=== PATIENT | female | born 1930 | race Caucasian/White ===

== ENCOUNTER 2017-06-10 04:58 | Inpatient (IN) | payer MEDICARE, BC ==
[~2017-06-10] VITALS: Ht 149.9 cm; Wt 69.4 kg
[2017-06-10] VITALS (24 sets, daily range): BP systolic 102–157; BP diastolic 62–99; PULSE 80–113; RESP 13–28; TEMP 97.9; Ht 149.9 cm; Wt 69.4 kg
--- NOTE | 2017-06-10 06:18 | ERA ---
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 resolved HPI This is an 86-year-old female with possible dementia, who is a poor historian who [facility] complaining of [facility]. Upon arrival she had tachycardia and hypoxia corrected with supplemental oxygen. She was also hypertensive in the field. The patient has a wound VAC to the right side of her chest. She is unsure why she has this or what it is for. Based on the shelter records it appears she had a clavicle fracture. It is unclear when she had this surgery or where she had the surgery. The patient cannot articulate this information. The patient did describe central chest pain that is now completely resolved. ROS All systems reviewed and are negative except as per history of present illness. Allergies Allergies: Coded Allergies: No Known Allergy (Unverified , 06/10/17) FmHx Family History: No diabetes Physical Exam Vitals Vital Signs Date Time Temp Pulse Resp B/P Pulse Ox O2 Delivery O2 Flow Rate FiO2 06/10/17 09:20 101 25 35 06/10/17 08:46 98.1 111 18 129/74 99 Room Air 06/10/17 06:47 98.0 77 22 108/89 99 Room Air 06/10/17 05:14 98.0 117 23 154/100 73 Physical Exam General: No significant distress Head: Normocephalic, atraumatic. Eyes: Pupils equally reactive, EOM intact ENT: Dry mucous membranes Neck: Supple, no lymphadenopathy Respiratory: Lungs clear bilaterally, no distress Cardiovascular: RRR, SANTHOSH 3/6 Abdominal: Soft, non-tender, non-distended, no peritoneal signs : Deferred MSK: Limited movement of all 4 extremities, no bony abnormalities Neurologic: Limited exam, and encephalopathic, limited movement of all 4 extremities Skin: The patient appears to have a wound VAC to the right side of her chest that is intact and functioning Psych: Unable to assess Result Diagram: 06/10/1751906/10/17519 Results 24 hrs Laboratory Tests Test 06/10/17 05:20 06/10/17 05:51 06/10/17 07:30 06/10/17 07:50 White Blood Count 15.910^3/ul Red Blood Count 3.1010^6/ul Hemoglobin 9.5g/dl Hematocrit 29.9% Mean Corpuscular Volume 96.5fl Mean Corpuscular Hemoglobin 30.6pg Mean Corpuscular Hemoglobin Concent 31.8g/dl Red Cell Distribution Width 14.6% Platelet Count 01495^3/UL Mean Platelet Volume 10.6fl Neutrophils % 80.2% Lymphocytes % 8.1% Monocytes % 7.2% Eosinophils % 2.9% Basophils % 0.8% Nucleated Red Blood Cells % 0.0/100WBC Neutrophils # (Manual) 12.810^3/ul Lymphocytes # 1.310^3/ul Monocytes # 1.110^3/ul Eosinophils # 0.510^3/ul Basophils # 0.110^3/ul Nucleated Red Blood Cells # 0.010^3/ul Prothrombin Time 13.6Sec Prothrombin Time Ratio 1.1 INR International Normalized Ratio 1.04 Activated Partial Thromboplast Time 33.6Sec Sodium Level 136mmol/L Potassium Level 4.2mmol/L Chloride Level 98mmol/L Carbon Dioxide Level 31mmol/L Anion Gap 11 Blood Urea Nitrogen 21mg/dl Creatinine 1.16mg/dl Glucose Level 144mg/dl Calcium Level 8.1mg/dl Troponin I 0.013ng/ml Lactic Acid Level 1.1mmol/L 0.7mmol/L Urine Color MAYNOR Urine Clarity TURBID Urine pH 5.0 Urine Specific [place] 1.017 Urine Ketones NEGATIVEmg/dL Urine Nitrite NEGATIVEmg/dL Urine Bilirubin NEGATIVEmg/dL Urine Urobilinogen NEGATIVEmg/dL Urine Leukocyte Esterase 3+Wilman/ul Urine Microscopic RBC 16/HPF Urine Microscopic WBC > 182/HPF Urine Squamous Epithelial Cells FEW/HPF Urine Bacteria FEW/HPF Urine Hemoglobin 1+mg/dL Urine Glucose NEGATIVEmg/dL Urine Total Protein 2+mg/dl Current Medications Medications (Trade) Dose Ordered Sig/Prabhu Route PRN Reason Start Time Stop Time Status Last Admin Dose Admin Sodium Chloride 2390 ml 2,390 ml BOLUS OVER 2 HOURS STAT IV* 06/10/17 07:11 06/10/17 07:13 DC 06/10/17 07:34 Cefepime HCl 50 ml @ 100 mls/hr ONCE STAT IVPB 06/10/17 07:11 06/10/17 07:40 DC 06/10/17 07:34 Vancomycin HCl 250 ml @ 125 mls/hr ONCE ONCE IVPB 06/10/17 07:30 06/10/17 09:29 DC 06/10/17 07:30 Iohexol 100 ml @ ud STK-MED ONCE .ROUTE 06/10/17 07:21 06/10/17 07:22 DC 06/10/17 07:21 Sodium Chloride (NS) 100 ml @ ud STK-MED ONCE .ROUTE 06/10/17 07:21 06/10/17 07:22 DC 06/10/17 07:21 Furosemide (Lasix) 40 mg ONCE ONCE IV 06/10/17 09:00 06/10/17 09:01 DC 06/10/17 08:44 Nitroglycerin (Nitroglycerin 2% Oint) 1 inch ONCE ONCE TD 06/10/17 09:00 06/10/17 09:01 DC 06/10/17 08:45 Procedures/MDM EKG, MONITORS, & DIAGNOSTIC IMAGING: EKG: I reviewed and interpreted a 12-lead EKG. Rhythm: Normal sinus rhythm Ectopy: None Intervals: No abnormalities ST segments: No elevations or depressions T waves: No contiguous inversions Chest x-ray: I reviewed and interpreted a 1 view of the chest Mediastinum: No enlargement Cardiac silhouette: cardiomegaly Airspace: Diffuse interstitial process consistent with pulmonary edema Bones: No evidence of fracture CTPA IMPRESSION: 1. No evidence of pulmonary embolism. 2. Moderate large bilateral pleural effusions with adjacent atelectasis, greater on the left. Bilateral interstitial and nodular alveolar infiltrates. Follow-up recommended. 3. Postoperative changes related to recent resection of the right clavicular head with a large skin defect, soft tissue mass or phlegmon, bone fragments or calcifications at the sternoclavicular junction. Thickening of the right pectoralis muscles with probable fluid collection. Evaluation is limited without contrast. Clinical correlation and comparison with prior exam recommended. RPTAT: HCNS LAB INTERPRETATION: leukocytosis and normal LA. MEDICAL DECISION MAKING: The patient presents to the emergency room with chest pain tachycardia hypoxia. The patient also has a wound VAC to the right side of the chest. Unclear when or where this was placed. The patient appears to have had a clavicle surgery based on her shelter documentation however this is the extent of the information provided. The patient cannot provide adequate history. She possibly has underlying depression and/or dementia. The differential remains broad but certainly includes pulmonary embolism given her hypoxia and tachycardia and recent surgery. Consider infectious process such as sepsis, CHF among others. Given the limited history broad workup was initiated including sepsis screening, CTPA of the chest. The patient is chest pain-free upon arrival. Cardiac etiology also exists including acute coronary syndrome. ER COURSE: The patient has a complicated presentation as she has Sirs with evidence of possible pneumonia versus urinary tract infection versus wound infection. For this reason blood cultures been taken and the patient was given broad-spectrum antibiotics. However, the patient also has evidence of gross volume overload. Her chest x-ray shows significant pulmonary edema. We do not have past medical history however the patient appears to have a systolic ejection murmur and she became hypotensive with nitroglycerin administration. This is strongly suggestive of aortic stenosis. Nitroglycerin was discontinued and blood pressure improved. Gentle diuresis was initiated with Lasix as the patient's respiratory status continued to deteriorate requiring positive pressure ventilation. For this reason I do not feel the patient would benefit from aggressive fluid resuscitation despite having Sirs criteria and source technically consistent with sepsis. The patient will likely have clinical deterioration requiring intubation if we continue with any fluid resuscitation. The patient has a delicate fluid balance and will require ICU level of care. I kept the patient and/or family informed of laboratory and diagnostic imaging results throughout the emergency room course. DISPOSITION PLAN: Intensive care unit CONSULTATION: Accepting care team and consultations: I discussed the current laboratory data, diagnostic imaging and emergency care provided. Admitting team: Dr. Schaefer for Dr. Torres Admitting team indication: Insurance directed Sepsis Documentation: Patient's infectious symptoms have not stabilized and the patient is at risk of rapid decompensation. The patient will be admitted for careful hydration, antibiotic therapy, and infectious source control. SEVERE SEPSIS CRITERIA: Infectious source: Urinary tract infection End organ damage indicated by: Acute Resp Failure (sat < 92% w/o oxygen) SEPSIS MANAGEMENT Time of recognition of severe sepsis/septic shock: Severe sepsis recognized because of patient's hypoxia. Source identified with urinary tract infection around 7:30 AM 3 HOUR BUNDLE Blood cultures x 2 before broad-spectrum antibiotics: Yes 30 ml/kg NS bolus 30/kg bolus not provided given volume overload, see documentation above Initial lactate less than 2 Repeat lactate less than 2 SEPTIC SHOCK ASSESSMENT: No lactic acid > 4.0 No persistent hypotension (SBP < 90 or 40 mmHg drop, MAP < 65) despite 30 mL/kg IV fluid bolus VOLUME REASSESSMENT FOR SEPTIC SHOCK: Reevaluation Time: 10:11 AM Temperature of 98.1 heart rate of 101, blood pressure 129/74 pulse ox of 99 on BiPAP Heart Regular rate & rhythm Lungs rhonchi bilaterally skin Warm & dry Cap Refill Less than 2 seconds Peripheral pulses Radially present PERSISTENT HYPOTENSION TREATMENT: Comfort care No Central line Not Required Vasopressor started Not required I considered further perfusion assessment with CVP measurement, SCVO2, bedside ultrasound volume assessment, passive leg raise, trial of further fluid bolus. And proceeded with broad spectrum antbiotics, and admission. CRITICAL CARE Critical care time 35 minutes Emergent fluid management while maintaining close respiratory support. Provision of immediate and broad-spectrum antibiotic therapy. Simultaneous assessment for possible sources in order to direct targeted therapy. Consideration for invasive and chemical support to prevent cardiopulmonary collapse. Critical care time is independent of procedures performed. Departure Diagnosis: Primary Impression: Sepsis Qualified Code: A41.9 - Sepsis, due to unspecified organism Additional Impressions: Acute respiratory failure with hypoxia Congestive heart failure of unknown etiology Urinary tract infection Qualified Code: N39.0 - Urinary tract infection without hematuria, site unspecified Healthcare-associated pneumonia Condition: Serious URI PAPPAS MD Jun 10, 2017 06:18
[2017-06-10 06:57] LABS: BASOPHIL # 0.1 10^3/ul (0.0-0.1); BASOPHILS % 0.8 % (0.0-2.0); EOSINOPHILS # 0.5 10^3/ul (0.0-0.5); EOSINOPHILS % 2.9 % (0.0-7.0); HEMATOCRIT 29.9 % (37.0-47.0); HEMOGLOBIN 9.5 g/dl (12.0-16.0); LYMPHOCYTES # 1.3 10^3/ul (0.8-2.9); LYMPHOCYTES % 8.1 % (15.0-51.0); MEAN CORPUSCULAR HEMOGLOBIN 30.6 pg (29.0-33.0); MEAN CORPUSCULAR HGB CONC 31.8 g/dl (32.0-37.0); MEAN CORPUSCULAR VOLUME 96.5 fl (82.0-101.0); MEAN PLATELET VOLUME 10.6 fl (7.4-10.4); MONOCYTE # 1.1 10^3/ul (0.3-0.9); MONOCYTES % 7.2 % (0.0-11.0); NEUTROPHILS % 80.2 % (39.0-77.0); PLATELET COUNT 467 10^3/UL (140-415); RED CELL DISTRIBUTION WIDTH 14.6 % (11.5-14.5); WHITE BLOOD COUNT 15.9 10^3/ul (4.8-10.8)
[2017-06-10 07:02] LABS: INR 1.04; PROTIME 13.6 Sec (12.2-14.2); PT RATIO 1.1
[2017-06-10 07:03] LABS: PARTIAL THROMBOPLASTIN TIME 33.6 Sec (25.0-35.0)
[2017-06-10 07:06] LABS: CALCIUM 8.1 mg/dl (8.4-10.2); CREATININE 1.16 mg/dl (0.44-1.00); POTASSIUM 4.2 mmol/L (3.5-5.1)
[2017-06-10] MEDS ORDERED: CEFEPIME 2GM/50 ML (PMX) 50 ML IVPB STA (07:11)
[2017-06-10] MEDS ORDERED: SODIUM CHLORIDE 0.9% 1L BAG IV* STA (07:11)
[2017-06-10 07:19] LABS: TROPONIN-I 0.013 ng/ml (0.00-0.12)
[2017-06-10] MEDS ORDERED: IOHEXOL 100 ML ONE (07:21)
[2017-06-10] MEDS ORDERED: SOD CHLORIDE 0.9% 100 ML ONE (07:21)
[2017-06-10] MEDS ORDERED: VANCOMYCIN 1 GM (PMX) 250 ML IVPB ONE (07:30)
--- NOTE | 2017-06-10 07:31 | RADRPT ---
PROCEDURE: XR Chest. CLINICAL INDICATION: Chest pain TECHNIQUE: Single frontal chest x-ray. COMPARISON: None. FINDINGS: Severe increased vascular congestion and pulmonary edema is identified. There is severe opacificati on overlapping the region of the lungs. Significant bilateral pleural effusions are identified. Th e heart size does not appear to be significantly enlarged. Patchy nodular infiltration is seen with in the lungs as well as the underlying interstitial opacification. Aortic atherosclerotic vascular c alcifications are identified. Left-sided PICC line is seen with the tip in the region of the superi or vena cava. Benign chronic senescent changes of the surrounding osseous structures is present. P revious kyphoplasty of the upper lumbar spine is noted. IMPRESSION: 1. Severe congestion and edema throughout the lungs. 2. Superimposed patchy infiltration within the lungs. 3. Significant large bilateral pleural effusions. 4. Left-sided PICC line in good position without pneumothorax. RPTAT: PP .Brown Rivas MD, MD Date Time Electronically viewed and signed by .Brown Rivas MD, on 06/10/2017 07:30 .B/
[2017-06-10 07:46] LABS: ADD UMIC YES; UR ASCORBIC ACID NEGATIVE (NEGATIVE); UR BACTERIA FEW /HPF (NONE SEEN); UR BILIRUBIN (Dip) NEGATIVE (NEGATIVE); UR BLOOD (Dip) 1+ mg/dL (NEGATIVE); UR CLARITY TURBID (CLEAR); UR COLOR AMBER (YELLOW); UR GLUCOSE (Dip) NEGATIVE (NEGATIVE); UR KETONES (Dip) NEGATIVE (NEGATIVE); UR LEUKOCYTE ESTERASE (Dip) 3+ Leu/ul (NEGATIVE); UR NITRITE (Dip) NEGATIVE (NEGATIVE); UR RBC 16 /HPF (0-5); UR SPECIFIC GRAVITY (Dip) 1.017 (1.003-1.030); UR SQUAMOUS EPITHELIAL CELL FEW /HPF (FEW); UR TOTAL PROTEIN (Dip) 2+ mg/dl (NEGATIVE); UR UROBILINOGEN (Dip) NEGATIVE (NEGATIVE)
[2017-06-10] MEDS ORDERED: FUROSEMIDE 40 MG INJ IV ONE (09:00)
[2017-06-10] MEDS ORDERED: NITROGLYCERIN 2% 1 GM OINT PKT TD ONE (09:00)
--- NOTE | 2017-06-10 09:47 | RADRPT ---
PROCEDURE: CTA Chest and pulmonary angiogram. CLINICAL INDICATION: Chest pain and shortness of breath. TECHNIQUE: CT scan of the chest and CT pulmonary angiogram was performed on a multidetector high-r esolution CT scanner. High-resolution thin slice coronal and sagittal imaging was obtained from the axial source images. The patient was examined following the uncomplicated intravenous administrat ion of 100 cc of Omnipaque-350. The images were reviewed on a PACS workstation. The total exam CTDI equals 84.9 mGy, and the total exam DLP equals 549.84 mGy-cm. COMPARISON: No prior studies are available for comparison. FINDINGS: CT chest: The exam is degraded by streak artifact. There are moderate large bilateral pleural effusions with adjacent atelectasis, greater on the left. Bilateral interstitial densities and nodular air space opacities are also noted. The central trach eobronchial tree is clear. The mediastinum is unremarkable without evidence for mass or lymphadenopathy. The vascular structur es of the mediastinum are normal in course and caliber. There is no evidence of aortic aneurysm or dissection. The heart size is normal without pericardial thickening or effusion. Aortic and coronar y artery calcifications are seen. Left PICC line is identified with the tip obscured by contrast. There are postoperative changes related to recent resection of the right clavicular head with a larg e skin defect, soft tissue mass or phlegmon, bone fragments or calcifications at the sternoclavicula r junction. There is thickening of the right pectoralis muscles with probable fluid collection with ill-defined borders. Imaging obtained through the upper abdomen is unremarkable.. There is increased thoracic kyphosis an d osteophytes throughout the spine. The bones are demineralized. Mild T11 compression fracture def ormity. L1 kyphoplasty. CT pulmonary angiogram: The pulmonary arteries are normal in caliber and morphology. No filling defects are identified in the pulmonary arteries. There is no evidence for pulmonary arterial hypertension. IMPRESSION: 1. No evidence of pulmonary embolism. 2. Moderate large bilateral pleural effusions with adjacent atelectasis, greater on the left. Bila teral interstitial and nodular alveolar infiltrates. Follow-up recommended. 3. Postoperative changes related to recent resection of the right clavicular head with a large skin defect, soft tissue mass or phlegmon, bone fragments or calcifications at the sternoclavicular junc tion. Thickening of the right pectoralis muscles with probable fluid collection. Evaluation is limit ed without contrast. Clinical correlation and comparison with prior exam recommended. RPTAT: HCNS Jordyn Ritter Physician Date Time Electronically viewed and signed by Jordyn Ritter Physician on 06/10/2017 09:47 CS/
[2017-06-10 10:26] LABS: CREATINE KINASE 29 IU/L (23-200)
[2017-06-10] MEDS ORDERED: ACET-2047 PO (10:39)
[2017-06-10 10:40] LABS: CK-MB 1.27 ng/ml (0.0-2.4)
[2017-06-10] MEDS ORDERED: NAPR220C2 PO (10:40)
[2017-06-10] MEDS ORDERED: ASPI-664 PO (10:40)
[2017-06-10 10:41] LABS: TROPONIN-I < 0.012 ng/ml (0.00-0.12)
[2017-06-10] MEDS ORDERED: CARV3.1260 PO (10:43)
[2017-06-10] MEDS ORDERED: [UNRECOGNIZED DRUG - OTHER] IV (10:44)
[2017-06-10] MEDS ORDERED: CITA20TA11 PO (10:44)
[2017-06-10] MEDS ORDERED: DOCU-159 PO (10:45)
[2017-06-10] MEDS ORDERED: ENOX40DI2 SC (10:47)
[2017-06-10] MEDS ORDERED: BISA10SU55 RC (10:47)
[2017-06-10] MEDS ORDERED: LACTINEX PO (10:48)
[2017-06-10] MEDS ORDERED: LEVO88TA42 PO (10:49)
[2017-06-10] MEDS ORDERED: MULTI PO (10:49)
[2017-06-10] MEDS ORDERED: HYDR-906 PO ×2 (10:50→10:51)
[2017-06-10] MEDS ORDERED: OMEP40CA6 PO (10:51)
[2017-06-10] MEDS ORDERED: POLY17PO6 PO (10:52)
[2017-06-10] MEDS ORDERED: PHEN177S43 MT (10:52)
[2017-06-10] MEDS ORDERED: PROT946L PO (10:53)
[2017-06-10] MEDS ORDERED: SENN-53 PO (10:54)
[2017-06-10] MEDS ORDERED: NA P135E RC (10:55)
--- NOTE | 2017-06-10 13:34 | HP ---
Date/Time of Note Date/Time of Note DATE: 06/10/17 TIME: 13:34 Assessment/Plan VTE Prophylaxis VTE Prophylaxis Intervention: other Lines/Catheters IV [facility]from [facility] PICC Line Central line still needed: Yes Assessment/Plan Assessment/Plan Hypoxemic respiratory failure secondary to severe congestive cardiac failure from likely underlying aortic stenosis. Patient may have a component of healthcare-associated pneumonia also. continue Supplemental O2, bronchodilators, abx and BiPAP prn 2. CHF: Diuresis as tolerated. Cardiac evaluation. 3. plural effusion: will order thoracentesis 4. clavicle and groin wounds. will involve wound team. may need wound VAC 5. encephalopathy: toxic/metabolic. will treat the underlying causes 6. hypotension: will rule out septic shock 30 minutes were spent on advanced directives and goals of care HPI/ROS Admit Date/Time Admit Date/Time Hx of Present Illness HISTORY OF PRESENT ILLNESS: This is an 86-year-old lady with a history of severe aortic stenosis pending possible aortic valve replacement at [facility] depending upon clinical trial, was recently admitted to [facility] where she had a prolonged 10 day stay and then discharged to [facility] facility. She experienced increasing shortness of breath, orthopnea, PND, was brought here for further evaluation. Here found to be extensively hypoxemic requiring initiation of noninvasive positive pressure ventilation. Upon further questioning, she has wound VAC in had leg and on her chest from recent clavicle fracture, per family. She is now admitted to ICU on BiPAP with improvement in her oxygenation. Imaging studies were reviewed d/w pulm and ER physician PAST MEDICAL HISTORY: Aortic stenosis. MEDICATION: Per chart. Reviewed and reconciled ALLERGIES: NONE. SOCIAL HISTORY: Nonsmoker. No alcohol. No street drug use. FAMILY HISTORY: No respiratory failure REVIEW OF SYSTEMS: A 12-point review of systems was done and pertinent findings are in HPI PHYSICAL EXAMINATION: GENERAL APPEARANCE: Chronically ill appearing lady on BiPAP. NECK: Supple. No JVD. No lymphadenopathy. CARDIAC: S1, S2. A 3/6 systolic ejection murmur heard loudest over the aortic area. CHEST: Diminished air entry bilaterally. ABDOMEN: Soft, nontender. No guarding or rebound. EXTREMITIES: No cyanosis, clubbing or edema. NEUROLOGIC: Generalized weakness. PMH/Family/Social Social History Smoking Status: Never smoker Exam/Review of Systems Vital Signs Vitals Vital Signs Date Time Temp Pulse Resp B/P Pulse Ox O2 Delivery O2 Flow Rate FiO2 06/10/17 13:04 97.9 82 20 110/68 18 Room Air 06/10/17 09:20 35 Labs Result Diagram: 06/10/17 0520 06/10/17 0520 Medications Medications Current Medications Levofloxacin/ Dextrose 100 ml @ 100 mls/hr Q48H IVPB ; Start 06/10/17 at 13:00 Dextrose/Sodium Chloride (D5-NS) 1,000 ml @ 60 mls/hr [id number] IV ; Start at 13:00 ABHINAV TURNER DO Jun 10, 2017 13:34
--- NOTE | 2017-06-10 14:11 | RADRPT ---
PROCEDURE: US chest CLINICAL INDICATION: Pleural effusion TECHNIQUE: Multiple sonographic images of the chest were obtained utilizing a linear array transduce r. The images were reviewed on a high-resolution PACS workstation. \ COMPARISON: CT from the same day. FINDINGS: A large pleural effusion is present, however during attempt of the procedure the atelectatic lung wa s closely apposed to the posterior pleural surface. A safe thoracentesis could not be performed. IMPRESSION: 1. Right pleural effusion. 2. A safe thoracentesis could not be performed. RPTAT: QQ .Jacek Rodriguez MD, Date Time Electronically viewed and signed by .Jacek Rodriguez MD, on 06/10/2017 15:05 .d/
[2017-06-10] MEDS: DEXTROSE 5%-0.9% NACL 1,000 ML IV SCH (14:52)
[2017-06-10] MEDS: LEVOFLOXACIN 500MG/D5W (PMX) 100 ML IVPB SCH (14:52)
--- NOTE | 2017-06-10 15:04 | CONS ---
DATE OF ADMISSION: 06/10/2017 DATE OF CONSULTATION: 06/10/2017 REASON FOR CONSULTATION: Shortness of breath. Thank you, Dr. Schaefer, for this consultation. HISTORY OF PRESENT ILLNESS: This is an 86-year-old lady with a history of severe aortic stenosis pending possible aortic valve replacement at [facility] depending upon clinical trial, was recently admitted to [facility] where she had a prolonged 10 day stay and then discharged to alf facility. She experienced increasing shortness of breath, orthopnea, PND, was brought here for further evaluation. Here found to be extensively hypoxemic requiring initiation of noninvasive positive pressure ventilation. Upon further questioning, she has wound VAC in had leg and on her chest from recent clavicle fracture, per family. PAST MEDICAL HISTORY: Aortic stenosis. MEDICATION: Per chart. ALLERGIES: NONE. SOCIAL HISTORY: Nonsmoker. No alcohol. No street drug use. FAMILY HISTORY: Noncontributory. REVIEW OF SYSTEMS: A 12-point review of systems currently unable to perform. PHYSICAL EXAMINATION: GENERAL APPEARANCE: Chronically ill appearing lady on BiPAP. VITAL SIGNS: Currently afebrile, pulse is 80, blood pressure 80/60, O2 sat 96 percent, FiO2 35 percent. NECK: Supple. No JVD. No lymphadenopathy. CARDIAC: S1, S2. A 3/6 systolic ejection murmur heard loudest over the aortic area. CHEST: Diminished air entry bilaterally. ABDOMEN: Soft, nontender. No guarding or rebound. EXTREMITIES: No cyanosis, clubbing or edema. NEUROLOGIC: Generalized weakness. LABORATORY: White count 15.9, hemoglobin 9.5, platelets 467. BNP 06847. INR 1.04. Lactic acid 0.8. BUN 21, creatinine 1.16. EKG shows no acute ischemic changes. Chest x-ray was reviewed, it shows severe pulmonary edema. Bilateral pleural effusions. IMPRESSION AND PLAN: Hypoxemic respiratory failure secondary to severe congestive cardiac failure from likely underlying aortic stenosis. Patient may have a component of healthcare-associated pneumonia also. She will require: 1. Supplemental O2. 2. Diuresis as tolerated. 3. Cardiac evaluation. 4. Aspiration precautions. 5. Deep venous thrombosis and gastrointestinal prophylaxes. 6. Possible thoracentesis, left and right lungs given extensive pleural effusions. Dictated By: Antonio Pimentel MD /bashir/lashell /Document#: [id number]
[2017-06-10] MEDS ORDERED: VANCOMYCIN IV PER PHARMACY XX SCH (15:30)
[2017-06-10] MEDS ORDERED: CEFEPIME 1GM/50 ML (PMX) 50 ML IVPB SCH (16:00)
--- NOTE | 2017-06-10 17:28 | CONS ---
Date/Time of Note Date/Time of Note DATE: 06/10/17 TIME: 17:16 Assessment/Plan Assessment/Plan Chief Complaint/Hosp Course ID PROGRESS NOTE CURRENT ABX: =>Vanco IV #1 + Cefepime #1 + Levaquin #1 24H INTERVAL SUMMARY * Stable on supplemental O2 via NC, resting comfortably * RADIOLOGY IMAGING REPORTS: * 06/10/17 CXR: IMPRESSION: * 1. Severe congestion and edema throughout the lungs. * 2. Superimposed patchy infiltration within the lungs. * 3. Significant large bilateral pleural effusions. * 4. Left-sided PICC line in good position without pneumothorax. * 06/10/17 CT IMPRESSION: * 1. No evidence of pulmonary embolism. * 2. Moderate large bilateral pleural effusions with adjacent atelectasis, greater on the left. Bilateral interstitial and nodular alveolar infiltrates. Follow-up recommended. * 3. Postoperative changes related to recent resection of the right clavicular head with a large skin defect, soft tissue mass or phlegmon, bone fragments or calcifications at the sternoclavicular junction. Thickening of the right pectoralis muscles with probable fluid collection. Evaluation is limited without contrast. Clinical correlation and comparison with prior exam recommended. EXAM GEN: Overweight 86 yo F, stable on supplemental O2, lethargic HEENT: Unremarkable NECK: supple CVS: RRR, S1 and S2 CHEST: Coarse BS b/l ABD: Soft, NT, + BS EXT: warm, Right chest DS C/D/I ID ASSESSMENT 86 yo F admit with: 1. Sepsis w/hypotension, leukocytosis, tachycardia 2. UTI per UA 3. s/p Hypoxic respiratory distress-> Stable on supplemental O2 via NC 4. Severe aortic stenosis pending possible aortic valve 5. Pulmonary edema w/elevated BNP 6. PNA=> CT Superimposed patchy infiltration within the lungs 7. Recent R-clavicular fx s/p fall w/wound vac => Present on admission 8. PICC Line => Present on admission ( ? ) MRSA Nares-> Pending INVASIVES: PICC Line = POA ABX ALLERGY: KNDA CURRENT ABX: => =>Vanco IV #1 + Cefepime #1 + Levaquin #1 ID RECOMMENDATIONS 1. Continue current broad spectrum ABX coverage 2. f/u on MICRO pending: BCx, Urine, Wound Cx, MRSA Nares screen 3. Thank you -- ID team will continue to follow . Problems: Consultation Date/Type/Reason Admit Date/Time Jun 10, 2017 at 12:47 Initial Consult Date Exam/Review of Systems Vital Signs Vitals Vital Signs Date Time Temp Pulse Resp B/P Pulse Ox O2 Delivery O2 Flow Rate FiO2 06/10/17 16:30 84 18 122/72 98 Nasal Cannula 2.0 06/10/17 15:30 97.8 06/10/17 09:20 35 Results Result Diagram: 06/10/17 0520 06/10/17 0520 Results 24 hrs Laboratory Tests Test 06/10/17 05:20 06/10/17 05:51 06/10/17 07:30 06/10/17 07:50 White Blood Count 15.9 H Red Blood Count 3.10 L Hemoglobin 9.5 L Hematocrit 29.9 L Mean Corpuscular Volume 96.5 Mean Corpuscular Hemoglobin 30.6 Mean Corpuscular Hemoglobin Concent 31.8 L Red Cell Distribution Width 14.6 H Platelet Count 467 H Mean Platelet Volume 10.6 H Neutrophils % 80.2 H Lymphocytes % 8.1 L Monocytes % 7.2 Eosinophils % 2.9 Basophils % 0.8 Nucleated Red Blood Cells % 0.0 Neutrophils # (Manual) 12.8 H Lymphocytes # 1.3 Monocytes # 1.1 H Eosinophils # 0.5 Basophils # 0.1 Nucleated Red Blood Cells # 0.0 Prothrombin Time 13.6 Prothrombin Time Ratio 1.1 INR International Normalized Ratio 1.04 Activated Partial Thromboplast Time 33.6 Sodium Level 136 Potassium Level 4.2 Chloride Level 98 Carbon Dioxide Level 31 Anion Gap 11 Blood Urea Nitrogen 21 H Creatinine 1.16 H Glucose Level 144 Calcium Level 8.1 L Troponin I 0.013 Lactic Acid Level 1.1 0.7 Urine Color MYANOR Urine Clarity TURBID A Urine pH 5.0 Urine Specific [place] 1.017 Urine Ketones NEGATIVE Urine Nitrite NEGATIVE Urine Bilirubin NEGATIVE Urine Urobilinogen NEGATIVE Urine Leukocyte Esterase 3+ H Urine Microscopic RBC 16 H Urine Microscopic WBC > 182 H Urine Squamous Epithelial Cells FEW Urine Bacteria FEW A Urine Hemoglobin 1+ H Urine Glucose NEGATIVE Urine Total Protein 2+ H Test 06/10/17 10:17 06/10/17 11:10 Lactic Acid Level 0.8 B-Type Natriuretic Peptide 33889 H Creatine Kinase 29 Creatine Kinase Index 4.4 Creatinine Kinase MB (Mass) 1.27 Troponin I < 0.012 Medications Medications Current Medications Levofloxacin/ Dextrose 100 ml @ 100 mls/hr Q48H IVPB Last administered on 14:52; Admin Dose 100 MLS/HR; Start 06/10/17 at 13:00 Dextrose/Sodium Chloride 1,000 ml @ 60 mls/hr [id number] IV Last administered on 06/10/17 14:52; Admin Dose 60 MLS/HR; Start 06/10/17 at 13:00 Cefepime HCl 50 ml @ 100 mls/hr Q24H IVPB ; Start 06/11/17 at 08:00 Vancomycin HCl (Vancocin) 250 ml @ 125 mls/hr Q36H IVPB ; Start 06/10/17 at 20: 00 KATE WEI NP Jun 10, 2017 17:27
[2017-06-10 17:33] LABS: CREATINE KINASE 41 IU/L (23-200)
[2017-06-10 17:46] LABS: CK-MB 2.36 ng/ml (0.0-2.4)
[2017-06-10 18:00] LABS: TROPONIN-I < 0.012 ng/ml (0.00-0.12)
[2017-06-10] MEDS: VANCOMYCIN 1 GM in NS 250 ML IVPB SCH (20:29)
[2017-06-10] MEDS ORDERED: ACETAMINOPHEN 500 MG TAB ONE (22:22)
[2017-06-10] MEDS: ACETAMINOPHEN 500 MG TAB PO PRN (22:34)
[2017-06-11] VITALS (38 sets, daily range): BP systolic 97–168; BP diastolic 59–101; PULSE 82–116; RESP 13–25
[2017-06-11] MEDS: DEXTROSE 5%-0.9% NACL 1,000 ML IV SCH (04:58)
[2017-06-11 05:36] LABS: BASOPHIL # 0.1 10^3/ul (0.0-0.1); EOSINOPHILS # 0.4 10^3/ul (0.0-0.5); EOSINOPHILS % 3.1 % (0.0-7.0); LYMPHOCYTES # 1.9 10^3/ul (0.8-2.9); MEAN CORPUSCULAR HEMOGLOBIN 30.2 pg (29.0-33.0); MEAN CORPUSCULAR VOLUME 97.3 fl (82.0-101.0); MEAN PLATELET VOLUME 10.3 fl (7.4-10.4); MONOCYTE # 1.2 10^3/ul (0.3-0.9); MONOCYTES % 8.6 % (0.0-11.0); NEUTROPHILS % 73.7 % (39.0-77.0); PLATELET COUNT 516 10^3/UL (140-415); RED BLOOD COUNT 2.98 10^6/ul (4.20-5.40); RED CELL DISTRIBUTION WIDTH 14.7 % (11.5-14.5); WHITE BLOOD COUNT 14.4 10^3/ul (4.8-10.8)
[2017-06-11 06:03] LABS: CALCIUM 8.3 mg/dl (8.4-10.2); CREATININE 1.04 mg/dl (0.44-1.00); MAGNESIUM 1.5 mg/dl (1.7-2.5); PHOSPHORUS 3.9 mg/dl (2.5-4.9); POTASSIUM 4.4 mmol/L (3.5-5.1)
--- NOTE | 2017-06-11 06:43 | RADRPT ---
PROCEDURE: XR Chest. CLINICAL INDICATION: Respiratory failure TECHNIQUE: AP Portable chest. COMPARISON: 06/10/2017 FINDINGS: The left PICC line is in satisfactory position. There is artifact over the left apex. The cardiomediastinal silhouette is within normal limits. The aortic arch is calcified. Diffuse amish ateral interstitial densities, upper lobe nodular opacities and bilateral pleural effusions are aundrea lar in appearance. No pneumothorax is seen. The hemidiaphragms are obscured. The bones are deminer alized. There are degenerative changes in the spine, T12 kyphoplasty. IMPRESSION: Left PICC line in place. Unchanged edema, bilateral interstitial alveolar opacities and pleural effusions. Physician Neeta Date Time Electronically viewed and signed by Physician Neeta on 06/11/2017 06:43 CS/
[2017-06-11] MEDS: CEFEPIME 1GM/50 ML (PMX) 50 ML IVPB SCH (08:17)
[2017-06-11 08:25] LABS: AADO2 Arterial 45.6 mmHg (7.0-24.0); Allen Test ACCEPTAB; Arterial Base Excess 9.4 mmol/L (-3.0-3); Arterial COHb 0.3 % (0.0-3.0); Arterial Fraction of Oxyhgb 96.9 % (93.0-99.0); Arterial MetHb 0.3 % (0.0-1.5); Arterial Total Hemglobin 9.2 g/dl (12.0-18.0); MODE NASAL CANNULA
[2017-06-11] MEDS: ACETAMINOPHEN 500 MG TAB PO PRN (08:40)
[2017-06-11] MEDS ORDERED: BUMETANIDE 1 MG INJ IV ONE (10:00)
--- NOTE | 2017-06-11 10:06 | PN ---
Date/Time of Note Date/Time of Note DATE: 06/11/17 TIME: 10:02 Assessment/Plan VTE Prophylaxis VTE Prophylaxis Intervention: other Lines/Catheters IV Catheter Type (from Nrs): PICC Line Central line still needed: Yes Urinary Cath still in place: Yes Reason Cath still needed: urinary retention Assessment/Plan Chief Complaint/Hosp Course This is an 86-year-old lady with a history of severe aortic stenosis pending possible aortic valve replacement at [facility] depending upon clinical trial, was recently admitted to [facility] where she had a prolonged 10 day stay and then discharged to [facility]. She experienced increasing shortness of breath, orthopnea, PND, was brought here for further evaluation. Here found to be extensively hypoxemic requiring initiation of noninvasive positive pressure ventilation. She is now admitted to ICU. Stable off BiPAP continues to be anxious Imaging studies were reviewed d/w ICU nurse and pulm cardiac strips, meds, nurses' care plans and previous orders were reviewed no new rash, hematuria, melena, hematochezia, hematuria, fever or chills reported PHYSICAL EXAMINATION: GENERAL APPEARANCE: Chronically ill appearing lady on BiPAP. NECK: Supple. No JVD. No lymphadenopathy. CARDIAC: S1, S2. A 3/6 systolic ejection murmur heard loudest over the aortic area. CHEST: Diminished air entry bilaterally. ABDOMEN: Soft, nontender. No guarding or rebound. EXTREMITIES: No cyanosis, clubbing or edema. NEUROLOGIC: Generalized weakness. time of mcfp: 40 min 1. Hypoxemic respiratory failure secondary to severe congestive cardiac failure from likely underlying aortic stenosis. Patient may have a component of healthcare-associated pneumonia also. continue Supplemental O2, bronchodilators, abx and BiPAP prn 2. acute on chronic diastolic heart failure: Diuresis as tolerated. will obtain old echo results 3. plural effusion: will order thoracentesis 4. clavicle and groin wounds. will involve wound team. may need wound VAC 5. acute encephalopathy: toxic/metabolic. will treat the underlying causes 6. hypotension: resolving. possibly due to sepsis 7. anemia: will check stool guiac, serum iron and b12/folate. no indication for transfusion Problems: Exam/Review of Systems Vital Signs Vitals Vital Signs Date Time Temp Pulse Resp B/P Pulse Ox O2 Delivery O2 Flow Rate FiO2 06/11/17 08:00 Nasal Cannula 3.0 06/11/17 08:00 98.1 100 21 148/86 100 06/10/17 09:20 35 Intake and Output 06/10/17 06/10/17 06/11/17 15:00 23:00 07:00 Intake Total 160 ml 730 ml 480 ml Output Total 250 ml 445 ml Balance 160 ml 480 ml 35 ml Results Result Diagram: 06/11/17 0500 06/11/17 0500 Results 24 hrs Laboratory Tests Test 06/10/17 10:17 06/10/17 11:10 06/10/17 16:59 06/11/17 05:00 Lactic Acid Level 0.8 B-Type Natriuretic Peptide 48660 H Creatine Kinase 29 41 Creatine Kinase Index 4.4 5.8 Creatinine Kinase MB (Mass) 1.27 2.36 Troponin I < 0.012 < 0.012 White Blood Count 14.4 H Red Blood Count 2.98 L Hemoglobin 9.0 L Hematocrit 29.0 L Mean Corpuscular Volume 97.3 Mean Corpuscular Hemoglobin 30.2 Mean Corpuscular Hemoglobin Concent 31.0 L Red Cell Distribution Width 14.7 H Platelet Count 516 H Mean Platelet Volume 10.3 Neutrophils % 73.7 Lymphocytes % 13.0 L Monocytes % 8.6 Eosinophils % 3.1 Basophils % 1.0 Nucleated Red Blood Cells % 0.0 Neutrophils # (Manual) 10.6 H Lymphocytes # 1.9 Monocytes # 1.2 H Eosinophils # 0.4 Basophils # 0.1 Nucleated Red Blood Cells # 0.0 Sodium Level 137 Potassium Level 4.4 Chloride Level 98 Carbon Dioxide Level 32 H Anion Gap 11 Blood Urea Nitrogen 20 Creatinine 1.04 H Glucose Level 106 Calcium Level 8.3 L Phosphorus Level 3.9 Magnesium Level 1.5 L Test 06/11/17 07:00 Blood Gas Specimen Source Blood arterial Arterial Blood Date Drawn 06/11/2017 8:10:41 AM Arterial Blood pH (Temp corrected) 7.427 Arterial Blood pCO2 (Temp correct) 54.3 H Arterial Blood pO2 (Temp corrected) 104.5 H Arterial Blood HCO3 35.0 H Arterial Blood Base Excess 9.4 H Arterial Blood Oxygen Saturation 97.5 Anatoly Test ACCEPTAB Arterial Blood Gas Puncture Site Right Radial Arterial Blood Carboxyhemoglobin 0.3 Arterial Blood Methemoglobin 0.3 Blood Gas A-a O2 Differential 45.6 H Oxyhemoglobin Percent 96.9 Total Hemoglobin 9.2 L Blood Gas Temperature 37.0 Blood Gas Modality NASAL CANNULA FiO2 30.0 Blood Gas Notified Whom CW Blood Gas Notified Time 06/11/2017 8:25:28 AM Medications Medications Current Medications Levofloxacin/ Dextrose 100 ml @ 100 mls/hr Q48H IVPB Last administered on 14:52; Admin Dose 100 MLS/HR; Start 06/10/17 at 13:00 Dextrose/Sodium Chloride 1,000 ml @ 60 mls/hr [id number] IV Last administered on 06/11/17 04:58; Admin Dose 60 MLS/HR; Start 06/10/17 at 13:00 Cefepime HCl 50 ml @ 100 mls/hr Q24H IVPB Last administered on 06/11/17 08:17 ; Admin Dose 100 MLS/HR; Start 06/11/17 at 08:00 Vancomycin HCl (Vancocin) 250 ml @ 125 mls/hr Q36H IVPB Last administered on 20:29; Admin Dose 125 MLS/HR; Start 06/10/17 at 20:00 Acetaminophen (Tylenol Tab) 500 mg Q6H PRN PO PAIN AND OR ELEVATED TEMP Last administered on 06/11/17 08:40; Admin Dose 500 MG; Start 06/10/17 at 22:30 Miscellaneous Information (*Rx Drug Level Order Reminder*) VANCOMYCIN TROUGH 06/12 AT 0700 ONCE ONCE XX ; Start 06/12/17 at 07:00; Stop 06/12/17 at 07:01 ABHINAV TURNER DO Jun 11, 2017 10:06
[2017-06-11] MEDS ORDERED: LORAZEPAM 2 MG INJ IV PRN (10:30)
[2017-06-11] MEDS ORDERED: BUMETANIDE 2 MG in DEXTROSE 5% 17 ML IV ONE (11:00)
--- NOTE | 2017-06-11 12:59 | CONS ---
Date/Time of Note Date/Time of Note DATE: 06/11/17 TIME: 12:57 Consult Date/Type/Reason Admit Date/Time Jun 10, 2017 at 12:47 Initial Consult Date Type of Consultation: Pulmonary Subjective Remains comfortable on nasal cannula O2. Thoracentesis held per family wishes. Objective Vital Signs Date Time Temp Pulse Resp B/P Pulse Ox O2 Delivery O2 Flow Rate FiO2 06/11/17 12:30 101 19 139/72 100 06/11/17 12:00 97.7 Nasal Cannula 3.0 06/10/17 09:20 35 Intake and Output 06/10/17 06/10/17 06/11/17 15:00 23:00 07:00 Intake Total 160 ml 730 ml 480 ml Output Total 250 ml 445 ml Balance 160 ml 480 ml 35 ml Exam PHYSICAL EXAMINATION: GENERAL APPEARANCE: Chronically ill appearing lady on nasal cannula oxygen. VITAL SIGNS: NECK: Supple. No JVD. No lymphadenopathy. CARDIAC: S1, S2. A 3/6 systolic ejection murmur heard loudest over the aortic area. CHEST: Diminished air entry bilaterally. ABDOMEN: Soft, nontender. No guarding or rebound. EXTREMITIES: No cyanosis, clubbing or edema. NEUROLOGIC: Generalized weakness. Results/Medications Result Diagram: 06/11/17 0500 06/11/17 0500 Results 24 hrs Laboratory Tests Test 06/10/17 16:59 06/11/17 05:00 06/11/17 07:00 Creatine Kinase 41 Creatine Kinase Index 5.8 Creatinine Kinase MB (Mass) 2.36 Troponin I < 0.012 White Blood Count 14.4 H Red Blood Count 2.98 L Hemoglobin 9.0 L Hematocrit 29.0 L Mean Corpuscular Volume 97.3 Mean Corpuscular Hemoglobin 30.2 Mean Corpuscular Hemoglobin Concent 31.0 L Red Cell Distribution Width 14.7 H Platelet Count 516 H Mean Platelet Volume 10.3 Neutrophils % 73.7 Lymphocytes % 13.0 L Monocytes % 8.6 Eosinophils % 3.1 Basophils % 1.0 Nucleated Red Blood Cells % 0.0 Neutrophils # (Manual) 10.6 H Lymphocytes # 1.9 Monocytes # 1.2 H Eosinophils # 0.4 Basophils # 0.1 Nucleated Red Blood Cells # 0.0 Sodium Level 137 Potassium Level 4.4 Chloride Level 98 Carbon Dioxide Level 32 H Anion Gap 11 Blood Urea Nitrogen 20 Creatinine 1.04 H Glucose Level 106 Calcium Level 8.3 L Phosphorus Level 3.9 Magnesium Level 1.5 L Blood Gas Specimen Source Blood arterial Arterial Blood Date Drawn 06/11/2017 8:10:41 AM Arterial Blood pH (Temp corrected) 7.427 Arterial Blood pCO2 (Temp correct) 54.3 H Arterial Blood pO2 (Temp corrected) 104.5 H Arterial Blood HCO3 35.0 H Arterial Blood Base Excess 9.4 H Arterial Blood Oxygen Saturation 97.5 Anatoly Test ACCEPTAB Arterial Blood Gas Puncture Site Right Radial Arterial Blood Carboxyhemoglobin 0.3 Arterial Blood Methemoglobin 0.3 Blood Gas A-a O2 Differential 45.6 H Oxyhemoglobin Percent 96.9 Total Hemoglobin 9.2 L Blood Gas Temperature 37.0 Blood Gas Modality NASAL CANNULA FiO2 30.0 Blood Gas Notified Whom CW Blood Gas Notified Time 06/11/2017 8:25:28 AM Medications Current Medications Levofloxacin/ Dextrose 100 ml @ 100 mls/hr Q48H IVPB Last administered on 14:52; Admin Dose 100 MLS/HR; Start 06/10/17 at 13:00 Cefepime HCl 50 ml @ 100 mls/hr Q24H IVPB Last administered on 06/11/17 08:17 ; Admin Dose 100 MLS/HR; Start 06/11/17 at 08:00 Vancomycin HCl (Vancocin) 250 ml @ 125 mls/hr Q36H IVPB Last administered on 20:29; Admin Dose 125 MLS/HR; Start 06/10/17 at 20:00 Acetaminophen (Tylenol Tab) 500 mg Q6H PRN PO PAIN AND OR ELEVATED TEMP Last administered on 06/11/17 08:40; Admin Dose 500 MG; Start 06/10/17 at 22:30 Miscellaneous Information (*Rx Drug Level Order Reminder*) VANCOMYCIN TROUGH 06/12 AT 0700 ONCE ONCE XX ; Start 06/12/17 at 07:00; Stop 06/12/17 at 07:01 Lorazepam (Ativan) 0.5 mg Q6H PRN IV ANXIETY; Start 06/11/17 at 10:30 Assessment/Plan Chief Complaint/Hosp Course IMPRESSION AND PLAN: Hypoxemic respiratory failure secondary to severe congestive cardiac failure from likely underlying aortic stenosis. Patient may have a component of healthcare-associated pneumonia also. Plan 1. Supplemental O2. 2. Diuresis as tolerated. Discussed with primary team. For Bumex drip. 3. Cardiac evaluation. 4. Aspiration precautions. 5. Deep venous thrombosis and gastrointestinal prophylaxes. 6. Possible thoracentesis, left and right lungs given extensive pleural effusions. Will discuss with family. Monitor chest x-rays. Disposition. Consider transfer to [facility]. Problems: HERMAN FIERRO MD, [facility] Jun 11, 2017 12:59
--- NOTE | 2017-06-11 16:00 | CONS ---
Date/Time of Note Date/Time of Note DATE: 06/11/17 TIME: 15:58 Assessment/Plan Assessment/Plan Chief Complaint/Hosp Course ID PROGRESS NOTE CURRENT ABX: =>Vanco IV #2 + Cefepime #2 + Levaquin #2 24H INTERVAL SUMMARY * Awake, alert, responsive, tachycardia HR 113 on Tele, no c/o, stable on supplemental O2 via NC, resting comfortably * RADIOLOGY IMAGING REPORTS: * 06/10/17 CXR: IMPRESSION: * 1. Severe congestion and edema throughout the lungs. * 2. Superimposed patchy infiltration within the lungs. * 3. Significant large bilateral pleural effusions. * 4. Left-sided PICC line in good position without pneumothorax. * 06/10/17 CT IMPRESSION: * 1. No evidence of pulmonary embolism. * 2. Moderate large bilateral pleural effusions with adjacent atelectasis, greater on the left. Bilateral interstitial and nodular alveolar infiltrates. Follow-up recommended. * 3. Postoperative changes related to recent resection of the right clavicular head with a large skin defect, soft tissue mass or phlegmon, bone fragments or calcifications at the sternoclavicular junction. Thickening of the right pectoralis muscles with probable fluid collection. Evaluation is limited without contrast. Clinical correlation and comparison with prior exam recommended. EXAM GEN: Overweight 86 yo F, stable on supplemental O2, lethargic HEENT: Unremarkable NECK: supple CVS: RRR, S1 and S2 CHEST: Coarse BS b/l ABD: Soft, NT, + BS EXT: warm, Right chest DS C/D/I ID ASSESSMENT 86 yo F admit with: 1. Sepsis w/hypotension, leukocytosis, tachycardia 2. UTI per UA 3. s/p Hypoxic respiratory distress-> Stable on supplemental O2 via NC 4. Severe aortic stenosis pending possible aortic valve 5. Pulmonary edema w/elevated BNP 6. PNA=> CT Superimposed patchy infiltration within the lungs 7. Recent R-clavicular fx s/p fall w/wound vac => Present on admission 8. PICC Line => Present on admission ( ? ) MRSA Nares-> Pending INVASIVES: PICC Line = POA ABX ALLERGY: KNDA CURRENT ABX: => Vanco IV #2 + Cefepime #2 + Levaquin #2 ID RECOMMENDATIONS 1. Continue current broad spectrum ABX coverage 2. f/u on MICRO pending: BCx, Urine, Wound Cx, MRSA Nares screen still pending 3. Dr. Walton reportedly dictated consult note 06/10/17 w/dictation malfunction . Problems: Consultation Date/Type/Reason Admit Date/Time Jun 10, 2017 at 12:47 Type of Consultation: ID Exam/Review of Systems Vital Signs Vitals Vital Signs Date Time Temp Pulse Resp B/P Pulse Ox O2 Delivery O2 Flow Rate FiO2 06/11/17 13:30 109 15 110/61 98 06/11/17 13:00 Nasal Cannula 3.0 06/11/17 12:00 97.7 06/10/17 09:20 35 Intake and Output 06/10/17 06/10/17 06/11/17 15:00 23:00 07:00 Intake Total 160 ml 730 ml 480 ml Output Total 250 ml 445 ml Balance 160 ml 480 ml 35 ml Results Result Diagram: 06/11/17 0500 06/11/17 0500 Results 24 hrs Laboratory Tests Test 06/10/17 16:59 06/11/17 05:00 06/11/17 07:00 Creatine Kinase 41 Creatine Kinase Index 5.8 Creatinine Kinase MB (Mass) 2.36 Troponin I < 0.012 White Blood Count 14.4 H Red Blood Count 2.98 L Hemoglobin 9.0 L Hematocrit 29.0 L Mean Corpuscular Volume 97.3 Mean Corpuscular Hemoglobin 30.2 Mean Corpuscular Hemoglobin Concent 31.0 L Red Cell Distribution Width 14.7 H Platelet Count 516 H Mean Platelet Volume 10.3 Neutrophils % 73.7 Lymphocytes % 13.0 L Monocytes % 8.6 Eosinophils % 3.1 Basophils % 1.0 Nucleated Red Blood Cells % 0.0 Neutrophils # (Manual) 10.6 H Lymphocytes # 1.9 Monocytes # 1.2 H Eosinophils # 0.4 Basophils # 0.1 Nucleated Red Blood Cells # 0.0 Sodium Level 137 Potassium Level 4.4 Chloride Level 98 Carbon Dioxide Level 32 H Anion Gap 11 Blood Urea Nitrogen 20 Creatinine 1.04 H Glucose Level 106 Calcium Level 8.3 L Phosphorus Level 3.9 Magnesium Level 1.5 L Blood Gas Specimen Source Blood arterial Arterial Blood Date Drawn 06/11/2017 8:10:41 AM Arterial Blood pH (Temp corrected) 7.427 Arterial Blood pCO2 (Temp correct) 54.3 H Arterial Blood pO2 (Temp corrected) 104.5 H Arterial Blood HCO3 35.0 H Arterial Blood Base Excess 9.4 H Arterial Blood Oxygen Saturation 97.5 Anatoly Test ACCEPTAB Arterial Blood Gas Puncture Site Right Radial Arterial Blood Carboxyhemoglobin 0.3 Arterial Blood Methemoglobin 0.3 Blood Gas A-a O2 Differential 45.6 H Oxyhemoglobin Percent 96.9 Total Hemoglobin 9.2 L Blood Gas Temperature 37.0 Blood Gas Modality NASAL CANNULA FiO2 30.0 Blood Gas Notified Whom CW Blood Gas Notified Time 06/11/2017 8:25:28 AM Medications Medications Current Medications Levofloxacin/ Dextrose 100 ml @ 100 mls/hr Q48H IVPB Last administered on 14:52; Admin Dose 100 MLS/HR; Start 06/10/17 at 13:00 Cefepime HCl 50 ml @ 100 mls/hr Q24H IVPB Last administered on 06/11/17 08:17 ; Admin Dose 100 MLS/HR; Start 06/11/17 at 08:00 Vancomycin HCl (Vancocin) 250 ml @ 125 mls/hr Q36H IVPB Last administered on 20:29; Admin Dose 125 MLS/HR; Start 06/10/17 at 20:00 Acetaminophen (Tylenol Tab) 500 mg Q6H PRN PO PAIN AND OR ELEVATED TEMP Last administered on 06/11/17 08:40; Admin Dose 500 MG; Start 06/10/17 at 22:30 Miscellaneous Information (*Rx Drug Level Order Reminder*) VANCOMYCIN TROUGH 06/12 AT 0700 ONCE ONCE XX ; Start 06/12/17 at 07:00; Stop 06/12/17 at 07:01 Lorazepam (Ativan) 0.5 mg Q6H PRN IV ANXIETY; Start 06/11/17 at 10:30 KATE WEI NP Jun 11, 2017 16:00
[2017-06-12] VITALS (39 sets, daily range): BP systolic 99–151; BP diastolic 59–104; PULSE 85–117; RESP 15–26
[2017-06-12 06:26] LABS: BASOPHIL # 0.1 10^3/ul (0.0-0.1); BASOPHILS % 0.7 % (0.0-2.0); EOSINOPHILS # 0.4 10^3/ul (0.0-0.5); EOSINOPHILS % 3.3 % (0.0-7.0); HEMATOCRIT 25.5 % (37.0-47.0); HEMOGLOBIN 8.1 g/dl (12.0-16.0); LYMPHOCYTES # 1.6 10^3/ul (0.8-2.9); LYMPHOCYTES % 14.1 % (15.0-51.0); MEAN CORPUSCULAR HGB CONC 31.8 g/dl (32.0-37.0); MEAN CORPUSCULAR VOLUME 97.7 fl (82.0-101.0); MEAN PLATELET VOLUME 10.5 fl (7.4-10.4); NEUTROPHILS % 72.5 % (39.0-77.0); PLATELET COUNT 431 10^3/UL (140-415); RED BLOOD COUNT 2.61 10^6/ul (4.20-5.40); RED CELL DISTRIBUTION WIDTH 14.9 % (11.5-14.5); WHITE BLOOD COUNT 11.5 10^3/ul (4.8-10.8)
[2017-06-12 07:01] LABS: CALCIUM 7.9 mg/dl (8.4-10.2); CREATININE 1.09 mg/dl (0.44-1.00); MAGNESIUM 1.5 mg/dl (1.7-2.5); PHOSPHORUS 3.3 mg/dl (2.5-4.9); POTASSIUM 3.7 mmol/L (3.5-5.1)
--- NOTE | 2017-06-12 07:50 | PN ---
DATE: 06/12/2017 SUBJECTIVE DATA: The patient is in the intensive care unit. Remained stable. No acute events overnight. No hemoptysis, hematemesis, hematochezia. OBJECTIVE DATA: VITAL SIGNS: Blood pressure is 120/68, respirations 16, pulse 90, temperature 98.1. I's and O's patient 1 L in and 2 L out. HEENT: Head is normocephalic. NECK: Supple. HEART: Regular rate. HEART: Regular rate. LUNGS: Diminished breath sounds at the base. ABDOMEN: Soft, nontender to palpation. No rebound or guarding. EXTREMITIES: Negative for clubbing, cyanosis. Trace edema. DERMATOLOGIC: No rashes. MUSCULOSKELETAL: No joint effusion. NEUROLOGIC: No change in exam. MEDICATIONS: Reviewed. LABORATORY AND DIAGNOSTIC DATA: Benign for, is currently pending. Chest x-ray shows unchanged edema from June 11. PICC line in place. ASSESSMENT AND PLAN: 1. Acute hypoxemic respiratory failure secondary to severe congestive heart failure from underlying aortic stenosis and possible healthcare associated pneumonia. The patient is currently on supplemental oxygen, bronchodilators, antibiotics, diuretics. Cardiology consult will be placed for evaluation. Will follow up with Pulmonary for recommendations. 2. Sepsis secondary to urinary tract infection. Questionable pneumonia. Continue current antibiotic regimen. Follow up with Infectious Disease. 3. Acute on chronic diastolic heart failure. Continue intermittent diuretic therapy. Follow up Cardiology for recommendations. 4. Pleural effusion. The patient has been seen by Pulmonary. Thoracentesis is pending, apparently refused by family. We will continue to monitor. 5. Acute on chronic encephalopathy. Etiology is toxic metabolic. Continue to treat underlying etiologies. 6. Hypertension, resolving. 7. Anemia. Monitor hemoglobin and hematocrit levels. Gastrointestinal and deep venous thrombosis prophylaxis. Continue proton pump inhibitor and 8. sequential leg squeezers. 9. Aortic stenosis. Continue medical management. Follow up with Cardiology. 10. Growing wounds. Continue wound care team. Dictated By: Jesus Manuel Sheikh DO /[email or web address] /Document#: [id number]
[2017-06-12] MEDS: CEFEPIME 1GM/50 ML (PMX) 50 ML IVPB SCH (08:21)
[2017-06-12] MEDS: VANCOMYCIN 1 GM in NS 250 ML IVPB SCH (09:14)
--- NOTE | 2017-06-12 09:49 | CONS ---
Date/Time of Note Date/Time of Note DATE: 06/12/17 TIME: 09:47 Consult Date/Type/Reason Admit Date/Time Jun 10, 2017 at 12:47 Type of Consultation: Pulmonary Subjective Patient more alert this morning comfortable some shortness of breath on exertion. No fever or chills. Objective Vital Signs Date Time Temp Pulse Resp B/P Pulse Ox O2 Delivery O2 Flow Rate FiO2 06/12/17 08:00 Nasal Cannula 3.0 06/12/17 07:00 100 23 135/88 100 06/12/17 04:00 98.1 06/10/17 09:20 35 Intake and Output 06/11/17 06/11/17 06/12/17 15:00 23:00 07:00 Intake Total 440 ml 485 ml 85 ml Output Total 1145 ml 740 ml 215 ml Balance -705 ml -255 ml -130 ml Exam PHYSICAL EXAMINATION: GENERAL APPEARANCE: Chronically ill appearing lady on nasal cannula oxygen. VITAL SIGNS: NECK: Supple. No JVD. No lymphadenopathy. CARDIAC: S1, S2. A 3/6 systolic ejection murmur heard loudest over the aortic area. CHEST: Diminished air entry bilaterally. ABDOMEN: Soft, nontender. No guarding or rebound. EXTREMITIES: No cyanosis, clubbing or edema. NEUROLOGIC: Generalized weakness. Results/Medications Result Diagram: 06/12/17 0500 06/12/17 0500 Results 24 hrs Laboratory Tests Test 06/12/17 05:00 White Blood Count 11.5 #H Red Blood Count 2.61 L Hemoglobin 8.1 L Hematocrit 25.5 L Mean Corpuscular Volume 97.7 Mean Corpuscular Hemoglobin 31.0 Mean Corpuscular Hemoglobin Concent 31.8 L Red Cell Distribution Width 14.9 H Platelet Count 431 H Mean Platelet Volume 10.5 H Neutrophils % 72.5 Lymphocytes % 14.1 L Monocytes % 9.0 Eosinophils % 3.3 Basophils % 0.7 Nucleated Red Blood Cells % 0.0 Neutrophils # (Manual) 8.3 H Lymphocytes # 1.6 Monocytes # 1.0 H Eosinophils # 0.4 Basophils # 0.1 Nucleated Red Blood Cells # 0.0 Sodium Level 136 Potassium Level 3.7 Chloride Level 96 L Carbon Dioxide Level 36 H Anion Gap 8 Blood Urea Nitrogen 17 Creatinine 1.09 H Glucose Level 88 Calcium Level 7.9 L Phosphorus Level 3.3 Magnesium Level 1.5 L Vancomycin Level Trough 12.6 Medications Current Medications Levofloxacin/ Dextrose 100 ml @ 100 mls/hr Q48H IVPB Last administered on 14:52; Admin Dose 100 MLS/HR; Start 06/10/17 at 13:00 Cefepime HCl 50 ml @ 100 mls/hr Q24H IVPB Last administered on 06/12/17 08:21 ; Admin Dose 100 MLS/HR; Start 06/11/17 at 08:00 Vancomycin HCl (Vancocin) 250 ml @ 125 mls/hr Q36H IVPB Last administered on 09:14; Admin Dose 125 MLS/HR; Start 06/10/17 at 20:00 Acetaminophen (Tylenol Tab) 500 mg Q6H PRN PO PAIN AND OR ELEVATED TEMP Last administered on 06/11/17 08:40; Admin Dose 500 MG; Start 06/10/17 at 22:30 Lorazepam (Ativan) 0.5 mg Q6H PRN IV ANXIETY; Start 06/11/17 at 10:30 Assessment/Plan Chief Complaint/Hosp Course IMPRESSION AND PLAN: Hypoxemic respiratory failure secondary to severe congestive cardiac failure from likely underlying aortic stenosis. Patient may have a component of healthcare-associated pneumonia also. Plan 1. Supplemental O2. 2. Diuresis as tolerated. Discussed with primary team. For Bumex drip. 3. Cardiac evaluation. 4. Aspiration precautions. 5. Deep venous thrombosis and gastrointestinal prophylaxes. 6. Large left pleural effusion would benefit from thoracentesis. Patient's family currently reluctant. Will discuss with them. Disposition. Consider transfer to [facility]. Problems: HERMAN FIERRO MD, [facility] Jun 12, 2017 09:49
--- NOTE | 2017-06-12 10:46 | CONS ---
Date/Time of Note Date/Time of Note DATE: 06/12/17 TIME: 10:38 Assessment/Plan Assessment/Plan Chief Complaint/Hosp Course ID PROGRESS NOTE * PLEASE NOTE: Dr. Walton (covering for Dr. Garcia) reportedly dictated consult note 06/10/17 w/dictation malfunction CURRENT ABX: =>Vanco IV #3 + Cefepime #3 + Start Diflucan #1 s/p Levaquin #3-> DC 06/12 24H INTERVAL SUMMARY * Clinically stable -- no new issues -- Awake, alert, responsive, tachycardia HR 113 on Tele, no c/o, stable on supplemental O2 via NC, resting comfortably * WBC downtrend w/current ABX * MICRO: BCx (-), MRSA screen (-), Urine (+)C.Albicans, Groin Wound (+)C. Albicans * Right shoulder post-op wound WOUND CULTURE Preliminary * RADIOLOGY IMAGING REPORTS: * 06/10/17 CXR: IMPRESSION: * 1. Severe congestion and edema throughout the lungs. * 2. Superimposed patchy infiltration within the lungs. * 3. Significant large bilateral pleural effusions. * 4. Left-sided PICC line in good position without pneumothorax. * 06/10/17 CT IMPRESSION: * 1. No evidence of pulmonary embolism. * 2. Moderate large bilateral pleural effusions with adjacent atelectasis, greater on the left. Bilateral interstitial and nodular alveolar infiltrates. Follow-up recommended. * 3. Postoperative changes related to recent resection of the right clavicular head with a large skin defect, soft tissue mass or phlegmon, bone fragments or calcifications at the sternoclavicular junction. Thickening of the right pectoralis muscles with probable fluid collection. Evaluation is limited without contrast. Clinical correlation and comparison with prior exam recommended. EXAM GEN: Overweight 86 yo F, stable on supplemental O2, lethargic HEENT: Unremarkable NECK: supple CVS: RRR, S1 and S2 CHEST: Coarse BS b/l ABD: Soft, NT, + BS EXT: warm, Right chest DS C/D/I ID ASSESSMENT 86 yo F admit with: 1. Sepsis w/hypotension, leukocytosis, tachycardia => likely due to UTI + HCAP * BCx (-) * Urine (+)C.Albicans, Groin Wound (+)C. Albicans 2. UTI => Yeast 3. s/p Hypoxic respiratory distress-> Stable on supplemental O2 via NC 4. Severe aortic stenosis pending possible aortic valve 5. Pulmonary edema w/elevated BNP 6. PNA=> CT Superimposed patchy infiltration within the lungs 7. Recent R-clavicular fx s/p fall w/wound vac => Present on admission * Right shoulder post-op wound WOUND CULTURE Preliminary 8. PICC Line => Present on admission ( ? ) MRSA Nares-> Pending INVASIVES: PICC Line = POA ABX ALLERGY: KNDA CURRENT ABX: =>Vanco IV #3 + Cefepime #3 + Start Diflucan #1 s/p Levaquin #3-> DC 06/12 ID RECOMMENDATIONS 1. DC Levaquin, continue Vanco IV + Cefepime + Start Diflucan 2. f/u on MICRO pending: BCx, Urine, Wound Cx, MRSA Nares screen still pending 3. Dr. Walton reportedly dictated consult note 06/10/17 w/dictation malfunction . Problems: Consultation Date/Type/Reason Admit Date/Time Jun 10, 2017 at 12:47 Type of Consultation: ID Exam/Review of Systems Vital Signs Vitals Vital Signs Date Time Temp Pulse Resp B/P Pulse Ox O2 Delivery O2 Flow Rate FiO2 06/12/17 09:00 103 25 120/64 99 Nasal Cannula 06/12/17 08:00 4.0 06/12/17 04:00 98.1 06/10/17 09:20 35 Intake and Output 06/11/17 06/11/17 06/12/17 15:00 23:00 07:00 Intake Total 440 ml 485 ml 85 ml Output Total 1145 ml 740 ml 215 ml Balance -705 ml -255 ml -130 ml Results Result Diagram: 06/12/17 0500 06/12/17 0500 Results 24 hrs Laboratory Tests Test 06/12/17 05:00 White Blood Count 11.5 #H Red Blood Count 2.61 L Hemoglobin 8.1 L Hematocrit 25.5 L Mean Corpuscular Volume 97.7 Mean Corpuscular Hemoglobin 31.0 Mean Corpuscular Hemoglobin Concent 31.8 L Red Cell Distribution Width 14.9 H Platelet Count 431 H Mean Platelet Volume 10.5 H Neutrophils % 72.5 Lymphocytes % 14.1 L Monocytes % 9.0 Eosinophils % 3.3 Basophils % 0.7 Nucleated Red Blood Cells % 0.0 Neutrophils # (Manual) 8.3 H Lymphocytes # 1.6 Monocytes # 1.0 H Eosinophils # 0.4 Basophils # 0.1 Nucleated Red Blood Cells # 0.0 Sodium Level 136 Potassium Level 3.7 Chloride Level 96 L Carbon Dioxide Level 36 H Anion Gap 8 Blood Urea Nitrogen 17 Creatinine 1.09 H Glucose Level 88 Calcium Level 7.9 L Phosphorus Level 3.3 Magnesium Level 1.5 L Vancomycin Level Trough 12.6 Medications Medications Current Medications Levofloxacin/ Dextrose 100 ml @ 100 mls/hr Q48H IVPB Last administered on 14:52; Admin Dose 100 MLS/HR; Start 06/10/17 at 13:00 Cefepime HCl 50 ml @ 100 mls/hr Q24H IVPB Last administered on 06/12/17 08:21 ; Admin Dose 100 MLS/HR; Start 06/11/17 at 08:00 Vancomycin HCl (Vancocin) 250 ml @ 125 mls/hr Q36H IVPB Last administered on 09:14; Admin Dose 125 MLS/HR; Start 06/10/17 at 20:00 Acetaminophen (Tylenol Tab) 500 mg Q6H PRN PO PAIN AND OR ELEVATED TEMP Last administered on 06/11/17 08:40; Admin Dose 500 MG; Start 06/10/17 at 22:30 Lorazepam (Ativan) 0.5 mg Q6H PRN IV ANXIETY; Start 06/11/17 at 10:30 KATE WEI NP Jun 12, 2017 10:46
--- NOTE | 2017-06-12 11:51 | CONS ---
DATE OF ADMISSION: 06/10/2017 DATE OF CONSULTATION: 06/12/2017 HISTORY OF PRESENT ILLNESS: Miss Valdez is an 86-year-old woman with known severe aortic stenosis, apparently awaiting a TAVR procedure at [facility]. She is recently admitted to [facility] under care of Dr. Brown Whitley for congestive heart failure. She presented to [facility] on 06/10/2017 with worsening shortness of breath and hypoxemia, found to have bilateral pleural effusions. PAST MEDICAL HISTORY: 1. Severe aortic stenosis. 2. Congestive heart failure. MEDICATIONS: Lorazepam, cefepime, vancomycin, Bumex given on 06/11/2017. PHYSICAL EXAMINATION: GENERAL APPEARANCE: She is awake and alert. LUNGS: Decreased breath sounds bilaterally. VITAL SIGNS: Temperature 98.1, pulse is mildly tachycardic at 103, blood pressure 120/64, oxygen saturation 99 percent. ABDOMEN: Soft. HEART: Reveals a late-peaking systolic murmur. No edema. LABORATORY: White count 11.5, hematocrit 25.5, platelet count 431,000. Sodium 136, potassium 3.7, BUN 17, creatinine 1.09. Troponin negative x2. BNP 11,000 IMPRESSION AND PLAN: The patient is scheduled for a Bumex drip today as per Dr. Pimentel. Of note, agree with diuresis at this time as tolerated by her blood pressure and renal function. Underlying severe aortic stenosis when euvolemic, would consider TAVR; however, her overall condition is frail. Dictated By: Dionte Batista MD /[email or web address] /Document#: [id number]
[2017-06-12] MEDS: LEVOFLOXACIN 500MG/D5W (PMX) 100 ML IVPB SCH (12:22)
[2017-06-12] MEDS ORDERED: FLUCONAZOLE 200 MG/NS (PMX) 100 ML IVPB ONE (13:00)
--- NOTE | 2017-06-12 14:46 | RADRPT ---
PROCEDURE: XR Chest. CLINICAL INDICATION: CHF TECHNIQUE: An AP view of the chest was obtained. COMPARISON: Chest x-ray dated 06/11/2017 FINDINGS: There is a left upper extremity PICC line with tip in the mid SVC. There is prominence of the central pulmonary vascular markings with diffuse interstitial opacities a nd small to moderate bilateral pleural effusions. No focal airspace opacification or pneumothorax is seen. The cardiomediastinal silhouette is mildly enlarged . Calcifications are seen within the aortic arch. The osseous structures demonstrate senescent changes. IMPRESSION: 1. Findings suggestive of pulmonary vascular congestion/interstitial edema with small to moderate bilateral pleural effusions. Lung aeration is mildly improved when compared to the prior examination . 2. Mild cardiomegaly and aortic atherosclerosis. 3. Left upper extremity PICC line with tip in the mid SVC. RPTAT: HH .Debi Vizcarra MD, MD Date Time Electronically viewed and signed by .Debi Vizcarra MD, on 06/12/2017 14:45 .G/
[2017-06-12] MEDS: ACETAMINOPHEN 500 MG TAB PO PRN (16:59)
[2017-06-13] VITALS (41 sets, daily range): BP systolic 92–168; BP diastolic 57–101; PULSE 83–113; RESP 14–30
[2017-06-13] MEDS: ACETAMINOPHEN 500 MG TAB PO PRN (04:19)
[2017-06-13 06:01] LABS: BASOPHIL # 0.1 10^3/ul (0.0-0.1); BASOPHILS % 0.8 % (0.0-2.0); EOSINOPHILS # 0.4 10^3/ul (0.0-0.5); HEMATOCRIT 25.7 % (37.0-47.0); HEMOGLOBIN 7.9 g/dl (12.0-16.0); LYMPHOCYTES # 1.5 10^3/ul (0.8-2.9); LYMPHOCYTES % 12.1 % (15.0-51.0); MEAN CORPUSCULAR HEMOGLOBIN 29.7 pg (29.0-33.0); MEAN CORPUSCULAR HGB CONC 30.7 g/dl (32.0-37.0); MEAN CORPUSCULAR VOLUME 96.6 fl (82.0-101.0); MEAN PLATELET VOLUME 10.3 fl (7.4-10.4); MONOCYTE # 1.1 10^3/ul (0.3-0.9); MONOCYTES % 8.9 % (0.0-11.0); NEUTROPHILS % 74.6 % (39.0-77.0); PLATELET COUNT 382 10^3/UL (140-415); RED BLOOD COUNT 2.66 10^6/ul (4.20-5.40); RED CELL DISTRIBUTION WIDTH 14.8 % (11.5-14.5); WHITE BLOOD COUNT 12.5 10^3/ul (4.8-10.8)
[2017-06-13 06:29] LABS: CALCIUM 7.9 mg/dl (8.4-10.2); CREATININE 1.03 mg/dl (0.44-1.00); MAGNESIUM 1.4 mg/dl (1.7-2.5); PHOSPHORUS 3.3 mg/dl (2.5-4.9)
[2017-06-13] MEDS ORDERED: MAGNESIUM SULFATE 2 GM/50 ML 50 ML ONE (07:06)
[2017-06-13] MEDS ORDERED: MAGNESIUM SULFATE 2 GM/50 ML 50 ML IVPB ONE (07:30)
--- NOTE | 2017-06-13 07:49 | PN ---
DATE: 06/13/2017 SUBJECTIVE DATA: The patient was stable overnight. Intensive care unit. No acute events noted. No hemoptysis, hematemesis, hematochezia. The patient's wounds were noted on her left neck and her groin. No other events resolved. OBJECTIVE DATA: VITAL SIGNS: Blood pressure is 116/68, respirations 13, pulse 80, temperature 98.6. HEENT: Head is normocephalic. NECK: The patient's left neck has a noted wound with dressings that are clean, dry, intact. HEART: Regular rate. LUNGS: Diminished breath sounds at the base. ABDOMEN: Soft, nontender to palpation. No rebound or guarding. EXTREMITIES: Negative for clubbing, cyanosis. No edema. DERMATOLOGIC: No rashes. MUSCULOSKELETAL: No joint effusion. The patient has a left groin wound. NEUROLOGIC: No change in exam. LABORATORY AND DIAGNOSTIC DATA: Shows a white count of 12.5, hemoglobin 7.9, hematocrit 25.7, platelet count 382. Sodium 135, potassium 4.0, chloride 97, BUN 60, creatinine 1.03. Magnesium 1.48. ASSESSMENT AND PLAN: 1. Acute hypoxemic respiratory failure secondary to severe congestive heart failure, underlying aortic stenosis and possible associated pneumonia. The patient is currently on diuretic therapy, being managed by Cardiology. Will continue current treatment plan. Continue bronchodilators, supplemental oxygen, antibiotics. Follow up with Pulmonary and Cardiology. 2. Sepsis secondary to urinary tract infection. Possible pneumonia. Continue current antibiotic regimen. 3. Acute on chronic diastolic heart failure. Continue medical management per Cardiology. 4. Pleural effusion. The patient is pending possible thoracentesis. 5. Acute on chronic encephalopathy. Etiology is toxic metabolic. Continue to monitor. 6. Hypertension. Blood pressure well controlled. 7. Anemia. The patient's H and H levels have dropped. Will check an iron panel. Monitor H and H levels. 8. Aortic stenosis. Continue current medical management. 9. Left neck wound growing wound. Continue wound care consult. Will follow the patient. Will place a General Surgery consult with Dr. Enrrique Schaefer for further evaluation. Dictated By: Jesus Manuel Sheikh DO /[email or web address] /Document#: [id number]
--- NOTE | 2017-06-13 08:17 | RADRPT ---
PROCEDURE: XR Chest. CLINICAL INDICATION: Pneumonia, congestive heart failure TECHNIQUE: Single frontal view of the chest was obtained. COMPARISON: Chest x-ray from 06/12/2017 FINDINGS: A left-sided PICC line is again noted. The heart and mediastinum are within normal limits. The aortic arch is calcified. There are stable mild to moderate bilateral pleural effusions and moderate congestive changes. Under lying infiltrates cannot be excluded. IMPRESSION: No significant interval change. RPTAT: EE Physician Dana Date Time Electronically viewed and signed by Zan Carmona Physician on 06/13/2017 08:17 /
[2017-06-13 08:21] LABS: IRON 40 ug/dl (35-150)
[2017-06-13 08:30] LABS: TOTAL IRON BINDING CAPACITY 200 ug/dl (241-421)
[2017-06-13] MEDS: CEFEPIME 1GM/50 ML (PMX) 50 ML IVPB SCH (08:55)
[2017-06-13] MEDS: FLUCONAZOLE 100 MG TAB PO SCH (08:55)
[2017-06-13 08:57] LABS: AADO2 Arterial 32.4 mmHg (7.0-24.0); Allen Test ACCEPTAB; Arterial Base Excess 12.1 mmol/L (-3.0-3); Arterial COHb 0.3 % (0.0-3.0); Arterial Fraction of Oxyhgb 97.9 % (93.0-99.0); Arterial HCO3 37.6 mmol/L (22.0-26.0); Arterial MetHb 0.4 % (0.0-1.5); MODE NASAL CANNULA
[2017-06-13] MEDS ORDERED: BISACODYL 10 MG SUPP PR PRN (09:30)
[2017-06-13] MEDS ORDERED: POLYETHYLENE GLYCOL 17 GM PACKET PO PRN (09:30)
[2017-06-13] MEDS ORDERED: SENNA TAB PO PRN (09:30)
[2017-06-13] MEDS ORDERED: NA PHOSPHATE/BIPHOS 133 ML ENEMA PR PRN (09:30)
--- NOTE | 2017-06-13 11:09 | CONS ---
Date/Time of Note Date/Time of Note DATE: 06/13/17 TIME: 11:05 Assessment/Plan Assessment/Plan Additional Assessment/Plan Assessment and recommendations; 1. Patient admitted with severe shortness of breath due to pulmonary edema from underlying severe aortic stenosis. 2. Clinically improved. 3. Possibly superimposed pneumonia. 4. Bilateral large pleural effusions. Continue current treatment. Schedule left-sided ultrasound-guided thoracentesis. I did discuss the procedure with the patient and she is agreeable. Patient also is in the process of being evaluated for aortic valve replacement/valvuloplasty at a tertiary care center. Consultation Date/Type/Reason Admit Date/Time Jun 10, 2017 at 12:47 Initial Consult Date Type of Consultation: Pulmonary/critical care 24 HR Interval Summary Free Text/Dictation Patient condition is stable. Remains completely awake and alert. Denies any shortness of breath, fever, chills. General exam; elderly lady, awake and alert. Currently in no distress. Exam/Review of Systems Vital Signs Vitals Vital Signs Date Time Temp Pulse Resp B/P Pulse Ox O2 Delivery O2 Flow Rate FiO2 06/13/17 09:00 86 22 143/82 97 06/13/17 08:00 Nasal Cannula 2.0 06/13/17 08:00 98.0 06/10/17 09:20 35 Intake and Output 06/12/17 06/12/17 06/13/17 15:00 23:00 07:00 Intake Total 150 ml 140 ml 230 ml Output Total 135 ml 325 ml 250 ml Balance 15 ml -185 ml -20 ml Exam HEENT exam; supple neck , positive JVD. Her jaw is edentulous. Neck masses. No lymphadenopathy. No thyromegaly. Pupils are midsize. Chest exam; bilateral scattered crackles. S1-S2 audible, there is a loud aortic stenosis murmur grade 3/6. Abdomen exam; soft, nontender. No organomegaly. Bowel sounds audible. Extremity exam; no edema. OPERATIONS RESEARCH MANAGER exam; no focal deficit. Results Result Diagram: 06/13/1728 06/13/17527 Results 24 hrs Laboratory Tests Test 06/13/17 05:28 White Blood Count 12.5 H Red Blood Count 2.66 L Hemoglobin 7.9 L Hematocrit 25.7 L Mean Corpuscular Volume 96.6 Mean Corpuscular Hemoglobin 29.7 Mean Corpuscular Hemoglobin Concent 30.7 L Red Cell Distribution Width 14.8 H Platelet Count 382 Mean Platelet Volume 10.3 Neutrophils % 74.6 Lymphocytes % 12.1 L Monocytes % 8.9 Eosinophils % 3.0 Basophils % 0.8 Nucleated Red Blood Cells % 0.0 Neutrophils # (Manual) 9.4 H Lymphocytes # 1.5 Monocytes # 1.1 H Eosinophils # 0.4 Basophils # 0.1 Nucleated Red Blood Cells # 0.0 Sodium Level 135 Potassium Level 4.0 Chloride Level 97 Carbon Dioxide Level 33 H Anion Gap 9 Blood Urea Nitrogen 16 Creatinine 1.03 H Glucose Level 87 Calcium Level 7.9 L Phosphorus Level 3.3 Magnesium Level 1.4 L Iron Level 40 Total Iron Binding Capacity 200 L Percent Iron Saturation 20 L Ferritin 138.0 Medications Medications Current Medications Cefepime HCl 50 ml @ 100 mls/hr Q24H IVPB Last administered on 06/13/17 08:55 ; Admin Dose 100 MLS/HR; Start 06/11/17 at 08:00 Vancomycin HCl (Vancocin) 250 ml @ 125 mls/hr Q36H IVPB Last administered on 09:14; Admin Dose 125 MLS/HR; Start 06/10/17 at 20:00 Acetaminophen (Tylenol Tab) 500 mg Q6H PRN PO PAIN AND OR ELEVATED TEMP Last administered on 06/13/17 04:19; Admin Dose 500 MG; Start 06/10/17 at 22:30 Lorazepam (Ativan) 0.5 mg Q6H PRN IV ANXIETY Last administered on 06/13/17 00: 23; Admin Dose 0.5 MG; Start 06/11/17 at 10:30 Fluconazole (Diflucan) 100 mg DAILY PO Last administered on 06/13/17 08:55; Admin Dose 100 MG; Start 06/13/17 at 09:00 Aspirin (Halfprin) 81 mg DAILY PO ; Start 06/14/17 at 09:00 Bisacodyl (Dulcolax Supp) 10 mg Q12 PRN CO CONSTIPATION; Start 06/13/17 at 09:30 Carvedilol (Coreg) 3.125 mg BID PO ; Start 06/13/17 at 21:00 Citalopram Hydrobromide (Celexa) 20 mg DAILY PO ; Start 06/14/17 at 09:00 Docusate Sodium (Colace) 100 mg BID PO ; Start 06/13/17 at 21:00 Enoxaparin Sodium (Lovenox) 40 mg DAILY SC ; Start 06/14/17 at 09:00 Acetaminophen/ Hydrocodone Bitart ([place] (5/325)) 1 tab Q4 PRN PO MODERATE PAIN LEVEL 4-6; Start 06/13/17 at 09:30 Multivitamins Therapeutic (Theragran) 1 tab DAILY PO ; Start 06/14/17 at 09:00 Sodium Biphosphate/ Sodium Phosphate (Fleet Enema) 135 ml DAILY PRN CO CONSTIPATION; Start 06/13/17 at 09:30 Polyethylene Glycol (Miralax) 17 gm DAILY PRN PO CONSTIPATION; Start 06/13/17 at 09:30 Senna (Senokot) 2 tab DAILY PRN PO CONSTIPATION; Start 06/13/17 at 09:30 FLOR ESCAMILLA Jun 13, 2017 11:09
--- NOTE | 2017-06-13 11:52 | PN ---
DATE: 06/13/2017 SUBJECTIVE DATA: No events overnight. No fevers. The patient is alert, looks comfortable. Denies pain. OBJECTIVE DATA: VITAL SIGNS: Temperature 98, pulse 83, respirations 14, blood pressure 112/68, saturation 99 on 2 L. LABORATORY AND DIAGNOSTIC DATA: WBC 12.5, H and H 7.9 and 25.7, platelets 382, neutrophils 74.6. BUN 16, creatinine 1.03. MICROBIOLOGY: Blood cultures remain negative. Urine culture grew Alivia albicans. Right groin wound culture growing Alivia albicans. Right clavicular wound culture is negative. DIAGNOSTICS: Chest x-ray this morning revealed no significant interval change. CT of the chest and thorax on admission revealed no evidence of pulmonary embolism. Moderate large bilateral pleural effusion with adjacent atelectasis, greater on the left. Bilateral interstitial and nodular alveolar infiltrates. Postoperative changes related to recent resection of the right clavicular head with a large skin defect, soft- tissue mass or phlegmon, bone fragments or calcifications at the sternoclavicular junction. Thickening of the right pectoralis muscles with probable fluid collection. INDWELLINGS: Patient has PICC line. ANTIMICROBIALS: 1. Cefepime. 2. Vancomycin. 3. Fluconazole. PHYSICAL EXAMINATION: GENERAL: This is a fragile, well-developed elderly woman, who is alert, in no distress. HEENT: Head atraumatic, normocephalic. Sclerae anicteric. Buccal mucosa pink, dry. NECK: Supple. LUNGS: Chest rise symmetrical. Right upper chest dressing intact. HEART: S1, S2. ABDOMEN: Soft, bowel sounds present. EXTREMITIES: No cyanosis. ASSESSMENT: 1. Sepsis with hypotension, leukocytosis and tachycardia on admission. 2. Urinary tract infection. 3. Right upper chest wound with a questionable abscess. 4. Right groin wound. 5. Congestive heart failure exacerbation. 6. Aortic stenosis. 7. Recent right clavicular fracture, status post fall. PLAN: The patient remains hemodynamically stable. She is on broad-spectrum antibiotics. Pending surgical evaluation. Dictated By: Amanda Luciano NP /[email or web address] /Document#: [id number]
[2017-06-13] MEDS ORDERED: LIDOCAINE 1% (MPF) 5 ML VIAL ONE (14:58)
--- NOTE | 2017-06-13 15:00 | RADRPT ---
PROCEDURE: Ultrasound guided thoracentesis CLINICAL INDICATION: Pleural fluid TECHNIQUE: Multiple sonographic images were obtained through the patient's chest. A site in the p gisselle's left lower chest was selected and marked. The area was prepped and draped in the usual ster ile fashion. 1% lidocaine was utilized. A 19-gauge Realvu Inceh needle was advanced into the pleural space and the introducer was connected to a vacuum drainage system. A total of 1000 cc of clear yellow fl uid were drained at the end of the procedure. The patient tolerated the procedure well. The specimen was sent for laboratory evaluation. RPTAT: AA COMPARISON: None FINDINGS: Pleural effusion. RPTAT: AA IMPRESSION: Uncomplicated ultrasound-guided left thoracentesis. Physician Dana Date Time Electronically viewed and signed by Physician Dana on 06/13/2017 15:00 /
[2017-06-13] MEDS: HYDROCODONE/APAP (5/325) TAB PO PRN (15:11)
--- NOTE | 2017-06-13 15:11 | CONS ---
Date/Time of Note Date/Time of Note DATE: 06/13/17 TIME: 15:02 Assessment/Plan Assessment/Plan Chief Complaint/Hosp Course 1. Right clavicular wound with debris -Local care -Vitamin C -Nutrition optimization -Debridement as needed -We will consider VAC placement versus biologic implantation 2. The right groin wound 3 -As above -We will DC sutures 3. Aortic stenosis, CHF, pleural effusion, ascites -Cardiac optimization -Thoracentesis -? Paracentesis -Judicious fluid management 4. UTI, infected wounds, possible pneumonia -IV antibiotics and antifungals -Local care -Pulmonary toilet 5. BMI 31 -Diet and nutrition optimization -Eventual exercise 6. Anemia without active bleeding -Monitor 7. Renal insufficiency -Judicious fluid management -Avoid nephrotoxic agents as possible 8. Thrombocytosis secondary to inflammatory process improving -Monitor Thank you very much for consulting me in this patient's care, Problems: Consultation Date/Type/Reason Admit Date/Time Jun 10, 2017 at 12:47 Date of Consultation: Jun 13, 2017 Type of Consultation: Gen Surgical Reason for Consultation Clavicular wound Right groin wound BMI 31 Sepsis Referring Provider: ALYSSA RESTREPO DO Hx of Present Illness Radha Valdez is an 86 yo female with multiple comorbidities who was admitted with CHF, pleural effusion, aortic stenosis, ? pna, & uti to icu. No reported fevers, chills, or chest pain. No cough. No rashes. Patient does not remember her medical history fully. She has a right clavicular wound and a right groin wound. CT scan identifies defect at these sites with possible fluid at the clavicular site. Surgical consult is obtained further evaluation and treatment. Shortness of breath, orthopnea, PND. 12 point ros otherwise negative unless addressed above. Past Medical History Hypoxemic respiratory failure Aortic stenosis ?Pneumonia CHF Plural effusion Clavicle Groin wounds Encephalopathy HTN hx Hypotension this admission BMI31 Thrombocytosis Anemia Leukocytosis Renal insufficiency Past Surgical History Clavicular surgery Angiogram thru right groin Right groin hematoma evacuation Family History Significant Family History: no pertinent family hx Social History No current etoh, drugs, or tobacco Smoking Status: Never smoker Exam/Review of Systems Vital Signs Vitals Vital Signs Date Time Temp Pulse Resp B/P Pulse Ox O2 Delivery O2 Flow Rate FiO2 06/13/17 12:00 98.3 91 25 147/100 98 Nasal Cannula 06/13/17 08:00 2.0 06/10/17 09:20 35 Intake and Output 06/12/17 06/12/17 06/13/17 15:00 23:00 07:00 Intake Total 150 ml 140 ml 230 ml Output Total 135 ml 325 ml 250 ml Balance 15 ml -185 ml -20 ml Exam Constitutional: alert (awake), obese Psych: anxiety Head: atraumatic, normocephalic Eyes: EOMI, PERRL, nl conjunctiva, No icteric ENMT: mucosa pink and moist, nl external ears & nose Neck: non-tender, other (right neck wound with debris), supple Respiratory: diminished breath sounds, No congested cough, No labored breathing, No wheezing Cardiovascular: edema, regular rate and rhythm Gastrointestinal: soft, No distended, No rebound or guarding, No tender Musculoskeletal: muscle weakness, No joint tenderness, No nl gait and stance Extremities: edema, No calf tenderness Neurological: nl speech, No nl strength Skin: rash or lesions, No diaphoresis, No nl turgor Lymph: nl lymph nodes Results Result Diagram: 06/13/1728 06/13/17 0528 Results 24 hrs Laboratory Tests Test 06/13/17 05:28 White Blood Count 12.5 H Red Blood Count 2.66 L Hemoglobin 7.9 L Hematocrit 25.7 L Mean Corpuscular Volume 96.6 Mean Corpuscular Hemoglobin 29.7 Mean Corpuscular Hemoglobin Concent 30.7 L Red Cell Distribution Width 14.8 H Platelet Count 382 Mean Platelet Volume 10.3 Neutrophils % 74.6 Lymphocytes % 12.1 L Monocytes % 8.9 Eosinophils % 3.0 Basophils % 0.8 Nucleated Red Blood Cells % 0.0 Neutrophils # (Manual) 9.4 H Lymphocytes # 1.5 Monocytes # 1.1 H Eosinophils # 0.4 Basophils # 0.1 Nucleated Red Blood Cells # 0.0 Sodium Level 135 Potassium Level 4.0 Chloride Level 97 Carbon Dioxide Level 33 H Anion Gap 9 Blood Urea Nitrogen 16 Creatinine 1.03 H Glucose Level 87 Calcium Level 7.9 L Phosphorus Level 3.3 Magnesium Level 1.4 L Iron Level 40 Total Iron Binding Capacity 200 L Percent Iron Saturation 20 L Ferritin 138.0 Medications Medications Current Medications Cefepime HCl 50 ml @ 100 mls/hr Q24H IVPB Last administered on 06/13/17 08:55 ; Admin Dose 100 MLS/HR; Start 06/11/17 at 08:00 Vancomycin HCl (Vancocin) 250 ml @ 125 mls/hr Q36H IVPB Last administered on 09:14; Admin Dose 125 MLS/HR; Start 06/10/17 at 20:00 Acetaminophen (Tylenol Tab) 500 mg Q6H PRN PO PAIN AND OR ELEVATED TEMP Last administered on 06/13/17 04:19; Admin Dose 500 MG; Start 06/10/17 at 22:30 Lorazepam (Ativan) 0.5 mg Q6H PRN IV ANXIETY Last administered on 06/13/17 00: 23; Admin Dose 0.5 MG; Start 06/11/17 at 10:30 Fluconazole (Diflucan) 100 mg DAILY PO Last administered on 06/13/17 08:55; Admin Dose 100 MG; Start 06/13/17 at 09:00 Aspirin (Halfprin) 81 mg DAILY PO ; Start 06/14/17 at 09:00 Bisacodyl (Dulcolax Supp) 10 mg Q12 PRN [place] CONSTIPATION; Start 06/13/17 at 09:30 Carvedilol (Coreg) 3.125 mg BID PO ; Start 06/13/17 at 21:00 Citalopram Hydrobromide (Celexa) 20 mg DAILY PO ; Start 06/14/17 at 09:00 Docusate Sodium (Colace) 100 mg BID PO ; Start 06/13/17 at 21:00 Enoxaparin Sodium (Lovenox) 40 mg DAILY SC ; Start 06/14/17 at 09:00 Acetaminophen/ Hydrocodone Bitart ([place] (5/325)) 1 tab Q4 PRN PO MODERATE PAIN LEVEL 4-6; Start 06/13/17 at 09:30 Multivitamins Therapeutic (Theragran) 1 tab DAILY PO ; Start 06/14/17 at 09:00 Sodium Biphosphate/ Sodium Phosphate (Fleet Enema) 135 ml DAILY PRN [place] CONSTIPATION; Start 06/13/17 at 09:30 Polyethylene Glycol (Miralax) 17 gm DAILY PRN PO CONSTIPATION; Start 06/13/17 at 09:30 Senna (Senokot) 2 tab DAILY PRN PO CONSTIPATION; Start 06/13/17 at 09:30 CHARLIE TURNER MD Jun 13, 2017 15:11
--- NOTE | 2017-06-13 15:33 | RADRPT ---
PROCEDURE: XR Chest 1 View. CLINICAL INDICATION: Status post left thoracentesis. TECHNIQUE: AP view of the chest was obtained. COMPARISON: June 13, 2017 at 06:05 a.m. FINDINGS: The heart size is within normal limits. Calcified atherosclerosis is noted in the aorta. Left-sided PICC line is stable. There has been interval decrease in left pleural effusion with improved aerati on of the left lower lobe. No pneumothorax as visualized. Diffuse interstitial prominence in both patrick ngs is unchanged. Superimposed patchy alveolar infiltrates, right greater than left continue to be i dentified. Small to moderate right pleural effusion is stable. Osseous structures are intact. IMPRESSION: Calcified atherosclerosis in the aorta. Interval decrease in left pleural effusion with improved aeration of the left lower lobe. No visuali zed pneumothorax. Stable diffuse interstitial prominence in both lungs. Stable superimposed alveolar infiltrates in both lungs, right greater than left. Stable small to moderate right pleural effusion. RPTAT: AA .Jm Gonzalez MD, Date Time Electronically viewed and signed by .Jm Gonzalez MD, on 06/13/2017 15:33 .P/
[2017-06-13 19:39] LABS: FLD TYPE PARACENTHESIS
[2017-06-13 19:40] LABS: FLD CLARITY CLEAR; FLD COLOR YELLOW; FLD RBC 0 /uL; FLD WBC 0 /cmm
[2017-06-13 19:54] LABS: FLUID GLUCOSE 94 mg/dl; FLUID LD 246 U/L; FLUID TOTAL PROTEIN < 2.0 g/dl
[2017-06-13] MEDS: VANCOMYCIN 1 GM in NS 250 ML IVPB SCH (20:39)
--- NOTE | 2017-06-13 20:55 | RADRPT ---
Echocardiogram Report Patient Name: RITA COLEY Gender: Female Date: 1930 Study Date: 13-Jun-2017 [employer] Record Clerk: Aniceto [facility] Location: 107 Ref. Physician: KRISTINE PABON Quality: Adequate Procedures: Transthoracic echocardiogram with complete 2D, M-Mode, and doppler examination. Indications: A.S. 2D/M Mode Doppler Measurement Value Normal Ranges Measurement Value Normal Ranges LVIDd 2D 3.8 3.5 - 5.6 cm ALEXIA Vmax 0.2 cm2 LVIDs 2D 2.6 2.1 - 4.1 cm ALEXIA VTI 0.3 cm2 FS 2D 32.1 % AV Mean Ian 3.3 m/sec LVPWd 2D 1.5 0.6 - 1.1 cm AV Mean PG 51.0 mmHg IVSd 2D 1.6 0.6 - 1.1 cm AV Peak Ian 4.7 m/sec IVS/LVPW 2D 1.1 AV Peak PG 89.0 mmHg AoR Diam 2D 2.5 2.0 - 3.7 cm AV VTI 108.0 cm LA/Ao 2D 2 0 - 1 LVOT Mean Ian 0.7 m/sec EDV 2D 53.6 cm3 LVOT Mean PG 2.0 mmHg ESV 2D 16.8 cm3 LVOT Peak Ian 1.0 m/sec LA Dimen 2D 4.1 2.3 - 4.0 cm LVOT Peak PG 4.0 mmHg LVOT Diam 1.2 cm LVOT VTI 24.6 cm LVOT Area 1.1 cm2 MV E Peak Ian 1.3 m/sec MV A Peak Ian 1.0 m/sec MV E/A 1.3 MV Decel Time 187 msec MV E/A 1.3 MR Peak PG 152.0 mmHg MR Peak Ian 6.2 m/sec TR Peak Ian 2.8 m/sec TR Peak PG 30.0 mmHg RVSP 40.0 mmHg Findings Left Ventricle: Hyperdynamic left ventricular systolic function. Normal left ventricular cavity size. Moderate concentric left ventricular hypertrophy. Ejection fraction is visually estimated at 70 %. Right Ventricle: Normal right ventricular size. Normal right ventricular systolic function. Left Atrium: There is mild enlargement of left atrium. Right Atrium: The right atrium is normal in size. Mitral Valve: Mitral valve leaflets appear mildly thickened. Mild mitral annular calcification. Moderate mitral valve regurgitation. Aortic Valve: Severe aortic stenosis. Aortic valve Max velocity 4.65 m/sec. Max PG 86.00 mmHg. Mean PG 51.00 mmHg. Aortic valve area 0.26 cm2. No aortic regurgitation. Tricuspid Valve: Normal appearance of the tricuspid valve. Estimated peak PA systolic pressure 40 mmHg. There is mild tricuspid regurgitation. Pulmonic Valve: Pulmonic valve not well visualized. There is trace pulmonic regurgitation. Pericardium: Normal pericardium with no significant pericardial effusion. Aorta: Normal aortic root. IVC: Normal size and normal respiratory collapse consistent with normal right atrial pressure. Conclusions 1.Hyperdynamic left ventricular systolic function. Normal left ventricular cavity size. Moderate concentric left ventricular hypertrophy. Ejection fraction is visually estimated at 70 %. 2.There is mild enlargement of left atrium. 3.Mitral valve leaflets appear mildly thickened. Mild mitral annular calcification. Moderate mitral valve regurgitation. 4.Severe aortic stenosis. Aortic valve Max velocity 4.65 m/sec. Max PG 86.00 mmHg. Mean PG 51.00 mmHg. Aortic valve area 0.26 cm2. No aortic regurgitation. 5.Normal appearance of the tricuspid valve. Estimated peak PA systolic pressure 40 mmHg. There is mild tricuspid regurgitation. 6.Normal size and normal respiratory collapse consistent with normal right atrial pressure. Electronically Signed By: Kristine Pabon 13-Jun-2017 20:55:25 -0700 Patient Name: RITA COLEY Study Date: 13-Jun-2017 [id number]
--- NOTE | 2017-06-13 21:09 | CONS ---
Date/Time of Note Date/Time of Note DATE: 06/13/17 TIME: 21:06 Consult Date/Type/Reason Admit Date/Time Jun 10, 2017 at 12:47 Initial Consult Date 06/13/17 Type of Consultation: CARDIOLOGY Ordering Provider: ALYSSA RESTREPO DO Subjective Discussed with the staff to the emergency was reviewed. Patient remained sinus rhythm. She denies any chest pain or pressure to me. She does complain of shortness of breath though. objective: General: thin female. no acute distress HEENT: NC/AT. pupils are equal. round. NECK: NO JVD. no stridor. CV: RRR. systolic ejection murmur; no gallop or rubs. PULM: + rhonchi. GI: SOFT, NT, ND, no rebound or guarding Extremity: trace B/L LE edema. no clubbing. neuro: awake and alert, OX3. Psych: calm and pleasant rectal: deferred : normal. CXR reviewed. echo reviewed: 1. Hyperdynamic left ventricular systolic function. Normal left ventricular cavity size. Moderate concentric left ventricular hypertrophy. Ejection fraction is visually estimated at 70 %. 2. There is mild enlargement of left atrium. 3. Mitral valve leaflets appear mildly thickened. Mild mitral annular calcification. Moderate mitral valve regurgitation. 4. Severe aortic stenosis. Aortic valve Max velocity 4.65 m/sec. Max PG 86.00 mmHg. Mean PG 51.00 mmHg. Aortic valve area 0.26 cm2. No aortic regurgitation. 5. Normal appearance of the tricuspid valve. Estimated peak PA systolic pressure 40 mmHg. There is mild tricuspid regurgitation. 6. Normal size and normal respiratory collapse consistent with normal right atrial pressure. Objective Vital Signs Date Time Temp Pulse Resp B/P Pulse Ox O2 Delivery O2 Flow Rate FiO2 06/13/17 18:00 96 18 111/70 95 Nasal Cannula 06/13/17 16:00 98.4 06/13/17 12:00 2.0 06/10/17 09:20 35 Intake and Output 06/12/17 06/12/17 06/13/17 15:00 23:00 07:00 Intake Total 150 ml 140 ml 230 ml Output Total 135 ml 325 ml 250 ml Balance 15 ml -185 ml -20 ml Results/Medications Result Diagram: 06/13/17 0528 06/13/17 0528 Results 24 hrs Laboratory Tests Test 06/13/17 05:28 06/13/17 14:00 White Blood Count 12.5 H Red Blood Count 2.66 L Hemoglobin 7.9 L Hematocrit 25.7 L Mean Corpuscular Volume 96.6 Mean Corpuscular Hemoglobin 29.7 Mean Corpuscular Hemoglobin Concent 30.7 L Red Cell Distribution Width 14.8 H Platelet Count 382 Mean Platelet Volume 10.3 Neutrophils % 74.6 Lymphocytes % 12.1 L Monocytes % 8.9 Eosinophils % 3.0 Basophils % 0.8 Nucleated Red Blood Cells % 0.0 Neutrophils # (Manual) 9.4 H Lymphocytes # 1.5 Monocytes # 1.1 H Eosinophils # 0.4 Basophils # 0.1 Nucleated Red Blood Cells # 0.0 Sodium Level 135 Potassium Level 4.0 Chloride Level 97 Carbon Dioxide Level 33 H Anion Gap 9 Blood Urea Nitrogen 16 Creatinine 1.03 H Glucose Level 87 Calcium Level 7.9 L Phosphorus Level 3.3 Magnesium Level 1.4 L Iron Level 40 Total Iron Binding Capacity 200 L Percent Iron Saturation 20 L Ferritin 138.0 Body Fluid Type fluid Body Fluid Volume 900.0 Body Fluid Color YELLOW Body Fluid Appearance CLEAR Body Fluid WBC 0 Body Fluid RBC (Auto) 0 Body Fluid Polynuclear WBCs (%) Body Fluid Mononuclear Cells % Auto Body Fluid Glucose 94 Body Fluid Total Protein < 2.0 Body Fluid Lactate Dehydrogenase 246 Medications Current Medications Cefepime HCl 50 ml @ 100 mls/hr Q24H IVPB Last administered on 06/13/17 08:55 ; Admin Dose 100 MLS/HR; Start 06/11/17 at 08:00 Vancomycin HCl (Vancocin) 250 ml @ 125 mls/hr Q36H IVPB Last administered on 20:39; Admin Dose 125 MLS/HR; Start 06/10/17 at 20:00 Acetaminophen (Tylenol Tab) 500 mg Q6H PRN PO PAIN AND OR ELEVATED TEMP Last administered on 06/13/17 04:19; Admin Dose 500 MG; Start 06/10/17 at 22:30 Lorazepam (Ativan) 0.5 mg Q6H PRN IV ANXIETY Last administered on 06/13/17 00: 23; Admin Dose 0.5 MG; Start 06/11/17 at 10:30 Fluconazole (Diflucan) 100 mg DAILY PO Last administered on 06/13/17 08:55; Admin Dose 100 MG; Start 06/13/17 at 09:00 Aspirin (Halfprin) 81 mg DAILY PO ; Start 06/14/17 at 09:00 Bisacodyl (Dulcolax Supp) 10 mg Q12 PRN [place] CONSTIPATION; Start 06/13/17 at 09:30 Carvedilol (Coreg) 3.125 mg BID PO Last administered on 06/13/17 20:39; Admin Dose 3.125 MG; Start 06/13/17 at 21:00 Citalopram Hydrobromide (Celexa) 20 mg DAILY PO ; Start 06/14/17 at 09:00 Docusate Sodium (Colace) 100 mg BID PO ; Start 06/13/17 at 21:00 Enoxaparin Sodium (Lovenox) 40 mg DAILY SC ; Start 06/14/17 at 09:00 Acetaminophen/ Hydrocodone Bitart ([place] (5/325)) 1 tab Q4 PRN PO MODERATE PAIN LEVEL 4-6 Last administered on 06/13/17 15:11; Admin Dose 1 TAB; Start 06/13 at 09:30 Multivitamins Therapeutic (Theragran) 1 tab DAILY PO ; Start 06/14/17 at 09:00 Sodium Biphosphate/ Sodium Phosphate (Fleet Enema) 135 ml DAILY PRN [place] CONSTIPATION; Start 06/13/17 at 09:30 Polyethylene Glycol (Miralax) 17 gm DAILY PRN PO CONSTIPATION; Start 06/13/17 at 09:30 Senna (Senokot) 2 tab DAILY PRN PO CONSTIPATION; Start 06/13/17 at 09:30 Assessment/Plan Chief Complaint/Hosp Course 1. CHF 2. critical 3. HTN 4. ANEMIA 5. CKD 6. pleural effusion HOLD ASA/ LOVENOX DUE TO ANEMIA diuresis as tolerated/ needed. transfusion prn ,monitor H/H WILL hold coreg to avoid hypotension. tele monitoring . thank you. KRISTINE BORGES MD [facility] Problems: KRISTINE BORGES MD Jun 13, 2017 21:09
[2017-06-13] MEDS: DOCUSATE SODIUM 100 MG CAP PO SCH (21:25)
[2017-06-13] MEDS ORDERED: FUROSEMIDE 40 MG INJ IV ONE (21:30)
[2017-06-14] VITALS (12 sets, daily range): BP systolic 111–132; BP diastolic 53–91; PULSE 72–187; RESP 18
[2017-06-14] MEDS: LEVOTHYROXINE 88 MCG TAB PO SCH (07:03)
[2017-06-14 08:34] LABS: BASOPHIL # 0.1 10^3/ul (0.0-0.1); BASOPHILS % 0.7 % (0.0-2.0); EOSINOPHILS # 0.4 10^3/ul (0.0-0.5); EOSINOPHILS % 3.5 % (0.0-7.0); HEMATOCRIT 25.4 % (37.0-47.0); LYMPHOCYTES # 1.6 10^3/ul (0.8-2.9); LYMPHOCYTES % 13.6 % (15.0-51.0); MEAN CORPUSCULAR HEMOGLOBIN 30.3 pg (29.0-33.0); MEAN CORPUSCULAR HGB CONC 31.5 g/dl (32.0-37.0); MEAN CORPUSCULAR VOLUME 96.2 fl (82.0-101.0); MEAN PLATELET VOLUME 10.5 fl (7.4-10.4); MONOCYTE # 0.8 10^3/ul (0.3-0.9); MONOCYTES % 7.2 % (0.0-11.0); NEUTROPHILS % 74.6 % (39.0-77.0); PLATELET COUNT 368 10^3/UL (140-415); RED BLOOD COUNT 2.64 10^6/ul (4.20-5.40); RED CELL DISTRIBUTION WIDTH 14.7 % (11.5-14.5); WHITE BLOOD COUNT 11.6 10^3/ul (4.8-10.8)
[2017-06-14] MEDS: CEFEPIME 1GM/50 ML (PMX) 50 ML IVPB SCH (08:39)
[2017-06-14] MEDS: FLUCONAZOLE 100 MG TAB PO SCH (08:42)
[2017-06-14] MEDS: MULTIVITAMINS THERAPEUTIC TAB PO SCH (08:43)
[2017-06-14] MEDS: DOCUSATE SODIUM 100 MG CAP PO SCH ×2 (08:43→22:10)
[2017-06-14] MEDS: CITALOPRAM 20 MG TAB PO SCH (08:43)
[2017-06-14] MEDS ORDERED: ENOXAPARIN 40 MG/0.4 ML SYG SC SCH (09:00)
[2017-06-14] MEDS ORDERED: ASPIRIN (EC) 81 MG TAB PO SCH (09:00)
[2017-06-14 09:04] LABS: ALBUMIN 2.6 g/dl (3.3-4.9); ALBUMIN/GLOBULIN RATIO 0.86; BILIRUBIN,INDIRECT 0.3 mg/dl (0-1.1); BILIRUBIN,TOTAL 0.3 mg/dl (0.2-1.3); CALCIUM 7.7 mg/dl (8.4-10.2); CREATININE 1.12 mg/dl (0.44-1.00); POTASSIUM 3.7 mmol/L (3.5-5.1); TOTAL PROTEIN 5.6 g/dl (6.1-8.1)
[2017-06-14 09:25] LABS: MAGNESIUM 1.8 mg/dl (1.7-2.5); PHOSPHORUS 3.7 mg/dl (2.5-4.9)
[2017-06-14] MEDS: HYDROCODONE/APAP (5/325) TAB PO PRN (10:03)
--- NOTE | 2017-06-14 10:04 | PN ---
DATE: 06/14/2017 SUBJECTIVE DATA: Patient is stable. No events overnight. The patient was seen by Dr. Schaefer for wound evaluation. No other events noted. OBJECTIVE DATA: VITAL SIGNS: Blood pressure 126/76, respirations 18, pulse 102, temperature 98.1. HEENT: Head is normocephalic. NECK: Supple. HEART: Regular rate. LUNGS: Diminished breath sounds at the base. ABDOMEN: Soft, nontender to palpation. No rebound or guarding. EXTREMITIES: Negative for clubbing, cyanosis. No edema. DERMATOLOGIC: No rashes. MUSCULOSKELETAL: The patient wounds have been noted, no change. Wounds are in the left neck and groin. NEUROLOGIC: No change in exam. MEDICATIONS: Reviewed. LABORATORY AND DIAGNOSTIC DATA: Sodium 134, potassium 3.6, chloride 93, BUN 60, creatinine 1.12. White count 9.6, hemoglobin 8.9, hematocrit 25.4, platelet count is 368,000. ASSESSMENT AND PLAN: 1. Acute hypoxemic respiratory failure secondary to severe congestive heart failure, aortic stenosis, and possible pneumonia. The patient is currently on diuretic therapy by cardiology. Continue current treatment plan. 2. Sepsis secondary to urinary tract infection. Continue antibiotic regimen. 3. Acute on chronic diastolic heart failure. Continue medical management. 4. Pleural effusion. Continue to monitor. Follow up with pulmonary. 5. Acute on chronic encephalopathy. Etiology is toxic metabolic. The patient's mental status is slowly improving. 6. Hypertension. Blood pressure controlled. 7. Anemia. Monitor hemoglobin and hematocrit levels. The patient has evidence of iron deficiency. Will start the patient on IV iron. Stool OV is pending. 8. Aortic stenosis, critical. Continue current medical management. Left neck and groin wound. Continue wound care. Appreciate General Surgery's evaluation. February 14. need a wound VAC. 10. GI and DVT prophylaxis. Continue PPI and sequential leg squeezers. 11. Hypothyroidism. Continue Synthroid. Dictated By: Jesus Manuel Sheikh DO /[email or web address]/nay /Document#: [id number]
[2017-06-14] MEDS ORDERED: POTASSIUM CHLORIDE (SR) 20 MEQ TAB PO STA (10:19)
--- NOTE | 2017-06-14 10:19 | CONS ---
Date/Time of Note Date/Time of Note DATE: 06/14/17 TIME: 10:17 Consult Date/Type/Reason Admit Date/Time Jun 10, 2017 at 12:47 Initial Consult Date 06/13/17 Type of Consultation: CARDIOLOGY Ordering Provider: ALYSSA RESTREPO DO Subjective CARDIOLOGY FOLLOW UP NOTE: Discussed with the staff and rhythm was reviewed. Patient remained sinus rhythm. She denies any chest pain or pressure to me. She has less shortness of breath objective: General: thin female. no acute distress HEENT: NC/AT. pupils are equal. round. NECK: NO JVD. no stridor. CV: RRR. systolic ejection murmur; no gallop or rubs. PULM: + rhonchi. GI: SOFT, NT, ND, no rebound or guarding Extremity: trace B/L LE edema. no clubbing. neuro: awake and alert, OX3. Psych: calm and pleasant rectal: deferred : normal. CXR reviewed. echo reviewed: 1. Hyperdynamic left ventricular systolic function. Normal left ventricular cavity size. Moderate concentric left ventricular hypertrophy. Ejection fraction is visually estimated at 70 %. 2. There is mild enlargement of left atrium. 3. Mitral valve leaflets appear mildly thickened. Mild mitral annular calcification. Moderate mitral valve regurgitation. 4. Severe aortic stenosis. Aortic valve Max velocity 4.65 m/sec. Max PG 86.00 mmHg. Mean PG 51.00 mmHg. Aortic valve area 0.26 cm2. No aortic regurgitation. 5. Normal appearance of the tricuspid valve. Estimated peak PA systolic pressure 40 mmHg. There is mild tricuspid regurgitation. 6. Normal size and normal respiratory collapse consistent with normal right atrial pressure. Objective Vital Signs Date Time Temp Pulse Resp B/P Pulse Ox O2 Delivery O2 Flow Rate FiO2 06/14/17 10:07 Nasal Cannula 2.0 06/14/17 09:11 187 06/14/17 06:47 98.1 18 126/76 100 06/10/17 09:20 35 Intake and Output 06/13/17 06/13/17 06/14/17 15:00 23:00 07:00 Intake Total 370 ml 1020 ml 240 ml Output Total 300 ml 700 ml Balance 70 ml 320 ml 240 ml Results/Medications Result Diagram: 06/14/17 0745 06/14/17 0745 Results 24 hrs Laboratory Tests Test 06/13/17 14:00 9/6/17 07:45 Body Fluid Type fluid Body Fluid Volume 900.0 Body Fluid Color YELLOW Body Fluid Appearance CLEAR Body Fluid WBC 0 Body Fluid RBC (Auto) 0 Body Fluid Polynuclear WBCs (%) Body Fluid Mononuclear Cells % Auto Body Fluid Glucose 94 Body Fluid Total Protein < 2.0 Body Fluid Lactate Dehydrogenase 246 White Blood Count 11.6 H Red Blood Count 2.64 L Hemoglobin 8.0 L Hematocrit 25.4 L Mean Corpuscular Volume 96.2 Mean Corpuscular Hemoglobin 30.3 Mean Corpuscular Hemoglobin Concent 31.5 L Red Cell Distribution Width 14.7 H Platelet Count 368 Mean Platelet Volume 10.5 H Neutrophils % 74.6 Lymphocytes % 13.6 L Monocytes % 7.2 Eosinophils % 3.5 Basophils % 0.7 Nucleated Red Blood Cells % 0.0 Neutrophils # (Manual) 8.6 H Lymphocytes # 1.6 Monocytes # 0.8 Eosinophils # 0.4 Basophils # 0.1 Nucleated Red Blood Cells # 0.0 Sodium Level 134 L Potassium Level 3.7 Chloride Level 93 L Carbon Dioxide Level 37 H Anion Gap 8 Blood Urea Nitrogen 16 Creatinine 1.12 H Glucose Level 89 Calcium Level 7.7 L Phosphorus Level 3.7 Magnesium Level 1.8 Total Bilirubin 0.3 Direct Bilirubin 0.00 Indirect Bilirubin 0.3 Aspartate Amino Transf (AST/SGOT) 25 Alanine Aminotransferase (ALT/SGPT) 23 Alkaline Phosphatase 72 B-Type Natriuretic Peptide 89818 H Total Protein 5.6 L Albumin 2.6 L Globulin 3.00 Albumin/Globulin Ratio 0.86 Medications Current Medications Cefepime HCl 50 ml @ 100 mls/hr Q24H IVPB Last administered on 06/14/17 08:39 ; Admin Dose 100 MLS/HR; Start 06/11/17 at 08:00 Vancomycin HCl (Vancocin) 250 ml @ 125 mls/hr Q36H IVPB Last administered on 20:39; Admin Dose 125 MLS/HR; Start 06/10/17 at 20:00 Acetaminophen (Tylenol Tab) 500 mg Q6H PRN PO PAIN AND OR ELEVATED TEMP Last administered on 06/13/17 04:19; Admin Dose 500 MG; Start 06/10/17 at 22:30 Lorazepam (Ativan) 0.5 mg Q6H PRN IV ANXIETY Last administered on 06/13/17 00: 23; Admin Dose 0.5 MG; Start 06/11/17 at 10:30 Fluconazole (Diflucan) 100 mg DAILY PO Last administered on 06/14/17 08:42; Admin Dose 100 MG; Start 06/13/17 at 09:00 Bisacodyl (Dulcolax Supp) 10 mg Q12 PRN [place] CONSTIPATION; Start 06/13/17 at 09:30 Carvedilol (Coreg) 3.125 mg BID PO Last administered on 06/14/17 08:43; Admin Dose 3.125 MG; Start 06/13/17 at 21:00 Citalopram Hydrobromide (Celexa) 20 mg DAILY PO Last administered on 06/14/17 08:43; Admin Dose 20 MG; Start 06/14/17 at 09:00 Docusate Sodium (Colace) 100 mg BID PO Last administered on 06/14/17 08:43; Admin Dose 100 MG; Start 06/13/17 at 21:00 Acetaminophen/ Hydrocodone Bitart ([place] (5/325)) 1 tab Q4 PRN PO MODERATE PAIN LEVEL 4-6 Last administered on 06/14/17 10:03; Admin Dose 1 TAB; Start 06/13 at 09:30 Multivitamins Therapeutic (Theragran) 1 tab DAILY PO Last administered on 08:43; Admin Dose 1 TAB; Start 06/14/17 at 09:00 Sodium Biphosphate/ Sodium Phosphate (Fleet Enema) 135 ml DAILY PRN [place] CONSTIPATION; Start 06/13/17 at 09:30 Polyethylene Glycol (Miralax) 17 gm DAILY PRN PO CONSTIPATION; Start 06/13/17 at 09:30 Senna (Senokot) 2 tab DAILY PRN PO CONSTIPATION; Start 06/13/17 at 09:30 Aspirin (Halfprin) 81 mg DAILY PO ; Start 06/16/17 at 09:00 Enoxaparin Sodium 40 mg 40 mg DAILY SC ; Start 06/16/17 at 09:00 Ferric Sodium Gluconate Complex/ Sodium Chloride (Ferrlecit/NS) 110 ml @ 110 mls/hr Q24H IVPB ; Start 06/14/17 at 12:00; Stop 06/18/17 at 12:59 Assessment/Plan Chief Complaint/Hosp Course 1. CHF 2. critical 3. HTN 4. ANEMIA 5. CKD 6. pleural effusion HOLD ASA/ LOVENOX TODAY DUE TO ANEMIA diuresis as tolerated/ needed. will give a dose of lasix now. transfusion prn ,monitor H/H WILL hold coreg for BP ,<140 to avoid hypotension. tele monitoring . thank you. KRISTINE BORGES MD [facility] Problems: KRISTINE BORGES MD Jun 14, 2017 10:18
--- NOTE | 2017-06-14 10:28 | PN ---
Date/Time of Note Date/Time of Note DATE: 06/14/17 TIME: 10:20 Assessment/Plan Lines/Catheters IV Catheter Type (from Nrsg): PICC Line Cabral in Place (from Nrsg): No Subjective 24 Hr Interval Summary Feeling ok overall. Tenderness around right clavicle and right groin. Min/mod drainage from right clavicle, mod/large creamy drainage from right groin wound. Exam/Review of Systems Vital Signs Vitals Vital Signs Date Time Temp Pulse Resp B/P Pulse Ox O2 Delivery O2 Flow Rate FiO2 06/14/17 10:07 Nasal Cannula 2.0 06/14/17 09:11 187 06/14/17 06:47 98.1 18 126/76 100 06/10/17 09:20 35 Intake and Output 06/13/17 06/13/17 06/14/17 15:00 23:00 07:00 Intake Total 370 ml 1020 ml 240 ml Output Total 300 ml 700 ml Balance 70 ml 320 ml 240 ml Results Result Diagram: 06/14/17 0745 06/14/17 0745 GERA GILL S[employer]IOR [employer]IAN Jun 14, 2017 10:28
[2017-06-14] MEDS ORDERED: FUROSEMIDE 40 MG INJ IV ONE (10:30)
[2017-06-14] MEDS ORDERED: LIDOCAINE 1%/EPI 30 ML INJ INJ SCH (11:00)
[2017-06-14] MEDS ORDERED: SILVER NITRATE SWAB TOP SCH (11:00)
[2017-06-14] MEDS: SOD FERRIC GLUC COMPLX 125 MG in SOD CHLORIDE 0.9% 100 ML IVPB SCH (13:44)
--- NOTE | 2017-06-14 14:29 | CONS ---
Date/Time of Note Date/Time of Note DATE: 06/14/17 TIME: 14:22 Assessment/Plan Assessment/Plan Chief Complaint/Hosp Course SUBJECTIVE DATA: No events overnight. Tx to tele. No fevers. The patient is alert, looks comfortable. Denies pain. MICROBIOLOGY: Blood cultures remain negative. Urine culture grew Alivia albicans. Right groin wound culture growing Alivia albicans. Right clavicular wound culture is negative. DIAGNOSTICS: Chest x-ray this morning revealed no significant interval change. CT of the chest and thorax on admission revealed no evidence of pulmonary embolism. Moderate large bilateral pleural effusion with adjacent atelectasis, greater on the left. Bilateral interstitial and nodular alveolar infiltrates. Postoperative changes related to recent resection of the right clavicular head with a large skin defect, soft- tissue mass or phlegmon, bone fragments or calcifications at the sternoclavicular junction. Thickening of the right pectoralis muscles with probable fluid collection. INDWELLINGS: Patient has PICC line. ANTIMICROBIALS: 1. Cefepime. 2. Vancomycin. 3. Fluconazole. PHYSICAL EXAMINATION: GENERAL: This is a fragile, well-developed elderly woman, who is alert, in no distress. HEENT: Head atraumatic, normocephalic. Sclerae anicteric. Buccal mucosa pink, dry. NECK: Supple. LUNGS: Chest rise symmetrical. Right upper chest dressing intact. HEART: S1, S2. ABDOMEN: Soft, bowel sounds present. EXTREMITIES: No cyanosis. ASSESSMENT: 1. S/p sepsis with hypotension, leukocytosis and tachycardia on admission. 2. Urinary tract infection. 3. Right upper chest wound ==> surgery on case. 4. Right groin wound. 5. Congestive heart failure exacerbation. 6. Aortic stenosis. 7. Recent right clavicular fracture, status post fall. 8. Pleural effusion, s/p thoracentesis PLAN: The patient remains stable. Continue abx, local wound care, f/u surgical rec-s, f/u pleural fluid cx, pulmonary/card rec-s DW staff Problems: Consultation Date/Type/Reason Admit Date/Time Jun 10, 2017 at 12:47 Initial Consult Date 06/13/17 Type of Consultation: id Referring Provider: ALYSSA RESTREPO DO Exam/Review of Systems Vital Signs Vitals Vital Signs Date Time Temp Pulse Resp B/P Pulse Ox O2 Delivery O2 Flow Rate FiO2 06/14/17 12:00 72 06/14/17 11:44 98.0 18 116/76 96 06/14/17 10:07 Nasal Cannula 2.0 06/10/17 09:20 35 Intake and Output 06/13/17 06/13/17 06/14/17 15:00 23:00 07:00 Intake Total 370 ml 1020 ml 240 ml Output Total 300 ml 700 ml Balance 70 ml 320 ml 240 ml Results Result Diagram: 06/14/17 0745 06/14/17 0745 Results 24 hrs Laboratory Tests Test 06/14/17 07:45 White Blood Count 11.6 H Red Blood Count 2.64 L Hemoglobin 8.0 L Hematocrit 25.4 L Mean Corpuscular Volume 96.2 Mean Corpuscular Hemoglobin 30.3 Mean Corpuscular Hemoglobin Concent 31.5 L Red Cell Distribution Width 14.7 H Platelet Count 368 Mean Platelet Volume 10.5 H Neutrophils % 74.6 Lymphocytes % 13.6 L Monocytes % 7.2 Eosinophils % 3.5 Basophils % 0.7 Nucleated Red Blood Cells % 0.0 Neutrophils # (Manual) 8.6 H Lymphocytes # 1.6 Monocytes # 0.8 Eosinophils # 0.4 Basophils # 0.1 Nucleated Red Blood Cells # 0.0 Sodium Level 134 L Potassium Level 3.7 Chloride Level 93 L Carbon Dioxide Level 37 H Anion Gap 8 Blood Urea Nitrogen 16 Creatinine 1.12 H Glucose Level 89 Calcium Level 7.7 L Phosphorus Level 3.7 Magnesium Level 1.8 Total Bilirubin 0.3 Direct Bilirubin 0.00 Indirect Bilirubin 0.3 Aspartate Amino Transf (AST/SGOT) 25 Alanine Aminotransferase (ALT/SGPT) 23 Alkaline Phosphatase 72 B-Type Natriuretic Peptide 20894 H Total Protein 5.6 L Albumin 2.6 L Globulin 3.00 Albumin/Globulin Ratio 0.86 Medications Medications Current Medications Cefepime HCl 50 ml @ 100 mls/hr Q24H IVPB Last administered on 06/14/17 08:39 ; Admin Dose 100 MLS/HR; Start 06/11/17 at 08:00 Vancomycin HCl (Vancocin) 250 ml @ 125 mls/hr Q36H IVPB Last administered on 20:39; Admin Dose 125 MLS/HR; Start 06/10/17 at 20:00 Acetaminophen (Tylenol Tab) 500 mg Q6H PRN PO PAIN AND OR ELEVATED TEMP Last administered on 06/13/17 04:19; Admin Dose 500 MG; Start 06/10/17 at 22:30 Lorazepam (Ativan) 0.5 mg Q6H PRN IV ANXIETY Last administered on 06/13/17 00: 23; Admin Dose 0.5 MG; Start 06/11/17 at 10:30 Fluconazole (Diflucan) 100 mg DAILY PO Last administered on 06/14/17 08:42; Admin Dose 100 MG; Start 06/13/17 at 09:00 Bisacodyl (Dulcolax Supp) 10 mg Q12 PRN [place] CONSTIPATION; Start 06/13/17 at 09:30 Carvedilol (Coreg) 3.125 mg BID PO Last administered on 06/14/17 08:43; Admin Dose 3.125 MG; Start 06/13/17 at 21:00 Citalopram Hydrobromide (Celexa) 20 mg DAILY PO Last administered on 06/14/17 08:43; Admin Dose 20 MG; Start 06/14/17 at 09:00 Docusate Sodium (Colace) 100 mg BID PO Last administered on 06/14/17 08:43; Admin Dose 100 MG; Start 06/13/17 at 21:00 Acetaminophen/ Hydrocodone Bitart ([place] (5/325)) 1 tab Q4 PRN PO MODERATE PAIN LEVEL 4-6 Last administered on 06/14/17 10:03; Admin Dose 1 TAB; Start 06/13 at 09:30 Multivitamins Therapeutic (Theragran) 1 tab DAILY PO Last administered on 08:43; Admin Dose 1 TAB; Start 06/14/17 at 09:00 Sodium Biphosphate/ Sodium Phosphate (Fleet Enema) 135 ml DAILY PRN [place] CONSTIPATION; Start 06/13/17 at 09:30 Polyethylene Glycol (Miralax) 17 gm DAILY PRN PO CONSTIPATION; Start 06/13/17 at 09:30 Senna (Senokot) 2 tab DAILY PRN PO CONSTIPATION; Start 06/13/17 at 09:30 Aspirin (Halfprin) 81 mg DAILY PO ; Start 06/16/17 at 09:00 Enoxaparin Sodium 40 mg 40 mg DAILY SC ; Start 06/16/17 at 09:00 Ferric Sodium Gluconate Complex/ Sodium Chloride (Ferrlecit/NS) 110 ml @ 110 mls/hr Q24H IVPB Last administered on 06/14/17t 13:44; Admin Dose 110 MLS/HR; Start 06/14/17 at 12:00; Stop 06/18/17 at 12:59 Lidocaine/ Epinephrine (Xylocaine 1%/ Epi (Pf)) 20 ml ONCE INJ ; Start 06/14/17 at 11:00; Stop 06/14/17 at 16:00 Silver Nitrate (Silver Nitrate Swabs) 2 stick ONCE TOP ; Start 06/14/17 at 11:00 ; Stop 06/14/17 at 16:00 RENETTA WATTS NP Jun 14, 2017 14:29
--- NOTE | 2017-06-14 16:34 | CONS ---
Date/Time of Note Date/Time of Note DATE: 06/14/17 TIME: 16:33 Consult Date/Type/Reason Admit Date/Time Jun 10, 2017 at 12:47 Type of Consultation: Pulm Ordering Provider: ALYSSA RESTREPO DO Subjective Comfortable today. Objective Vital Signs Date Time Temp Pulse Resp B/P Pulse Ox O2 Delivery O2 Flow Rate FiO2 06/14/17 16:00 73 06/14/17 15:35 98.3 18 111/53 96 06/14/17 10:07 Nasal Cannula 2.0 06/10/17 09:20 35 Intake and Output 06/13/17 06/13/17 06/14/17 15:00 23:00 07:00 Intake Total 370 ml 1020 ml 240 ml Output Total 300 ml 700 ml Balance 70 ml 320 ml 240 ml Exam PHYSICAL EXAMINATION: GENERAL APPEARANCE: Elderly lady on nc o2. VITAL SIGNS: NECK: Supple. No JVD. No lymphadenopathy. CARDIAC: S1, S2. A 3/6 systolic ejection murmur heard loudest over the aortic area. CHEST: Diminished air entry bilaterally. ABDOMEN: Soft, nontender. No guarding or rebound. EXTREMITIES: No cyanosis, clubbing or edema. NEUROLOGIC: Generalized weakness. Results/Medications Result Diagram: 06/14/17 0745 06/14/17 0745 Results 24 hrs Laboratory Tests Test 06/14/17 07:45 White Blood Count 11.6 H Red Blood Count 2.64 L Hemoglobin 8.0 L Hematocrit 25.4 L Mean Corpuscular Volume 96.2 Mean Corpuscular Hemoglobin 30.3 Mean Corpuscular Hemoglobin Concent 31.5 L Red Cell Distribution Width 14.7 H Platelet Count 368 Mean Platelet Volume 10.5 H Neutrophils % 74.6 Lymphocytes % 13.6 L Monocytes % 7.2 Eosinophils % 3.5 Basophils % 0.7 Nucleated Red Blood Cells % 0.0 Neutrophils # (Manual) 8.6 H Lymphocytes # 1.6 Monocytes # 0.8 Eosinophils # 0.4 Basophils # 0.1 Nucleated Red Blood Cells # 0.0 Sodium Level 134 L Potassium Level 3.7 Chloride Level 93 L Carbon Dioxide Level 37 H Anion Gap 8 Blood Urea Nitrogen 16 Creatinine 1.12 H Glucose Level 89 Calcium Level 7.7 L Phosphorus Level 3.7 Magnesium Level 1.8 Total Bilirubin 0.3 Direct Bilirubin 0.00 Indirect Bilirubin 0.3 Aspartate Amino Transf (AST/SGOT) 25 Alanine Aminotransferase (ALT/SGPT) 23 Alkaline Phosphatase 72 B-Type Natriuretic Peptide 64263 H Total Protein 5.6 L Albumin 2.6 L Globulin 3.00 Albumin/Globulin Ratio 0.86 Medications Current Medications Cefepime HCl 50 ml @ 100 mls/hr Q24H IVPB Last administered on 06/14/17 08:39 ; Admin Dose 100 MLS/HR; Start 06/11/17 at 08:00 Vancomycin HCl (Vancocin) 250 ml @ 125 mls/hr Q36H IVPB Last administered on 20:39; Admin Dose 125 MLS/HR; Start 06/10/17 at 20:00 Acetaminophen (Tylenol Tab) 500 mg Q6H PRN PO PAIN AND OR ELEVATED TEMP Last administered on 06/13/17 04:19; Admin Dose 500 MG; Start 06/10/17 at 22:30 Lorazepam (Ativan) 0.5 mg Q6H PRN IV ANXIETY Last administered on 06/13/17 00: 23; Admin Dose 0.5 MG; Start 06/11/17 at 10:30 Fluconazole (Diflucan) 100 mg DAILY PO Last administered on 06/14/17 08:42; Admin Dose 100 MG; Start 06/13/17 at 09:00 Bisacodyl (Dulcolax Supp) 10 mg Q12 PRN [place] CONSTIPATION; Start 06/13/17 at 09:30 Carvedilol (Coreg) 3.125 mg BID PO Last administered on 06/14/17 08:43; Admin Dose 3.125 MG; Start 06/13/17 at 21:00 Citalopram Hydrobromide (Celexa) 20 mg DAILY PO Last administered on 06/14/17 08:43; Admin Dose 20 MG; Start 06/14/17 at 09:00 Docusate Sodium (Colace) 100 mg BID PO Last administered on 06/14/17 08:43; Admin Dose 100 MG; Start 06/13/17 at 21:00 Acetaminophen/ Hydrocodone Bitart ([place] (5/325)) 1 tab Q4 PRN PO MODERATE PAIN LEVEL 4-6 Last administered on 06/14/17 10:03; Admin Dose 1 TAB; Start 9/5 /17 at 09:30 Multivitamins Therapeutic (Theragran) 1 tab DAILY PO Last administered on 08:43; Admin Dose 1 TAB; Start 06/14/17 at 09:00 Sodium Biphosphate/ Sodium Phosphate (Fleet Enema) 135 ml DAILY PRN [place] CONSTIPATION; Start 06/13/17 at 09:30 Polyethylene Glycol (Miralax) 17 gm DAILY PRN PO CONSTIPATION; Start 06/13/17 at 09:30 Senna (Senokot) 2 tab DAILY PRN PO CONSTIPATION; Start 06/13/17 at 09:30 Aspirin (Halfprin) 81 mg DAILY PO ; Start 06/16/17 at 09:00 Enoxaparin Sodium 40 mg 40 mg DAILY SC ; Start 06/16/17 at 09:00 Ferric Sodium Gluconate Complex/ Sodium Chloride (Ferrlecit/NS) 110 ml @ 110 mls/hr Q24H IVPB Last administered on 06/14/17 13:44; Admin Dose 110 MLS/HR; Start 06/14/17 at 12:00; Stop 06/18/17 at 12:59 Assessment/Plan Chief Complaint/Hosp Course IMPRESSION AND PLAN: Hypoxemic respiratory failure secondary to severe congestive cardiac failure from likely underlying aortic stenosis. Patient may have a component of healthcare-associated pneumonia also. Plan 1. Supplemental O2. 2. Diuresis as tolerated. Discussed with primary team. For Bumex drip. 3. Cardiac evaluation. 4. Aspiration precautions. 5. Deep venous thrombosis and gastrointestinal prophylaxes. 6. Large left pleural s/p thoracentesis. Disposition. Consider transfer to [facility].? Back to SNF ?? Problems: HERMAN FIERRO MD, [facility] Jun 14, 2017 16:34
[2017-06-15] VITALS (12 sets, daily range): BP systolic 115–153; BP diastolic 57–78; PULSE 76–89; RESP 16–19
[2017-06-15] MEDS: LEVOTHYROXINE 88 MCG TAB PO SCH (06:06)
[2017-06-15 07:07] LABS: BASOPHIL # 0.1 10^3/ul (0.0-0.1); BASOPHILS % 0.8 % (0.0-2.0); EOSINOPHILS # 0.5 10^3/ul (0.0-0.5); EOSINOPHILS % 4.4 % (0.0-7.0); HEMATOCRIT 28.4 % (37.0-47.0); HEMOGLOBIN 9.1 g/dl (12.0-16.0); LYMPHOCYTES # 1.7 10^3/ul (0.8-2.9); LYMPHOCYTES % 15.5 % (15.0-51.0); MEAN CORPUSCULAR HEMOGLOBIN 30.6 pg (29.0-33.0); MEAN CORPUSCULAR VOLUME 95.6 fl (82.0-101.0); MEAN PLATELET VOLUME 10.6 fl (7.4-10.4); MONOCYTE # 1.1 10^3/ul (0.3-0.9); MONOCYTES % 10.3 % (0.0-11.0); NEUTROPHILS % 68.3 % (39.0-77.0); PLATELET COUNT 431 10^3/UL (140-415); RED BLOOD COUNT 2.97 10^6/ul (4.20-5.40); RED CELL DISTRIBUTION WIDTH 14.7 % (11.5-14.5); WHITE BLOOD COUNT 10.9 10^3/ul (4.8-10.8)
[2017-06-15 07:36] LABS: ALBUMIN 2.4 g/dl (3.3-4.9); ALBUMIN/GLOBULIN RATIO 0.85; BILIRUBIN,INDIRECT 0.3 mg/dl (0-1.1); BILIRUBIN,TOTAL 0.3 mg/dl (0.2-1.3); CREATININE 1.04 mg/dl (0.44-1.00); POTASSIUM 3.9 mmol/L (3.5-5.1); TOTAL PROTEIN 5.2 g/dl (6.1-8.1)
--- NOTE | 2017-06-15 08:00 | CONS ---
Date/Time of Note Date/Time of Note DATE: 06/15/17 TIME: 07:57 Consult Date/Type/Reason Admit Date/Time Jun 10, 2017 at 12:47 Initial Consult Date 06/13/17 Type of Consultation: CARDIOLOGY Ordering Provider: ALYSSA RESTREPO DO Subjective CARDIOLOGY FOLLOW UP NOTE: Discussed with the staff and rhythm was reviewed. Patient remained sinus rhythm. She denies any chest pain or pressure to me. 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 objective: General: thin female. no acute distress HEENT: NC/AT. pupils are equal. round. NECK: NO JVD. no stridor. CV: RRR. systolic ejection murmur; no gallop or rubs. PULM: + minimnal rhonchi. GI: SOFT, NT, ND, no rebound or guarding Extremity: trace B/L LE edema. no clubbing. neuro: awake and alert, OX3. Psych: calm and pleasant rectal: deferred : normal. CXR reviewed. echo reviewed: 1. Hyperdynamic left ventricular systolic function. Normal left ventricular cavity size. Moderate concentric left ventricular hypertrophy. Ejection fraction is visually estimated at 70 %. 2. There is mild enlargement of left atrium. 3. Mitral valve leaflets appear mildly thickened. Mild mitral annular calcification. Moderate mitral valve regurgitation. 4. Severe aortic stenosis. Aortic valve Max velocity 4.65 m/sec. Max PG 86.00 mmHg. Mean PG 51.00 mmHg. Aortic valve area 0.26 cm2. No aortic regurgitation. 5. Normal appearance of the tricuspid valve. Estimated peak PA systolic pressure 40 mmHg. There is mild tricuspid regurgitation. 6. Normal size and normal respiratory collapse consistent with normal right atrial pressure. Objective Vital Signs Date Time Temp Pulse Resp B/P Pulse Ox O2 Delivery O2 Flow Rate FiO2 06/15/17 04:41 78 06/15/17 04:25 98.4 19 115/71 99 06/14/17 20:05 Nasal Cannula 2.0 Intake and Output 06/14/17 06/14/17 06/15/17 15:00 23:00 07:00 Intake Total 160 ml 900 ml 500 ml Output Total 4 ml Balance 160 ml 896 ml 500 ml Results/Medications Result Diagram: 06/15/17 0619 06/15/17618 Results 24 hrs Laboratory Tests Test 06/15/17 06:19 White Blood Count 10.9 H Red Blood Count 2.97 L Hemoglobin 9.1 L Hematocrit 28.4 L Mean Corpuscular Volume 95.6 Mean Corpuscular Hemoglobin 30.6 Mean Corpuscular Hemoglobin Concent 32.0 Red Cell Distribution Width 14.7 H Platelet Count 431 H Mean Platelet Volume 10.6 H Neutrophils % 68.3 Lymphocytes % 15.5 Monocytes % 10.3 Eosinophils % 4.4 Basophils % 0.8 Nucleated Red Blood Cells % 0.0 Neutrophils # (Manual) 7.5 Lymphocytes # 1.7 Monocytes # 1.1 H Eosinophils # 0.5 Basophils # 0.1 Nucleated Red Blood Cells # 0.0 Sodium Level 131 L Potassium Level 3.9 Chloride Level 91 L Carbon Dioxide Level 37 H Anion Gap 7 L Blood Urea Nitrogen 18 Creatinine 1.04 H Glucose Level 88 Calcium Level 8.0 L Total Bilirubin 0.3 Direct Bilirubin 0.00 Indirect Bilirubin 0.3 Aspartate Amino Transf (AST/SGOT) 23 Alanine Aminotransferase (ALT/SGPT) 20 Alkaline Phosphatase 68 B-Type Natriuretic Peptide 6200 H Total Protein 5.2 L Albumin 2.4 L Globulin 2.80 Albumin/Globulin Ratio 0.85 Medications Current Medications Cefepime HCl 50 ml @ 100 mls/hr Q24H IVPB Last administered on 06/14/17 08:39 ; Admin Dose 100 MLS/HR; Start 06/11/17 at 08:00 Vancomycin HCl (Vancocin) 250 ml @ 125 mls/hr Q36H IVPB Last administered on 20:39; Admin Dose 125 MLS/HR; Start 06/10/17 at 20:00 Acetaminophen (Tylenol Tab) 500 mg Q6H PRN PO PAIN AND OR ELEVATED TEMP Last administered on 06/13/17 04:19; Admin Dose 500 MG; Start 06/10/17 at 22:30 Lorazepam (Ativan) 0.5 mg Q6H PRN IV ANXIETY Last administered on 06/13/17 00: 23; Admin Dose 0.5 MG; Start 06/11/17 at 10:30 Fluconazole (Diflucan) 100 mg DAILY PO Last administered on 06/14/17 08:42; Admin Dose 100 MG; Start 06/13/17 at 09:00 Bisacodyl (Dulcolax Supp) 10 mg Q12 PRN [place] CONSTIPATION; Start 06/13/17 at 09:30 Carvedilol (Coreg) 3.125 mg BID PO Last administered on 06/14/17 22:11; Admin Dose 3.125 MG; Start 06/13/17 at 21:00 Citalopram Hydrobromide (Celexa) 20 mg DAILY PO Last administered on 06/14/17 08:43; Admin Dose 20 MG; Start 06/14/17 at 09:00 Docusate Sodium (Colace) 100 mg BID PO Last administered on 06/14/17 22:10; Admin Dose 100 MG; Start 06/13/17 at 21:00 Acetaminophen/ Hydrocodone Bitart ([place] (5/325)) 1 tab Q4 PRN PO MODERATE PAIN LEVEL 4-6 Last administered on 06/14/17 10:03; Admin Dose 1 TAB; Start 06/13 at 09:30 Multivitamins Therapeutic (Theragran) 1 tab DAILY PO Last administered on 08:43; Admin Dose 1 TAB; Start 06/14/17 at 09:00 Sodium Biphosphate/ Sodium Phosphate (Fleet Enema) 135 ml DAILY PRN [place] CONSTIPATION; Start 06/13/17 at 09:30 Polyethylene Glycol (Miralax) 17 gm DAILY PRN PO CONSTIPATION; Start 06/13/17 at 09:30 Senna (Senokot) 2 tab DAILY PRN PO CONSTIPATION; Start 06/13/17 at 09:30 Aspirin (Halfprin) 81 mg DAILY PO ; Start 06/16/17 at 09:00 Enoxaparin Sodium 40 mg 40 mg DAILY SC ; Start 06/16/17 at 09:00 Ferric Sodium Gluconate Complex/ Sodium Chloride (Ferrlecit/NS) 110 ml @ 110 mls/hr Q24H IVPB Last administered on 06/14/17 13:44; Admin Dose 110 MLS/HR; Start 06/14/17 at 12:00; Stop 06/18/17 at 12:59 Assessment/Plan Chief Complaint/Hosp Course 1. CHF 2. critical 3. HTN 4. ANEMIA 5. CKD 6. pleural effusion 7. hx of right groin infection/hematoma after yanci angio done by Dr Menjivar. 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 will start po lasix. transfusion prn ,monitor H/H WILL dc coreg to avoid hypotension. tele monitoring . abx as per ID rec pt has been evaluated by Christine for TAVR, BUT is awaiting ID clearance due to infected vascular post cardiac cath. thank you. KRISTINE BORGES MD [facility] Problems: KRISTINE BORGES MD Jun 15, 2017 08:00
--- NOTE | 2017-06-15 08:13 | RADRPT ---
PROCEDURE: XR Chest. CLINICAL INDICATION: Pneumonia TECHNIQUE: Portable single view of the chest COMPARISON: 06/13 FINDINGS: Lung volumes are slightly improved with slightly improved aeration of the right lung base. Right ple ural effusion appears larger which may in part be due to positioning change. Small left effusion is seen, perhaps slightly increased. Pulmonary vascular congestion with probable interstitial edema is again seen. Infectious infiltrates of the lung bases cannot be excluded. Aortic calcification is see n. Degenerative change of the spine. IMPRESSION: Improved lung volumes. Right greater than left pleural effusions which may be increased. RPTAT: [facility] Physician Brandan Date Time Electronically viewed and signed by Yoselyn Roper Physician on 06/15/2017 08:13 LE/
[2017-06-15] MEDS: CEFEPIME 1GM/50 ML (PMX) 50 ML IVPB SCH (08:33)
[2017-06-15] MEDS: FUROSEMIDE 40 MG TAB PO SCH (08:35)
[2017-06-15] MEDS: MULTIVITAMINS THERAPEUTIC TAB PO SCH (08:35)
[2017-06-15] MEDS: FLUCONAZOLE 100 MG TAB PO SCH (08:36)
[2017-06-15] MEDS: DOCUSATE SODIUM 100 MG CAP PO SCH ×2 (08:36→21:52)
[2017-06-15] MEDS: CITALOPRAM 20 MG TAB PO SCH (08:36)
[2017-06-15] MEDS: VANCOMYCIN 1 GM in NS 250 ML IVPB SCH (08:40)
[2017-06-15 09:09] LABS: MAGNESIUM 1.7 mg/dl (1.7-2.5); PHOSPHORUS 3.4 mg/dl (2.5-4.9)
--- NOTE | 2017-06-15 09:48 | PN ---
DATE: 06/15/2017 SUBJECTIVE DATA: The patient is stable. No events overnight. The patient is pending surgical debridement of wound today. No other events noted. OBJECTIVE DATA: VITAL SIGNS: Blood pressure is 115/61, respirations 16, pulse 79, temperature 98.3. HEENT: Head is normocephalic. NECK: Supple. HEART: Regular rate. LUNGS: Showed diminished breath sounds at the base. ABDOMEN: Soft, nontender to palpation. No rebound or guarding. EXTREMITIES: Negative for clubbing, cyanosis. No edema. DERMATOLOGIC: No rashes. MUSCULOSKELETAL: Noted wounds in left neck and growing. NEUROLOGIC: No change in exam. MEDICATIONS: Reviewed. LABORATORY AND DIAGNOSTIC DATA: Shows sodium 131, potassium 3.9, BUN 18, creatinine 1.04. White count 10.9, hemoglobin 9.1, crit of 28.1, platelet count is 431. The patient's chest x-ray on 06/15 shows right greater than left pleural effusion may have increased. ASSESSMENT AND PLAN: 1. Acute hypoxemic respiratory failure secondary to congestive heart failure, aortic stenosis, pneumonia. The patient is currently on diuretic therapy. Completing antibiotic course. Will continue. Follow up with Pulmonary and Cardiology. 2. Sepsis secondary to urinary tract infection. Continue current antibiotic regimen. 3. [id number] diastolic heart failure. Continue medical management. 4. Pleural effusion. The patient is status post thoracentesis. Continue to monitor. May require repeat thoracentesis. Follow up with Pulmonary. 5. [id number] encephalopathy. Etiology is toxic metabolic. The patient's mental status is slowly improving. Continue to monitor. 6. Hypertension. Continue current blood pressure regimen. 7. Anemia. Continue intravenous iron. Monitor H and H levels. 8. Aortic stenosis, critical. Continue current treatment plan. 9. Left neck growing wound. Continue wound care. Pending surgical debridement today. 10. Gastrointestinal and deep venous thrombosis prophylaxis. Continue proton pump inhibitor and sequential leg squeezes. 11. Hypothyroidism. Continue Synthroid. Dictated By: Jesus Manuel Sheikh DO /[email or web address] /Document#: [id number]
--- NOTE | 2017-06-15 11:23 | CONS ---
Date/Time of Note Date/Time of Note DATE: 06/15/17 TIME: 11:21 Consult Date/Type/Reason Admit Date/Time Jun 10, 2017 at 12:47 Type of Consultation: Pulm Ordering Provider: ALYSSA RESTREPO DO Subjective Comfortable Objective Vital Signs Date Time Temp Pulse Resp B/P Pulse Ox O2 Delivery O2 Flow Rate FiO2 06/15/17 10:25 Nasal Cannula 2.0 06/15/17 08:49 82 06/15/17 07:56 98.3 16 115/61 98 Intake and Output 06/14/17 06/14/17 06/15/17 15:00 23:00 07:00 Intake Total 160 ml 900 ml 500 ml Output Total 4 ml Balance 160 ml 896 ml 500 ml Exam PHYSICAL EXAMINATION: GENERAL APPEARANCE: Elderly lady on nc o2. VITAL SIGNS: NECK: Supple. No JVD. No lymphadenopathy. CARDIAC: S1, S2. A 3/6 systolic ejection murmur heard loudest over the aortic area. CHEST: Diminished air entry bilaterally. ABDOMEN: Soft, nontender. No guarding or rebound. EXTREMITIES: No cyanosis, clubbing or edema. NEUROLOGIC: Generalized weakness. Results/Medications Result Diagram: 06/15/1719 06/15/1719 Results 24 hrs Laboratory Tests Test 06/15/17 06:19 White Blood Count 10.9 H Red Blood Count 2.97 L Hemoglobin 9.1 L Hematocrit 28.4 L Mean Corpuscular Volume 95.6 Mean Corpuscular Hemoglobin 30.6 Mean Corpuscular Hemoglobin Concent 32.0 Red Cell Distribution Width 14.7 H Platelet Count 431 H Mean Platelet Volume 10.6 H Neutrophils % 68.3 Lymphocytes % 15.5 Monocytes % 10.3 Eosinophils % 4.4 Basophils % 0.8 Nucleated Red Blood Cells % 0.0 Neutrophils # (Manual) 7.5 Lymphocytes # 1.7 Monocytes # 1.1 H Eosinophils # 0.5 Basophils # 0.1 Nucleated Red Blood Cells # 0.0 Sodium Level 131 L Potassium Level 3.9 Chloride Level 91 L Carbon Dioxide Level 37 H Anion Gap 7 L Blood Urea Nitrogen 18 Creatinine 1.04 H Glucose Level 88 Calcium Level 8.0 L Phosphorus Level 3.4 Magnesium Level 1.7 Total Bilirubin 0.3 Direct Bilirubin 0.00 Indirect Bilirubin 0.3 Aspartate Amino Transf (AST/SGOT) 23 Alanine Aminotransferase (ALT/SGPT) 20 Alkaline Phosphatase 68 B-Type Natriuretic Peptide 6200 H Total Protein 5.2 L Albumin 2.4 L Globulin 2.80 Albumin/Globulin Ratio 0.85 Medications Current Medications Cefepime HCl 50 ml @ 100 mls/hr Q24H IVPB Last administered on 06/15/17 08:33 ; Admin Dose 100 MLS/HR; Start 06/11/17 at 08:00 Vancomycin HCl (Vancocin) 250 ml @ 125 mls/hr Q36H IVPB Last administered on 08:40; Admin Dose 125 MLS/HR; Start 06/10/17 at 20:00 Acetaminophen (Tylenol Tab) 500 mg Q6H PRN PO PAIN AND OR ELEVATED TEMP Last administered on 06/13/17 04:19; Admin Dose 500 MG; Start 06/10/17 at 22:30 Lorazepam (Ativan) 0.5 mg Q6H PRN IV ANXIETY Last administered on 06/13/17 00: 23; Admin Dose 0.5 MG; Start 06/11/17 at 10:30 Fluconazole (Diflucan) 100 mg DAILY PO Last administered on 06/15/17 08:36; Admin Dose 100 MG; Start 06/13/17 at 09:00 Bisacodyl (Dulcolax Supp) 10 mg Q12 PRN [place] CONSTIPATION; Start 06/13/17 at 09:30 Citalopram Hydrobromide (Celexa) 20 mg DAILY PO Last administered on 06/15/17 08:36; Admin Dose 20 MG; Start 06/14/17 at 09:00 Docusate Sodium (Colace) 100 mg BID PO Last administered on 06/15/17 08:36; Admin Dose 100 MG; Start 06/13/17 at 21:00 Acetaminophen/ Hydrocodone Bitart ([place] (5/325)) 1 tab Q4 PRN PO MODERATE PAIN LEVEL 4-6 Last administered on 06/14/17 10:03; Admin Dose 1 TAB; Start 06/13 at 09:30 Multivitamins Therapeutic (Theragran) 1 tab DAILY PO Last administered on 08:35; Admin Dose 1 TAB; Start 06/14/17 at 09:00 Sodium Biphosphate/ Sodium Phosphate (Fleet Enema) 135 ml DAILY PRN [place] CONSTIPATION; Start 06/13/17 at 09:30 Polyethylene Glycol (Miralax) 17 gm DAILY PRN PO CONSTIPATION; Start 06/13/17 at 09:30 Senna (Senokot) 2 tab DAILY PRN PO CONSTIPATION; Start 06/13/17 at 09:30 Enoxaparin Sodium 40 mg 40 mg DAILY SC ; Start 06/16/17 at 09:00 Ferric Sodium Gluconate Complex/ Sodium Chloride (Ferrlecit/NS) 110 ml @ 110 mls/hr Q24H IVPB Last administered on 06/14/17 13:44; Admin Dose 110 MLS/HR; Start 06/14/17 at 12:00; Stop 06/18/17 at 12:59 Furosemide (Lasix) 40 mg DAILY PO Last administered on 06/15/17 08:35; Admin Dose 40 MG; Start 06/15/17 at 09:00 Assessment/Plan Chief Complaint/Hosp Course IMPRESSION AND PLAN: Hypoxemic respiratory failure secondary to severe congestive cardiac failure from likely underlying aortic stenosis. Patient may have a component of healthcare-associated pneumonia also. Plan 1. Supplemental O2. 2. Diuresis as tolerated. Ongoing chf on cxr 3. Cardiac recs noted. 4. Aspiration precautions. 5. Deep venous thrombosis and gastrointestinal prophylaxes. 6. Large left pleural s/p thoracentesis. Right effusion noted. Will hold off thoracentesis for now, greater risk than benefit. continue current care. Problems: [facility]ERR[facility] Jun 15, 2017 11:23
[2017-06-15] MEDS: SOD FERRIC GLUC COMPLX 125 MG in SOD CHLORIDE 0.9% 100 ML IVPB SCH (11:58)
--- NOTE | 2017-06-15 12:27 | PN ---
Date/Time of Note Date/Time of Note DATE: 06/15/17 TIME: 12:16 Assessment/Plan Lines/Catheters IV Catheter Type (from [facility]): PICC Line Cabral in Place (from [facility]): No Assessment/Plan Chief Complaint/Hosp Course 1. Right clavicular wound with debris: s/p debridement R clavicle 06/15/17 -Local care -Vitamin C -Nutrition optimization -Debridement -possible VAC placement 2. The right groin wound -As above 3. Aortic stenosis, CHF, pleural effusion, ascites -Cardiac optimization -Thoracentesis -? Paracentesis -Judicious fluid management -fluid management 4. Leukocytosis: UTI, infected wounds, possible pneumonia; improving -IV antibiotics and antifungals -Local care -Pulmonary toilet 5. BMI 31 -Diet and nutrition optimization -Eventual exercise 6. Anemia without active bleeding -Monitor 7. Renal insufficiency -Judicious fluid management -Avoid nephrotoxic agents as possible 8. Thrombocytosis secondary to inflammatory process improving -Monitor 9. Pleural effusion s/p thora; improved -monitor -per pulm Problems: Subjective 24 Hr Interval Summary S/p debridement of right clavicle. Feels well. No fevers, chills, excessive wound drainage, cp, palpitations, sob, n/v/d/dysuria. Leukocytosis improving. Exam/Review of Systems Vital Signs Vitals Vital Signs Date Time Temp Pulse Resp B/P Pulse Ox O2 Delivery O2 Flow Rate FiO2 06/15/17 11:55 97.9 78 16 153/78 97 06/15/17 10:25 Nasal Cannula 2.0 Intake and Output 06/14/17 06/14/17 06/15/17 15:00 23:00 07:00 Intake Total 160 ml 900 ml 500 ml Output Total 4 ml Balance 160 ml 896 ml 500 ml Exam Free Text/Dictation Constitutional: alert (awake), obese Psych: anxiety Head: atraumatic, normocephalic Eyes: EOMI, PERRL, nl conjunctiva, No icteric ENMT: mucosa pink and moist, nl external ears & nose Neck: non-tender, other (right neck wound bed pink s/p debridement), supple Respiratory: diminished breath sounds, No congested cough, No labored breathing, No wheezing Cardiovascular: edema, regular rate and rhythm Gastrointestinal: soft, No distended, No rebound or guarding, No tender Musculoskeletal: muscle weakness, No joint tenderness, No nl gait and stance Extremities: edema, No calf tenderness Neurological: nl speech, No nl strength Skin: rash or lesions, No diaphoresis, No nl turgor Lymph: nl lymph nodes Results Result Diagram: 06/15/17 0619 06/15/17 0619 GERA GILL NP Jun 15, 2017 12:26
--- NOTE | 2017-06-15 12:28 | OPR ---
Date/Time of Note Date/Time of Note DATE: 06/15/17 TIME: 12:28 Operative Report Procedure Date: Jun 15, 2017 Preoperative Diagnosis Right clavicle traumatic wound with slough and debris Postoperative Diagnosis Right clavicle traumatic wound with slough and debris including muscle/fascia 3.5 x 4.5 cm Operation Performed excisional debridement of right clavicle skin, subcutaneous, fascia, muscle Surgeon: GERA GILL NP Estimated Blood Loss: minimal Specimen: none Grafts/Implants: none Complications: no Pt Condition Post Procedure: stable Procedure Description R/B/A were fully reviewed with the patient and agreed upon. Patient was positioned appropriately in her own bed. Time out done. All pressure points padded on her bed. Using scalpel and curette, the necrotic tissue of skin, subq, muscle and fascia of right clavicle were debrided to healthier edges.Wound was irrigated and hemostasis obtained. Wound vac applied GERA GILL NP Jun 15, 2017 12:28
--- NOTE | 2017-06-15 19:21 | PN ---
DATE: 06/15/2017 SUBJECTIVE DATA: No acute events overnight. The patient is alert, eating lunch. Denies pain. No fevers. LABORATORY AND DIAGNOSTIC DATA: WBC 10.9, H and H 9.1 and 28.4, platelets 431, no shift, no bands. BUN 18, creatinine 1.04. Microbiology: Groin wound culture and urine culture grew Alivia albicans. Pleural fluid cultures negative. Right clavicular wound culture negative. Diagnostics: Chest x-ray this morning revealed improved lung volumes, right greater than left pleural effusion which may be increased. ANTIMICROBIALS: The patient is on: 1. Diflucan. 2. Cefepime. 3. Vancomycin. OBJECTIVE DATA: VITAL SIGNS: Temperature 98.2, pulse 87, respirations 16, blood pressure 120/59, saturation 97 on nasal cannula. GENERAL: This is well nourished, well developed, fragile, elderly woman, who is alert, in no distress. HEENT: Head atraumatic, normocephalic. Sclerae anicteric. Buccal mucosa pink. NECK: Supple. CHEST: Rise symmetrical. Breath sounds diminished at the bases. HEART: S1, S2. ABDOMEN: Soft, bowel sounds present. EXTREMITIES: Without cyanosis. ASSESSMENT: 1. Resolving sepsis status post shock. 2. Alivia albicans urinary tract infection. 3. Pleural effusion. Possible pneumonia. 4. Right groin wound. 5. Right clavicular wound status post recent fracture. 6. Aortic stenosis. 7. Congestive heart failure exacerbation. PLAN: Patient remains stable, covered with appropriate antimicrobials. Surgical team on case. Pulmonary follows as well. She is also seen by Nephrology and Cardiology. We will follow their recommendations. Dictated By: Amanda Luciano NP /[email or web address]/[email or web address] /Document#: [id number]
[2017-06-16] VITALS (11 sets, daily range): BP systolic 120–144; BP diastolic 60–75; PULSE 76–98; RESP 18
[2017-06-16] MEDS: LEVOTHYROXINE 88 MCG TAB PO SCH ×2 (06:07→08:58)
[2017-06-16 07:18] LABS: BASOPHIL # 0.1 10^3/ul (0.0-0.1); BASOPHILS % 0.7 % (0.0-2.0); EOSINOPHILS # 0.5 10^3/ul (0.0-0.5); EOSINOPHILS % 4.3 % (0.0-7.0); HEMATOCRIT 24.9 % (37.0-47.0); HEMOGLOBIN 7.9 g/dl (12.0-16.0); LYMPHOCYTES # 2.1 10^3/ul (0.8-2.9); LYMPHOCYTES % 19.4 % (15.0-51.0); MEAN CORPUSCULAR HEMOGLOBIN 30.2 pg (29.0-33.0); MEAN CORPUSCULAR HGB CONC 31.7 g/dl (32.0-37.0); MEAN PLATELET VOLUME 10.7 fl (7.4-10.4); MONOCYTE # 1.4 10^3/ul (0.3-0.9); MONOCYTES % 12.6 % (0.0-11.0); NEUTROPHILS % 62.2 % (39.0-77.0); PLATELET COUNT 413 10^3/UL (140-415); RED BLOOD COUNT 2.62 10^6/ul (4.20-5.40); RED CELL DISTRIBUTION WIDTH 14.7 % (11.5-14.5); WHITE BLOOD COUNT 10.9 10^3/ul (4.8-10.8)
[2017-06-16 08:13] LABS: MAGNESIUM 1.6 mg/dl (1.7-2.5); POTASSIUM 3.5 mmol/L (3.5-5.1)
[2017-06-16 08:38] LABS: PHOSPHORUS 3.4 mg/dl (2.5-4.9)
[2017-06-16] MEDS: DOCUSATE SODIUM 100 MG CAP PO SCH ×2 (08:58→21:18)
[2017-06-16] MEDS: MULTIVITAMINS THERAPEUTIC TAB PO SCH (08:58)
[2017-06-16] MEDS: FLUCONAZOLE 100 MG TAB PO SCH (08:58)
[2017-06-16] MEDS: CITALOPRAM 20 MG TAB PO SCH (08:58)
[2017-06-16] MEDS: CEFEPIME 1GM/50 ML (PMX) 50 ML IVPB SCH (08:58)
[2017-06-16] MEDS: FUROSEMIDE 40 MG TAB PO SCH (08:59)
[2017-06-16] MEDS ORDERED: ASPIRIN (EC) 81 MG TAB PO SCH (09:00)
[2017-06-16] MEDS: ENOXAPARIN 40 MG/0.4 ML SYG SC SCH (09:10)
[2017-06-16] MEDS ORDERED: MAGNESIUM SULFATE 2 GM/50 ML 50 ML IVPB ONE (09:30)
--- NOTE | 2017-06-16 12:06 | PN ---
Date/Time of Note Date/Time of Note DATE: 06/16/17 TIME: 11:57 Assessment/Plan Lines/Catheters IV Catheter Type (from [facility]): PICC Line Cabral in Place (from [facility]): No Assessment/Plan Chief Complaint/Hosp Course 1. Right clavicular wound with debris: s/p debridement R clavicle 06/15/17, VAC placement today -Local care -Vitamin C -Nutrition optimization -Debridement prn 2. The right groin wound: s/p debridement 06/16/17; vac placement today -As above 3. Aortic stenosis, CHF, pleural effusion, ascites: -Cardiac optimization -thoracentesis PRN per pulm -Judicious fluid management -fluid management 4. Leukocytosis: UTI, infected wounds, possible pneumonia;stable -IV antibiotics and antifungals -Local care -Pulmonary toilet 5. BMI 31 -Diet and nutrition optimization -Eventual exercise 6. Anemia without active bleeding: h/h drop -Monitor and transfuse prn 7. Renal insufficiency: cr improved -Judicious fluid management -Avoid nephrotoxic agents as possible 8. Thrombocytosis secondary to inflammatory process improving -Monitor 9. Pleural effusion s/p thora; improved -monitor -per pulm -thoracentesis prn 10. Hyponatremia: -diuresis +/- judicious fluids per renal Patient seen and examined in collaboration with Dr.Samuel Schaefer. Thank you. Problems: Subjective 24 Hr Interval Summary S/p right groin debridement today. Wound with min/mod drainage noted in wound. Vacs applied today. Feeling well. No sob, no fevers, chills, n/v/d/dysuria, cp, palpitations, crocker, dizziness. Exam/Review of Systems Vital Signs Vitals Vital Signs Date Time Temp Pulse Resp B/P Pulse Ox O2 Delivery O2 Flow Rate FiO2 06/16/17 08:57 76 06/16/17 07:28 97.9 18 131/75 100 06/16/17 01:24 2.0 06/15/17 20:00 Nasal Cannula Intake and Output 06/15/17 06/15/17 06/16/17 15:00 23:00 07:00 Intake Total 410 ml 750 ml 600 ml Balance 410 ml 750 ml 600 ml Exam Free Text/Dictation Constitutional: alert (awake), obese Psych: anxiety Head: atraumatic, normocephalic Eyes: EOMI, PERRL, nl conjunctiva, No icteric ENMT: mucosa pink and moist, nl external ears & nose Neck: non-tender, other (right neck wound bed pink s/p debridement), supple Respiratory: diminished breath sounds, No congested cough, No labored breathing, No wheezing Cardiovascular: edema, regular rate and rhythm Gastrointestinal: soft, No distended, No rebound or guarding, No tender Musculoskeletal: muscle weakness, No joint tenderness, No nl gait and stance Extremities: edema, No calf tenderness Neurological: nl speech, No nl strength Skin: rash or lesions, (right groin: wound bed pink without odor, periwound min erythema--s/p wound debridement today) No diaphoresis, No nl turgor Lymph: nl lymph nodes Results Result Diagram: 06/16/1709 06/16/17 0609 GERA GILL NP Jun 16, 2017 12:06
[2017-06-16] MEDS: ACETAMINOPHEN 500 MG TAB PO PRN (12:41)
[2017-06-16] MEDS: SOD FERRIC GLUC COMPLX 125 MG in SOD CHLORIDE 0.9% 100 ML IVPB SCH (12:41)
--- NOTE | 2017-06-16 14:39 | CONS ---
Date/Time of Note Date/Time of Note DATE: 06/16/17 TIME: 14:38 Consult Date/Type/Reason Admit Date/Time Jun 10, 2017 at 12:47 Type of Consultation: Pulm Ordering Provider: ALYSSA RESTREPO DO Subjective Comfortable this morning no new events. Objective Vital Signs Date Time Temp Pulse Resp B/P Pulse Ox O2 Delivery O2 Flow Rate FiO2 06/16/17 12:25 81 06/16/17 07:28 97.9 18 131/75 100 06/16/17 01:24 2.0 06/15/17 20:00 Nasal Cannula Intake and Output 06/15/17 06/15/17 06/16/17 15:00 23:00 07:00 Intake Total 410 ml 750 ml 600 ml Balance 410 ml 750 ml 600 ml Exam PHYSICAL EXAMINATION: GENERAL APPEARANCE: Elderly lady on nc o2. VITAL SIGNS: NECK: Supple. No JVD. No lymphadenopathy. CARDIAC: S1, S2. A 3/6 systolic ejection murmur heard loudest over the aortic area. CHEST: Diminished air entry bilaterally. ABDOMEN: Soft, nontender. No guarding or rebound. EXTREMITIES: No cyanosis, clubbing or edema. NEUROLOGIC: Generalized weakness. Results/Medications Result Diagram: 06/16/17 0609 06/16/17 0609 Results 24 hrs Laboratory Tests Test 06/16/17 06:09 White Blood Count 10.9 H Red Blood Count 2.62 L Hemoglobin 7.9 L Hematocrit 24.9 L Mean Corpuscular Volume 95.0 Mean Corpuscular Hemoglobin 30.2 Mean Corpuscular Hemoglobin Concent 31.7 L Red Cell Distribution Width 14.7 H Platelet Count 413 Mean Platelet Volume 10.7 H Neutrophils % 62.2 Lymphocytes % 19.4 Monocytes % 12.6 H Eosinophils % 4.3 Basophils % 0.7 Nucleated Red Blood Cells % 0.0 Neutrophils # (Manual) 6.8 Lymphocytes # 2.1 Monocytes # 1.4 H Eosinophils # 0.5 Basophils # 0.1 Nucleated Red Blood Cells # 0.0 Sodium Level 133 L Potassium Level 3.5 Chloride Level 91 L Carbon Dioxide Level 39 H Anion Gap 7 L Blood Urea Nitrogen 14 Creatinine 1.00 Glucose Level 83 Calcium Level 8.0 L Phosphorus Level 3.4 Magnesium Level 1.6 L Medications Current Medications Cefepime HCl 50 ml @ 100 mls/hr Q24H IVPB Last administered on 06/16/17 08:58 ; Admin Dose 100 MLS/HR; Start 06/11/17 at 08:00 Vancomycin HCl (Vancocin) 250 ml @ 125 mls/hr Q36H IVPB Last administered on 08:40; Admin Dose 125 MLS/HR; Start 06/10/17 at 20:00 Acetaminophen (Tylenol Tab) 500 mg Q6H PRN PO PAIN AND OR ELEVATED TEMP Last administered on 06/16/17 12:41; Admin Dose 500 MG; Start 06/10/17 at 22:30 Lorazepam (Ativan) 0.5 mg Q6H PRN IV ANXIETY Last administered on 06/13/17 00: 23; Admin Dose 0.5 MG; Start 06/11/17 at 10:30 Fluconazole (Diflucan) 100 mg DAILY PO Last administered on 06/16/17 08:58; Admin Dose 100 MG; Start 06/13/17 at 09:00 Bisacodyl (Dulcolax Supp) 10 mg Q12 PRN [place] CONSTIPATION; Start 06/13/17 at 09:30 Citalopram Hydrobromide (Celexa) 20 mg DAILY PO Last administered on 06/16/17 08:58; Admin Dose 20 MG; Start 06/14/17 at 09:00 Docusate Sodium (Colace) 100 mg BID PO Last administered on 06/16/17 08:58; Admin Dose 100 MG; Start 06/13/17 at 21:00 Acetaminophen/ Hydrocodone Bitart ([place] (5/325)) 1 tab Q4 PRN PO MODERATE PAIN LEVEL 4-6 Last administered on 06/14/17 10:03; Admin Dose 1 TAB; Start 06/13 at 09:30 Multivitamins Therapeutic (Theragran) 1 tab DAILY PO Last administered on 08:58; Admin Dose 1 TAB; Start 06/14/17 at 09:00 Sodium Biphosphate/ Sodium Phosphate (Fleet Enema) 135 ml DAILY PRN [place] CONSTIPATION; Start 06/13/17 at 09:30 Polyethylene Glycol (Miralax) 17 gm DAILY PRN PO CONSTIPATION; Start 06/13/17 at 09:30 Senna (Senokot) 2 tab DAILY PRN PO CONSTIPATION; Start 06/13/17 at 09:30 Enoxaparin Sodium 40 mg 40 mg DAILY SC Last administered on 06/16/17 09:10; Admin Dose 40 MG; Start 06/16/17 at 09:00 Ferric Sodium Gluconate Complex/ Sodium Chloride (Ferrlecit/NS) 110 ml @ 110 mls/hr Q24H IVPB Last administered on 06/16/17 12:41; Admin Dose 110 MLS/HR; Start 06/14/17 at 12:00; Stop 06/18/17 at 12:59 Furosemide (Lasix) 40 mg DAILY PO Last administered on 06/16/17 08:59; Admin Dose 40 MG; Start 06/15/17 at 09:00 Miscellaneous Information (*Rx Drug Level Order Reminder*) 1 ONCE ONCE XX ; Start 06/16/17 at 19:00; Stop 06/16/17 at 19:01 Nystatin (Nystatin Powder) 1 applic BID TOP ; Start 06/16/17 at 15:00 Assessment/Plan Chief Complaint/Hosp Course IMPRESSION AND PLAN: Hypoxemic respiratory failure secondary to severe congestive cardiac failure from likely underlying aortic stenosis. Patient may have a component of healthcare-associated pneumonia also. Plan 1. Supplemental O2. 2. Diuresis as tolerated. Ongoing chf on cxr 3. Cardiac recs noted. 4. Aspiration precautions. 5. Deep venous thrombosis and gastrointestinal prophylaxes. 6. Large left pleural s/p thoracentesis. Right effusion noted. Will hold off thoracentesis for now, greater risk than benefit. 7. Consider transfusion 1 unit packed red blood cells continue current care. Problems: [facility] Jun 16, 2017 14:38
[2017-06-16 15:09] LABS: HEMATOCRIT 29.8 % (37.0-47.0); HEMOGLOBIN 9.6 g/dl (12.0-16.0)
[2017-06-16] MEDS: NYSTATIN 30 GM POWDER BTL TOP SCH (15:34)
[2017-06-16] MEDS ORDERED: POTASSIUM CHLORIDE (SR) 20 MEQ TAB PO STA (18:29)
--- NOTE | 2017-06-16 18:29 | CONS ---
Date/Time of Note Date/Time of Note DATE: 06/16/17 TIME: 18:27 Consult Date/Type/Reason Admit Date/Time Jun 10, 2017 at 12:47 Initial Consult Date 06/13/17 Type of Consultation: CARDIOLOGY Ordering Provider: ALYSSA RESTREPO DO Subjective CARDIOLOGY FOLLOW UP NOTE: Discussed with the staff and rhythm was reviewed. Patient remained sinus rhythm. She denies any chest pain or pressure to me. She has less shortness of breath today D/W Pt's regular bait tier (Dr Gonzalo Menjivar) yesterday. objective: General: thin female. no acute distress HEENT: NC/AT. pupils are equal. round. NECK: NO JVD. no stridor. CV: RRR. systolic ejection murmur; no gallop or rubs. PULM: + minimnal rhonchi. GI: SOFT, NT, ND, no rebound or guarding Extremity: trace B/L LE edema. no clubbing. neuro: awake and alert, OX3. Psych: calm and pleasant rectal: deferred : normal. CXR reviewed. echo reviewed: 1. Hyperdynamic left ventricular systolic function. Normal left ventricular cavity size. Moderate concentric left ventricular hypertrophy. Ejection fraction is visually estimated at 70 %. 2. There is mild enlargement of left atrium. 3. Mitral valve leaflets appear mildly thickened. Mild mitral annular calcification. Moderate mitral valve regurgitation. 4. Severe aortic stenosis. Aortic valve Max velocity 4.65 m/sec. Max PG 86.00 mmHg. Mean PG 51.00 mmHg. Aortic valve area 0.26 cm2. No aortic regurgitation. 5. Normal appearance of the tricuspid valve. Estimated peak PA systolic pressure 40 mmHg. There is mild tricuspid regurgitation. 6. Normal size and normal respiratory collapse consistent with normal right atrial pressure. Objective Vital Signs Date Time Temp Pulse Resp B/P Pulse Ox O2 Delivery O2 Flow Rate FiO2 06/16/17 16:58 77 06/16/17 16:16 98.0 18 144/65 97 06/16/17 16:11 2.0 06/16/17 08:00 Nasal Cannula Intake and Output 06/15/17 06/15/17 06/16/17 15:00 23:00 07:00 Intake Total 410 ml 750 ml 600 ml Balance 410 ml 750 ml 600 ml Results/Medications Result Diagram: 06/16/17 1432 06/16/17 0609 Results 24 hrs Laboratory Tests Test 06/16/17 06:09 06/16/17 14:32 White Blood Count 10.9 H Red Blood Count 2.62 L Hemoglobin 7.9 L 9.6 #L Hematocrit 24.9 L 29.8 L Mean Corpuscular Volume 95.0 Mean Corpuscular Hemoglobin 30.2 Mean Corpuscular Hemoglobin Concent 31.7 L Red Cell Distribution Width 14.7 H Platelet Count 413 Mean Platelet Volume 10.7 H Neutrophils % 62.2 Lymphocytes % 19.4 Monocytes % 12.6 H Eosinophils % 4.3 Basophils % 0.7 Nucleated Red Blood Cells % 0.0 Neutrophils # (Manual) 6.8 Lymphocytes # 2.1 Monocytes # 1.4 H Eosinophils # 0.5 Basophils # 0.1 Nucleated Red Blood Cells # 0.0 Sodium Level 133 L Potassium Level 3.5 Chloride Level 91 L Carbon Dioxide Level 39 H Anion Gap 7 L Blood Urea Nitrogen 14 Creatinine 1.00 Glucose Level 83 Calcium Level 8.0 L Phosphorus Level 3.4 Magnesium Level 1.6 L Medications Current Medications Cefepime HCl 50 ml @ 100 mls/hr Q24H IVPB Last administered on 06/16/17 08:58 ; Admin Dose 100 MLS/HR; Start 06/11/17 at 08:00 Vancomycin HCl (Vancocin) 250 ml @ 125 mls/hr Q36H IVPB Last administered on 08:40; Admin Dose 125 MLS/HR; Start 06/10/17 at 20:00 Acetaminophen (Tylenol Tab) 500 mg Q6H PRN PO PAIN AND OR ELEVATED TEMP Last administered on 06/16/17 12:41; Admin Dose 500 MG; Start 06/10/17 at 22:30 Lorazepam (Ativan) 0.5 mg Q6H PRN IV ANXIETY Last administered on 06/13/17 00: 23; Admin Dose 0.5 MG; Start 06/11/17 at 10:30 Fluconazole (Diflucan) 100 mg DAILY PO Last administered on 06/16/17 08:58; Admin Dose 100 MG; Start 06/13/17 at 09:00 Bisacodyl (Dulcolax Supp) 10 mg Q12 PRN [place] CONSTIPATION; Start 06/13/17 at 09:30 Citalopram Hydrobromide (Celexa) 20 mg DAILY PO Last administered on 06/16/17 08:58; Admin Dose 20 MG; Start 06/14/17 at 09:00 Docusate Sodium (Colace) 100 mg BID PO Last administered on 06/16/17 08:58; Admin Dose 100 MG; Start 06/13/17 at 21:00 Acetaminophen/ Hydrocodone Bitart ([place] (5/325)) 1 tab Q4 PRN PO MODERATE PAIN LEVEL 4-6 Last administered on 06/14/17 10:03; Admin Dose 1 TAB; Start 06/13 at 09:30 Multivitamins Therapeutic (Theragran) 1 tab DAILY PO Last administered on 08:58; Admin Dose 1 TAB; Start 06/14/17 at 09:00 Sodium Biphosphate/ Sodium Phosphate (Fleet Enema) 135 ml DAILY PRN [place] CONSTIPATION; Start 06/13/17 at 09:30 Polyethylene Glycol (Miralax) 17 gm DAILY PRN PO CONSTIPATION; Start 06/13/17 at 09:30 Senna (Senokot) 2 tab DAILY PRN PO CONSTIPATION; Start 06/13/17 at 09:30 Enoxaparin Sodium 40 mg 40 mg DAILY SC Last administered on 06/16/17 09:10; Admin Dose 40 MG; Start 06/16/17 at 09:00 Ferric Sodium Gluconate Complex/ Sodium Chloride (Ferrlecit/NS) 110 ml @ 110 mls/hr Q24H IVPB Last administered on 06/16/17 12:41; Admin Dose 110 MLS/HR; Start 06/14/17 at 12:00; Stop 06/18/17 at 12:59 Furosemide (Lasix) 40 mg DAILY PO Last administered on 06/16/17 08:59; Admin Dose 40 MG; Start 06/15/17 at 09:00 Miscellaneous Information (*Rx Drug Level Order Reminder*) 1 ONCE ONCE XX ; Start 06/16/17 at 19:00; Stop 06/16/17 at 19:01 Nystatin (Nystatin Powder) 1 applic BID TOP Last administered on 06/16/17 15:34 ; Admin Dose 1 APPLIC; Start 06/16/17 at 15:00 Assessment/Plan Chief Complaint/Hosp Course 1. CHF 2. critical 3. HTN 4. ANEMIA 5. CKD 6. pleural effusion 7. hx of right groin infection/hematoma after yanci angio done by Dr Menjivar. off of ASA since pt has no hx of CAD per her bait tier report. will cont po lasix. add aldactone transfusion prn ,monitor H/H off of coreg to avoid hypotension. tele monitoring . abx as per ID rec replace lytes pt has been evaluated by [facility] for TAVR, BUT is awaiting ID clearance due to infected vascular post cardiac cath. out pt follow up with her bait tier Dr Gonzalo Menjivar. thank you. KRISTINE BORGES MD [facility] Problems: KRISTINE BORGES MD Jun 16, 2017 18:29
[2017-06-16] MEDS: SPIRONOLACTONE 25 MG TAB PO SCH (18:48)
--- NOTE | 2017-06-16 18:55 | PN ---
DATE: 06/16/2017 SUBJECTIVE DATA: No acute changes overnight. The patient is alert, feels good, denies pain. No fevers. OBJECTIVE DATA: VITAL SIGNS: Temperature 97.9, pulse 75, respirations 18, blood pressure 131/75, and saturation 100 on nasal cannula. LABORATORY AND DIAGNOSTIC DATA: WBC 10.9. H and H 9.6 and 29.8, platelets 413, no shift. BUN 14 and creatinine 1.0. ANTIMICROBIALS: The patient is on IV cefepime and vancomycin. She is also on fluconazole. PHYSICAL EXAMINATION: GENERAL: This is a well-developed, well-nourished, fragile, elderly woman, who is alert, in no distress. HEENT: Head atraumatic, normocephalic. Sclerae anicteric. Buccal mucosa pink. NECK: Supple. CHEST: Chest rise symmetrical. Patient has wound VAC to right clavicular wound. HEART: S1, S2. ABDOMEN: Soft, bowel sounds present. EXTREMITIES: Without cyanosis. ASSESSMENT: 1. Status post sepsis with shock. 2. Alivia albicans urinary tract infection. 3. Right clavicular wound status post wound VAC application, cultures being negative. 4. Right groin wound. 5. Aortic stenosis. 6. Status post congestive heart failure (CHF) exacerbation. 7. Left pleural effusions status post thoracentesis on June 13 with cultures being negative. 8. Possible pneumonia. PLAN: 1. The patient remains stable. 2. We are going to discontinue vancomycin. 3. Keep her on cefepime for a couple more days. Continue fluconazole. 4. Continue local wound care as per surgical team. 5. Follow recommendations of consultants. Dictated By: Amanda Luciano NP /[email or web address]/luiza /Document#: [id number]
[2017-06-16] MEDS: VANCOMYCIN 1 GM in NS 250 ML IVPB SCH (21:17)
--- NOTE | 2017-06-16 22:29 | PN ---
DATE: SUBJECTIVE DATA: The patient had debridement of her left neck wound yesterday, tolerated well. Please note, I attempted to contact patient's daughter again, Bev, and left her a message. No other events noted. There was no episodes of any gross bleeding, hemoptysis symptoms, hematochezia. OBJECTIVE DATA: VITAL SIGNS: Blood pressure is 131/75, respiration 18, pulse 75, temperature 97.9. HEENT: Head is normocephalic. NECK: Supple. HEART: Regular rate. LUNGS: Diminished breath sounds at the base. ABDOMEN: Soft, nontender to palpation. No rebound, guarding. EXTREMITIES: Negative for clubbing, cyanosis. No edema. DERMATOLOGIC: No rashes. MUSCULOSKELETAL: Note his wound in the left groin and the left neck. NEUROLOGIC: No change. MEDICATIONS: Reviewed. LABORATORY AND DIAGNOSTIC DATA: Sodium 133, potassium 3.5, chloride 91, BUN 14, creatinine 1.0, bicarb 39, magnesium 1.6. White count 10.9 and 7.9, hematocrit 24.4, and platelet count is 413,000. ASSESSMENT AND PLAN: 1. Acute hypoxemic respiratory failure secondary to congestive heart failure, aortic stenosis, possible pneumonia. Patient is clinically improving. Continue medical management, antibiotics. Continue diuretic therapy. 2. Sepsis secondary to urinary tract infection. Continue current antibiotic regimen. 3. Acute on chronic diastolic heart failure. Continue current medical management. Follow up with Cardiology. Continue diuretic therapy. 4. Alkalosis. Etiology may be secondary to diuretic. Will consider giving a course of Diamox. 5. Pleural effusion status post thoracentesis. Continue to monitor. 6. Acute on chronic encephalopathy. Patient's mental status improving. Continue to monitor. 7. Hypertension. Blood pressure controlled. 8. Anemia. Continue IV iron. Will repeat a CBC level. 9. Hypomagnesemia. Replete with magnesium sulfate. 10. Aortic stenosis, critical. Continue current treatment plan. Patient is pending possible transcatheter aortic valve replacement at [facility]. 11. Left neck wound status post debridement. 12. Left groin wound. Patient is pending debridement. 13. Hypothyroidism. Continue Synthroid. 14. Gastrointestinal and deep venous thrombosis prophylaxis. Continue proton pump inhibitor and sequential leg squeezers. Dictated By: Jesus Manuel Sheikh DO /[email or web address]/anish /Document#: [id number]
[2017-06-17] VITALS (13 sets, daily range): BP systolic 117–146; BP diastolic 65–87; PULSE 80–103; RESP 19
[2017-06-17] MEDS: NYSTATIN 30 GM POWDER BTL TOP SCH ×3 (00:30→20:39)
[2017-06-17 07:16] LABS: BASOPHIL # 0.1 10^3/ul (0.0-0.1); BASOPHILS % 0.8 % (0.0-2.0); EOSINOPHILS # 0.7 10^3/ul (0.0-0.5); EOSINOPHILS % 5.4 % (0.0-7.0); HEMATOCRIT 27.6 % (37.0-47.0); HEMOGLOBIN 8.6 g/dl (12.0-16.0); LYMPHOCYTES # 2.1 10^3/ul (0.8-2.9); LYMPHOCYTES % 17.2 % (15.0-51.0); MEAN CORPUSCULAR HEMOGLOBIN 29.7 pg (29.0-33.0); MEAN CORPUSCULAR HGB CONC 31.2 g/dl (32.0-37.0); MEAN CORPUSCULAR VOLUME 95.2 fl (82.0-101.0); MEAN PLATELET VOLUME 10.5 fl (7.4-10.4); MONOCYTE # 1.3 10^3/ul (0.3-0.9); MONOCYTES % 10.8 % (0.0-11.0); PLATELET COUNT 411 10^3/UL (140-415); RED CELL DISTRIBUTION WIDTH 14.7 % (11.5-14.5); WHITE BLOOD COUNT 12.4 10^3/ul (4.8-10.8)
[2017-06-17 07:35] LABS: ALBUMIN 2.6 g/dl (3.3-4.9); ALBUMIN/GLOBULIN RATIO 0.86; BILIRUBIN,INDIRECT 0.3 mg/dl (0-1.1); BILIRUBIN,TOTAL 0.3 mg/dl (0.2-1.3); CALCIUM 8.2 mg/dl (8.4-10.2); CREATININE 1.07 mg/dl (0.44-1.00); POTASSIUM 4.4 mmol/L (3.5-5.1); TOTAL PROTEIN 5.6 g/dl (6.1-8.1)
[2017-06-17 07:48] LABS: MAGNESIUM 2.1 mg/dl (1.7-2.5); PHOSPHORUS 3.7 mg/dl (2.5-4.9)
[2017-06-17] MEDS ORDERED: ACETAZOLAMIDE 500 MG INJ IV ONE (09:30)
--- NOTE | 2017-06-17 09:46 | PN ---
Date/Time of Note Date/Time of Note DATE: 06/17/17 TIME: 09:42 Assessment/Plan Lines/Catheters IV Catheter Type (from [facility]): PICC Line Cabral in Place (from [facility]): No Assessment/Plan Chief Complaint/Hosp Course 1. Right clavicular wound with debris: s/p debridement R clavicle 06/15/17, with wound VAC -Local care -Vitamin C -Nutrition optimization -Debridement prn 2. The right groin wound: s/p debridement 06/16/17; with wound vac -As above 3. Aortic stenosis, CHF, pleural effusion, ascites: -Cardiac optimization -thoracentesis PRN per pulm -Judicious fluid management -fluid management 4. Leukocytosis: UTI, infected wounds, possible pneumonia;wbc up today -IV antibiotics and antifungals -Local care -Pulmonary toilet 5. BMI 31 -Diet and nutrition optimization -Eventual exercise 6. Anemia without active bleeding: h/h drop -Monitor and transfuse prn 7. Renal insufficiency: -Judicious fluid management -Avoid nephrotoxic agents as possible 8. Thrombocytosis secondary to inflammatory process improving -Monitor 9. Pleural effusion s/p thora; improved; no sob, breathing comfortably -monitor -per pulm -thoracentesis prn 10. Hyponatremia: -diuresis +/- judicious fluids per renal Patient seen and examined in collaboration with Dr.Samuel Schaefer. Thank you. Problems: Subjective 24 Hr Interval Summary Feels well. Wound vac on with min serosanguineous drainage, periwound redness improved. No fevers, chills, myalgias, sob, congested cough, n/v/d/dysuria. Exam/Review of Systems Vital Signs Vitals Vital Signs Date Time Temp Pulse Resp B/P Pulse Ox O2 Delivery O2 Flow Rate FiO2 06/17/17 08:00 80 06/17/17 07:13 98.0 19 142/70 96 06/17/17 05:26 2.0 06/16/17 21:00 Nasal Cannula Intake and Output 06/16/17 06/16/17 06/17/17 15:00 23:00 07:00 Intake Total 1350 ml 550 ml Output Total 20 ml Balance 1330 ml 550 ml Exam Free Text/Dictation Constitutional: alert (awake), obese Psych: anxiety Head: atraumatic, normocephalic Eyes: EOMI, PERRL, nl conjunctiva, No icteric ENMT: mucosa pink and moist, nl external ears & nose Neck: non-tender, other (right neck wound with vac, periwound redness improved) , supple Respiratory: diminished breath sounds, No congested cough, No labored breathing, No wheezing Cardiovascular: edema, regular rate and rhythm Gastrointestinal: soft, No distended, No rebound or guarding, No tender Musculoskeletal: muscle weakness, No joint tenderness, No nl gait and stance Extremities: edema, No calf tenderness Neurological: nl speech, No nl strength Skin: rash or lesions, (right groin: with wound vac periwound erythema improved ) No diaphoresis, No nl turgor Lymph: nl lymph nodes Results Result Diagram: 06/17/17 0614 06/17/17 0614 GERA GILL NP Jun 17, 2017 09:46
[2017-06-17] MEDS: CEFEPIME 1GM/50 ML (PMX) 50 ML IVPB SCH (10:11)
[2017-06-17] MEDS: CITALOPRAM 20 MG TAB PO SCH (10:14)
[2017-06-17] MEDS: SPIRONOLACTONE 25 MG TAB PO SCH (10:15)
[2017-06-17] MEDS: DOCUSATE SODIUM 100 MG CAP PO SCH ×2 (10:15→20:39)
[2017-06-17] MEDS: MULTIVITAMINS THERAPEUTIC TAB PO SCH (10:15)
[2017-06-17] MEDS: FLUCONAZOLE 100 MG TAB PO SCH (10:17)
[2017-06-17] MEDS: ENOXAPARIN 40 MG/0.4 ML SYG SC SCH (10:21)
--- NOTE | 2017-06-17 10:37 | PN ---
Date/Time of Note Date/Time of Note DATE: 06/17/17 TIME: 10:36 Assessment/Plan VTE Prophylaxis VTE Prophylaxis Intervention: SCD's Lines/Catheters IV Catheter Type (from Nrsg): PICC Line Central line still needed: No Urinary Cath still in place: No Assessment/Plan Assessment/Plan 1. CHF 2. critical 3. HTN 4. ANEMIA 5. CKD 6. pleural effusion 7. hx of right groin infection/hematoma after yanci angio done by Dr Menjivar. off of ASA since pt has no hx of CAD per her horticultural manager report. will cont po lasix. add aldactone transfusion prn ,monitor H/H off of coreg to avoid hypotension. tele monitoring . abx as per ID rec replace lytes pt has been evaluated by [facility] for TAVR, out pt follow up with her horticultural manager Dr Gonzalo Menjivar. Subjective 24 Hr Interval Summary Free Text/Dictation the patient with no change Exam/Review of Systems Vital Signs Vitals Vital Signs Date Time Temp Pulse Resp B/P Pulse Ox O2 Delivery O2 Flow Rate FiO2 06/17/17 08:00 80 06/17/17 07:13 98.0 19 142/70 96 06/17/17 05:26 2.0 06/16/17 21:00 Nasal Cannula Intake and Output 06/16/17 06/16/17 06/17/17 15:00 23:00 07:00 Intake Total 1350 ml 550 ml Output Total 20 ml Balance 1330 ml 550 ml Results Result Diagram: 06/17/17 0614 06/17/17 0614 Results 24 hrs Laboratory Tests Test 06/16/17 14:32 06/16/17 19:05 06/17/17 06:12 06/17/17 06:14 Hemoglobin 9.6 #L 8.6 L Hematocrit 29.8 L 27.6 L Vancomycin Level Trough 15.1 Phosphorus Level 3.7 Magnesium Level 2.1 White Blood Count 12.4 H Red Blood Count 2.90 L Mean Corpuscular Volume 95.2 Mean Corpuscular Hemoglobin 29.7 Mean Corpuscular Hemoglobin Concent 31.2 L Red Cell Distribution Width 14.7 H Platelet Count 411 Mean Platelet Volume 10.5 H Neutrophils % 65.0 Lymphocytes % 17.2 Monocytes % 10.8 Eosinophils % 5.4 Basophils % 0.8 Nucleated Red Blood Cells % 0.0 Neutrophils # (Manual) 8.1 H Lymphocytes # 2.1 Monocytes # 1.3 H Eosinophils # 0.7 H Basophils # 0.1 Nucleated Red Blood Cells # 0.0 Sodium Level 132 L Potassium Level 4.4 Chloride Level 89 L Carbon Dioxide Level 44 *H Anion Gap 3 L Blood Urea Nitrogen 15 Creatinine 1.07 H Glucose Level 90 Calcium Level 8.2 L Total Bilirubin 0.3 Direct Bilirubin 0.00 Indirect Bilirubin 0.3 Aspartate Amino Transf (AST/SGOT) 25 Alanine Aminotransferase (ALT/SGPT) 22 Alkaline Phosphatase 73 B-Type Natriuretic Peptide 4120 H Total Protein 5.6 L Albumin 2.6 L Globulin 3.00 Albumin/Globulin Ratio 0.86 Medications Medications Current Medications Cefepime HCl (Maxipime 1gm/50 ml (Pmx)) 50 ml @ 100 mls/hr Q24H IVPB Last administered on 06/17/17 10:11; Admin Dose 100 MLS/HR; Start 06/11/17 at 08:00 Acetaminophen (Tylenol Tab) 500 mg Q6H PRN PO PAIN AND OR ELEVATED TEMP Last administered on 06/16/17 12:41; Admin Dose 500 MG; Start 06/10/17 at 22:30 Lorazepam (Ativan) 0.5 mg Q6H PRN IV ANXIETY Last administered on 06/13/17 00: 23; Admin Dose 0.5 MG; Start 06/11/17 at 10:30 Fluconazole (Diflucan) 100 mg DAILY PO Last administered on 06/17/17 10:17; Admin Dose 100 MG; Start 06/13/17 at 09:00 Bisacodyl (Dulcolax Supp) 10 mg Q12 PRN [place] CONSTIPATION; Start 06/13/17 at 09:30 Citalopram Hydrobromide (Celexa) 20 mg DAILY PO Last administered on 06/17/17 10:14; Admin Dose 20 MG; Start 06/14/17 at 09:00 Docusate Sodium (Colace) 100 mg BID PO Last administered on 06/17/17 10:15; Admin Dose 100 MG; Start 06/13/17 at 21:00 Acetaminophen/ Hydrocodone Bitart ([place] (5/325)) 1 tab Q4 PRN PO MODERATE PAIN LEVEL 4-6 Last administered on 06/14/17 10:03; Admin Dose 1 TAB; Start 06/13 at 09:30 Multivitamins Therapeutic (Theragran) 1 tab DAILY PO Last administered on 10:15; Admin Dose 1 TAB; Start 06/14/17 at 09:00 Sodium Biphosphate/ Sodium Phosphate (Fleet Enema) 135 ml DAILY PRN [place] CONSTIPATION; Start 06/13/17 at 09:30 Polyethylene Glycol (Miralax) 17 gm DAILY PRN [place] CONSTIPATION; Start 06/13/17 at 09:30 Senna (Senokot) 2 tab DAILY PRN [place] CONSTIPATION; Start 06/13/17 at 09:30 Enoxaparin Sodium 40 mg 40 mg DAILY SC Last administered on 06/17/17 10:21; Admin Dose 40 MG; Start 06/16/17 at 09:00 Ferric Sodium Gluconate Complex/ Sodium Chloride (Ferrlecit/NS) 110 ml @ 110 mls/hr Q24H IVPB Last administered on 06/16/17 12:41; Admin Dose 110 MLS/HR; Start 06/14/17 at 12:00; Stop 06/18/17 at 12:59 Furosemide (Lasix) 40 mg DAILY PO Last administered on 06/16/17 08:59; Admin Dose 40 MG; Start 06/15/17 at 09:00; Status Future Hold Nystatin (Nystatin Powder) 1 applic BID TOP Last administered on 06/17/17 10:16 ; Admin Dose 1 APPLIC; Start 06/16/17 at 15:00 Spironolactone (Aldactone) 25 mg DAILY PO Last administered on 06/17/17 10:15; Admin Dose 25 MG; Start 06/16/17 at 18:30 MANJIT BLANCO MD Jun 17, 2017 10:37
--- NOTE | 2017-06-17 10:40 | CONS ---
Date/Time of Note Date/Time of Note DATE: 06/17/17 TIME: 10:37 Consult Date/Type/Reason Admit Date/Time Jun 10, 2017 at 12:47 Type of Consultation: Pulm Ordering Provider: ALYSSA RESTREPO DO Subjective Better today, Objective Vital Signs Date Time Temp Pulse Resp B/P Pulse Ox O2 Delivery O2 Flow Rate FiO2 06/17/17 08:00 80 06/17/17 07:13 98.0 19 142/70 96 06/17/17 05:26 2.0 06/16/17 21:00 Nasal Cannula Intake and Output 06/16/17 06/16/17 06/17/17 15:00 23:00 07:00 Intake Total 1350 ml 550 ml Output Total 20 ml Balance 1330 ml 550 ml Exam PHYSICAL EXAMINATION: GENERAL APPEARANCE: Elderly lady on nc o2. VITAL SIGNS: NECK: Supple. No JVD. No lymphadenopathy. CARDIAC: S1, S2. A 3/6 systolic ejection murmur heard loudest over the aortic area. CHEST: Diminished air entry bilaterally. ABDOMEN: Soft, nontender. No guarding or rebound. EXTREMITIES: No cyanosis, clubbing or edema. NEUROLOGIC: Generalized weakness. Results/Medications Result Diagram: 06/17/17 0614 06/17/1714 Results 24 hrs Laboratory Tests Test 06/16/17 14:32 06/16/17 19:05 06/17/17 06:12 06/17/17 06:14 Hemoglobin 9.6 #L 8.6 L Hematocrit 29.8 L 27.6 L Vancomycin Level Trough 15.1 Phosphorus Level 3.7 Magnesium Level 2.1 White Blood Count 12.4 H Red Blood Count 2.90 L Mean Corpuscular Volume 95.2 Mean Corpuscular Hemoglobin 29.7 Mean Corpuscular Hemoglobin Concent 31.2 L Red Cell Distribution Width 14.7 H Platelet Count 411 Mean Platelet Volume 10.5 H Neutrophils % 65.0 Lymphocytes % 17.2 Monocytes % 10.8 Eosinophils % 5.4 Basophils % 0.8 Nucleated Red Blood Cells % 0.0 Neutrophils # (Manual) 8.1 H Lymphocytes # 2.1 Monocytes # 1.3 H Eosinophils # 0.7 H Basophils # 0.1 Nucleated Red Blood Cells # 0.0 Sodium Level 132 L Potassium Level 4.4 Chloride Level 89 L Carbon Dioxide Level 44 *H Anion Gap 3 L Blood Urea Nitrogen 15 Creatinine 1.07 H Glucose Level 90 Calcium Level 8.2 L Total Bilirubin 0.3 Direct Bilirubin 0.00 Indirect Bilirubin 0.3 Aspartate Amino Transf (AST/SGOT) 25 Alanine Aminotransferase (ALT/SGPT) 22 Alkaline Phosphatase 73 B-Type Natriuretic Peptide 4120 H Total Protein 5.6 L Albumin 2.6 L Globulin 3.00 Albumin/Globulin Ratio 0.86 Medications Current Medications Cefepime HCl (Maxipime 1gm/50 ml (Pmx)) 50 ml @ 100 mls/hr Q24H IVPB Last administered on 06/17/17 10:11; Admin Dose 100 MLS/HR; Start 06/11/17 at 08:00 Acetaminophen (Tylenol Tab) 500 mg Q6H PRN PO PAIN AND OR ELEVATED TEMP Last administered on 06/16/17 12:41; Admin Dose 500 MG; Start 06/10/17 at 22:30 Lorazepam (Ativan) 0.5 mg Q6H PRN IV ANXIETY Last administered on 06/13/17 00: 23; Admin Dose 0.5 MG; Start 06/11/17 at 10:30 Fluconazole (Diflucan) 100 mg DAILY PO Last administered on 06/17/17 10:17; Admin Dose 100 MG; Start 06/13/17 at 09:00 Bisacodyl (Dulcolax Supp) 10 mg Q12 PRN [place] CONSTIPATION; Start 06/13/17 at 09:30 Citalopram Hydrobromide (Celexa) 20 mg DAILY PO Last administered on 06/17/17 10:14; Admin Dose 20 MG; Start 06/14/17 at 09:00 Docusate Sodium (Colace) 100 mg BID PO Last administered on 06/17/17 10:15; Admin Dose 100 MG; Start 06/13/17 at 21:00 Acetaminophen/ Hydrocodone Bitart ([place] (5/325)) 1 tab Q4 PRN PO MODERATE PAIN LEVEL 4-6 Last administered on 06/14/17 10:03; Admin Dose 1 TAB; Start 06/13 at 09:30 Multivitamins Therapeutic (Theragran) 1 tab DAILY PO Last administered on 10:15; Admin Dose 1 TAB; Start 06/14/17 at 09:00 Sodium Biphosphate/ Sodium Phosphate (Fleet Enema) 135 ml DAILY PRN [place] CONSTIPATION; Start 06/13/17 at 09:30 Polyethylene Glycol (Miralax) 17 gm DAILY PRN PO CONSTIPATION; Start 06/13/17 at 09:30 Senna (Senokot) 2 tab DAILY PRN PO CONSTIPATION; Start 06/13/17 at 09:30 Enoxaparin Sodium 40 mg 40 mg DAILY SC Last administered on 06/17/17 10:21; Admin Dose 40 MG; Start 06/16/17 at 09:00 Ferric Sodium Gluconate Complex/ Sodium Chloride (Ferrlecit/NS) 110 ml @ 110 mls/hr Q24H IVPB Last administered on 06/16/17 12:41; Admin Dose 110 MLS/HR; Start 06/14/17 at 12:00; Stop 06/18/17 at 12:59 Furosemide (Lasix) 40 mg DAILY PO Last administered on 06/16/17 08:59; Admin Dose 40 MG; Start 06/15/17 at 09:00; Status Future Hold Nystatin (Nystatin Powder) 1 applic BID TOP Last administered on 06/17/17 10:16 ; Admin Dose 1 APPLIC; Start 06/16/17 at 15:00 Spironolactone (Aldactone) 25 mg DAILY PO Last administered on 06/17/17 10:15; Admin Dose 25 MG; Start 06/16/17 at 18:30 Assessment/Plan Chief Complaint/Hosp Course IMPRESSION AND PLAN: 1. s/p hypoxemic resp failure secondary to chf and probably CAP. 2. Severe AR pending valve replacement 3. Contraction alkalosis ? Plan 1. Supplemental O2. 2. Diuresis as tolerated. Ongoing chf on cxr 3. Cardiac recs noted. 4. Aspiration precautions. 5. Deep venous thrombosis and gastrointestinal prophylaxes. 6. Pleural effusions repeat cxr, may need repeat thoracentesis continue current care. Problems: HERMAN FIERRO MD[facility] Jun 17, 2017 10:40
--- NOTE | 2017-06-17 12:23 | PN ---
DATE: 06/17/2017 SUBJECTIVE DATA: The patient is stable. Patient had debridement of a right groin wound yesterday with a wound VAC placement. No other events noted. OBJECTIVE DATA: VITAL SIGNS: Blood pressure is 142/70, respirations, pulse 79, and temperature 98. HEENT: Head is normocephalic. NECK: Supple. HEART: Regular rate. LUNGS: Diminished breath sounds at the base. ABDOMEN: Soft, nontender to palpation. No rebound or guarding. EXTREMITIES: Negative for clubbing, cyanosis. No edema. DERMATOLOGIC: No rashes. MUSCULOSKELETAL: No joint effusions. NEUROLOGIC: No change in exam. MEDICATIONS: Reviewed. LABORATORY AND DIAGNOSTIC DATA: Shows sodium 132, potassium 4.4, chloride 89, BUN 15, creatinine 1.07. White count 12.4, hemoglobin 8.6, hematocrit 27.6, platelet count is 411,000. ASSESSMENT AND PLAN: 1. Acute hypoxic respiratory failure, secondary to congestive heart failure. The patient is clinically improving, stable on nasal cannula. Continue current medical management. 2. Sepsis, secondary to urinary tract infection. Possible pneumonia. The patient has completed antibiotic course. 3. Acute on chronic diastolic heart failure. The patient is clinically improving. We will continue diuretics. Will hold Lasix as the patient is becoming alkalotic. Will give 1 dose of Diamox. 4. Alkalosis, likely due to chloride deficiency from diuretic therapy. Will hold Lasix, give 1 course of Diamox. 5. Pleural effusion. Status post-thoracentesis. 6. Chronic encephalopathy. The patient's mental status is improving. Continue to monitor. 7. Hypertension. Continue current blood pressure regimen. 8. Anemia. Continue to monitor hemoglobin and hematocrit levels. 9. Hypomagnesemia, improved. 10. Aortic stenosis. Continue medical management. Patient to follow up with outpatient exercise teacher, . 11. Right neck wound, right groin wound. Status post- debridement with wound VAC placement. 12. Hypothyroidism. Continue Synthroid. Gastrointestinal and deep venous thrombosis prophylaxis. Continue proton pump inhibitors and 13. sequential leg squeezes. 14. Hyponatremia. Continue to monitor. Limit free water intake. 15. Please note, patient also has Alivia urinary tract infect, continue antifungal therapy. Dictated By: Jesus Manuel Sheikh DO /[email or web address]/nay /Document#: [id number]
[2017-06-17] MEDS: SOD FERRIC GLUC COMPLX 125 MG in SOD CHLORIDE 0.9% 100 ML IVPB SCH (14:31)
--- NOTE | 2017-06-17 16:56 | CONS ---
Date/Time of Note Date/Time of Note DATE: 06/17/17 TIME: 16:53 Assessment/Plan Assessment/Plan Chief Complaint/Hosp Course SUBJECTIVE DATA: No acute changes overnight. The patient is alert, feels good , n fevers. ANTIMICROBIALS: Diflucan, cefepime PHYSICAL EXAMINATION: GENERAL: This is a well-developed, well-nourished, fragile, elderly woman, who is alert, in no distress. HEENT: Head atraumatic, normocephalic. Sclerae anicteric. Buccal mucosa pink. NECK: Supple. CHEST: Chest rise symmetrical. Patient has wound VAC to right clavicular wound. HEART: S1, S2. ABDOMEN: Soft, bowel sounds present. EXTREMITIES: Without cyanosis. ASSESSMENT: 1. Status post sepsis with shock. 2. Alivia albicans urinary tract infection. 3. Right clavicular wound status post wound VAC application, cultures being negative. 4. Right groin wound==> cx + C alb. 5. Aortic stenosis. 6. Status post congestive heart failure (CHF) exacerbation. 7. Left pleural effusions status post thoracentesis on June 13 with cultures being negative. 8. Possible pneumonia. PLAN: The patient remains stable. Continue present care, dc Cefepime in am, continue local wound care as per surgical team. Follow recommendations of consultants. Repeat cx's prn DW staff Problems: Consultation Date/Type/Reason Admit Date/Time Jun 10, 2017 at 12:47 Initial Consult Date 06/13/17 Type of Consultation: ID Referring Provider: ALYSSA RESTREPO DO Exam/Review of Systems Vital Signs Vitals Vital Signs Date Time Temp Pulse Resp B/P Pulse Ox O2 Delivery O2 Flow Rate FiO2 06/17/17 16:00 84 06/17/17 15:40 98.1 19 141/82 99 06/17/17 08:30 Nasal Cannula 2.0 Intake and Output 06/16/17 06/16/17 06/17/17 15:00 23:00 07:00 Intake Total 1350 ml 550 ml Output Total 20 ml Balance 1330 ml 550 ml Results Result Diagram: 06/17/17 0614 06/17/17 0614 Results 24 hrs Laboratory Tests Test 06/16/17 19:05 06/17/17 06:12 06/17/17 06:14 06/17/17 12:06 Vancomycin Level Trough 15.1 Phosphorus Level 3.7 Magnesium Level 2.1 White Blood Count 12.4 H Red Blood Count 2.90 L Hemoglobin 8.6 L Hematocrit 27.6 L Mean Corpuscular Volume 95.2 Mean Corpuscular Hemoglobin 29.7 Mean Corpuscular Hemoglobin Concent 31.2 L Red Cell Distribution Width 14.7 H Platelet Count 411 Mean Platelet Volume 10.5 H Neutrophils % 65.0 Lymphocytes % 17.2 Monocytes % 10.8 Eosinophils % 5.4 Basophils % 0.8 Nucleated Red Blood Cells % 0.0 Neutrophils # (Manual) 8.1 H Lymphocytes # 2.1 Monocytes # 1.3 H Eosinophils # 0.7 H Basophils # 0.1 Nucleated Red Blood Cells # 0.0 Sodium Level 132 L Potassium Level 4.4 Chloride Level 89 L Carbon Dioxide Level 44 *H Anion Gap 3 L Blood Urea Nitrogen 15 Creatinine 1.07 H Glucose Level 90 Calcium Level 8.2 L Total Bilirubin 0.3 Direct Bilirubin 0.00 Indirect Bilirubin 0.3 Aspartate Amino Transf (AST/SGOT) 25 Alanine Aminotransferase (ALT/SGPT) 22 Alkaline Phosphatase 73 B-Type Natriuretic Peptide 4120 H Total Protein 5.6 L Albumin 2.6 L Globulin 3.00 Albumin/Globulin Ratio 0.86 Stool Occult Blood NEGATIVE Medications Medications Current Medications Cefepime HCl (Maxipime 1gm/50 ml (Pmx)) 50 ml @ 100 mls/hr Q24H IVPB Last administered on 06/17/17 10:11; Admin Dose 100 MLS/HR; Start 06/11/17 at 08:00 Acetaminophen (Tylenol Tab) 500 mg Q6H PRN PO PAIN AND OR ELEVATED TEMP Last administered on 06/16/17 12:41; Admin Dose 500 MG; Start 06/10/17 at 22:30 Lorazepam (Ativan) 0.5 mg Q6H PRN IV ANXIETY Last administered on 06/13/17 00: 23; Admin Dose 0.5 MG; Start 06/11/17 at 10:30 Fluconazole (Diflucan) 100 mg DAILY PO Last administered on 06/17/17 10:17; Admin Dose 100 MG; Start 06/13/17 at 09:00 Bisacodyl (Dulcolax Supp) 10 mg Q12 PRN [place] CONSTIPATION; Start 06/13/17 at 09:30 Citalopram Hydrobromide (Celexa) 20 mg DAILY PO Last administered on 06/17/17 10:14; Admin Dose 20 MG; Start 06/14/17 at 09:00 Docusate Sodium (Colace) 100 mg BID PO Last administered on 06/17/17 10:15; Admin Dose 100 MG; Start 06/13/17 at 21:00 Acetaminophen/ Hydrocodone Bitart ([place] (5/325)) 1 tab Q4 PRN PO MODERATE PAIN LEVEL 4-6 Last administered on 06/14/17 10:03; Admin Dose 1 TAB; Start 06/13 at 09:30 Multivitamins Therapeutic (Theragran) 1 tab DAILY PO Last administered on 10:15; Admin Dose 1 TAB; Start 06/14/17 at 09:00 Sodium Biphosphate/ Sodium Phosphate (Fleet Enema) 135 ml DAILY PRN [place] CONSTIPATION; Start 06/13/17 at 09:30 Polyethylene Glycol (Miralax) 17 gm DAILY PRN PO CONSTIPATION; Start 06/13/17 at 09:30 Senna (Senokot) 2 tab DAILY PRN PO CONSTIPATION; Start 06/13/17 at 09:30 Enoxaparin Sodium 40 mg 40 mg DAILY SC Last administered on 06/17/17 10:21; Admin Dose 40 MG; Start 06/16/17 at 09:00 Ferric Sodium Gluconate Complex/ Sodium Chloride (Ferrlecit/NS) 110 ml @ 110 mls/hr Q24H IVPB Last administered on 06/17/17 14:31; Admin Dose 110 MLS/HR; Start 06/14/17 at 12:00; Stop 06/18/17 at 12:59 Furosemide (Lasix) 40 mg DAILY PO Last administered on 06/16/17 08:59; Admin Dose 40 MG; Start 06/15/17 at 09:00; Status Future Hold Nystatin (Nystatin Powder) 1 applic BID TOP Last administered on 06/17/17 10:16 ; Admin Dose 1 APPLIC; Start 06/16/17 at 15:00 Spironolactone (Aldactone) 25 mg DAILY PO Last administered on 06/17/17 10:15; Admin Dose 25 MG; Start 06/16/17 at 18:30 RENETTA WATTS NP Jun 17, 2017 16:55
[2017-06-18] VITALS (12 sets, daily range): BP systolic 115–146; BP diastolic 73–82; PULSE 76–172; RESP 18–19
[2017-06-18] MEDS: LEVOTHYROXINE 88 MCG TAB PO SCH (06:17)
[2017-06-18] MEDS ORDERED: VANCOMYCIN 750 MG in SOD CHLORIDE 0.9% 150 ML IVPB SCH (08:00)
--- NOTE | 2017-06-18 08:53 | PN ---
DATE: 06/18/2017 SUBJECTIVE DATA: The patient is stable. No events overnight. No fevers, chills, nausea, vomiting. No shortness of breath. No other events noted. OBJECTIVE DATA: VITAL SIGNS: Pressure is 146/77, respirations 18, pulse 80, temperature 97.8. HEENT: Head is normocephalic. NECK: Supple. HEART: Regular rate. LUNGS: Diminished breath sounds at the base. ABDOMEN: Soft, nontender to palpation. No rebound or guarding. EXTREMITIES: Negative for clubbing, cyanosis. No edema. DERMATOLOGIC: Clean. No rashes. MUSCULOSKELETAL: No joint effusion. The patient has noted wound vac on the right groin and right neck. NEUROLOGIC: No change in exam. LABORATORY AND DIAGNOSTIC DATA: Currently pending. MEDICATIONS: Have been reviewed. ASSESSMENT AND PLAN: 1. Acute hypoxemic respiratory failure secondary to congestive heart failure. The patient is clinically improving. Currently stable on nasal cannula. Continue to monitor. Follow up with Pulmonary and Cardiology. 2. Sepsis secondary to urinary tract infection and possible pneumonia. The patient is completing antibiotic course. 3. Acute on chronic diastolic heart failure. The patient is clinically improving. Continue diuretic therapy. The patient was given 1 dose Diamox. We will follow up electrolytes and labs today. May consider another dose. 4. Alkalosis, likely from diuretic therapy. The patient was given Diamox. We will monitor. 5. Pleural effusion status post thoracentesis. 6. Chronic encephalopathy. The patient's mental status is improving. Continue to monitor. 7. Hypertension. Continue current blood pressure regimen. 8. Anemia. Monitor H and H levels. 9. Aortic stenosis. Continue current medical management. Follow up with outpatient Cardiology next sinuses right neck wound 9 chloride wound. The patient is status post wound vac. Follow up with General [facility]. 10. Hypothyroidism. Continue Synthroid. Gastrointestinal and deep venous thrombosis prophylaxis. Continue PPI and sequential leg 11. squeezes. 12. Hyponatremia. Continue to monitor. Limit free water intake. 13. Fungal urinary tract infection. The patient is completing antifungal course. Dictated By: Jesus Manuel Sheikh DO /[email or web address] /Document#: [id number]
[2017-06-18 09:56] LABS: BASOPHIL # 0.1 10^3/ul (0.0-0.1); BASOPHILS % 1.1 % (0.0-2.0); EOSINOPHILS # 0.7 10^3/ul (0.0-0.5); EOSINOPHILS % 5.7 % (0.0-7.0); HEMATOCRIT 28.4 % (37.0-47.0); HEMOGLOBIN 9.1 g/dl (12.0-16.0); LYMPHOCYTES # 2.3 10^3/ul (0.8-2.9); LYMPHOCYTES % 18.2 % (15.0-51.0); MEAN CORPUSCULAR HEMOGLOBIN 31.2 pg (29.0-33.0); MEAN CORPUSCULAR VOLUME 97.3 fl (82.0-101.0); MEAN PLATELET VOLUME 10.6 fl (7.4-10.4); MONOCYTE # 1.4 10^3/ul (0.3-0.9); MONOCYTES % 11.4 % (0.0-11.0); NEUTROPHILS % 62.7 % (39.0-77.0); PLATELET COUNT 383 10^3/UL (140-415); RED BLOOD COUNT 2.92 10^6/ul (4.20-5.40); RED CELL DISTRIBUTION WIDTH 15.1 % (11.5-14.5); WHITE BLOOD COUNT 12.7 10^3/ul (4.8-10.8)
[2017-06-18] MEDS: MULTIVITAMINS THERAPEUTIC TAB PO SCH (10:01)
[2017-06-18] MEDS: SPIRONOLACTONE 25 MG TAB PO SCH (10:01)
[2017-06-18] MEDS: DOCUSATE SODIUM 100 MG CAP PO SCH ×2 (10:01→21:00)
[2017-06-18] MEDS: CITALOPRAM 20 MG TAB PO SCH (10:02)
[2017-06-18] MEDS: NYSTATIN 30 GM POWDER BTL TOP SCH ×2 (10:02→21:16)
[2017-06-18] MEDS: FLUCONAZOLE 100 MG TAB PO SCH (10:02)
[2017-06-18 10:08] LABS: CALCIUM 8.7 mg/dl (8.4-10.2); CREATININE 1.12 mg/dl (0.44-1.00); POTASSIUM 4.5 mmol/L (3.5-5.1)
[2017-06-18 10:10] LABS: MAGNESIUM 2.1 mg/dl (1.7-2.5)
--- NOTE | 2017-06-18 10:39 | PN ---
DATE: 06/18/2017 SUBJECTIVE DATA: The patient is resting comfortably. Arousable but sleepy. OBJECTIVE DATA: VITAL SIGNS: Temperature 97.8, blood pressure 146/77, oxygen saturation 99 percent. LUNGS: Clear. CARDIAC: Reveals a loud systolic murmur. ABDOMEN: Soft. EXTREMITIES: No edema. CURRENT MEDICATIONS: 1. Spironolactone. 2. Lovenox. 3. Feosol. 4. Celexa. 5. Synthroid. 6. Fluconazole. 7. Lorazepam. LAB RESULTS: White count 12.7, hematocrit 28.4, platelet count 383. Sodium 132, potassium 4.4, BUN 15, creatinine 1.02. BNP 4100. ASSESSMENT AND PLAN: 1. Severe aortic stenosis. 2. Congestive heart failure. Currently appears euvolemic, only on spironolactone. At this point, she does have alkalosis, probably contraction alkalosis. Ultimately patient's definitive management would require addressing her aortic stenosis. At this time she is extremely frail, I will defer definitive decisions to her primary Workers Compensation Claims Examiner Dr. Pabon. Dictated By: Dionte Batista MD /[email or web address] /Document#: [id number]
[2017-06-18] MEDS: ENOXAPARIN 40 MG/0.4 ML SYG SC SCH (10:46)
--- NOTE | 2017-06-18 10:54 | RADRPT ---
PROCEDURE: XR Chest. CLINICAL INDICATION: Cough, pneumonia TECHNIQUE: Anterior chest x-ray. COMPARISON: 06/15/2017 FINDINGS: Left-sided PICC line demonstrates stable and satisfactory position. Patchy bilateral air space opacities throughout both lungs are unchanged from previous exam. Small bilateral pleural effusions are unchanged from previous exam. There is no evidence of pneumothorax. The heart size is large. There is atherosclerotic calcification of the aorta. The cardiomediastinal silhouette is otherwise unremarkable. The soft tissues are normal. Osseous structures are unremarkable. IMPRESSION: 1. Patchy bilateral air space opacities throughout both lungs may represent pneumonia or pulmonary edema, unchanged. 2. Small bilateral pleural effusions, unchanged. 3. Cardiomegaly. 4. Atherosclerotic calcification of the aorta. RPTAT: QQ .Mario Guadalupe MD, Date Time Electronically viewed and signed by .Mario Guadalupe MD, on 06/18/2017 10:54 .M/
[2017-06-18] MEDS: SOD FERRIC GLUC COMPLX 125 MG in SOD CHLORIDE 0.9% 100 ML IVPB SCH (12:49)
--- NOTE | 2017-06-18 13:49 | CONS ---
Date/Time of Note Date/Time of Note DATE: 06/18/17 TIME: 13:47 Consult Date/Type/Reason Admit Date/Time Jun 10, 2017 at 12:47 Type of Consultation: PULM Ordering Provider: ALYSSA RESTREPO DO Subjective Comfortable. No new events. Objective Vital Signs Date Time Temp Pulse Resp B/P Pulse Ox O2 Delivery O2 Flow Rate FiO2 06/18/17 11:56 98.5 78 18 143/78 99 06/18/17 07:43 Nasal Cannula 2.0 Intake and Output 06/17/17 06/17/17 06/18/17 15:00 23:00 07:00 Intake Total 50 ml 810 ml 300 ml Output Total 300 ml Balance 50 ml 810 ml 0 ml Exam PHYSICAL EXAMINATION: GENERAL APPEARANCE: Elderly lady on nc o2. VITAL SIGNS: NECK: Supple. No JVD. No lymphadenopathy. CARDIAC: S1, S2. A 3/6 systolic ejection murmur heard loudest over the aortic area. CHEST: Diminished air entry bilaterally. ABDOMEN: Soft, nontender. No guarding or rebound. EXTREMITIES: No cyanosis, clubbing or edema. NEUROLOGIC: Generalized weakness. Results/Medications Result Diagram: 06/18/1791306/18/1714 Results 24 hrs Laboratory Tests Test 06/18/17 09:14 White Blood Count 12.7 H Red Blood Count 2.92 L Hemoglobin 9.1 L Hematocrit 28.4 L Mean Corpuscular Volume 97.3 Mean Corpuscular Hemoglobin 31.2 Mean Corpuscular Hemoglobin Concent 32.0 Red Cell Distribution Width 15.1 H Platelet Count 383 Mean Platelet Volume 10.6 H Neutrophils % 62.7 Lymphocytes % 18.2 Monocytes % 11.4 H Eosinophils % 5.7 Basophils % 1.1 Nucleated Red Blood Cells % 0.0 Neutrophils # (Manual) 8.0 H Lymphocytes # 2.3 Monocytes # 1.4 H Eosinophils # 0.7 H Basophils # 0.1 Nucleated Red Blood Cells # 0.0 Sodium Level 132 L Potassium Level 4.5 Chloride Level 94 L Carbon Dioxide Level 35 H Anion Gap 8 Blood Urea Nitrogen 14 Creatinine 1.12 H Glucose Level 91 Calcium Level 8.7 Phosphorus Level 4.0 Magnesium Level 2.1 Medications Current Medications Acetaminophen (Tylenol Tab) 500 mg Q6H PRN PO PAIN AND OR ELEVATED TEMP Last administered on 06/16/17 12:41; Admin Dose 500 MG; Start 06/10/17 at 22:30 Lorazepam (Ativan) 0.5 mg Q6H PRN IV ANXIETY Last administered on 06/13/17 00: 23; Admin Dose 0.5 MG; Start 06/11/17 at 10:30 Fluconazole (Diflucan) 100 mg DAILY PO Last administered on 06/18/17 10:02; Admin Dose 100 MG; Start 06/13/17 at 09:00 Bisacodyl (Dulcolax Supp) 10 mg Q12 PRN [place] CONSTIPATION; Start 06/13/17 at 09:30 Citalopram Hydrobromide (Celexa) 20 mg DAILY PO Last administered on 06/18/17 10:02; Admin Dose 20 MG; Start 06/14/17 at 09:00 Docusate Sodium (Colace) 100 mg BID PO Last administered on 06/18/17 10:01; Admin Dose 100 MG; Start 06/13/17 at 21:00 Acetaminophen/ Hydrocodone Bitart ([place] (5/325)) 1 tab Q4 PRN PO MODERATE PAIN LEVEL 4-6 Last administered on 06/14/17 10:03; Admin Dose 1 TAB; Start 06/13 at 09:30 Multivitamins Therapeutic (Theragran) 1 tab DAILY PO Last administered on 10:01; Admin Dose 1 TAB; Start 06/14/17 at 09:00 Sodium Biphosphate/ Sodium Phosphate (Fleet Enema) 135 ml DAILY PRN [place] CONSTIPATION; Start 06/13/17 at 09:30 Polyethylene Glycol (Miralax) 17 gm DAILY PRN PO CONSTIPATION; Start 06/13/17 at 09:30 Senna (Senokot) 2 tab DAILY PRN [place] CONSTIPATION; Start 06/13/17 at 09:30 Enoxaparin Sodium (Lovenox) 40 mg DAILY SC Last administered on 06/18/17 10:46 ; Admin Dose 40 MG; Start 06/16/17 at 09:00 Furosemide (Lasix) 40 mg DAILY PO Last administered on 06/16/17 08:59; Admin Dose 40 MG; Start 06/15/17 at 09:00; Status Future Hold Nystatin (Nystatin Powder) 1 applic BID TOP Last administered on 06/18/17 10: 02; Admin Dose 1 APPLIC; Start 06/16/17 at 15:00 Spironolactone (Aldactone) 25 mg DAILY PO Last administered on 06/18/17 10:01 ; Admin Dose 25 MG; Start 06/16/17 at 18:30 Assessment/Plan Chief Complaint/Hosp Course IMPRESSION AND PLAN: 1. s/p hypoxemic resp failure secondary to chf and probably CAP. 2. Severe AR pending valve replacement 3. Contraction alkalosis ? Plan 1. Supplemental O2. 2. Diuresis as tolerated. 3. Cardiac recs noted. 4. Aspiration precautions. 5. Deep venous thrombosis and gastrointestinal prophylaxes. 6. Small effusions would hold off thoracentesis for now. Problems: HERMAN FIERRO MD, [facility] Jun 18, 2017 13:49
--- NOTE | 2017-06-18 15:04 | PN ---
Date/Time of Note Date/Time of Note DATE: 06/18/17 TIME: 14:58 Assessment/Plan Lines/Catheters [facility] Cabral in [facility] No Assessment/Plan Chief Complaint/Hosp Course 1. Right clavicular wound: s/p debridement R clavicle 06/15/17, with wound VAC -Local care with wound vac -Vitamin C -Nutrition optimization -Debridement prn 2. The right groin wound: s/p debridement 06/16/17; with wound vac -As above 3. Aortic stenosis, CHF, pleural effusion, ascites: -Cardiac optimization -thoracentesis PRN per pulm -Judicious fluid management -fluid management 4. Leukocytosis: UTI, infected wounds, possible pneumonia -IV antibiotics and antifungals -Local care -Pulmonary toilet 5. BMI 31 -Diet and nutrition optimization -Eventual exercise 6. Anemia without active bleeding: h/h drop -Monitor and transfuse prn 7. Renal insufficiency: -Judicious fluid management -Avoid nephrotoxic agents as possible 8. Thrombocytosis secondary to inflammatory process improving -Monitor 9. Pleural effusion s/p thora; improved; no sob, breathing comfortably -monitor -per pulm -thoracentesis prn 10. Hyponatremia: -diuresis +/- judicious fluids per renal Patient seen and examined in collaboration with Dr.Samuel Schaefer. Thank you. Problems: Subjective 24 Hr Interval Summary Feeling well. In good spirits. Right clavicle and right groin with wound vac. Min serosanguineous drainage. No c/o pain/discomfort from affected areas. No fevers, chills, sob, n/v/d/dysuria, new wounds. comfortable on nasal cannula. Exam/Review of Systems Vital Signs Vitals Vital Signs Date Time Temp Pulse Resp B/P Pulse Ox O2 Delivery O2 Flow Rate FiO2 06/18/17 11:56 98.5 78 18 143/78 99 06/18/17 07:43 Nasal Cannula 2.0 Intake and Output 06/17/17 06/17/17 06/18/17 15:00 23:00 07:00 Intake Total 50 ml 810 ml 300 ml Output Total 300 ml Balance 50 ml 810 ml 0 ml Exam Free Text/Dictation Constitutional: alert (awake), obese Psych: anxiety Head: atraumatic, normocephalic Eyes: EOMI, PERRL, nl conjunctiva, No icteric ENMT: mucosa pink and moist, nl external ears & nose Neck: non-tender, other (right neck wound with vac, periwound redness improved) , supple Respiratory: diminished breath sounds, No congested cough, No labored breathing, No wheezing Cardiovascular: edema, regular rate and rhythm Gastrointestinal: soft, No distended, No rebound or guarding, No tender Musculoskeletal: muscle weakness, No joint tenderness, No nl gait and stance Extremities: edema, No calf tenderness Neurological: nl speech, No nl strength Skin: rash or lesions, (right groin: with wound vac periwound erythema improved ) No diaphoresis, No nl turgor Lymph: nl lymph nodes Results Result Diagram: 06/18/17 0914 06/18/17 0914 GERA GILL NP Jun 18, 2017 15:04
--- NOTE | 2017-06-18 15:35 | CONS ---
Date/Time of Note Date/Time of Note DATE: 06/18/17 TIME: 15:32 Assessment/Plan Assessment/Plan Chief Complaint/Hosp Course Chief Complaint/Hosp Course SUBJECTIVE DATA: No acute changes overnight. No Acute Distress. ANTIMICROBIALS: Diflucan, cefepime PHYSICAL EXAMINATION: GENERAL: This is a well-developed, well-nourished, fragile, elderly woman, who is alert, in no distress. HEENT: Head atraumatic, normocephalic. Sclerae anicteric. Buccal mucosa pink. NECK: Supple. CHEST: Chest rise symmetrical. Patient has wound VAC to right clavicular wound. HEART: S1, S2. ABDOMEN: Soft, bowel sounds present. EXTREMITIES: Without cyanosis. ASSESSMENT: 1. Status post sepsis with shock. 2. Alivia albicans urinary tract infection. 3. Right clavicular wound status post wound VAC application, cultures being negative. 4. Right groin wound==> cx + C alb. 5. Aortic stenosis. 6. Status post congestive heart failure (CHF) exacerbation. 7. Left pleural effusions status post thoracentesis on June 13 with cultures being negative. 8. Possible pneumonia. PLAN: The patient remains stable. Continue present care. Discontinue Cefepime. Continue local wound care as per surgical team. Follow recommendations of consultants. Repeat cx's prn. DW staff Problems: Consultation Date/Type/Reason Admit Date/Time Jun 10, 2017 at 12:47 Initial Consult Date 06/13/17 Type of Consultation: id Referring Provider: ALYSSA RESTREPO DO Exam/Review of Systems Vital Signs Vitals Vital Signs Date Time Temp Pulse Resp B/P Pulse Ox O2 Delivery O2 Flow Rate FiO2 06/18/17 11:56 98.5 78 18 143/78 99 06/18/17 07:43 Nasal Cannula 2.0 Intake and Output 06/17/17 06/17/17 06/18/17 15:00 23:00 07:00 Intake Total 50 ml 810 ml 300 ml Output Total 300 ml Balance 50 ml 810 ml 0 ml Results Result Diagram: 06/18/1714 06/18/17 0914 Results 24 hrs Laboratory Tests Test 06/18/17 09:14 White Blood Count 12.7 H Red Blood Count 2.92 L Hemoglobin 9.1 L Hematocrit 28.4 L Mean Corpuscular Volume 97.3 Mean Corpuscular Hemoglobin 31.2 Mean Corpuscular Hemoglobin Concent 32.0 Red Cell Distribution Width 15.1 H Platelet Count 383 Mean Platelet Volume 10.6 H Neutrophils % 62.7 Lymphocytes % 18.2 Monocytes % 11.4 H Eosinophils % 5.7 Basophils % 1.1 Nucleated Red Blood Cells % 0.0 Neutrophils # (Manual) 8.0 H Lymphocytes # 2.3 Monocytes # 1.4 H Eosinophils # 0.7 H Basophils # 0.1 Nucleated Red Blood Cells # 0.0 Sodium Level 132 L Potassium Level 4.5 Chloride Level 94 L Carbon Dioxide Level 35 H Anion Gap 8 Blood Urea Nitrogen 14 Creatinine 1.12 H Glucose Level 91 Calcium Level 8.7 Phosphorus Level 4.0 Magnesium Level 2.1 Medications Medications Current Medications Acetaminophen (Tylenol Tab) 500 mg Q6H PRN PO PAIN AND OR ELEVATED TEMP Last administered on 06/16/17 12:41; Admin Dose 500 MG; Start 06/10/17 at 22:30 Lorazepam (Ativan) 0.5 mg Q6H PRN IV ANXIETY Last administered on 06/13/17 00: 23; Admin Dose 0.5 MG; Start 06/11/17 at 10:30 Fluconazole (Diflucan) 100 mg DAILY PO Last administered on 06/18/17 10:02; Admin Dose 100 MG; Start 06/13/17 at 09:00 Bisacodyl (Dulcolax Supp) 10 mg Q12 PRN [place] CONSTIPATION; Start 06/13/17 at 09:30 Citalopram Hydrobromide (Celexa) 20 mg DAILY PO Last administered on 06/18/17 10:02; Admin Dose 20 MG; Start 06/14/17 at 09:00 Docusate Sodium (Colace) 100 mg BID PO Last administered on 06/18/17 10:01; Admin Dose 100 MG; Start 06/13/17 at 21:00 Acetaminophen/ Hydrocodone Bitart ([place] (5/325)) 1 tab Q4 PRN PO MODERATE PAIN LEVEL 4-6 Last administered on 06/14/17 10:03; Admin Dose 1 TAB; Start 06/13 at 09:30 Multivitamins Therapeutic (Theragran) 1 tab DAILY PO Last administered on 10:01; Admin Dose 1 TAB; Start 06/14/17 at 09:00 Sodium Biphosphate/ Sodium Phosphate (Fleet Enema) 135 ml DAILY PRN [place] CONSTIPATION; Start 06/13/17 at 09:30 Polyethylene Glycol (Miralax) 17 gm DAILY PRN PO CONSTIPATION; Start 06/13/17 at 09:30 Senna (Senokot) 2 tab DAILY PRN PO CONSTIPATION; Start 06/13/17 at 09:30 Enoxaparin Sodium (Lovenox) 40 mg DAILY SC Last administered on 06/18/17 10:46 ; Admin Dose 40 MG; Start 06/16/17 at 09:00 Furosemide (Lasix) 40 mg DAILY PO Last administered on 06/16/17 08:59; Admin Dose 40 MG; Start 06/15/17 at 09:00; Status Future Hold Nystatin (Nystatin Powder) 1 applic BID TOP Last administered on 06/18/17 10: 02; Admin Dose 1 APPLIC; Start 06/16/17 at 15:00 Spironolactone (Aldactone) 25 mg DAILY PO Last administered on 06/18/17 10:01 ; Admin Dose 25 MG; Start 06/16/17 at 18:30 SUSIE HUI NP Jun 18, 2017 15:35
[2017-06-19] VITALS (11 sets, daily range): BP systolic 121–155; BP diastolic 59–76; PULSE 77–105; RESP 16–18
[2017-06-19] MEDS: LEVOTHYROXINE 88 MCG TAB PO SCH (06:02)
[2017-06-19 07:33] LABS: BASOPHIL # 0.1 10^3/ul (0.0-0.1); BASOPHILS % 1.3 % (0.0-2.0); EOSINOPHILS # 0.5 10^3/ul (0.0-0.5); EOSINOPHILS % 4.8 % (0.0-7.0); HEMATOCRIT 27.1 % (37.0-47.0); HEMOGLOBIN 8.2 g/dl (12.0-16.0); LYMPHOCYTES # 2.2 10^3/ul (0.8-2.9); LYMPHOCYTES % 19.4 % (15.0-51.0); MEAN CORPUSCULAR HEMOGLOBIN 29.6 pg (29.0-33.0); MEAN CORPUSCULAR HGB CONC 30.3 g/dl (32.0-37.0); MEAN CORPUSCULAR VOLUME 97.8 fl (82.0-101.0); MEAN PLATELET VOLUME 10.3 fl (7.4-10.4); MONOCYTE # 1.1 10^3/ul (0.3-0.9); MONOCYTES % 9.9 % (0.0-11.0); NEUTROPHILS % 63.3 % (39.0-77.0); PLATELET COUNT 354 10^3/UL (140-415); RED BLOOD COUNT 2.77 10^6/ul (4.20-5.40); RED CELL DISTRIBUTION WIDTH 15.4 % (11.5-14.5); WHITE BLOOD COUNT 11.1 10^3/ul (4.8-10.8)
[2017-06-19 08:11] LABS: CALCIUM 8.6 mg/dl (8.4-10.2); CREATININE 1.1 mg/dl (0.44-1.00); MAGNESIUM 1.9 mg/dl (1.7-2.5); PHOSPHORUS 3.8 mg/dl (2.5-4.9); POTASSIUM 4.1 mmol/L (3.5-5.1)
--- NOTE | 2017-06-19 08:28 | PN ---
Date/Time of Note Date/Time of Note DATE: 06/19/17 TIME: 08:20 Assessment/Plan Lines/Catheters IV Catheter Type (from [facility]): PICC Line Cabral in Place (from [facility]): No Assessment/Plan Chief Complaint/Hosp Course 1. Right clavicular wound: s/p debridement R clavicle 06/15/17, with wound VAC -continueLocal care with wound vac -Vitamin C -Nutrition optimization -Debridement prn 2. The right groin wound: s/p debridement 06/16/17; with wound vac -As above 3. Aortic stenosis, CHF, pleural effusion, ascites: episode of svt last night- sr currently -Cardiac optimization -thoracentesis PRN per pulm -Judicious fluid management -fluid management 4. Leukocytosis: UTI, infected wounds, possible pneumonia: improving -IV antibiotics and antifungals -Local care -Pulmonary toilet 5. BMI 31 -Diet and nutrition optimization -Eventual exercise 6. Anemia without active bleeding: -Monitor and transfuse prn 7. Renal insufficiency: improving -Judicious fluid management -Avoid nephrotoxic agents as possible 8. Thrombocytosis secondary to inflammatory process improving -Monitor 9. Pleural effusion s/p thora; improved; no sob, breathing comfortably on nc -monitor -per pulm -thoracentesis prn 10. Hyponatremia: -diuresis +/- judicious fluids per renal Patient seen and examined in collaboration with Dr.Samuel Schaefer. Thank you. Problems: Subjective 24 Hr Interval Summary Sleepy. Feels well. Right neck and groin wounds with vac-no c/o pain/discomfort from sites. Min serosanguineous drainage from sites. Periwound erythema much improved. Comfortable on nasal cannula without sob. No fevers, chills, cp, palpitations, n/v/d/dysuria. Exam/Review of Systems Vital Signs Vitals Vital Signs Date Time Temp Pulse Resp B/P Pulse Ox O2 Delivery O2 Flow Rate FiO2 06/19/17 07:28 98.6 94 18 150/76 100 06/19/17 05:30 2.0 06/18/17 21:15 Nasal Cannula Intake and Output 06/18/17 06/18/17 06/19/17 14:59 22:59 06:59 Intake Total 600 ml 350 ml Output Total 1000 ml Balance 600 ml -650 ml Exam Free Text/Dictation Constitutional: alert (awake), obese Psych: nl mood Head: atraumatic, normocephalic Eyes: EOMI, PERRL, nl conjunctiva, No icteric ENMT: mucosa pink and moist, nl external ears & nose Neck: non-tender, other (right neck wound with vac, periwound redness improved) , supple Respiratory: diminished breath sounds, comfortable on nc No congested cough, No labored breathing, No wheezing Cardiovascular: edema, regular rate and rhythm: sr currently Gastrointestinal: soft, rotund No distended, No rebound or guarding, No tender Musculoskeletal: muscle weakness, No joint tenderness, No nl gait and stance Extremities: edema, No calf tenderness Neurological: nl speech, No nl strength Skin: rash or lesions, (right groin: with wound vac periwound erythema improved ) No diaphoresis, No nl turgor Lymph: nl lymph nodes Results Result Diagram: 06/19/17 0715 06/19/17 0715 GERA GILL NP Jun 19, 2017 08:28
[2017-06-19] MEDS ORDERED: ACETAZOLAMIDE 500 MG INJ IV ONE (10:00)
[2017-06-19] MEDS: CITALOPRAM 20 MG TAB PO SCH (10:30)
[2017-06-19] MEDS: MULTIVITAMINS THERAPEUTIC TAB PO SCH (10:30)
[2017-06-19] MEDS: NYSTATIN 30 GM POWDER BTL TOP SCH ×2 (10:30→21:06)
[2017-06-19] MEDS: SPIRONOLACTONE 25 MG TAB PO SCH (10:30)
[2017-06-19] MEDS: DOCUSATE SODIUM 100 MG CAP PO SCH ×2 (10:31→21:06)
[2017-06-19] MEDS: FLUCONAZOLE 100 MG TAB PO SCH (10:31)
[2017-06-19] MEDS: ENOXAPARIN 40 MG/0.4 ML SYG SC SCH (10:34)
--- NOTE | 2017-06-19 10:56 | CONS ---
Date/Time of Note Date/Time of Note DATE: 06/19/17 TIME: 10:53 Assessment/Plan Assessment/Plan Additional Assessment/Plan Assessment and recommendations; 1. Patient admitted with pulmonary edema due to underlying severe aortic stenosis. 2. Possibly superimposed pneumonia. 3. Mild and you. 4. Chronic renal insufficiency. Continue current treatment. Awaiting aortic valve replacement/valvuloplasty at a tertiary center once she is clinically stable. Consultation Date/Type/Reason Admit Date/Time Jun 10, 2017 at 12:47 Type of Consultation: Pulmonary Referring Provider: ALYSSA RESTREPO DO 24 HR Interval Summary Free Text/Dictation Patient's condition is stable. Remains awake and alert. Denies any chest pain , shortness of breath has improved. Denies any fever or chills. General exam; elderly woman, awake and alert. Currently in no distress. Exam/Review of Systems Vital Signs Vitals Vital Signs Date Time Temp Pulse Resp B/P Pulse Ox O2 Delivery O2 Flow Rate FiO2 06/19/17 08:36 77 06/19/17 07:28 98.6 18 150/76 100 06/19/17 05:30 2.0 06/18/17 21:15 Nasal Cannula Intake and Output 06/18/17 06/18/17 06/19/17 15:00 23:00 07:00 Intake Total 600 ml 350 ml Output Total 1000 ml Balance 600 ml -650 ml Exam HEENT exam; supple neck, positive JVD. No lymphadenopathy. Midline trachea. No thyromegaly. One remaining tooth in lower jaw. Midsize bilaterally. Pharynx is clear. Chest exam; diminished but clear breath sound. There is a loud aortic stenosis murmur grade 3/6. Regular rhythm. Abdomen exam; soft, nontender. No organomegaly. Bowel sounds audible. Extremity exam; no peripheral edema. [employer]INEER exam; no focal deficit. Results Result Diagram: 06/19/17 0715 06/19/17 0715 Results 24 hrs Laboratory Tests Test 06/19/17 07:15 White Blood Count 11.1 H Red Blood Count 2.77 L Hemoglobin 8.2 L Hematocrit 27.1 L Mean Corpuscular Volume 97.8 Mean Corpuscular Hemoglobin 29.6 Mean Corpuscular Hemoglobin Concent 30.3 L Red Cell Distribution Width 15.4 H Platelet Count 354 Mean Platelet Volume 10.3 Neutrophils % 63.3 Lymphocytes % 19.4 Monocytes % 9.9 Eosinophils % 4.8 Basophils % 1.3 Nucleated Red Blood Cells % 0.0 Neutrophils # (Manual) 7.1 Lymphocytes # 2.2 Monocytes # 1.1 H Eosinophils # 0.5 Basophils # 0.1 Nucleated Red Blood Cells # 0.0 Sodium Level 133 L Potassium Level 4.1 Chloride Level 95 L Carbon Dioxide Level 34 H Anion Gap 8 Blood Urea Nitrogen 14 Creatinine 1.10 H Glucose Level 91 Calcium Level 8.6 Phosphorus Level 3.8 Magnesium Level 1.9 Medications Medications Current Medications Acetaminophen (Tylenol Tab) 500 mg Q6H PRN PO PAIN AND OR ELEVATED TEMP Last administered on 06/16/17 12:41; Admin Dose 500 MG; Start 06/10/17 at 22:30 Lorazepam (Ativan) 0.5 mg Q6H PRN IV ANXIETY Last administered on 06/13/17 00: 23; Admin Dose 0.5 MG; Start 06/11/17 at 10:30 Fluconazole (Diflucan) 100 mg DAILY PO Last administered on 06/19/17 10:31; Admin Dose 100 MG; Start 06/13/17 at 09:00 Bisacodyl (Dulcolax Supp) 10 mg Q12 PRN [place] CONSTIPATION; Start 06/13/17 at 09:30 Citalopram Hydrobromide (Celexa) 20 mg DAILY PO Last administered on 06/19/17 10:30; Admin Dose 20 MG; Start 06/14/17 at 09:00 Docusate Sodium (Colace) 100 mg BID PO Last administered on 06/19/17 10:31; Admin Dose 100 MG; Start 06/13/17 at 21:00 Acetaminophen/ Hydrocodone Bitart ([place] (5/325)) 1 tab Q4 PRN PO MODERATE PAIN LEVEL 4-6 Last administered on 06/14/17 10:03; Admin Dose 1 TAB; Start 06/13 at 09:30 Multivitamins Therapeutic (Theragran) 1 tab DAILY PO Last administered on 10:30; Admin Dose 1 TAB; Start 06/14/17 at 09:00 Sodium Biphosphate/ Sodium Phosphate (Fleet Enema) 135 ml DAILY PRN [place] CONSTIPATION; Start 06/13/17 at 09:30 Polyethylene Glycol (Miralax) 17 gm DAILY PRN PO CONSTIPATION; Start 06/13/17 at 09:30 Senna (Senokot) 2 tab DAILY PRN PO CONSTIPATION; Start 06/13/17 at 09:30 Enoxaparin Sodium (Lovenox) 40 mg DAILY SC Last administered on 06/19/17 10:34 ; Admin Dose 40 MG; Start 06/16/17 at 09:00 Furosemide (Lasix) 40 mg DAILY PO Last administered on 06/16/17 08:59; Admin Dose 40 MG; Start 06/15/17 at 09:00; Status Future Hold Nystatin (Nystatin Powder) 1 applic BID TOP Last administered on 06/19/17 10: 30; Admin Dose 1 APPLIC; Start 06/16/17 at 15:00 Spironolactone (Aldactone) 25 mg DAILY PO Last administered on 06/19/17 10:30 ; Admin Dose 25 MG; Start 06/16/17 at 18:30 FLOR ESCAIMLLA Jun 19, 2017 10:56
--- NOTE | 2017-06-19 17:55 | PN ---
DATE: 06/19/2017 SUBJECTIVE DATA: Patient is stable. No events overnight. No fevers, chills, nausea, vomiting. No shortness of breath. OBJECTIVE DATA: VITAL SIGNS: Blood pressure 150/76, pulse 77, and temperature 98.6. HEENT: Head is normocephalic. NECK: Supple. HEART: Regular rate. LUNGS: Diminished breath sounds at the base. ABDOMEN: Soft, nontender to palpation. No rebound or guarding. EXTREMITIES: Negative for clubbing, cyanosis. No edema. DERMATOLOGIC: No rashes. MUSCULOSKELETAL: No joint effusion. The patient has a noted wound back on right groin and right neck noted. NEUROLOGICALLY: No change in exam. MEDICATIONS: The patient's medications have been reviewed. LABORATORY AND DIAGNOSTIC DATA: Showed a sodium 133, potassium 4.1, chloride 95, bicarb 34, BUN 14, creatinine 1.10. ASSESSMENT AND PLAN: 1. Acute hypoxemic respiratory failure secondary to congestive heart failure. The patient is clinically improving. Continue current treatment plan. Continue nasal cannula. 2. Sepsis, secondary to urinary tract infection. Possible pneumonia. The patient is completing antibiotic course. 3. Acute on chronic diastolic heart failure. The patient is clinically improving. We will continue 1 more dose of Diamox. Monitor electrolytes closely. 4. Alkalosis, likely from diuretic therapy. Continue Diamox, Lasix on hold. 5. Pleural effusion status post-thoracentesis. 6. Chronic encephalopathy. Plan status improved. Continue to monitor. 7. Hypertension. Continue current blood pressure regimen. 8. Anemia. Monitor hemoglobin and hematocrit levels. 9. Aortic stenosis. Continue medical management. Follow up with outpatient Cardiology. 10. Hypothyroidism. Continue Synthroid. Gastrointestinal and deep venous thrombosis prophylaxis. Continue proton pump inhibitor and 11. sequential leg squeezes. 12. Hyponatremia. Continue to monitor. Limit free water intake. 13. Urinary tract infection. The patient is completing antifungal therapy. Dictated By: Jesus Manuel Sheikh DO /[email or web address]/nay /Document#: [id number]
--- NOTE | 2017-06-19 19:41 | CONS ---
Date/Time of Note Date/Time of Note DATE: 06/19/17 TIME: 19:39 Consult Date/Type/Reason Admit Date/Time Jun 10, 2017 at 12:47 Initial Consult Date 06/13/17 Type of Consultation: cardiology Ordering Provider: ALYSSA RESTREPO DO Subjective CARDIOLOGY FOLLOW UP NOTE: Discussed with the staff and rhythm was reviewed. Patient remained sinus rhythm. She denies any chest pain or pressure to me. She denies any shortness of breath to me now objective: General: thin female. no acute distress HEENT: NC/AT. pupils are equal. round. NECK: NO JVD. no stridor. CV: RRR. systolic ejection murmur; no gallop or rubs. PULM: + minimnal rhonchi. no wheezing GI: SOFT, NT, ND, no rebound or guarding Extremity: trace B/L LE edema. no clubbing. neuro: awake and alert, OX3. Psych: calm and pleasant rectal: deferred : normal. CXR reviewed. echo reviewed: 1. Hyperdynamic left ventricular systolic function. Normal left ventricular cavity size. Moderate concentric left ventricular hypertrophy. Ejection fraction is visually estimated at 70 %. 2. There is mild enlargement of left atrium. 3. Mitral valve leaflets appear mildly thickened. Mild mitral annular calcification. Moderate mitral valve regurgitation. 4. Severe aortic stenosis. Aortic valve Max velocity 4.65 m/sec. Max PG 86.00 mmHg. Mean PG 51.00 mmHg. Aortic valve area 0.26 cm2. No aortic regurgitation. 5. Normal appearance of the tricuspid valve. Estimated peak PA systolic pressure 40 mmHg. There is mild tricuspid regurgitation. 6. Normal size and normal respiratory collapse consistent with normal right atrial pressure. Objective Vital Signs Date Time Temp Pulse Resp B/P Pulse Ox O2 Delivery O2 Flow Rate FiO2 06/19/17 16:26 80 06/19/17 16:04 98.0 18 127/64 100 06/19/17 15:41 2.0 06/19/17 08:10 Nasal Cannula Intake and Output 06/18/17 06/18/17 06/19/17 15:00 23:00 07:00 Intake Total 600 ml 350 ml Output Total 1000 ml Balance 600 ml -650 ml Results/Medications Result Diagram: 06/19/17 0715 06/19/17 0715 Results 24 hrs Laboratory Tests Test 06/19/17 07:15 White Blood Count 11.1 H Red Blood Count 2.77 L Hemoglobin 8.2 L Hematocrit 27.1 L Mean Corpuscular Volume 97.8 Mean Corpuscular Hemoglobin 29.6 Mean Corpuscular Hemoglobin Concent 30.3 L Red Cell Distribution Width 15.4 H Platelet Count 354 Mean Platelet Volume 10.3 Neutrophils % 63.3 Lymphocytes % 19.4 Monocytes % 9.9 Eosinophils % 4.8 Basophils % 1.3 Nucleated Red Blood Cells % 0.0 Neutrophils # (Manual) 7.1 Lymphocytes # 2.2 Monocytes # 1.1 H Eosinophils # 0.5 Basophils # 0.1 Nucleated Red Blood Cells # 0.0 Sodium Level 133 L Potassium Level 4.1 Chloride Level 95 L Carbon Dioxide Level 34 H Anion Gap 8 Blood Urea Nitrogen 14 Creatinine 1.10 H Glucose Level 91 Calcium Level 8.6 Phosphorus Level 3.8 Magnesium Level 1.9 Medications Current Medications Acetaminophen (Tylenol Tab) 500 mg Q6H PRN PO PAIN AND OR ELEVATED TEMP Last administered on 06/16/17 12:41; Admin Dose 500 MG; Start 06/10/17 at 22:30 Lorazepam (Ativan) 0.5 mg Q6H PRN IV ANXIETY Last administered on 06/13/17 00: 23; Admin Dose 0.5 MG; Start 06/11/17 at 10:30 Fluconazole (Diflucan) 100 mg DAILY PO Last administered on 06/19/17 10:31; Admin Dose 100 MG; Start 06/13/17 at 09:00 Bisacodyl (Dulcolax Supp) 10 mg Q12 PRN [place] CONSTIPATION; Start 06/13/17 at 09:30 Citalopram Hydrobromide (Celexa) 20 mg DAILY PO Last administered on 06/19/17 10:30; Admin Dose 20 MG; Start 06/14/17 at 09:00 Docusate Sodium (Colace) 100 mg BID PO Last administered on 06/19/17 10:31; Admin Dose 100 MG; Start 06/13/17 at 21:00 Acetaminophen/ Hydrocodone Bitart ([place] (5/325)) 1 tab Q4 PRN PO MODERATE PAIN LEVEL 4-6 Last administered on 06/14/17 10:03; Admin Dose 1 TAB; Start 06/13 at 09:30 Multivitamins Therapeutic (Theragran) 1 tab DAILY PO Last administered on 10:30; Admin Dose 1 TAB; Start 06/14/17 at 09:00 Sodium Biphosphate/ Sodium Phosphate (Fleet Enema) 135 ml DAILY PRN [place] CONSTIPATION; Start 06/13/17 at 09:30 Polyethylene Glycol (Miralax) 17 gm DAILY PRN PO CONSTIPATION; Start 06/13/17 at 09:30 Senna (Senokot) 2 tab DAILY PRN PO CONSTIPATION; Start 06/13/17 at 09:30 Enoxaparin Sodium (Lovenox) 40 mg DAILY SC Last administered on 06/19/17 10:34 ; Admin Dose 40 MG; Start 06/16/17 at 09:00 Furosemide (Lasix) 40 mg DAILY PO Last administered on 06/16/17 08:59; Admin Dose 40 MG; Start 06/15/17 at 09:00; Status Future Hold Nystatin (Nystatin Powder) 1 applic BID TOP Last administered on 06/19/17 10: 30; Admin Dose 1 APPLIC; Start 06/16/17 at 15:00 Spironolactone (Aldactone) 25 mg DAILY PO Last administered on 06/19/17 10:30 ; Admin Dose 25 MG; Start 06/16/17 at 18:30 Assessment/Plan Chief Complaint/Hosp Course 1. CHF 2. critical 3. HTN 4. ANEMIA 5. CKD 6. pleural effusion 7. hx of right groin infection/hematoma after yanci angio done by Dr Menjivar. off of ASA since pt has no hx of CAD per her oil pump station operator chief report. will cont po lasix. add aldactone transfusion prn ,monitor H/H off of coreg to avoid hypotension. tele monitoring . abx as per ID rec replace lytes prn diuresis prn. s/p diamox today pt has been evaluated by [facility] for TAVR, BUT is awaiting ID clearance due to infected vascular post cardiac cath. out pt follow up with her oil pump station operator chief Dr Gonzalo Menjivar. thank you. KRISTNIE BORGES MD [facility] Problems: KRISTINE BORGES MD Jun 19, 2017 19:41
--- NOTE | 2017-06-19 21:39 | PN ---
DATE: 06/19/2017 SUBJECTIVE DATA: The patient is alert, feels better, looks comfortable. Denies pain. No fevers. LABORATORY AND DIAGNOSTIC DATA: WBC today 11.1, platelets 354, no shift, no bands. BUN 14, creatinine 1.10. ANTIMICROBIALS: The patient is on fluconazole day number 7. INDWELLINGS: The patient has left upper extremity PICC line. PHYSICAL EXAMINATION: Well-developed, fragile, elderly woman, who is alert, in no distress. HEENT: Head, atraumatic, normocephalic. Sclerae anicteric. Buccal mucosa pink. NECK: Supple. CHEST: Chest rise symmetrical. Breath sounds clear. HEART: S1, S2. ABDOMEN: Soft, bowel sounds present. ASSESSMENT: 1. Status post sepsis with shock. 2. Alivia albicans urinary tract infection. 3. Right clavicular wound status post fall, resulting in fracture, the patient has wound VAC placed, surgical team follows. 4. Right groin wound culture grew Alivia albicans. 5. Congestive heart failure exacerbation. 6. Aortic stenosis. PLAN: The patient remains stable, overall improving. Continue on fluconazole. Follow recommendations of consultants. Dictated By: Amanda Luciano NP /[email or web address]/devin /Document#: [id number]
[2017-06-20] VITALS (10 sets, daily range): BP systolic 104–130; BP diastolic 55–71; PULSE 74–110; RESP 16–18
--- NOTE | 2017-06-20 00:03 | OPR ---
Date/Time of Note Date/Time of Note DATE: 06/19/17 TIME: 23:58 Operative Report Procedure Date: Jun 16, 2017 Preoperative Diagnosis Right groin traumatic wound with slough and debris Postoperative Diagnosis Right groin traumatic wound with slough and debris including muscle/fascia 4 x 2.5 cm Operation Performed excisional debridement of right groin skin, subcutaneous, fascia, muscle Surgeon: GERA GILL NP Estimated Blood Loss: minimal Complications: no Pt Condition Post Procedure: stable Procedure Description R/B/A were fully reviewed with the patient and agreed upon. Patient was positioned appropriately in her own bed. Time out done. All pressure points padded on her bed. Using scalpel and curette, the necrotic tissue of skin, subq, muscle and fascia of right groin were debrided to healthier edges.Wound was irrigated and hemostasis obtained. Wound vac applied GERA GILL NP Jun 20, 2017 00:03
[2017-06-20] MEDS: LEVOTHYROXINE 88 MCG TAB PO SCH (06:21)
[2017-06-20 06:55] LABS: BASOPHIL # 0.1 10^3/ul (0.0-0.1); EOSINOPHILS # 0.6 10^3/ul (0.0-0.5); EOSINOPHILS % 4.7 % (0.0-7.0); HEMATOCRIT 25.3 % (37.0-47.0); HEMOGLOBIN 7.9 g/dl (12.0-16.0); LYMPHOCYTES # 2.8 10^3/ul (0.8-2.9); LYMPHOCYTES % 23.4 % (15.0-51.0); MEAN CORPUSCULAR HEMOGLOBIN 30.7 pg (29.0-33.0); MEAN CORPUSCULAR HGB CONC 31.2 g/dl (32.0-37.0); MEAN CORPUSCULAR VOLUME 98.4 fl (82.0-101.0); MEAN PLATELET VOLUME 10.9 fl (7.4-10.4); MONOCYTE # 1.2 10^3/ul (0.3-0.9); MONOCYTES % 9.7 % (0.0-11.0); NEUTROPHILS % 59.9 % (39.0-77.0); PLATELET COUNT 314 10^3/UL (140-415); RED BLOOD COUNT 2.57 10^6/ul (4.20-5.40); RED CELL DISTRIBUTION WIDTH 15.4 % (11.5-14.5); WHITE BLOOD COUNT 11.9 10^3/ul (4.8-10.8)
[2017-06-20 07:31] LABS: CALCIUM 8.9 mg/dl (8.4-10.2); CREATININE 1.08 mg/dl (0.44-1.00); PHOSPHORUS 3.8 mg/dl (2.5-4.9); POTASSIUM 4.4 mmol/L (3.5-5.1)
[2017-06-20] MEDS: MULTIVITAMINS THERAPEUTIC TAB PO SCH (09:48)
[2017-06-20] MEDS: SPIRONOLACTONE 25 MG TAB PO SCH (09:49)
[2017-06-20] MEDS: FUROSEMIDE 40 MG TAB PO SCH (09:49)
[2017-06-20] MEDS: CITALOPRAM 20 MG TAB PO SCH (09:50)
[2017-06-20] MEDS: DOCUSATE SODIUM 100 MG CAP PO SCH ×2 (09:50→20:06)
[2017-06-20] MEDS: FLUCONAZOLE 100 MG TAB PO SCH (09:50)
[2017-06-20] MEDS: NYSTATIN 30 GM POWDER BTL TOP SCH ×2 (09:51→20:05)
[2017-06-20] MEDS: ENOXAPARIN 40 MG/0.4 ML SYG SC SCH (09:56)
--- NOTE | 2017-06-20 10:13 | PN ---
DATE: 06/20/2017 SUBJECTIVE: The patient is stable. No events overnight. No fevers, chills, nausea, vomiting. OBJECTIVE DATA: VITAL SIGNS: Blood pressure is 111/56, temperature 97.4, pulse 74, respirations 18. HEENT: Head is normocephalic. NECK: Supple. HEART: Regular rate. LUNGS: Diminished breath sounds at the base. ABDOMEN: Soft, nontender to palpation. No rebound or guarding. EXTREMITIES: Negative for clubbing, cyanosis. No edema. DERMATOLOGIC: Clean. No rashes. MUSCULOSKELETAL: No joint effusion. Patient has noted wound VAC in the right groin and right neck. NEUROLOGIC: No change in exam. LABORATORY AND DIAGNOSTIC DATA: Shows white count 9.9, hemoglobin 7.9, hematocrit 25.3, platelet count is 314,000. Sodium 132, potassium 4.4, BUN 72, creatinine 1.08. ASSESSMENT AND PLAN: 1. Acute hypoxemic respiratory failure secondary to congestive heart failure. The patient is clinically improving. Continue current treatment plan. 2. Sepsis secondary to urinary tract infection, possible pneumonia. Continue current antibiotic regimen. 3. Acute on chronic diastolic heart failure. The patient is clinically improving. Continue intermittent diuretic therapy. 4. Alkalosis and diuretic therapy. Continue Diamox. 5. Pleural effusion status post thoracentesis. 6. Chronic encephalopathy, improving. Continue to monitor. 7. Hypertension. Continue current blood pressure regimen. 8. Anemia. Hemoglobin levels been fluctuating. No gross evidence of bleed. Will repeat hemoglobin and hematocrit levels. 9. Aortic stenosis. Aortic stenosis. Continue medical management. 10. Hypothyroidism. Continue Synthroid. 11. Gastrointestinal and deep venous thrombosis prophylaxis. 12. Hyponatremia. Continue to monitor. 13. Urinary tract infection. The patient has completed antibiotic course. 14. Wounds in right neck, right groin. Continue local wound care. Follow up with General Surgery. DISPOSITION: I have attempted multiple times to get in contact patient's daughters have not been successful despite leaving multiple messages. Will have a social scientist, case management evaluation for possible placement in a halfway facility. Dictated By: Jesus Manuel Sheikh DO /[email or web address]/xavier /Document#: [id number]
--- NOTE | 2017-06-20 11:36 | PN ---
Date/Time of Note Date/Time of Note DATE: 06/20/17 TIME: 11:28 Assessment/Plan Lines/Catheters IV Catheter Type (from [facility]): PICC Line Cabral in Place (from [facility]): No Assessment/Plan Chief Complaint/Hosp Course 1. Right clavicular wound: s/p debridement R clavicle 06/15/17, with wound VAC -continue local care with wound vac -Vitamin C -Nutrition optimization -Debridement prn 2. The right groin wound: s/p debridement 06/16/17; with wound vac -As above 3. Aortic stenosis, CHF, pleural effusion, ascites: no arrythmias overnight -Cardiac optimization -thoracentesis PRN per pulm -Judicious fluid management -fluid management 4. Leukocytosis: UTI, wounds, possible pneumonia -IV antibiotics and antifungals -Local care -Pulmonary toilet 5. BMI 31 -Diet and nutrition optimization -Eventual exercise 6. Anemia without active bleeding: -Monitor and transfuse prn 7. Renal insufficiency: improving -Judicious fluid management -Avoid nephrotoxic agents as possible 8. Pleural effusion s/p thora; improved; no sob, breathing comfortably on nc -monitor -per pulm -thoracentesis prn 10. Hyponatremia: -diuresis +/- judicious fluids per renal Patient seen and examined in collaboration with Dr.Samuel Schaefer. Thank you. Problems: Subjective 24 Hr Interval Summary Feels well. Wound vac to be changed today. Min serosanguineous drainage from vac. Comfortable on nasal cannula. No sob, cp,palpitations, n/v/d/dysuria, new wounds, pain or change in tele rhythm. Exam/Review of Systems Vital Signs Vitals Vital Signs Date Time Temp Pulse Resp B/P Pulse Ox O2 Delivery O2 Flow Rate FiO2 06/20/17 08:24 74 06/20/17 08:10 Nasal Cannula 2.0 06/20/17 07:55 97.4 17 111/56 100 Intake and Output 06/19/17 06/19/17 06/20/17 15:00 23:00 07:00 Intake Total 600 ml 240 ml Output Total 350 ml Balance 600 ml -110 ml Exam Free Text/Dictation Constitutional: alert (awake), obese Psych: anxious Head: atraumatic, normocephalic Eyes: EOMI, PERRL, nl conjunctiva, No icteric ENMT: mucosa pink and moist, nl external ears & nose Neck: non-tender, other (right neck wound with vac), supple Respiratory: diminished breath sounds, comfortable on nc No congested cough, No labored breathing, No wheezing Cardiovascular: min edema, regular rate and rhythm: sr currently Gastrointestinal: soft, rotund No distended, No rebound or guarding, No tender Musculoskeletal: muscle weakness, No joint tenderness, No nl gait and stance Extremities: edema, No calf tenderness Neurological: nl speech, No nl strength Skin: rash or lesions, (right groin: with wound vac) No diaphoresis, No nl turgor Lymph: nl lymph nodes Results Result Diagram: 06/20/1761906/20/17619 GERA GILL NP Jun 20, 2017 11:36
--- NOTE | 2017-06-20 12:15 | CONS ---
Date/Time of Note Date/Time of Note DATE: 06/20/17 TIME: 12:13 Assessment/Plan Assessment/Plan Additional Assessment/Plan Assessment and recommendations; 1. Patient admitted with CHF exacerbation due to underlying severe aortic stenosis, there has been significant interval improvement. 2. Possibly superimposed bronchopneumonia, off antibiotics. Patient is currently being evaluated at a tertiary care center for aortic valve replacement/valvuloplasty. Consider discharge. Consultation Date/Type/Reason Admit Date/Time Jun 10, 2017 at 12:47 Type of Consultation: Pulmonary Referring Provider: ALYSSA RESTREPO DO 24 HR Interval Summary Free Text/Dictation Patient condition stable. Denies any shortness of breath. Any chest pain. General exam; elderly woman, awake and alert. Currently in no distress. Exam/Review of Systems Vital Signs Vitals Vital Signs Date Time Temp Pulse Resp B/P Pulse Ox O2 Delivery O2 Flow Rate FiO2 06/20/17 11:35 98.5 85 16 104/55 100 06/20/17 08:10 Nasal Cannula 2.0 Intake and Output 06/19/17 06/19/17 06/20/17 14:59 22:59 06:59 Intake Total 600 ml 240 ml Output Total 350 ml Balance 600 ml -110 ml Exam HEENT exam; soft, positive JVD. No lymphadenopathy. Midline trachea. Pharynx is clear. Patient has a multiple carious teeth. Exam; diminished breath sounds bilaterally. No added sound. S1-S2 audible, there is a loud aortic stenosis murmur. Grade 3/6. Regular rhythm. Abdomen exam; soft, nontender. No organomegaly. Bowel sounds audible. Extremity exam; no peripheral edema. [employer] exam; no focal deficit. Results Result Diagram: 06/20/17 0620 06/20/17 0620 Results 24 hrs Laboratory Tests Test 06/20/17 06:20 White Blood Count 11.9 H Red Blood Count 2.57 L Hemoglobin 7.9 L Hematocrit 25.3 L Mean Corpuscular Volume 98.4 Mean Corpuscular Hemoglobin 30.7 Mean Corpuscular Hemoglobin Concent 31.2 L Red Cell Distribution Width 15.4 H Platelet Count 314 Mean Platelet Volume 10.9 H Neutrophils % 59.9 Lymphocytes % 23.4 Monocytes % 9.7 Eosinophils % 4.7 Basophils % 1.0 Nucleated Red Blood Cells % 0.0 Neutrophils # (Manual) 7.1 Lymphocytes # 2.8 Monocytes # 1.2 H Eosinophils # 0.6 H Basophils # 0.1 Nucleated Red Blood Cells # 0.0 Sodium Level 132 L Potassium Level 4.4 Chloride Level 95 L Carbon Dioxide Level 34 H Anion Gap 7 L Blood Urea Nitrogen 17 Creatinine 1.08 H Glucose Level 89 Calcium Level 8.9 Phosphorus Level 3.8 Magnesium Level 2.0 Medications Medications Current Medications Acetaminophen (Tylenol Tab) 500 mg Q6H PRN PO PAIN AND OR ELEVATED TEMP Last administered on 06/16/17 12:41; Admin Dose 500 MG; Start 06/10/17 at 22:30 Lorazepam (Ativan) 0.5 mg Q6H PRN IV ANXIETY Last administered on 06/13/17 00: 23; Admin Dose 0.5 MG; Start 06/11/17 at 10:30 Fluconazole (Diflucan) 100 mg DAILY PO Last administered on 06/20/17 09:50; Admin Dose 100 MG; Start 06/13/17 at 09:00 Bisacodyl (Dulcolax Supp) 10 mg Q12 PRN [place] CONSTIPATION; Start 06/13/17 at 09:30 Citalopram Hydrobromide (Celexa) 20 mg DAILY PO Last administered on 06/20/17 09:50; Admin Dose 20 MG; Start 06/14/17 at 09:00 Docusate Sodium (Colace) 100 mg BID PO Last administered on 06/20/17 09:50; Admin Dose 100 MG; Start 06/13/17 at 21:00 Acetaminophen/ Hydrocodone Bitart ([place] (5/325)) 1 tab Q4 PRN PO MODERATE PAIN LEVEL 4-6 Last administered on 06/14/17 10:03; Admin Dose 1 TAB; Start 06/13 at 09:30 Multivitamins Therapeutic (Theragran) 1 tab DAILY PO Last administered on 09:48; Admin Dose 1 TAB; Start 06/14/17 at 09:00 Sodium Biphosphate/ Sodium Phosphate (Fleet Enema) 135 ml DAILY PRN [place] CONSTIPATION; Start 06/13/17 at 09:30 Polyethylene Glycol (Miralax) 17 gm DAILY PRN PO CONSTIPATION; Start 06/13/17 at 09:30 Senna (Senokot) 2 tab DAILY PRN PO CONSTIPATION; Start 06/13/17 at 09:30 Enoxaparin Sodium (Lovenox) 40 mg DAILY SC Last administered on 06/20/17 09:56 ; Admin Dose 40 MG; Start 06/16/17 at 09:00 Furosemide (Lasix) 40 mg DAILY PO Last administered on 06/20/17 09:49; Admin Dose 40 MG; Start 06/15/17 at 09:00; Status Future hold Nystatin (Nystatin Powder) 1 applic BID TOP Last administered on 06/20/17 09: 51; Admin Dose 1 APPLIC; Start 06/16/17 at 15:00 Spironolactone (Aldactone) 25 mg DAILY PO Last administered on 06/20/17 09:49 ; Admin Dose 25 MG; Start 06/16/17 at 18:30 FLOR ESCAMILLA Jun 20, 2017 12:15
[2017-06-20 14:07] LABS: HEMATOCRIT 27.7 % (37.0-47.0); HEMOGLOBIN 8.7 g/dl (12.0-16.0)
--- NOTE | 2017-06-20 18:03 | CONS ---
Date/Time of Note Date/Time of Note DATE: 06/20/17 TIME: 18:02 Consult Date/Type/Reason Admit Date/Time Jun 10, 2017 at 12:47 Initial Consult Date 06/13/17 Type of Consultation: CARDIOLGY Ordering Provider: AYLSSA SHEIKH DO Subjective CARDIOLOGY FOLLOW UP NOTE: Discussed with the staff and rhythm was reviewed. Patient remained sinus rhythm. D/W Dr Sheikh She denies any chest pain or pressure to me. She denies any shortness of breath to me now objective: General: thin female. no acute distress HEENT: NC/AT. pupils are equal. round. NECK: NO JVD. no stridor. CV: RRR. systolic ejection murmur; no gallop or rubs. PULM: + minimnal rhonchi. no wheezing GI: SOFT, NT, ND, no rebound or guarding Extremity: trace B/L LE edema. no clubbing. neuro: awake and alert, OX3. Psych: calm and pleasant rectal: deferred : normal. CXR reviewed. echo reviewed: 1. Hyperdynamic left ventricular systolic function. Normal left ventricular cavity size. Moderate concentric left ventricular hypertrophy. Ejection fraction is visually estimated at 70 %. 2. There is mild enlargement of left atrium. 3. Mitral valve leaflets appear mildly thickened. Mild mitral annular calcification. Moderate mitral valve regurgitation. 4. Severe aortic stenosis. Aortic valve Max velocity 4.65 m/sec. Max PG 86.00 mmHg. Mean PG 51.00 mmHg. Aortic valve area 0.26 cm2. No aortic regurgitation. 5. Normal appearance of the tricuspid valve. Estimated peak PA systolic pressure 40 mmHg. There is mild tricuspid regurgitation. 6. Normal size and normal respiratory collapse consistent with normal right atrial pressure. Objective Vital Signs Date Time Temp Pulse Resp B/P Pulse Ox O2 Delivery O2 Flow Rate FiO2 06/20/17 16:25 77 06/20/17 15:06 2.0 06/20/17 15:06 98.4 17 113/58 100 06/20/17 08:10 Nasal Cannula Intake and Output 06/19/17 06/19/17 06/20/17 15:00 23:00 07:00 Intake Total 600 ml 240 ml Output Total 350 ml Balance 600 ml -110 ml Results/Medications Result Diagram: 06/20/17 1350 06/20/17 0620 Results 24 hrs Laboratory Tests Test 06/20/17 06:20 06/20/17 13:50 White Blood Count 11.9 H Red Blood Count 2.57 L Hemoglobin 7.9 L 8.7 L Hematocrit 25.3 L 27.7 L Mean Corpuscular Volume 98.4 Mean Corpuscular Hemoglobin 30.7 Mean Corpuscular Hemoglobin Concent 31.2 L Red Cell Distribution Width 15.4 H Platelet Count 314 Mean Platelet Volume 10.9 H Neutrophils % 59.9 Lymphocytes % 23.4 Monocytes % 9.7 Eosinophils % 4.7 Basophils % 1.0 Nucleated Red Blood Cells % 0.0 Neutrophils # (Manual) 7.1 Lymphocytes # 2.8 Monocytes # 1.2 H Eosinophils # 0.6 H Basophils # 0.1 Nucleated Red Blood Cells # 0.0 Sodium Level 132 L Potassium Level 4.4 Chloride Level 95 L Carbon Dioxide Level 34 H Anion Gap 7 L Blood Urea Nitrogen 17 Creatinine 1.08 H Glucose Level 89 Calcium Level 8.9 Phosphorus Level 3.8 Magnesium Level 2.0 Medications Current Medications Acetaminophen (Tylenol Tab) 500 mg Q6H PRN PO PAIN AND OR ELEVATED TEMP Last administered on 06/16/17 12:41; Admin Dose 500 MG; Start 06/10/17 at 22:30 Lorazepam (Ativan) 0.5 mg Q6H PRN IV ANXIETY Last administered on 06/13/17 00: 23; Admin Dose 0.5 MG; Start 06/11/17 at 10:30 Fluconazole (Diflucan) 100 mg DAILY PO Last administered on 06/20/17 09:50; Admin Dose 100 MG; Start 06/13/17 at 09:00 Bisacodyl (Dulcolax Supp) 10 mg Q12 PRN [place] CONSTIPATION; Start 06/13/17 at 09:30 Citalopram Hydrobromide (Celexa) 20 mg DAILY PO Last administered on 06/20/17 09:50; Admin Dose 20 MG; Start 06/14/17 at 09:00 Docusate Sodium (Colace) 100 mg BID PO Last administered on 06/20/17 09:50; Admin Dose 100 MG; Start 06/13/17 at 21:00 Acetaminophen/ Hydrocodone Bitart ([place] (5/325)) 1 tab Q4 PRN PO MODERATE PAIN LEVEL 4-6 Last administered on 06/14/17 10:03; Admin Dose 1 TAB; Start 06/13 at 09:30 Multivitamins Therapeutic (Theragran) 1 tab DAILY PO Last administered on 09:48; Admin Dose 1 TAB; Start 06/14/17 at 09:00 Sodium Biphosphate/ Sodium Phosphate (Fleet Enema) 135 ml DAILY PRN [place] CONSTIPATION; Start 06/13/17 at 09:30 Polyethylene Glycol (Miralax) 17 gm DAILY PRN [place] CONSTIPATION; Start 06/13/17 at 09:30 Senna (Senokot) 2 tab DAILY PRN [place] CONSTIPATION; Start 06/13/17 at 09:30 Enoxaparin Sodium (Lovenox) 40 mg DAILY SC Last administered on 06/20/17 09:56 ; Admin Dose 40 MG; Start 06/16/17 at 09:00 Furosemide (Lasix) 40 mg DAILY PO Last administered on 06/20/17 09:49; Admin Dose 40 MG; Start 06/15/17 at 09:00; Status Future hold Nystatin (Nystatin Powder) 1 applic BID TOP Last administered on 06/20/17 09: 51; Admin Dose 1 APPLIC; Start 06/16/17 at 15:00 Spironolactone (Aldactone) 25 mg DAILY PO Last administered on 06/20/17 09:49 ; Admin Dose 25 MG; Start 06/16/17 at 18:30 Assessment/Plan Chief Complaint/Hosp Course 1. CHF 2. critical 3. HTN 4. ANEMIA 5. CKD 6. pleural effusion 7. hx of right groin infection/hematoma after yanci angio done by Dr Menjivar. off of ASA since pt has no hx of CAD per her commercial baker helper report. will cont po lasix. add aldactone transfusion prn and ,monitor H/H off of coreg to avoid hypotension. tele monitoring . abx as per ID rec replace lytes prn on po lasix and aldactone now pt has been evaluated by [facility] for TAVR, BUT is awaiting ID clearance due to infected vascular post cardiac cath. out pt follow up with her commercial baker helper Dr Gonzalo Menjivar. thank you. KRISTINE BORGES MD [facility] Problems: KRISTINE BORGES MD Jun 20, 2017 18:03
--- NOTE | 2017-06-20 19:00 | CONS ---
Date/Time of Note Date/Time of Note DATE: 06/20/17 TIME: 18:58 Assessment/Plan Assessment/Plan Chief Complaint/Hosp Course SUBJECTIVE DATA: No acute changes overnight. Sleeping, no fevers ANTIMICROBIALS: Diflucan PHYSICAL EXAMINATION: GENERAL: This is a well-developed, well-nourished, fragile, elderly woman, who is alert, in no distress. HEENT: Head atraumatic, normocephalic. Sclerae anicteric. Buccal mucosa pink. NECK: Supple. CHEST: Chest rise symmetrical. Patient has wound VAC to right clavicular wound. HEART: S1, S2. ABDOMEN: Soft, bowel sounds present. EXTREMITIES: Without cyanosis. ASSESSMENT: 1. Status post sepsis with shock. 2. Alivia albicans urinary tract infection. 3. Right clavicular wound status post wound VAC application, cultures being negative. 4. Right groin wound==> cx + C alb. 5. Aortic stenosis. 6. Status post congestive heart failure (CHF) exacerbation. 7. Left pleural effusions status post thoracentesis on June 13 with cultures being negative. 8. Possible pneumonia. PLAN: The patient remains stable. Continue present care, local wound care per surgical team. Follow recommendations of consultants. Repeat cx's prn DW staff Problems: Consultation Date/Type/Reason Admit Date/Time Jun 10, 2017 at 12:47 Initial Consult Date 06/13/17 Type of Consultation: ID Referring Provider: ALYSSA RESTREPO DO Exam/Review of Systems Vital Signs Vitals Vital Signs Date Time Temp Pulse Resp B/P Pulse Ox O2 Delivery O2 Flow Rate FiO2 06/20/17 16:25 77 06/20/17 15:06 2.0 06/20/17 15:06 98.4 17 113/58 100 06/20/17 08:10 Nasal Cannula Intake and Output 06/19/17 06/19/17 06/20/17 15:00 23:00 07:00 Intake Total 600 ml 240 ml Output Total 350 ml Balance 600 ml -110 ml Results Result Diagram: 06/20/17 1350 06/20/17 0620 Results 24 hrs Laboratory Tests Test 06/20/17 06:20 06/20/17 13:50 White Blood Count 11.9 H Red Blood Count 2.57 L Hemoglobin 7.9 L 8.7 L Hematocrit 25.3 L 27.7 L Mean Corpuscular Volume 98.4 Mean Corpuscular Hemoglobin 30.7 Mean Corpuscular Hemoglobin Concent 31.2 L Red Cell Distribution Width 15.4 H Platelet Count 314 Mean Platelet Volume 10.9 H Neutrophils % 59.9 Lymphocytes % 23.4 Monocytes % 9.7 Eosinophils % 4.7 Basophils % 1.0 Nucleated Red Blood Cells % 0.0 Neutrophils # (Manual) 7.1 Lymphocytes # 2.8 Monocytes # 1.2 H Eosinophils # 0.6 H Basophils # 0.1 Nucleated Red Blood Cells # 0.0 Sodium Level 132 L Potassium Level 4.4 Chloride Level 95 L Carbon Dioxide Level 34 H Anion Gap 7 L Blood Urea Nitrogen 17 Creatinine 1.08 H Glucose Level 89 Calcium Level 8.9 Phosphorus Level 3.8 Magnesium Level 2.0 Medications Medications Current Medications Acetaminophen (Tylenol Tab) 500 mg Q6H PRN PO PAIN AND OR ELEVATED TEMP Last administered on 06/16/17 12:41; Admin Dose 500 MG; Start 06/10/17 at 22:30 Lorazepam (Ativan) 0.5 mg Q6H PRN IV ANXIETY Last administered on 06/13/17 00: 23; Admin Dose 0.5 MG; Start 06/11/17 at 10:30 Fluconazole (Diflucan) 100 mg DAILY PO Last administered on 06/20/17 09:50; Admin Dose 100 MG; Start 06/13/17 at 09:00 Bisacodyl (Dulcolax Supp) 10 mg Q12 PRN [place] CONSTIPATION; Start 06/13/17 at 09:30 Citalopram Hydrobromide (Celexa) 20 mg DAILY PO Last administered on 06/20/17 09:50; Admin Dose 20 MG; Start 06/14/17 at 09:00 Docusate Sodium (Colace) 100 mg BID PO Last administered on 06/20/17 09:50; Admin Dose 100 MG; Start 06/13/17 at 21:00 Acetaminophen/ Hydrocodone Bitart ([place] (5/325)) 1 tab Q4 PRN PO MODERATE PAIN LEVEL 4-6 Last administered on 06/14/17 10:03; Admin Dose 1 TAB; Start 06/13 at 09:30 Multivitamins Therapeutic (Theragran) 1 tab DAILY PO Last administered on 09:48; Admin Dose 1 TAB; Start 06/14/17 at 09:00 Sodium Biphosphate/ Sodium Phosphate (Fleet Enema) 135 ml DAILY PRN [place] CONSTIPATION; Start 06/13/17 at 09:30 Polyethylene Glycol (Miralax) 17 gm DAILY PRN PO CONSTIPATION; Start 06/13/17 at 09:30 Senna (Senokot) 2 tab DAILY PRN [place] CONSTIPATION; Start 06/13/17 at 09:30 Enoxaparin Sodium (Lovenox) 40 mg DAILY SC Last administered on 06/20/17 09:56 ; Admin Dose 40 MG; Start 06/16/17 at 09:00 Furosemide (Lasix) 40 mg DAILY PO Last administered on 06/20/17 09:49; Admin Dose 40 MG; Start 06/15/17 at 09:00; Status Future hold Nystatin (Nystatin Powder) 1 applic BID TOP Last administered on 06/20/17 09: 51; Admin Dose 1 APPLIC; Start 06/16/17 at 15:00 Spironolactone (Aldactone) 25 mg DAILY PO Last administered on 06/20/17 09:49 ; Admin Dose 25 MG; Start 06/16/17 at 18:30 RENETTA WATTS NP Jun 20, 2017 19:00
[2017-06-20] MEDS: ACETAMINOPHEN 500 MG TAB PO PRN (20:06)
[2017-06-20] MEDS: HYDROCODONE/APAP (5/325) TAB PO PRN (23:18)
[2017-06-21] VITALS (13 sets, daily range): BP systolic 98–133; BP diastolic 53–67; PULSE 76–86; RESP 18–20
[2017-06-21] MEDS: LEVOTHYROXINE 88 MCG TAB PO SCH (06:45)
[2017-06-21 06:55] LABS: BASOPHIL # 0.1 10^3/ul (0.0-0.1); BASOPHILS % 0.9 % (0.0-2.0); EOSINOPHILS # 0.6 10^3/ul (0.0-0.5); EOSINOPHILS % 5.4 % (0.0-7.0); HEMATOCRIT 25.5 % (37.0-47.0); HEMOGLOBIN 7.7 g/dl (12.0-16.0); LYMPHOCYTES # 2.6 10^3/ul (0.8-2.9); LYMPHOCYTES % 22.5 % (15.0-51.0); MEAN CORPUSCULAR HEMOGLOBIN 29.8 pg (29.0-33.0); MEAN CORPUSCULAR HGB CONC 30.2 g/dl (32.0-37.0); MEAN CORPUSCULAR VOLUME 98.8 fl (82.0-101.0); MEAN PLATELET VOLUME 10.5 fl (7.4-10.4); MONOCYTE # 1.2 10^3/ul (0.3-0.9); MONOCYTES % 10.4 % (0.0-11.0); NEUTROPHILS % 59.3 % (39.0-77.0); PLATELET COUNT 323 10^3/UL (140-415); RED BLOOD COUNT 2.58 10^6/ul (4.20-5.40); RED CELL DISTRIBUTION WIDTH 15.8 % (11.5-14.5); WHITE BLOOD COUNT 11.6 10^3/ul (4.8-10.8)
[2017-06-21 07:22] LABS: CREATININE 1.31 mg/dl (0.44-1.00); PHOSPHORUS 4.3 mg/dl (2.5-4.9)
[2017-06-21 07:27] LABS: POTASSIUM 5.5 mmol/L (3.5-5.1)
--- NOTE | 2017-06-21 09:01 | CONS ---
Date/Time of Note Date/Time of Note DATE: 06/21/17 TIME: 09:00 Consult Date/Type/Reason Admit Date/Time Jun 10, 2017 at 12:47 Initial Consult Date 06/13/17 Type of Consultation: cardiology Ordering Provider: ALYSSA RESTREPO DO Subjective CARDIOLOGY FOLLOW UP NOTE: Discussed with the staff and rhythm was reviewed. Patient remained sinus rhythm. She denies any chest pain or pressure to me. She denies any shortness of breath to me now objective: General: thin female. no acute distress HEENT: NC/AT. pupils are equal. round. NECK: NO JVD. no stridor. CV: RRR. systolic ejection murmur; no gallop or rubs. PULM: + minimnal rhonchi. no wheezing GI: SOFT, NT, ND, no rebound or guarding Extremity: trace B/L LE edema. no clubbing. neuro: awake and alert, OX3. Psych: calm and pleasant rectal: deferred : normal. CXR reviewed. echo reviewed: 1. Hyperdynamic left ventricular systolic function. Normal left ventricular cavity size. Moderate concentric left ventricular hypertrophy. Ejection fraction is visually estimated at 70 %. 2. There is mild enlargement of left atrium. 3. Mitral valve leaflets appear mildly thickened. Mild mitral annular calcification. Moderate mitral valve regurgitation. 4. Severe aortic stenosis. Aortic valve Max velocity 4.65 m/sec. Max PG 86.00 mmHg. Mean PG 51.00 mmHg. Aortic valve area 0.26 cm2. No aortic regurgitation. 5. Normal appearance of the tricuspid valve. Estimated peak PA systolic pressure 40 mmHg. There is mild tricuspid regurgitation. 6. Normal size and normal respiratory collapse consistent with normal right atrial pressure. Objective Vital Signs Date Time Temp Pulse Resp B/P Pulse Ox O2 Delivery O2 Flow Rate FiO2 06/21/17 08:14 79 06/21/17 07:58 97.7 20 133/67 100 06/21/17 01:31 2.0 06/20/17 20:30 Nasal Cannula Intake and Output 06/20/17 06/20/17 06/21/17 15:00 23:00 07:00 Intake Total 1070 ml 60 ml Balance 1070 ml 60 ml Results/Medications Result Diagram: 06/21/17 0617 06/21/17 0617 Results 24 hrs Laboratory Tests Test 06/20/17 13:50 06/21/17 06:17 Hemoglobin 8.7 L 7.7 L Hematocrit 27.7 L 25.5 L White Blood Count 11.6 H Red Blood Count 2.58 L Mean Corpuscular Volume 98.8 Mean Corpuscular Hemoglobin 29.8 Mean Corpuscular Hemoglobin Concent 30.2 L Red Cell Distribution Width 15.8 H Platelet Count 323 Mean Platelet Volume 10.5 H Neutrophils % 59.3 Lymphocytes % 22.5 Monocytes % 10.4 Eosinophils % 5.4 Basophils % 0.9 Nucleated Red Blood Cells % 0.0 Neutrophils # (Manual) 6.9 Lymphocytes # 2.6 Monocytes # 1.2 H Eosinophils # 0.6 H Basophils # 0.1 Nucleated Red Blood Cells # 0.0 Sodium Level 132 L Potassium Level 5.5 H Chloride Level 95 L Carbon Dioxide Level 35 H Anion Gap 8 Blood Urea Nitrogen 21 H Creatinine 1.31 H Glucose Level 88 Calcium Level 9.0 Phosphorus Level 4.3 Magnesium Level 2.0 Medications Current Medications Acetaminophen (Tylenol Tab) 500 mg Q6H PRN PO PAIN AND OR ELEVATED TEMP Last administered on 06/20/17 20:06; Admin Dose 500 MG; Start 06/10/17 at 22:30 Lorazepam (Ativan) 0.5 mg Q6H PRN IV ANXIETY Last administered on 06/13/17 00: 23; Admin Dose 0.5 MG; Start 06/11/17 at 10:30 Fluconazole (Diflucan) 100 mg DAILY PO Last administered on 06/20/17 09:50; Admin Dose 100 MG; Start 06/13/17 at 09:00 Bisacodyl (Dulcolax Supp) 10 mg Q12 PRN [place] CONSTIPATION; Start 06/13/17 at 09:30 Citalopram Hydrobromide (Celexa) 20 mg DAILY PO Last administered on 06/20/17 09:50; Admin Dose 20 MG; Start 06/14/17 at 09:00 Docusate Sodium (Colace) 100 mg BID PO Last administered on 06/20/17 20:06; Admin Dose 100 MG; Start 06/13/17 at 21:00 Acetaminophen/ Hydrocodone Bitart ([place] (5/325)) 1 tab Q4 PRN PO MODERATE PAIN LEVEL 4-6 Last administered on 06/20/17 23:18; Admin Dose 1 TAB; Start 06/13/17 at 09:30 Multivitamins Therapeutic (Theragran) 1 tab DAILY PO Last administered on 09:48; Admin Dose 1 TAB; Start 06/14/17 at 09:00 Sodium Biphosphate/ Sodium Phosphate (Fleet Enema) 135 ml DAILY PRN [place] CONSTIPATION; Start 06/13/17 at 09:30 Polyethylene Glycol (Miralax) 17 gm DAILY PRN PO CONSTIPATION; Start 06/13/17 at 09:30 Senna (Senokot) 2 tab DAILY PRN PO CONSTIPATION; Start 06/13/17 at 09:30 Enoxaparin Sodium (Lovenox) 40 mg DAILY SC Last administered on 06/20/17 09:56 ; Admin Dose 40 MG; Start 06/16/17 at 09:00 Furosemide (Lasix) 40 mg DAILY PO Last administered on 06/20/17 09:49; Admin Dose 40 MG; Start 06/15/17 at 09:00; Status Future Hold Nystatin (Nystatin Powder) 1 applic BID TOP Last administered on 06/20/17 20: 05; Admin Dose 1 APPLIC; Start 06/16/17 at 15:00 Assessment/Plan Chief Complaint/Hosp Course 1. CHF 2. critical 3. HTN 4. ANEMIA 5. CKD 6. pleural effusion 7. hx of right groin infection/hematoma after yanci angio done by Dr Menjivar. 8. hyperK off of ASA since pt has no hx of CAD per her aids nurse report. diuresis prn transfusion prn and ,monitor H/H off of coreg to avoid hypotension. tele monitoring . abx as per ID rec replace lytes prn pt has been evaluated by [facility] for TAVR, BUT is awaiting ID clearance due to infected vascular post cardiac cath. out pt follow up with her aids nurse Dr Gonzalo Menjivar. thank you. KRISTINE BORGES MD [facility] Problems: KRISTINE BORGES MD Jun 21, 2017 09:01
[2017-06-21] MEDS: MULTIVITAMINS THERAPEUTIC TAB PO SCH (09:42)
[2017-06-21] MEDS: DOCUSATE SODIUM 100 MG CAP PO SCH ×2 (09:42→20:08)
[2017-06-21] MEDS: CITALOPRAM 20 MG TAB PO SCH (09:42)
[2017-06-21] MEDS: FLUCONAZOLE 100 MG TAB PO SCH (09:43)
[2017-06-21] MEDS: NYSTATIN 30 GM POWDER BTL TOP SCH ×2 (09:43→20:09)
[2017-06-21] MEDS: ENOXAPARIN 40 MG/0.4 ML SYG SC SCH (09:44)
--- NOTE | 2017-06-21 10:05 | PN ---
DATE: 06/21/2017 SUBJECTIVE DATA: The patient is stable. No events overnight. No fevers, chills, nausea, vomiting. No other events noted. OBJECTIVE DATA: VITAL SIGNS: Blood pressure is 133/67, pulse 79, respirations 20, temperature 97.7. HEENT: Head is normocephalic. NECK: Supple. HEART: Regular rate. LUNGS: Diminished breath sounds at the base. ABDOMEN: Soft, nontender to palpation. No rebound or guarding. EXTREMITIES: Negative for clubbing, cyanosis. No edema. DERMATOLOGIC: No rashes. MUSCULOSKELETAL: No joint effusion. NEUROLOGIC: No change in exam. MEDICATIONS: Reviewed. LABORATORY AND DIAGNOSTIC DATA: Shows sodium 132, potassium 5.5, chloride 95, BUN is 21, creatinine 1.31. White count 11.6, hemoglobin 7.7, hematocrit 25.5, platelet count is 323. ASSESSMENT AND PLAN: 1. Acute hypoxic respiratory failure secondary to congestive heart failure. The patient is clinically improving. Continue to monitor. 2. Nonoliguric acute kidney injury. Etiology may be secondary to hemodynamics. We will hold diuretic therapy. Monitor renal function closely. 3. Hyperkalemia secondary to acute kidney injury and Aldactone effect. We will hold Aldactone. The patient will be placed on a low potassium diet. We will repeat BMP. 4. Hyponatremia secondary to acute kidney injury causing decreased free water urinary excretion. Continue to monitor. 5. Alkalosis, likely compensatory. The patient is status post Diamox with improvement. 6. Pleural effusion status post thoracentesis. 7. Chronic encephalopathy, improving. 8. Hypertension. Continue current blood pressure regimen. 9. Anemia. Patient's hemoglobin continues to fluctuate. No gross evidence of gastrointestinal bleed. We will repeat H and H levels. Will give another course of intravenous iron. 10. Aortic stenosis. Continue current medical management. 11. Hypothyroidism. Continue Synthroid. 12. Urinary tract infection. The patient has completed antibiotic course. 13. Right neck growing wound. Continue local wound care. Being managed by General Surgery. Please note, I discussed case with the patient's family. They are amenable to placement in a detention facility once clinically stable. Dictated By: Jesus Manuel Sheikh DO /[email or web address] /Document#: [id number]
--- NOTE | 2017-06-21 11:13 | CONS ---
Date/Time of Note Date/Time of Note DATE: 06/21/17 TIME: 11:11 Assessment/Plan Assessment/Plan Additional Assessment/Plan Assessment recommendations; 1. Patient admitted with CHF exacerbation due to underlying severe aortic stenosis with significant clinical improvement. 2. Mild pre-renal azotemia, patient's diuretics have been discontinued. 3. Possibly superimposed pneumonia, off antibiotics now. Continue current treatment. Consider discharge . Consultation Date/Type/Reason Admit Date/Time Jun 10, 2017 at 12:47 Type of Consultation: Pulmonary Referring Provider: ALYSSA RESTREPO DO 24 HR Interval Summary Free Text/Dictation Patient condition stable. Remains awake and alert. General exam; elderly woman, awake and alert. Currently in no distress. Exam/Review of Systems Vital Signs Vitals Vital Signs Date Time Temp Pulse Resp B/P Pulse Ox O2 Delivery O2 Flow Rate FiO2 06/21/17 08:14 79 06/21/17 07:58 97.7 20 133/67 100 06/21/17 07:30 Nasal Cannula 2.0 Intake and Output 06/20/17 06/20/17 06/21/17 15:00 23:00 07:00 Intake Total 1070 ml 60 ml Balance 1070 ml 60 ml Exam HEENT exam; supple neck, positive JVD. No lymphadenopathy. Midline trachea. No thyromegaly. Pupils are small bilaterally. There are multiple carious teeth. Chest exam; clear to auscultation. S1-S2 audible, no change in aortic stenosis murmur grade 3/6. Regular rhythm. Abdomen exam; soft, no organomegaly. Bowel sounds audible. Extremity exam; no peripheral edema. No clubbing. Pulses 1+ bilaterally. MARKETING ASSOCIATE exam; no focal motor deficit. Results Result Diagram: 06/21/17 0617 06/21/17 0617 Results 24 hrs Laboratory Tests Test 06/20/17 13:50 06/21/17 06:17 Hemoglobin 8.7 L 7.7 L Hematocrit 27.7 L 25.5 L White Blood Count 11.6 H Red Blood Count 2.58 L Mean Corpuscular Volume 98.8 Mean Corpuscular Hemoglobin 29.8 Mean Corpuscular Hemoglobin Concent 30.2 L Red Cell Distribution Width 15.8 H Platelet Count 323 Mean Platelet Volume 10.5 H Neutrophils % 59.3 Lymphocytes % 22.5 Monocytes % 10.4 Eosinophils % 5.4 Basophils % 0.9 Nucleated Red Blood Cells % 0.0 Neutrophils # (Manual) 6.9 Lymphocytes # 2.6 Monocytes # 1.2 H Eosinophils # 0.6 H Basophils # 0.1 Nucleated Red Blood Cells # 0.0 Sodium Level 132 L Potassium Level 5.5 H Chloride Level 95 L Carbon Dioxide Level 35 H Anion Gap 8 Blood Urea Nitrogen 21 H Creatinine 1.31 H Glucose Level 88 Calcium Level 9.0 Phosphorus Level 4.3 Magnesium Level 2.0 Medications Medications Current Medications Acetaminophen (Tylenol Tab) 500 mg Q6H PRN PO PAIN AND OR ELEVATED TEMP Last administered on 06/20/17 20:06; Admin Dose 500 MG; Start 06/10/17 at 22:30 Lorazepam (Ativan) 0.5 mg Q6H PRN IV ANXIETY Last administered on 06/13/17 00: 23; Admin Dose 0.5 MG; Start 06/11/17 at 10:30 Fluconazole (Diflucan) 100 mg DAILY PO Last administered on 06/21/17 09:43; Admin Dose 100 MG; Start 06/13/17 at 09:00 Bisacodyl (Dulcolax Supp) 10 mg Q12 PRN [place] CONSTIPATION; Start 06/13/17 at 09:30 Citalopram Hydrobromide (Celexa) 20 mg DAILY PO Last administered on 06/21/17 09:42; Admin Dose 20 MG; Start 06/14/17 at 09:00 Docusate Sodium (Colace) 100 mg BID PO Last administered on 06/21/17 09:42; Admin Dose 100 MG; Start 06/13/17 at 21:00 Acetaminophen/ Hydrocodone Bitart ([place] (5/325)) 1 tab Q4 PRN PO MODERATE PAIN LEVEL 4-6 Last administered on 06/20/17 23:18; Admin Dose 1 TAB; Start 06/13/17 at 09:30 Multivitamins Therapeutic (Theragran) 1 tab DAILY PO Last administered on 09:42; Admin Dose 1 TAB; Start 06/14/17 at 09:00 Sodium Biphosphate/ Sodium Phosphate (Fleet Enema) 135 ml DAILY PRN [place] CONSTIPATION; Start 06/13/17 at 09:30 Polyethylene Glycol (Miralax) 17 gm DAILY PRN PO CONSTIPATION; Start 06/13/17 at 09:30 Senna (Senokot) 2 tab DAILY PRN PO CONSTIPATION; Start 06/13/17 at 09:30 Enoxaparin Sodium (Lovenox) 40 mg DAILY SC Last administered on 06/21/17 09:44 ; Admin Dose 40 MG; Start 06/16/17 at 09:00 Furosemide (Lasix) 40 mg DAILY PO Last administered on 06/20/17 09:49; Admin Dose 40 MG; Start 06/15/17 at 09:00; Status Future Hold Nystatin (Nystatin Powder) 1 applic BID TOP Last administered on 06/21/17 09: 43; Admin Dose 1 APPLIC; Start 06/16/17 at 15:00 FLOR ESCAMILLA Jun 21, 2017 11:13
[2017-06-21] MEDS: COLLAGENASE 30 GM TUBE TOP SCH (12:12)
[2017-06-21 15:06] LABS: HEMATOCRIT 24.5 % (37.0-47.0); HEMOGLOBIN 7.7 g/dl (12.0-16.0)
[2017-06-21 15:30] LABS: CALCIUM 8.8 mg/dl (8.4-10.2); CREATININE 1.09 mg/dl (0.44-1.00); POTASSIUM 4.7 mmol/L (3.5-5.1)
--- NOTE | 2017-06-21 21:21 | PN ---
DATE: 06/21/2017 SUBJECTIVE DATA: No acute changes. The patient is alert, looks comfortable. No fevers. LABORATORY AND DIAGNOSTIC DATA: WBC 11.6, no shift, no bands. BUN 21 and creatinine 1.31. PHYSICAL EXAMINATION: GENERAL: Well-developed, fragile, elderly woman, who is alert, in no distress. HEENT: Head atraumatic, normocephalic. Sclerae anicteric. NECK: Supple. CHEST: Chest rise symmetrical. Breath sounds clear. HEART: S1, S2. ABDOMEN: Soft, bowel sounds present. EXTREMITIES: No cyanosis. SKIN: Right femoral wound dressing intact. Right upper chest wound VAC present. ASSESSMENT: 1. Status post sepsis with shock. 2. Status post Alivia albicans urinary tract infection. 3. Right clavicular wound with cultures being negative, patient is being seen by Surgery and wound care team, currently with wound VAC. 4. Right groin Alivia albicans infected wound, clean now. 5. Aortic stenosis. 6. Resolving pneumonia. PLAN: 1. The patient remains stable. 2. We are going to discontinue Diflucan. 3. Continue present care. 4. Local wound care as per surgical team and wound care team. Dictated By: Amanda Luciano NP /[email or web address] /Document#: [id number]
--- NOTE | 2017-06-21 23:07 | PN ---
Date/Time of Note Date/Time of Note DATE: 06/21/17 TIME: 23:07 Assessment/Plan Lines/Catheters IV Catheter Type (from [facility]): PICC Line Cabral in Place (from [facility]): No Assessment/Plan Chief Complaint/Hosp Course 1. Right clavicular wound: s/p debridement R clavicle 06/15/17, with wound VAC -continue local care with wound vac -Vitamin C -Nutrition optimization -Debridement prn 2. The right groin wound: s/p debridement 06/16/17; with wound vac -As above 3. Aortic stenosis, CHF, pleural effusion, ascites: no arrythmias overnight -Cardiac optimization -thoracentesis PRN per pulm -Judicious fluid management -fluid management 4. Leukocytosis: UTI, wounds, possible pneumonia -IV antibiotics and antifungals -Local care -Pulmonary toilet 5. BMI 31 -Diet and nutrition optimization -Eventual exercise 6. Anemia without active bleeding: -Monitor and transfuse prn 7. Renal insufficiency: improving -Judicious fluid management -Avoid nephrotoxic agents as possible 8. Pleural effusion s/p thora; improved; no sob, breathing comfortably on nc -monitor -per pulm -thoracentesis prn 10. Hyponatremia: -diuresis +/- judicious fluids per renal Patient seen and examined in collaboration with Dr.Samuel Schaefer. Thank you. Problems: Exam/Review of Systems Vital Signs Vitals Vital Signs Date Time Temp Pulse Resp B/P Pulse Ox O2 Delivery O2 Flow Rate FiO2 06/21/17 20:27 83 06/21/17 20:00 98.5 18 107/65 100 06/21/17 19:30 Nasal Cannula 3.0 Intake and Output 06/20/17 06/20/17 06/21/17 15:00 23:00 07:00 Intake Total 1070 ml 60 ml Balance 1070 ml 60 ml Results Result Diagram: 06/21/17 1450 06/21/17 1450 GERA GILL NP Jun 21, 2017 23:07
[2017-06-22] VITALS (10 sets, daily range): BP systolic 109–130; BP diastolic 60–75; PULSE 75–92; RESP 18–19
[2017-06-22] MEDS: LEVOTHYROXINE 88 MCG TAB PO SCH (06:18)
[2017-06-22 07:26] LABS: BASOPHIL # 0.1 10^3/ul (0.0-0.1); BASOPHILS % 0.9 % (0.0-2.0); EOSINOPHILS # 0.6 10^3/ul (0.0-0.5); EOSINOPHILS % 4.6 % (0.0-7.0); HEMATOCRIT 23.5 % (37.0-47.0); HEMOGLOBIN 7.4 g/dl (12.0-16.0); LYMPHOCYTES # 2.9 10^3/ul (0.8-2.9); LYMPHOCYTES % 24.5 % (15.0-51.0); MEAN CORPUSCULAR HEMOGLOBIN 31.1 pg (29.0-33.0); MEAN CORPUSCULAR HGB CONC 31.5 g/dl (32.0-37.0); MEAN CORPUSCULAR VOLUME 98.7 fl (82.0-101.0); MEAN PLATELET VOLUME 11.5 fl (7.4-10.4); MONOCYTE # 1.1 10^3/ul (0.3-0.9); MONOCYTES % 9.2 % (0.0-11.0); NEUTROPHIL # 7.1 10^3/ul (1.6-7.5); NEUTROPHILS % 59.2 % (39.0-77.0); RED BLOOD COUNT 2.38 10^6/ul (4.20-5.40); RED CELL DISTRIBUTION WIDTH 15.9 % (11.5-14.5); WHITE BLOOD COUNT 11.9 10^3/ul (4.8-10.8)
[2017-06-22 07:30] LABS: PLATELET COUNT 252 10^3/UL (140-415); POSITIVE DIFF @See below
[2017-06-22 07:47] LABS: CALCIUM 9.2 mg/dl (8.4-10.2); CREATININE 1.06 mg/dl (0.44-1.00); MAGNESIUM 1.9 mg/dl (1.7-2.5); PHOSPHORUS 4.6 mg/dl (2.5-4.9); POTASSIUM 4.6 mmol/L (3.5-5.1)
--- NOTE | 2017-06-22 08:10 | CONS ---
Date/Time of Note Date/Time of Note DATE: 06/22/17 TIME: 08:03 Consult Date/Type/Reason Admit Date/Time Jun 10, 2017 at 12:47 Initial Consult Date 06/13/17 Type of Consultation: CARDIOLOGY Ordering Provider: ALYSSA SHEIKH DO Subjective CARDIOLOGY FOLLOW UP NOTE: Discussed with the staff and Dr Sheikh rhythm was reviewed. Patient remained sinus rhythm. She denies any chest pain or pressure to me. She denies any shortness of breath to me now objective: General: thin female. no acute distress HEENT: NC/AT. pupils are equal. round. NECK: NO JVD. no stridor. CV: RRR. systolic ejection murmur; no gallop or rubs. PULM: + minimnal rhonchi. no wheezing GI: SOFT, NT, ND, no rebound or guarding Extremity: trace B/L LE edema. no clubbing. neuro: awake and alert, OX3. Psych: calm and pleasant rectal: deferred : normal. echo reviewed: 1. Hyperdynamic left ventricular systolic function. Normal left ventricular cavity size. Moderate concentric left ventricular hypertrophy. Ejection fraction is visually estimated at 70 %. 2. There is mild enlargement of left atrium. 3. Mitral valve leaflets appear mildly thickened. Mild mitral annular calcification. Moderate mitral valve regurgitation. 4. Severe aortic stenosis. Aortic valve Max velocity 4.65 m/sec. Max PG 86.00 mmHg. Mean PG 51.00 mmHg. Aortic valve area 0.26 cm2. No aortic regurgitation. 5. Normal appearance of the tricuspid valve. Estimated peak PA systolic pressure 40 mmHg. There is mild tricuspid regurgitation. 6. Normal size and normal respiratory collapse consistent with normal right atrial pressure. Objective Vital Signs Date Time Temp Pulse Resp B/P Pulse Ox O2 Delivery O2 Flow Rate FiO2 06/22/17 07:24 98.2 83 18 125/70 100 06/21/17 19:30 Nasal Cannula 3.0 Intake and Output 06/21/17 06/21/17 06/22/17 15:00 23:00 07:00 Intake Total 1120 ml 240 ml Output Total 500 ml Balance 1120 ml -260 ml Results/Medications Result Diagram: 06/22/1717 06/22/17 0617 Results 24 hrs Laboratory Tests Test 06/21/17 14:50 06/22/17 06:17 Hemoglobin 7.7 L 7.4 L Hematocrit 24.5 L 23.5 L Sodium Level 130 L 131 L Potassium Level 4.7 4.6 Chloride Level 93 L 95 L Carbon Dioxide Level 34 H 34 H Anion Gap 8 7 L Blood Urea Nitrogen 22 H 20 Creatinine 1.09 H 1.06 H Glucose Level 106 85 Calcium Level 8.8 9.2 White Blood Count 11.9 H Red Blood Count 2.38 L Mean Corpuscular Volume 98.7 Mean Corpuscular Hemoglobin 31.1 Mean Corpuscular Hemoglobin Concent 31.5 L Red Cell Distribution Width 15.9 H Platelet Count 252 # Mean Platelet Volume 11.5 H Neutrophils % 59.2 Lymphocytes % 24.5 Monocytes % 9.2 Eosinophils % 4.6 Basophils % 0.9 Nucleated Red Blood Cells % 0.0 Neutrophils # 7.1 Lymphocytes # 2.9 Monocytes # 1.1 H Eosinophils # 0.6 H Basophils # 0.1 Nucleated Red Blood Cells # 0.0 Phosphorus Level 4.6 Magnesium Level 1.9 Medications Current Medications Acetaminophen (Tylenol Tab) 500 mg Q6H PRN PO PAIN AND OR ELEVATED TEMP Last administered on 06/20/17 20:06; Admin Dose 500 MG; Start 06/10/17 at 22:30 Lorazepam (Ativan) 0.5 mg Q6H PRN IV ANXIETY Last administered on 06/13/17 00: 23; Admin Dose 0.5 MG; Start 06/11/17 at 10:30 Bisacodyl (Dulcolax Supp) 10 mg Q12 PRN [place] CONSTIPATION; Start 06/13/17 at 09:30 Citalopram Hydrobromide (Celexa) 20 mg DAILY PO Last administered on 06/21/17 09:42; Admin Dose 20 MG; Start 06/14/17 at 09:00 Docusate Sodium (Colace) 100 mg BID PO Last administered on 06/21/17 20:08; Admin Dose 100 MG; Start 06/13/17 at 21:00 Acetaminophen/ Hydrocodone Bitart ([place] (5/325)) 1 tab Q4 PRN PO MODERATE PAIN LEVEL 4-6 Last administered on 06/20/17 23:18; Admin Dose 1 TAB; Start 06/13/17 at 09:30 Multivitamins Therapeutic (Theragran) 1 tab DAILY PO Last administered on 09:42; Admin Dose 1 TAB; Start 06/14/17 at 09:00 Sodium Biphosphate/ Sodium Phosphate (Fleet Enema) 135 ml DAILY PRN [place] CONSTIPATION; Start 06/13/17 at 09:30 Polyethylene Glycol (Miralax) 17 gm DAILY PRN PO CONSTIPATION; Start 06/13/17 at 09:30 Senna (Senokot) 2 tab DAILY PRN PO CONSTIPATION; Start 06/13/17 at 09:30 Enoxaparin Sodium (Lovenox) 40 mg DAILY SC Last administered on 06/21/17 09:44 ; Admin Dose 40 MG; Start 06/16/17 at 09:00 Furosemide (Lasix) 40 mg DAILY PO Last administered on 06/20/17 09:49; Admin Dose 40 MG; Start 06/15/17 at 09:00; Status Future Hold Nystatin (Nystatin Powder) 1 applic BID TOP Last administered on 06/21/17 20: 09; Admin Dose 1 APPLIC; Start 06/16/17 at 15:00 Collagenase (Santyl) 1 applic DAILY TOP ; Start 06/21/17 at 12:30 Assessment/Plan Chief Complaint/Hosp Course 1. CHF 2. critical 3. HTN 4. ANEMIA 5. CKD 6. pleural effusion 7. hx of right groin infection/hematoma after yanci angio done by Dr Menjivar. 8. hyperK: corrected now off of ASA since pt has no hx of CAD per her hvac service tech report. diuresis prn transfusion prn and ,monitor H/H off of coreg to avoid hypotension. tele monitoring . abx as per ID rec replace lytes prn will resume low dose lasix 40 qod pt has been evaluated by [facility] for TAVR, BUT is awaiting ID clearance due to infected vascular post cardiac cath. out pt follow up with her hvac service tech Dr Gonzalo Menjivar. thank you. KRISTINE BORGES MD [facility] Problems: KRISTINE BORGES MD Jun 22, 2017 08:10
[2017-06-22] MEDS ORDERED: SOD CHLORIDE 0.9% 250 ML IV* ONE (09:21)
[2017-06-22] MEDS: MULTIVITAMINS THERAPEUTIC TAB PO SCH (09:31)
[2017-06-22] MEDS: CITALOPRAM 20 MG TAB PO SCH (09:31)
[2017-06-22] MEDS: DOCUSATE SODIUM 100 MG CAP PO SCH ×2 (09:31→21:00)
[2017-06-22] MEDS: NYSTATIN 30 GM POWDER BTL TOP SCH ×2 (09:32→21:11)
[2017-06-22] MEDS: COLLAGENASE 30 GM TUBE TOP SCH (09:32)
[2017-06-22] MEDS: FUROSEMIDE 40 MG TAB PO SCH (09:32)
[2017-06-22] MEDS: ENOXAPARIN 40 MG/0.4 ML SYG SC SCH (09:34)
--- NOTE | 2017-06-22 10:31 | PN ---
DATE: 06/22/2017 SUBJECTIVE DATA: The patient is stable. No events overnight. No fevers, chills, nausea, vomiting. OBJECTIVE DATA: VITAL SIGNS: Blood pressure 125/70, temperature 98.2, pulse 75, respiration 18. HEENT: Head is normocephalic. NECK: Supple. HEART: Regular rate. LUNGS: Showed diminished breath sounds at the base. ABDOMEN: Soft. Nontender to palpation. No rebound or guarding. EXTREMITIES: Negative for clubbing, cyanosis. No edema. DERMATOLOGIC: No rashes. MUSCULOSKELETAL: Positive wounds on the right groin and right neck. NEUROLOGIC: No change in exam. LABORATORY AND DIAGNOSTIC DATA: Shows sodium 131, BUN 20, creatinine 1.06. White count 11.9, hemoglobin 7.4, crit 33.5, platelet count 252. ASSESSMENT AND PLAN: 1. Acute hypoxemic respiratory failure secondary to congestive heart failure. The patient is clinically improving. Continue medical management. 2. Nonoliguric acute kidney injury. Etiology secondary to hemodynamics. Continue to monitor. 3. Hyperkalemia secondary to acute kidney injury, aldactone, resolved. 4. Hyponatremia, mild. Secondary to acute kidney injury causing decreased free water urinary excretion. Continue to monitor. 5. Alkalosis. Etiology is likely compensatory. Patient is status post Diamox. 6. Pleural effusion, status post thoracentesis. 7. Anemia. Hemoglobin levels remain low. We will transfuse 2 units of packed red blood cells. 8. Chronic encephalopathy, improving. 9. Aortic stenosis. 10. Hypothyroidism. Continue Synthroid. 11. Urinary tract infection. The patient is to complete antibiotic course. 12. Right neck, right groin wound. Continue local wound care. Dictated By: Jesus Manuel Sheikh DO /[email or web address] /Document#: [id number]
--- NOTE | 2017-06-22 11:22 | CONS ---
Date/Time of Note Date/Time of Note DATE: 06/22/17 TIME: 11:19 Assessment/Plan Assessment/Plan Additional Assessment/Plan Assessment and recommendations; 1. Patient admitted with CHF exacerbation due to underlying severe aortic stenosis with preserved LV function. 2. Recurrent anemia. Continue current supportive care. Patient awaiting transfer to tertiary care center for aortic stenosis workup and possible repair/valve replacement. Consultation Date/Type/Reason Admit Date/Time Jun 10, 2017 at 12:47 Type of Consultation: Pulmonary Referring Provider: ALYSSA RESTREPO DO 24 HR Interval Summary Free Text/Dictation Patient condition stable. Denies any shortness of breath, chest pain. General exam; elderly woman, awake and alert. Currently in no distress. Exam/Review of Systems Vital Signs Vitals Vital Signs Date Time Temp Pulse Resp B/P Pulse Ox O2 Delivery O2 Flow Rate FiO2 06/22/17 08:52 75 06/22/17 08:00 Nasal Cannula 2.0 06/22/17 07:24 98.2 18 125/70 100 Intake and Output 06/21/17 06/21/17 06/22/17 15:00 23:00 07:00 Intake Total 1120 ml 240 ml Output Total 500 ml Balance 1120 ml -260 ml Exam HEENT exam; supple neck, no JVD. No lymphadenopathy. Midline trachea. No thyromegaly. Pharynx is clear. Patient has a multiple carious teeth. Chest exam; diminished breath sounds bilaterally. S1-S2 audible, regular rhythm. There is a loud aortic stenosis murmur grade 3/6. Abdomen exam; soft, nontender. No organomegaly. Bowel sounds audible. Extremity exam; no peripheral edema. CST exam; no focal deficit. Results Result Diagram: 06/22/17 0617 06/22/17 0617 Results 24 hrs Laboratory Tests Test 06/21/17 14:50 06/22/17 06:17 Hemoglobin 7.7 L 7.4 L Hematocrit 24.5 L 23.5 L Sodium Level 130 L 131 L Potassium Level 4.7 4.6 Chloride Level 93 L 95 L Carbon Dioxide Level 34 H 34 H Anion Gap 8 7 L Blood Urea Nitrogen 22 H 20 Creatinine 1.09 H 1.06 H Glucose Level 106 85 Calcium Level 8.8 9.2 White Blood Count 11.9 H Red Blood Count 2.38 L Mean Corpuscular Volume 98.7 Mean Corpuscular Hemoglobin 31.1 Mean Corpuscular Hemoglobin Concent 31.5 L Red Cell Distribution Width 15.9 H Platelet Count 252 # Mean Platelet Volume 11.5 H Neutrophils % 59.2 Lymphocytes % 24.5 Monocytes % 9.2 Eosinophils % 4.6 Basophils % 0.9 Nucleated Red Blood Cells % 0.0 Neutrophils # 7.1 Lymphocytes # 2.9 Monocytes # 1.1 H Eosinophils # 0.6 H Basophils # 0.1 Nucleated Red Blood Cells # 0.0 Phosphorus Level 4.6 Magnesium Level 1.9 Medications Medications Current Medications Acetaminophen (Tylenol Tab) 500 mg Q6H PRN PO PAIN AND OR ELEVATED TEMP Last administered on 06/20/17 20:06; Admin Dose 500 MG; Start 06/10/17 at 22:30 Lorazepam (Ativan) 0.5 mg Q6H PRN IV ANXIETY Last administered on 06/13/17 00: 23; Admin Dose 0.5 MG; Start 06/11/17 at 10:30 Bisacodyl (Dulcolax Supp) 10 mg Q12 PRN [place] CONSTIPATION; Start 06/13/17 at 09:30 Citalopram Hydrobromide (Celexa) 20 mg DAILY PO Last administered on 06/22/17 09:31; Admin Dose 20 MG; Start 06/14/17 at 09:00 Docusate Sodium (Colace) 100 mg BID PO Last administered on 06/22/17 09:31; Admin Dose 100 MG; Start 06/13/17 at 21:00 Acetaminophen/ Hydrocodone Bitart ([place] (5/325)) 1 tab Q4 PRN PO MODERATE PAIN LEVEL 4-6 Last administered on 06/20/17 23:18; Admin Dose 1 TAB; Start 06/13/17 at 09:30 Multivitamins Therapeutic (Theragran) 1 tab DAILY PO Last administered on 09:31; Admin Dose 1 TAB; Start 06/14/17 at 09:00 Sodium Biphosphate/ Sodium Phosphate (Fleet Enema) 135 ml DAILY PRN [place] CONSTIPATION; Start 06/13/17 at 09:30 Polyethylene Glycol (Miralax) 17 gm DAILY PRN PO CONSTIPATION; Start 06/13/17 at 09:30 Senna (Senokot) 2 tab DAILY PRN PO CONSTIPATION; Start 06/13/17 at 09:30 Enoxaparin Sodium (Lovenox) 40 mg DAILY SC Last administered on 06/22/17 09:34 ; Admin Dose 40 MG; Start 06/16/17 at 09:00 Nystatin (Nystatin Powder) 1 applic BID TOP Last administered on 06/22/17 09: 32; Admin Dose 1 APPLIC; Start 06/16/17 at 15:00 Collagenase (Santyl) 1 applic DAILY TOP Last administered on 06/22/17 09:32; Admin Dose 1 APPLIC; Start 06/21/17 at 12:30 Furosemide (Lasix) 40 mg Q48H PO Last administered on 06/22/17 09:32; Admin Dose 40 MG; Start 06/22/17 at 09:00 FLOR ESCAMILLA Jun 22, 2017 11:22
--- NOTE | 2017-06-22 12:43 | PN ---
Date/Time of Note Date/Time of Note DATE: 06/22/17 TIME: 12:39 Assessment/Plan Lines/Catheters IV [facility] Type (from [facility]): PICC Line Cabral in Place (from [facility]): No Assessment/Plan Chief Complaint/Hosp Course 1. Right clavicular wound: s/p debridement R clavicle 06/15/17, with wound VAC -continue local care with wound vac -Vitamin C -Nutrition optimization -Debridement prn 2. The right groin wound: s/p debridement 06/16/17; with wound vac -As above 3. Aortic stenosis, CHF, pleural effusion, ascites: runs of svt/a tach -Cardiac optimization -thoracentesis PRN per pulm -Judicious fluid management -fluid management 4. Leukocytosis: UTI, wounds, possible pneumonia: continues -IV antibiotics and antifungals -Local care -Pulmonary toilet 5. BMI 31 -Diet and nutrition optimization -Eventual exercise 6. Anemia without active bleeding: ongoing transfusion -Monitor and transfuse prn 7. Renal insufficiency: improved -Judicious fluid management -Avoid nephrotoxic agents as possible 8. Pleural effusion s/p thora; improved; no sob, breathing comfortably on nc -monitor -per pulm -thoracentesis prn 10. Hyponatremia: -judicious fluids 11.Aortic stenosis: pending TAVR at [facility] Patient seen and examined in collaboration with Dr.Samuel Schaefer. Thank you. Problems: Subjective 24 Hr Interval Summary Feels well. Wound vac continues to right clavicle. Runs atrial tach. currently SR. No fevers, chills, sob, congested cough, n/v/d/dysuria, crocker, dizziness, cp , palpitations, overt bleed. currently receiving 1 unit PRBC'S. Exam/Review of Systems Vital Signs Vitals Vital Signs Date Time Temp Pulse Resp B/P Pulse Ox O2 Delivery O2 Flow Rate FiO2 06/22/17 12:22 80 06/22/17 08:00 Nasal Cannula 2.0 06/22/17 07:24 98.2 18 125/70 100 Intake and Output 06/21/17 06/21/17 06/22/17 15:00 23:00 07:00 Intake Total 1120 ml 240 ml Output Total 500 ml Balance 1120 ml -260 ml Exam Free Text/Dictation Constitutional: alert (awake), obese Psych: anxious Head: atraumatic, normocephalic Eyes: EOMI, PERRL, nl conjunctiva, No icteric ENMT: mucosa pink and moist, nl external ears & nose Neck: non-tender, other (right neck wound with vac), supple Respiratory: diminished breath sounds, comfortable on nc No congested cough, No labored breathing, No wheezing Cardiovascular: min edema, regular rate and rhythm: sr currently (runs of atach /svt) Gastrointestinal: soft, rotund No distended, No rebound or guarding, No tender Musculoskeletal: muscle weakness, No joint tenderness, No nl gait and stance Extremities: edema, No calf tenderness Neurological: nl speech, No nl strength Skin: rash or lesions, (right groin: with wound vac) No diaphoresis, No nl turgor Lymph: nl lymph nodes Results Result Diagram: 06/22/1717 06/22/17 0617 GERA GILL NP Jun 22, 2017 12:43
--- NOTE | 2017-06-22 15:16 | CONS ---
Date/Time of Note Date/Time of Note DATE: 06/22/17 TIME: 15:15 Assessment/Plan Assessment/Plan Chief Complaint/Hosp Course SUBJECTIVE DATA: No acute changes. The patient is alert, looks comfortable. No fevers. PHYSICAL EXAMINATION: GENERAL: Well-developed, fragile, elderly woman, who is alert, in no distress. HEENT: Head atraumatic, normocephalic. Sclerae anicteric. NECK: Supple. CHEST: Chest rise symmetrical. Breath sounds clear. HEART: S1, S2. ABDOMEN: Soft, bowel sounds present. EXTREMITIES: No cyanosis. SKIN: Right femoral wound dressing intact. Right upper chest wound VAC present. ASSESSMENT: 1. Status post sepsis with shock. 2. Status post Alivia albicans urinary tract infection. 3. Right clavicular wound with cultures being negative, patient is being seen by Surgery and wound care team, currently with wound VAC. 4. Right groin Alivia albicans infected wound===> treated 5. Aortic stenosis. 6. Resolved pneumonia. PLAN: The patient remains stable, off abx, continue present care, repeat cx's prn. DW staff Problems: Consultation Date/Type/Reason Admit Date/Time Jun 10, 2017 at 12:47 Initial Consult Date 06/13/17 Type of Consultation: ID Referring Provider: ALYSSA RESTREPO DO Exam/Review of Systems Vital Signs Vitals Vital Signs Date Time Temp Pulse Resp B/P Pulse Ox O2 Delivery O2 Flow Rate FiO2 06/22/17 15:08 98.1 84 19 121/62 98 06/22/17 08:00 Nasal Cannula 2.0 Intake and Output 06/21/17 06/21/17 06/22/17 15:00 23:00 07:00 Intake Total 1120 ml 240 ml Output Total 500 ml Balance 1120 ml -260 ml Results Result Diagram: 06/22/17 0617 06/22/17 0617 Results 24 hrs Laboratory Tests Test 06/22/17 06:17 White Blood Count 11.9 H Red Blood Count 2.38 L Hemoglobin 7.4 L Hematocrit 23.5 L Mean Corpuscular Volume 98.7 Mean Corpuscular Hemoglobin 31.1 Mean Corpuscular Hemoglobin Concent 31.5 L Red Cell Distribution Width 15.9 H Platelet Count 252 # Mean Platelet Volume 11.5 H Neutrophils % 59.2 Lymphocytes % 24.5 Monocytes % 9.2 Eosinophils % 4.6 Basophils % 0.9 Nucleated Red Blood Cells % 0.0 Neutrophils # 7.1 Lymphocytes # 2.9 Monocytes # 1.1 H Eosinophils # 0.6 H Basophils # 0.1 Nucleated Red Blood Cells # 0.0 Sodium Level 131 L Potassium Level 4.6 Chloride Level 95 L Carbon Dioxide Level 34 H Anion Gap 7 L Blood Urea Nitrogen 20 Creatinine 1.06 H Glucose Level 85 Calcium Level 9.2 Phosphorus Level 4.6 Magnesium Level 1.9 Medications Medications Current Medications Acetaminophen (Tylenol Tab) 500 mg Q6H PRN PO PAIN AND OR ELEVATED TEMP Last administered on 06/20/17 20:06; Admin Dose 500 MG; Start 06/10/17 at 22:30 Lorazepam (Ativan) 0.5 mg Q6H PRN IV ANXIETY Last administered on 06/13/17 00: 23; Admin Dose 0.5 MG; Start 06/11/17 at 10:30 Bisacodyl (Dulcolax Supp) 10 mg Q12 PRN [place] CONSTIPATION; Start 06/13/17 at 09:30 Citalopram Hydrobromide (Celexa) 20 mg DAILY PO Last administered on 06/22/17 09:31; Admin Dose 20 MG; Start 06/14/17 at 09:00 Docusate Sodium (Colace) 100 mg BID PO Last administered on 06/22/17 09:31; Admin Dose 100 MG; Start 06/13/17 at 21:00 Acetaminophen/ Hydrocodone Bitart ([place] (5/325)) 1 tab Q4 PRN PO MODERATE PAIN LEVEL 4-6 Last administered on 06/20/17 23:18; Admin Dose 1 TAB; Start 06/13/17 at 09:30 Multivitamins Therapeutic (Theragran) 1 tab DAILY PO Last administered on 09:31; Admin Dose 1 TAB; Start 06/14/17 at 09:00 Sodium Biphosphate/ Sodium Phosphate (Fleet Enema) 135 ml DAILY PRN [place] CONSTIPATION; Start 06/13/17 at 09:30 Polyethylene Glycol (Miralax) 17 gm DAILY PRN PO CONSTIPATION; Start 06/13/17 at 09:30 Senna (Senokot) 2 tab DAILY PRN PO CONSTIPATION; Start 06/13/17 at 09:30 Enoxaparin Sodium (Lovenox) 40 mg DAILY SC Last administered on 06/22/17 09:34 ; Admin Dose 40 MG; Start 06/16/17 at 09:00 Nystatin (Nystatin Powder) 1 applic BID TOP Last administered on 06/22/17 09: 32; Admin Dose 1 APPLIC; Start 06/16/17 at 15:00 Collagenase (Santyl) 1 applic DAILY TOP Last administered on 06/22/17 09:32; Admin Dose 1 APPLIC; Start 06/21/17 at 12:30 Furosemide (Lasix) 40 mg Q48H PO Last administered on 06/22/17 09:32; Admin Dose 40 MG; Start 06/22/17 at 09:00 RENETTA WATTS NP Jun 22, 2017 15:16
[2017-06-23] VITALS (12 sets, daily range): BP systolic 103–138; BP diastolic 56–88; PULSE 72–98; RESP 16–19
[2017-06-23] MEDS ORDERED: ALTEPLASE (CATHFLO) 2 MG INJ CATHETER PRN (04:00)
[2017-06-23] MEDS: LEVOTHYROXINE 88 MCG TAB PO SCH (06:42)
[2017-06-23 07:54] LABS: BASOPHIL # 0.1 10^3/ul (0.0-0.1); BASOPHILS % 1.1 % (0.0-2.0); EOSINOPHILS # 0.4 10^3/ul (0.0-0.5); EOSINOPHILS % 4.6 % (0.0-7.0); HEMOGLOBIN 9.2 g/dl (12.0-16.0); LYMPHOCYTES # 2.3 10^3/ul (0.8-2.9); LYMPHOCYTES % 25.4 % (15.0-51.0); MEAN CORPUSCULAR HEMOGLOBIN 31.1 pg (29.0-33.0); MEAN CORPUSCULAR HGB CONC 32.9 g/dl (32.0-37.0); MEAN CORPUSCULAR VOLUME 94.6 fl (82.0-101.0); MONOCYTE # 0.9 10^3/ul (0.3-0.9); MONOCYTES % 10.5 % (0.0-11.0); NEUTROPHIL # 5.1 10^3/ul (1.6-7.5); NEUTROPHILS % 57.4 % (39.0-77.0); PLATELET COUNT 294 10^3/UL (140-415); RED BLOOD COUNT 2.96 10^6/ul (4.20-5.40); RED CELL DISTRIBUTION WIDTH 16.5 % (11.5-14.5); WHITE BLOOD COUNT 8.9 10^3/ul (4.8-10.8)
[2017-06-23 08:24] LABS: CREATININE 1.13 mg/dl (0.44-1.00); MAGNESIUM 1.8 mg/dl (1.7-2.5); PHOSPHORUS 4.6 mg/dl (2.5-4.9); POTASSIUM 4.5 mmol/L (3.5-5.1)
--- NOTE | 2017-06-23 08:40 | CONS ---
Date/Time of Note Date/Time of Note DATE: 06/23/17 TIME: 08:38 Consult Date/Type/Reason Admit Date/Time Jun 10, 2017 at 12:47 Initial Consult Date 06/13/17 Type of Consultation: CARDIOLOGY Ordering Provider: ALYSSA SHEIKH DO Subjective CARDIOLOGY FOLLOW UP NOTE: Discussed with the staff and Dr Sheikh rhythm was reviewed. Patient remained sinus rhythm. She denies any chest pain or pressure to me. She denies any shortness of breath to me now objective: General: thin female. no acute distress HEENT: NC/AT. pupils are equal. round. NECK: NO JVD. no stridor. CV: RRR. systolic ejection murmur IV/. no gallop or rubs. PULM: + minimnal rhonchi. no wheezing GI: SOFT, NT, ND, no rebound or guarding Extremity: trace B/L LE edema. no clubbing. neuro: awake and alert, OX3. Psych: calm and pleasant rectal: deferred : normal. echo reviewed: 1. Hyperdynamic left ventricular systolic function. Normal left ventricular cavity size. Moderate concentric left ventricular hypertrophy. Ejection fraction is visually estimated at 70 %. 2. There is mild enlargement of left atrium. 3. Mitral valve leaflets appear mildly thickened. Mild mitral annular calcification. Moderate mitral valve regurgitation. 4. Severe aortic stenosis. Aortic valve Max velocity 4.65 m/sec. Max PG 86.00 mmHg. Mean PG 51.00 mmHg. Aortic valve area 0.26 cm2. No aortic regurgitation. 5. Normal appearance of the tricuspid valve. Estimated peak PA systolic pressure 40 mmHg. There is mild tricuspid regurgitation. 6. Normal size and normal respiratory collapse consistent with normal right atrial pressure. Objective Vital Signs Date Time Temp Pulse Resp B/P Pulse Ox O2 Delivery O2 Flow Rate FiO2 06/23/17 07:44 98.4 75 19 138/67 98 06/23/17 04:30 Nasal Cannula 2.0 Intake and Output 06/22/17 06/22/17 06/23/17 15:00 23:00 07:00 Intake Total 950 ml 60 ml Output Total 550 ml 550 ml Balance 400 ml -490 ml Results/Medications Result Diagram: 06/23/17 0718 06/23/17 0636 Results 24 hrs Laboratory Tests Test 06/23/17 06:36 06/23/17 07:18 Sodium Level 133 L Potassium Level 4.5 Chloride Level 93 L Carbon Dioxide Level 36 H Anion Gap 9 Blood Urea Nitrogen 22 H Creatinine 1.13 H Glucose Level 90 Calcium Level 9.0 Phosphorus Level 4.6 Magnesium Level 1.8 White Blood Count 8.9 # Red Blood Count 2.96 #L Hemoglobin 9.2 #L Hematocrit 28.0 L Mean Corpuscular Volume 94.6 Mean Corpuscular Hemoglobin 31.1 Mean Corpuscular Hemoglobin Concent 32.9 Red Cell Distribution Width 16.5 H Platelet Count 294 Mean Platelet Volume 11.0 H Neutrophils % 57.4 Lymphocytes % 25.4 Monocytes % 10.5 Eosinophils % 4.6 Basophils % 1.1 Nucleated Red Blood Cells % 0.0 Neutrophils # 5.1 Lymphocytes # 2.3 Monocytes # 0.9 Eosinophils # 0.4 Basophils # 0.1 Nucleated Red Blood Cells # 0.0 Medications Current Medications Acetaminophen (Tylenol Tab) 500 mg Q6H PRN PO PAIN AND OR ELEVATED TEMP Last administered on 06/20/17 20:06; Admin Dose 500 MG; Start 06/10/17 at 22:30 Lorazepam (Ativan) 0.5 mg Q6H PRN IV ANXIETY Last administered on 06/13/17 00: 23; Admin Dose 0.5 MG; Start 06/11/17 at 10:30 Bisacodyl (Dulcolax Supp) 10 mg Q12 PRN [place] CONSTIPATION; Start 06/13/17 at 09:30 Citalopram Hydrobromide (Celexa) 20 mg DAILY PO Last administered on 06/22/17 09:31; Admin Dose 20 MG; Start 06/14/17 at 09:00 Docusate Sodium (Colace) 100 mg BID PO Last administered on 06/22/17 09:31; Admin Dose 100 MG; Start 06/13/17 at 21:00 Acetaminophen/ Hydrocodone Bitart ([place] (5/325)) 1 tab Q4 PRN PO MODERATE PAIN LEVEL 4-6 Last administered on 06/20/17 23:18; Admin Dose 1 TAB; Start 06/13/17 at 09:30 Multivitamins Therapeutic (Theragran) 1 tab DAILY PO Last administered on 09:31; Admin Dose 1 TAB; Start 9/6/17 at 09:00 Sodium Biphosphate/ Sodium Phosphate (Fleet Enema) 135 ml DAILY PRN [place] CONSTIPATION; Start 06/13/17 at 09:30 Polyethylene Glycol (Miralax) 17 gm DAILY PRN [place] CONSTIPATION; Start 06/13/17 at 09:30 Senna (Senokot) 2 tab DAILY PRN [place] CONSTIPATION; Start 06/13/17 at 09:30 Enoxaparin Sodium (Lovenox) 40 mg DAILY SC Last administered on 06/22/17 09:34 ; Admin Dose 40 MG; Start 06/16/17 at 09:00 Nystatin (Nystatin Powder) 1 applic BID TOP Last administered on 06/22/17 21: 11; Admin Dose 1 APPLIC; Start 06/16/17 at 15:00 Collagenase (Santyl) 1 applic DAILY TOP Last administered on 06/22/17 09:32; Admin Dose 1 APPLIC; Start 06/21/17 at 12:30 Furosemide (Lasix) 40 mg Q48H PO Last administered on 06/22/17 09:32; Admin Dose 40 MG; Start 06/22/17 at 09:00 Assessment/Plan Chief Complaint/Hosp Course 1. CHF 2. critical 3. HTN 4. ANEMIA: s/p transfusion 5. CKD 6. pleural effusion 7. hx of right groin infection/hematoma after yanci angio done by Dr Menjivar. 8. hyperK: corrected now off of ASA since pt has no hx of CAD per her forms designer report. diuresis prn transfusion prn and ,monitor H/H off of coreg to avoid hypotension. tele monitoring . abx as per ID rec replace lytes prn will cont low dose lasix 40 qod pt has been evaluated by [facility] for TAVR, BUT is awaiting ID clearance due to infected vascular post cardiac cath. out pt follow up with her forms designer Dr Gonzalo Menjivar. thank you. KRISTINE BORGES MD [facility] Problems: KRISTINE BORGES MD Jun 23, 2017 08:40
[2017-06-23] MEDS: MULTIVITAMINS THERAPEUTIC TAB PO SCH (08:55)
[2017-06-23] MEDS: CITALOPRAM 20 MG TAB PO SCH (08:55)
[2017-06-23] MEDS: NYSTATIN 30 GM POWDER BTL TOP SCH ×2 (08:55→20:45)
[2017-06-23] MEDS: DOCUSATE SODIUM 100 MG CAP PO SCH ×2 (08:55→20:46)
[2017-06-23] MEDS: ENOXAPARIN 40 MG/0.4 ML SYG SC SCH (08:56)
[2017-06-23] MEDS: COLLAGENASE 30 GM TUBE TOP SCH (08:58)
--- NOTE | 2017-06-23 10:29 | PN ---
DATE: 06/23/2017 SUBJECTIVE DATA: Please note I was able to speak with the patient's daughter, Bev, about the possibility of discharge. The patient's daughter was extremely hesitant of discharge concerning for her mother's health, given the recent discharge a month ago resulted in her having wounds. The patient would prefer her mother to be transferred to [facility]. All other questions were answered. OBJECTIVE DATA: VITAL SIGNS: Blood pressure is 138/67, pulse 72, respirations 19, temperature 98.4. HEENT: Head is normocephalic. Pupils are reactive to light. NECK: Supple. HEART: Regular rate. LUNGS: Show diminished breath sounds at the base. ABDOMEN: Soft, nontender to palpation. No rebound or guarding. EXTREMITIES: Negative for clubbing, cyanosis. No edema. DERMATOLOGIC: No rashes. MUSCULOSKELETAL: The patient has noted wounds. NEUROLOGIC: No change in exam. MEDICATIONS: Reviewed. LABORATORY DATA: Reveals a white count of 8.9, hemoglobin 9.2, hematocrit 28.0, platelet count 294,000. Sodium 133, potassium 4.5, chloride 93, BUN 22, creatinine 1.13. ASSESSMENT AND PLAN: 1. Acute hypoxic respiratory failure secondary to congestive heart failure (CHF). The patient is clinically stable. Continue current medical management. 2. Nonoliguric acute kidney injury on top of chronic kidney disease. The etiology is likely due to hemodynamics. Continue to monitor. 3. Hypokalemia, resolved. 4. Mild hyponatremia. Continue to monitor. 5. Alkalosis, likely compensatory. Continue current treatment plan. 6. Pleural effusion, status post thoracentesis. 7. Anemia. The patient is status post blood transfusion. Hemoglobin level is improved. Continue to monitor. 8. Chronic encephalopathy, improving. 9. Aortic stenosis. Continue to monitor. Continue medical management. The patient is pending possible transfer to [facility] for . 10. Hypothyroidism. Continue Synthroid. 11. Urinary tract infection. The patient has completed antibiotic course. 12. wound. Continue local wound care. Dictated By: Jesus Manuel Sheikh DO /bashir/cecy /Document#: [id number]
--- NOTE | 2017-06-23 12:31 | PN ---
Date/Time of Note Date/Time of Note DATE: 06/23/17 TIME: 12:28 Assessment/Plan Lines/Catheters IV C[facility]ter Type (from [facility]): PICC Line Cabral in Place (from Nrs): No Assessment/Plan Chief Complaint/Hosp Course 1. Right clavicular wound: s/p debridement R clavicle 06/15/17, with wound VAC -continue local care with wound vac -Vitamin C -Nutrition optimization -Debridement prn 2. The right groin wound: s/p debridement 06/16/17; with wound vac -As above 3. Aortic stenosis, CHF, pleural effusion, ascites: runs of svt/a tach -Cardiac optimization -thoracentesis PRN per pulm -Judicious fluid management -fluid management 4. Leukocytosis: UTI, wounds, possible pneumonia: Resolved. -IV antibiotics and antifungals -Local care -Pulmonary toilet 5. BMI 31 -Diet and nutrition optimization -Eventual exercise 6. Anemia without active bleeding: s/p transfusion -Monitor and transfuse prn 7. Renal insufficiency: improved -Judicious fluid management -Avoid nephrotoxic agents as possible 8. Pleural effusion s/p thora; improved; no sob, breathing comfortably on nc -monitor -per pulm -thoracentesis prn 10. Hyponatremia: -judicious fluids 11.Aortic stenosis: pending TAVR at [facility] Thank you, Problems: Subjective 24 Hr Interval Summary Feels well. Wound vac continues to right clavicle. Arrhythmia on/off. No fevers, chills, sob, congested cough, n/v/d/dysuria, crocker, dizziness, cp, palpitations, overt bleed. s/p pRBCs. Exam/Review of Systems Vital Signs Vitals Vital Signs Date Time Temp Pulse Resp B/P Pulse Ox O2 Delivery O2 Flow Rate FiO2 06/23/17 12:00 72 06/23/17 11:21 98.3 19 103/58 95 06/23/17 08:10 Nasal Cannula 2.0 Intake and Output 06/22/17 06/22/17 06/23/17 15:00 23:00 07:00 Intake Total 950 ml 60 ml Output Total 550 ml 550 ml Balance 400 ml -490 ml Exam Free Text/Dictation Constitutional: alert (awake), obese Psych: anxious Head: atraumatic, normocephalic Eyes: EOMI, PERRL, nl conjunctiva, No icteric ENMT: mucosa pink and moist, nl external ears & nose Neck: non-tender, other (right neck wound with vac), supple Respiratory: diminished breath sounds, comfortable on ncNo congested cough, No labored breathing, No wheezing Cardiovascular: min edema, regular rate and rhythm: sr currently (runs of atach /svt) Gastrointestinal: soft, rotundNo distended, No rebound or guarding, No tender Musculoskeletal: muscle weakness, No joint tenderness, No nl gait and stance Extremities: edema, No calf tenderness Neurological: nl speech, No nl strength Skin: rash or lesions, (right groin: with wound vac)No diaphoresis, No nl turgor Lymph: nl lymph nodes Results Result Diagram: 06/23/17 0718 06/23/17 0636 CHARLIE TURNER MD Jun 23, 2017 12:31
--- NOTE | 2017-06-23 13:10 | CONS ---
Date/Time of Note Date/Time of Note DATE: 06/23/17 TIME: 13:09 Assessment/Plan Assessment/Plan Chief Complaint/Hosp Course SUBJECTIVE DATA: No acute changes. Looks comfortable. No fevers. PHYSICAL EXAMINATION: GENERAL: Well-developed, fragile, elderly woman, who is alert, in no distress. HEENT: Head atraumatic, normocephalic. Sclerae anicteric. NECK: Supple. CHEST: Chest rise symmetrical. Breath sounds clear. HEART: S1, S2. ABDOMEN: Soft, bowel sounds present. EXTREMITIES: No cyanosis. SKIN: Right femoral wound dressing intact. Right upper chest wound VAC present. ASSESSMENT: 1. Status post sepsis with shock. 2. Status post Alivia albicans urinary tract infection. 3. Right clavicular wound with cultures being negative, patient is being seen by Surgery and wound care team, currently with wound VAC. 4. Right groin Alivia albicans infected wound===> treated 5. Aortic stenosis. 6. Resolved pneumonia. PLAN: The patient remains stable, off abx, continue present care, f/u surgical rec-s, repeat cx's prn. DW staff Problems: Consultation Date/Type/Reason Admit Date/Time Jun 10, 2017 at 12:47 Initial Consult Date 06/13/17 Type of Consultation: ID Referring Provider: ALYSSA RESTREPO DO Exam/Review of Systems Vital Signs Vitals Vital Signs Date Time Temp Pulse Resp B/P Pulse Ox O2 Delivery O2 Flow Rate FiO2 06/23/17 12:00 72 06/23/17 11:21 98.3 19 103/58 95 06/23/17 08:10 Nasal Cannula 2.0 Intake and Output 06/22/17 06/22/17 06/23/17 15:00 23:00 07:00 Intake Total 950 ml 60 ml Output Total 550 ml 550 ml Balance 400 ml -490 ml Results Result Diagram: 06/23/17 0718 06/23/17 0636 Results 24 hrs Laboratory Tests Test 06/23/17 06:36 06/23/17 07:18 Sodium Level 133 L Potassium Level 4.5 Chloride Level 93 L Carbon Dioxide Level 36 H Anion Gap 9 Blood Urea Nitrogen 22 H Creatinine 1.13 H Glucose Level 90 Calcium Level 9.0 Phosphorus Level 4.6 Magnesium Level 1.8 White Blood Count 8.9 # Red Blood Count 2.96 #L Hemoglobin 9.2 #L Hematocrit 28.0 L Mean Corpuscular Volume 94.6 Mean Corpuscular Hemoglobin 31.1 Mean Corpuscular Hemoglobin Concent 32.9 Red Cell Distribution Width 16.5 H Platelet Count 294 Mean Platelet Volume 11.0 H Neutrophils % 57.4 Lymphocytes % 25.4 Monocytes % 10.5 Eosinophils % 4.6 Basophils % 1.1 Nucleated Red Blood Cells % 0.0 Neutrophils # 5.1 Lymphocytes # 2.3 Monocytes # 0.9 Eosinophils # 0.4 Basophils # 0.1 Nucleated Red Blood Cells # 0.0 Medications Medications Current Medications Acetaminophen (Tylenol Tab) 500 mg Q6H PRN PO PAIN AND OR ELEVATED TEMP Last administered on 06/20/17 20:06; Admin Dose 500 MG; Start 06/10/17 at 22:30 Lorazepam (Ativan) 0.5 mg Q6H PRN IV ANXIETY Last administered on 06/13/17 00: 23; Admin Dose 0.5 MG; Start 06/11/17 at 10:30 Bisacodyl (Dulcolax Supp) 10 mg Q12 PRN [place] CONSTIPATION; Start 06/13/17 at 09:30 Citalopram Hydrobromide (Celexa) 20 mg DAILY PO Last administered on 06/23/17 08:55; Admin Dose 20 MG; Start 06/14/17 at 09:00 Docusate Sodium (Colace) 100 mg BID PO Last administered on 06/23/17 08:55; Admin Dose 100 MG; Start 06/13/17 at 21:00 Acetaminophen/ Hydrocodone Bitart ([place] (5/325)) 1 tab Q4 PRN PO MODERATE PAIN LEVEL 4-6 Last administered on 06/20/17 23:18; Admin Dose 1 TAB; Start 06/13/17 at 09:30 Multivitamins Therapeutic (Theragran) 1 tab DAILY PO Last administered on 08:55; Admin Dose 1 TAB; Start 06/14/17 at 09:00 Sodium Biphosphate/ Sodium Phosphate (Fleet Enema) 135 ml DAILY PRN [place] CONSTIPATION; Start 06/13/17 at 09:30 Polyethylene Glycol (Miralax) 17 gm DAILY PRN PO CONSTIPATION; Start 06/13/17 at 09:30 Senna (Senokot) 2 tab DAILY PRN PO CONSTIPATION; Start 06/13/17 at 09:30 Enoxaparin Sodium (Lovenox) 40 mg DAILY SC Last administered on 06/23/17 08:56 ; Admin Dose 40 MG; Start 06/16/17 at 09:00 Nystatin (Nystatin Powder) 1 applic BID TOP Last administered on 06/23/17 08: 55; Admin Dose 1 APPLIC; Start 06/16/17 at 15:00 Collagenase (Santyl) 1 applic DAILY TOP Last administered on 06/23/17 08:58; Admin Dose 1 APPLIC; Start 06/21/17 at 12:30 Furosemide (Lasix) 40 mg Q48H PO Last administered on 06/22/17 09:32; Admin Dose 40 MG; Start 06/22/17 at 09:00 RENETTA WATTS NP Jun 23, 2017 13:10
[2017-06-23] MEDS: HYDROCODONE/APAP (5/325) TAB PO PRN (15:31)
[2017-06-24] VITALS (11 sets, daily range): BP systolic 103–118; BP diastolic 55–69; PULSE 75–101; RESP 18–19
[2017-06-24] MEDS: ACETAMINOPHEN 500 MG TAB PO PRN (02:23)
[2017-06-24] MEDS: LEVOTHYROXINE 88 MCG TAB PO SCH (07:16)
[2017-06-24] MEDS: CITALOPRAM 20 MG TAB PO SCH (08:55)
[2017-06-24] MEDS: FUROSEMIDE 40 MG TAB PO SCH (08:55)
[2017-06-24] MEDS: DOCUSATE SODIUM 100 MG CAP PO SCH ×2 (08:55→20:45)
[2017-06-24] MEDS: MULTIVITAMINS THERAPEUTIC TAB PO SCH (08:55)
[2017-06-24] MEDS: ENOXAPARIN 40 MG/0.4 ML SYG SC SCH (08:59)
[2017-06-24] MEDS: COLLAGENASE 30 GM TUBE TOP SCH (09:01)
[2017-06-24] MEDS: NYSTATIN 30 GM POWDER BTL TOP SCH ×2 (09:01→20:45)
--- NOTE | 2017-06-24 09:56 | CONS ---
Date/Time of Note Date/Time of Note DATE: 06/24/17 TIME: 09:55 Consult Date/Type/Reason Admit Date/Time Jun 10, 2017 at 12:47 Initial Consult Date 06/13/17 Type of Consultation: cardiology Ordering Provider: ALYSSA RESTREPO DO Subjective CARDIOLOGY FOLLOW UP NOTE: Discussed with the staff and rhythm was reviewed. Patient remained sinus rhythm. She denies any chest pain or pressure to me. She denies any shortness of breath to me now. no PND orthopnea objective: General: thin female. no acute distress HEENT: NC/AT. pupils are equal. round. NECK: NO JVD. no stridor. CV: RRR. systolic ejection murmur IV/. no gallop or rubs. PULM: + minimnal rhonchi. no wheezing GI: SOFT, NT, ND, no rebound or guarding Extremity: trace B/L LE edema. no clubbing. neuro: awake and alert, OX3. Psych: calm and pleasant rectal: deferred : normal. echo reviewed: 1. Hyperdynamic left ventricular systolic function. Normal left ventricular cavity size. Moderate concentric left ventricular hypertrophy. Ejection fraction is visually estimated at 70 %. 2. There is mild enlargement of left atrium. 3. Mitral valve leaflets appear mildly thickened. Mild mitral annular calcification. Moderate mitral valve regurgitation. 4. Severe aortic stenosis. Aortic valve Max velocity 4.65 m/sec. Max PG 86.00 mmHg. Mean PG 51.00 mmHg. Aortic valve area 0.26 cm2. No aortic regurgitation. 5. Normal appearance of the tricuspid valve. Estimated peak PA systolic pressure 40 mmHg. There is mild tricuspid regurgitation. 6. Normal size and normal respiratory collapse consistent with normal right atrial pressure. Objective Vital Signs Date Time Temp Pulse Resp B/P Pulse Ox O2 Delivery O2 Flow Rate FiO2 06/24/17 08:10 Nasal Cannula 2.0 06/24/17 07:39 98.4 81 18 105/60 95 Intake and Output 06/23/17 06/23/17 06/24/17 15:00 23:00 07:00 Intake Total 660 ml 340 ml Output Total 250 ml 500 ml Balance 410 ml -160 ml Results/Medications Result Diagram: 06/23/17 0718 06/23/17 0636 Medications Current Medications Acetaminophen (Tylenol Tab) 500 mg Q6H PRN PO PAIN AND OR ELEVATED TEMP Last administered on 06/24/17 02:23; Admin Dose 500 MG; Start 06/10/17 at 22:30 Lorazepam (Ativan) 0.5 mg Q6H PRN IV ANXIETY Last administered on 06/13/17 00: 23; Admin Dose 0.5 MG; Start 06/11/17 at 10:30 Bisacodyl (Dulcolax Supp) 10 mg Q12 PRN [place] CONSTIPATION; Start 06/13/17 at 09:30 Citalopram Hydrobromide (Celexa) 20 mg DAILY PO Last administered on 06/24/17 08:55; Admin Dose 20 MG; Start 06/14/17 at 09:00 Docusate Sodium (Colace) 100 mg BID PO Last administered on 06/24/17 08:55; Admin Dose 100 MG; Start 06/13/17 at 21:00 Acetaminophen/ Hydrocodone Bitart ([place] (5/325)) 1 tab Q4 PRN PO MODERATE PAIN LEVEL 4-6 Last administered on 06/23/17 15:31; Admin Dose 1 TAB; Start 06/13/17 at 09:30 Multivitamins Therapeutic (Theragran) 1 tab DAILY PO Last administered on 08:55; Admin Dose 1 TAB; Start 06/14/17 at 09:00 Sodium Biphosphate/ Sodium Phosphate (Fleet Enema) 135 ml DAILY PRN [place] CONSTIPATION; Start 06/13/17 at 09:30 Polyethylene Glycol (Miralax) 17 gm DAILY PRN PO CONSTIPATION; Start 06/13/17 at 09:30 Senna (Senokot) 2 tab DAILY PRN PO CONSTIPATION; Start 06/13/17 at 09:30 Enoxaparin Sodium (Lovenox) 40 mg DAILY SC Last administered on 06/24/17 08:59 ; Admin Dose 40 MG; Start 06/16/17 at 09:00 Nystatin (Nystatin Powder) 1 applic BID TOP Last administered on 06/24/17 09: 01; Admin Dose 1 APPLIC; Start 06/16/17 at 15:00 Collagenase (Santyl) 1 applic DAILY TOP Last administered on 06/24/17 09:01; Admin Dose 1 APPLIC; Start 06/21/17 at 12:30 Furosemide (Lasix) 40 mg Q48H PO Last administered on 06/24/17t 08:55; Admin Dose 40 MG; Start 06/22/17 at 09:00 Assessment/Plan Chief Complaint/Hosp Course 1. CHF 2. critical 3. HTN 4. ANEMIA: s/p transfusion 5. CKD 6. pleural effusion 7. hx of right groin infection/hematoma after yanci angio done by Dr Menjivar. 8. hyperK: corrected now off of ASA since pt has no hx of CAD per her wafer cutter report. transfusion prn and ,monitor H/H off of coreg to avoid hypotension. tele monitoring . abx as per ID rec replace lytes prn will cont low dose lasix 40 qod pt has been evaluated by [facility] for TAVR, BUT is awaiting ID clearance due to infected vascular post cardiac cath. out pt follow up with her wafer cutter Dr Gonzalo Menjivar. thank you. KRISTINE BORGES MD [facility] Problems: KRISTINE BORGES MD Jun 24, 2017 09:56
--- NOTE | 2017-06-24 10:24 | PN ---
Date/Time of Note Date/Time of Note DATE: 06/24/17 TIME: 10:23 Assessment/Plan VTE Prophylaxis VTE Prophylaxis Intervention: other Lines/Catheters IV Catheter Type (from Nrsg): PICC Line Central line still needed: Yes Urinary Cath still in place: No Reason Cath still needed: urinary retention Assessment/Plan Chief Complaint/Hosp Course all noted no significant event overnight d/w Dr Sheikh Objective HEENT: Head is normocephalic. Pupils are reactive to light. NECK: Supple. HEART: Regular rate. LUNGS: Show diminished breath sounds at the base. ABDOMEN: Soft, nontender to palpation. No rebound or guarding. EXTREMITIES: Negative for clubbing, cyanosis. No edema. DERMATOLOGIC: No rashes. MUSCULOSKELETAL: The patient has noted wounds. NEUROLOGIC: No change in exam. MEDICATIONS: Reviewed. ASSESSMENT AND PLAN: 1. Acute hypoxic respiratory failure secondary to congestive heart failure (CHF). The patient is clinically stable. Continue current medical management. 2. Nonoliguric acute kidney injury on top of chronic kidney disease. The etiology is likely due to hemodynamics. Continue to monitor. 3. Hypokalemia, resolved. 4. Mild hyponatremia. Continue to monitor. 5. Alkalosis, likely compensatory. Continue current treatment plan. 6. Pleural effusion, status post thoracentesis. 7. Anemia. The patient is status post blood transfusion. Hemoglobin level is improved. Continue to monitor. 8. Chronic encephalopathy, improving. 9. Aortic stenosis. Continue to monitor. Continue medical management. The patient is pending possible transfer to [facility] Problems: Exam/Review of Systems Vital Signs Vitals Vital Signs Date Time Temp Pulse Resp B/P Pulse Ox O2 Delivery O2 Flow Rate FiO2 06/24/17 08:10 Nasal Cannula 2.0 06/24/17 07:39 98.4 81 18 105/60 95 Intake and Output 06/23/17 06/23/17 06/24/17 15:00 23:00 07:00 Intake Total 660 ml 340 ml Output Total 250 ml 500 ml Balance 410 ml -160 ml Results Result Diagram: 06/23/17 0718 06/23/17 0636 Medications Medications Current Medications Acetaminophen (Tylenol Tab) 500 mg Q6H PRN PO PAIN AND OR ELEVATED TEMP Last administered on 06/24/17t 02:23; Admin Dose 500 MG; Start 06/10/17 at 22:30 Lorazepam (Ativan) 0.5 mg Q6H PRN IV ANXIETY Last administered on 06/13/17 00: 23; Admin Dose 0.5 MG; Start 06/11/17 at 10:30 Bisacodyl (Dulcolax Supp) 10 mg Q12 PRN [place] CONSTIPATION; Start 06/13/17 at 09:30 Citalopram Hydrobromide (Celexa) 20 mg DAILY PO Last administered on 06/24/17 08:55; Admin Dose 20 MG; Start 06/14/17 at 09:00 Docusate Sodium (Colace) 100 mg BID PO Last administered on 06/24/17 08:55; Admin Dose 100 MG; Start 06/13/17 at 21:00 Acetaminophen/ Hydrocodone Bitart ([place] (5/325)) 1 tab Q4 PRN PO MODERATE PAIN LEVEL 4-6 Last administered on 06/23/17 15:31; Admin Dose 1 TAB; Start 06/13/17 at 09:30 Multivitamins Therapeutic (Theragran) 1 tab DAILY PO Last administered on 08:55; Admin Dose 1 TAB; Start 06/14/17 at 09:00 Sodium Biphosphate/ Sodium Phosphate (Fleet Enema) 135 ml DAILY PRN [place] CONSTIPATION; Start 06/13/17 at 09:30 Polyethylene Glycol (Miralax) 17 gm DAILY PRN [place] CONSTIPATION; Start 06/13/17 at 09:30 Senna (Senokot) 2 tab DAILY PRN PO CONSTIPATION; Start 06/13/17 at 09:30 Enoxaparin Sodium (Lovenox) 40 mg DAILY SC Last administered on 06/24/17 08:59 ; Admin Dose 40 MG; Start 06/16/17 at 09:00 Nystatin (Nystatin Powder) 1 applic BID TOP Last administered on 06/24/17 09: 01; Admin Dose 1 APPLIC; Start 06/16/17 at 15:00 Collagenase (Santyl) 1 applic DAILY TOP Last administered on 06/24/17 09:01; Admin Dose 1 APPLIC; Start 06/21/17 at 12:30 Furosemide (Lasix) 40 mg Q48H PO Last administered on 06/24/17 08:55; Admin Dose 40 MG; Start 9/14/17 at 09:00 ABHINAV TURNER DO Jun 24, 2017 10:24
--- NOTE | 2017-06-24 12:40 | PN ---
Date/Time of Note Date/Time of Note DATE: 06/24/17 TIME: 12:39 Assessment/Plan Lines/Catheters IV Catheter Type (from [facility]): PICC Line Cabral in Place (from Nrs): No Assessment/Plan Chief Complaint/Hosp Course 1. Right clavicular wound: s/p debridement R clavicle 06/15/17, with wound VAC -continue local care with wound vac -Vitamin C -Nutrition optimization -Debridement prn 2. The right groin wound: s/p debridement 06/16/17; with wound vac -As above 3. Aortic stenosis, CHF, pleural effusion, ascites: runs of svt/a tach -Cardiac optimization -thoracentesis PRN per pulm -Judicious fluid management -fluid management 4. Leukocytosis: UTI, wounds, possible pneumonia: Resolved. -IV antibiotics and antifungals -Local care -Pulmonary toilet 5. BMI 31 -Diet and nutrition optimization -Eventual exercise 6. Anemia without active bleeding: s/p transfusion -Monitor and transfuse prn 7. Renal insufficiency: improved -Judicious fluid management -Avoid nephrotoxic agents as possible 8. Pleural effusion s/p thora; improved; no sob, breathing comfortably on nc -monitor -per pulm -thoracentesis prn 10. Hyponatremia: -judicious fluids 11.Aortic stenosis: pending TAVR at [facility] Thank you, Problems: Subjective 24 Hr Interval Summary Feels well. Wound vac continues to right clavicle. Arrhythmia on/off. No fevers, chills, sob, congested cough, n/v/d/dysuria, crocker, dizziness, cp, palpitations, overt bleed. s/p pRBCs. Exam/Review of Systems Vital Signs Vitals Vital Signs Date Time Temp Pulse Resp B/P Pulse Ox O2 Delivery O2 Flow Rate FiO2 06/24/17 11:16 98.4 100 18 118/69 96 06/24/17 08:10 Nasal Cannula 2.0 Intake and Output 06/23/17 06/23/17 06/24/17 15:00 23:00 07:00 Intake Total 660 ml 340 ml Output Total 250 ml 500 ml Balance 410 ml -160 ml Exam Free Text/Dictation Constitutional: alert (awake), obese Psych: anxious Head: atraumatic, normocephalic Eyes: EOMI, PERRL, nl conjunctiva, No icteric ENMT: mucosa pink and moist, nl external ears & nose Neck: non-tender, other (right neck wound with vac), supple Respiratory: diminished breath sounds, comfortable on ncNo congested cough, No labored breathing, No wheezing Cardiovascular: min edema, regular rate and rhythm: sr currently (runs of tach/ svt) Gastrointestinal: soft, rotund. No distended, No rebound or guarding, No tender Musculoskeletal: muscle weakness, No joint tenderness, No nl gait and stance Extremities: edema, No calf tenderness Neurological: nl speech, No nl strength Skin: rash or lesions, (right groin: with wound vac). No diaphoresis, No nl turgor Lymph: nl lymph nodes Results Result Diagram: 06/23/17 0718 06/23/17 0636 CHARLIE TURNER MD Jun 24, 2017 12:40
[2017-06-25] VITALS (13 sets, daily range): BP systolic 106–140; BP diastolic 51–80; PULSE 79–103; RESP 17–20
[2017-06-25] MEDS: LEVOTHYROXINE 88 MCG TAB PO SCH (06:49)
[2017-06-25] MEDS: DOCUSATE SODIUM 100 MG CAP PO SCH ×2 (09:07→22:10)
[2017-06-25] MEDS: CITALOPRAM 20 MG TAB PO SCH (09:07)
[2017-06-25] MEDS: MULTIVITAMINS THERAPEUTIC TAB PO SCH (09:07)
[2017-06-25] MEDS: COLLAGENASE 30 GM TUBE TOP SCH (09:08)
[2017-06-25] MEDS: NYSTATIN 30 GM POWDER BTL TOP SCH ×2 (09:08→21:00)
[2017-06-25] MEDS: ENOXAPARIN 40 MG/0.4 ML SYG SC SCH (09:09)
[2017-06-25] MEDS ORDERED: FURO40TA4 PO (09:30)
--- NOTE | 2017-06-25 09:32 | DS ---
Date/Time of Note Date/Time of Note DATE: 06/25/17 TIME: 09:30 Discharge Summary Admission/Discharge Info Admit Date/Time Jun 10, 2017 at 12:47 Discharge Date/Time Hx of Present Illness HISTORY OF PRESENT ILLNESS: This is an 86-year-old lady with a history of severe aortic stenosis pending possible aortic valve replacement at [facility] depending upon clinical trial, was recently admitted to [facility] where she had a prolonged 10 day stay and then discharged to fdc facility. She experienced increasing shortness of breath, orthopnea, PND, was brought here for further evaluation. Here found to be extensively hypoxemic requiring initiation of noninvasive positive pressure ventilation. Upon further questioning, she has wound VAC in had leg and on her chest from recent clavicle fracture, per family. She is now admitted to ICU on BiPAP with improvement in her oxygenation. Imaging studies were reviewed d/w pulm and ER physician PAST MEDICAL HISTORY: Aortic stenosis. MEDICATION: Per chart. Reviewed and reconciled ALLERGIES: NONE. SOCIAL HISTORY: Nonsmoker. No alcohol. No street drug use. FAMILY HISTORY: No respiratory failure REVIEW OF SYSTEMS: A 12-point review of systems was done and pertinent findings are in HPI PHYSICAL EXAMINATION: GENERAL APPEARANCE: Chronically ill appearing lady on BiPAP. NECK: Supple. No JVD. No lymphadenopathy. CARDIAC: S1, S2. A 3/6 systolic ejection murmur heard loudest over the aortic area. CHEST: Diminished air entry bilaterally. ABDOMEN: Soft, nontender. No guarding or rebound. EXTREMITIES: No cyanosis, clubbing or edema. NEUROLOGIC: Generalized weakness. Hospital Course HISTORY OF PRESENT ILLNESS: This is an 86-year-old lady with a history of severe aortic stenosis pending possible aortic valve replacement at [facility] depending upon clinical trial, was recently admitted to [facility] where she had a prolonged 10 day stay and then discharged to fdc facility. She experienced increasing shortness of breath, orthopnea, PND, was brought here for further evaluation. Here found to be extensively hypoxemic requiring initiation of noninvasive positive pressure ventilation. Upon further questioning, she has wound VAC in had leg and on her chest from recent clavicle fracture. She was admitted to ICU on BiPAP with improvement in her oxygenation. while in [facility] she was treated for ASSESSMENT AND PLAN: 1. Acute hypoxic respiratory failure secondary to congestive heart failure (CHF). The patient is clinically stable. Continue current medical management. 2. Nonoliguric acute kidney injury on top of chronic kidney disease. The etiology is likely due to hemodynamics. Continue to monitor. 3. Hypokalemia, resolved. 4. Mild hyponatremia. Continue to monitor. 5. Alkalosis, likely compensatory. Continue current treatment plan. 6. Pleural effusion, status post thoracentesis. 7. Anemia. The patient is status post blood transfusion. Hemoglobin level is improved. Continue to monitor. 8. Chronic encephalopathy, improving. 9. Aortic stenosis. Continue to monitor. Continue medical management. exam: HEENT: Head is normocephalic. Pupils are reactive to light. NECK: Supple. HEART: Regular rate. LUNGS: Show diminished breath sounds at the base. ABDOMEN: Soft, nontender to palpation. No rebound or guarding. EXTREMITIES: Negative for clubbing, cyanosis. No edema. DERMATOLOGIC: No rashes. MUSCULOSKELETAL: The patient has noted wounds. NEUROLOGIC: No change in exam. MEDICATIONS: Reviewed. time of shelter: 40 min Home Meds Reported Medications Na Phos,M-B/Na Phos,Di-Ba (ENEMA READY TO USE) 135 Ml Enema, 135 ML RC DAILY Y for CONSTIPATION, ENEMA 06/10/17 Sennosides* (Senna Lax*) 8.6 Mg Tablet, 2 TAB PO DAILY Y for CONSTIPATION, TAB 06/10/17 Protein Supplement (Promod) 946 Ml Liquid, 30 ML PO TID 06/10/17 Polyethylene Glycol* (Miralax*) 17 Gm Powd.pack, 17 GM PO DAILY Y for CONSTIPATION, #30 PACKET 06/10/17 Phenol* (Chloraseptic* [place]) 177 Ml [place].pump, 2 SPRAY MT Q3H Y for SORE THROAT, BOTTLE 06/10/17 Omeprazole* (Omeprazole*) 40 Mg Capsule.dr, 40 MG PO DAILY, #30 CAP 06/10/17 Hydrocodone/Acetaminophen (Homer 5-325 Tablet) 1 Each Tablet, 2 EACH PO Q4 Y for SEVERE PAIN LEVEL 7-10, TAB 06/10/17 Hydrocodone/Acetaminophen (Homer 5-325 Tablet) 1 Each Tablet, 1 EACH PO Q4 Y for MODERATE PAIN LEVEL 4-6, TAB 06/10/17 Multivitamins* (Theragran*) 1 Tab Tab, 1 TAB PO DAILY, TAB 06/10/17 Levothyroxine Sodium* (Levoxyl*) 88 Mcg Tablet, 88 MCG PO BEFORE BREAKFAST, #30 TAB 06/10/17 Lactobacillus Acidophilus* (Lactinex*) 1 Tab Chew, 1 TAB PO TID, TAB 06/10/17 Enoxaparin Sodium* (Enoxaparin Sodium*) 40 Mg/0.4 Ml Syringe, 40 MG SC DAILY, SYR 06/10/17 Bisacodyl (Dulcolax) 10 Mg Supp.rect, 10 MG RC Q12 Y for CONSTIPATION, SUPP.RECT 06/10/17 Docusate Sodium* (Docusate Sodium*) 100 Mg Capsule, 100 MG PO BID, #60 CAP 06/10/17 Citalopram Hydrobromide* (Celexa*) 20 Mg Tablet, 20 MG PO DAILY, #30 TAB 06/10/17 Cefazolin* (Ancef* Pediatric IV Syringe) 20 Mg/Ml Soln, 1000 MG IV Q8, EA 06/10/17 Carvedilol* (Carvedilol*) 3.125 Mg Tablet, 3.125 MG PO BID, #60 TAB HOLD FOR SBP UNDER 110 OR HR UNDER 60 06/10/17 Aspirin (Low Dose Aspirin) 81 Mg Tablet.dr, 81 MG PO DAILY, #30 TAB 06/10/17 Naproxen* (Aleve*) 220 Mg Capsule, 220 MG PO BID, #60 CAP 06/10/17 Acetaminophen* (Acetaminophen*) 650 Mg Tablet, 650 MG PO Q4 Y for MILD PAIN LEVEL 1-3, #30 TAB and fever over 101.5f 06/10/17 Primary Care Provider Winston Torres MD Pending Labs Laboratory Tests Test 06/25/17 06:14 Lab Scanned Report BLOOD [id number] SEE Jun 25, 2017 09:32
--- NOTE | 2017-06-25 13:13 | CONS ---
Date/Time of Note Date/Time of Note DATE: 06/25/17 TIME: 13:12 Consult Date/Type/Reason Admit Date/Time Jun 10, 2017 at 12:47 Initial Consult Date 06/13/17 Type of Consultation: cardiology Ordering Provider: ALYSSA RESTREPO DO Subjective CARDIOLOGY FOLLOW UP NOTE: Discussed with the staff and rhythm was reviewed. Patient remained sinus rhythm. no afib. She denies any chest pain or pressure to me. She denies any shortness of breath to me now. no PND orthopnea objective: General: thin female. no acute distress HEENT: NC/AT. pupils are equal. round. NECK: NO JVD. no stridor. CV: RRR. systolic ejection murmur IV/. no gallop or rubs. PULM: + minimnal rhonchi. no wheezing GI: SOFT, NT, ND, no rebound or guarding Extremity: trace B/L LE edema. no clubbing. neuro: awake and alert, OX3. Psych: calm and pleasant rectal: deferred : normal. echo reviewed: 1. Hyperdynamic left ventricular systolic function. Normal left ventricular cavity size. Moderate concentric left ventricular hypertrophy. Ejection fraction is visually estimated at 70 %. 2. There is mild enlargement of left atrium. 3. Mitral valve leaflets appear mildly thickened. Mild mitral annular calcification. Moderate mitral valve regurgitation. 4. Severe aortic stenosis. Aortic valve Max velocity 4.65 m/sec. Max PG 86.00 mmHg. Mean PG 51.00 mmHg. Aortic valve area 0.26 cm2. No aortic regurgitation. 5. Normal appearance of the tricuspid valve. Estimated peak PA systolic pressure 40 mmHg. There is mild tricuspid regurgitation. 6. Normal size and normal respiratory collapse consistent with normal right atrial pressure. Objective Vital Signs Date Time Temp Pulse Resp B/P Pulse Ox O2 Delivery O2 Flow Rate FiO2 06/25/17 12:45 79 06/25/17 11:07 98.7 17 106/51 93 06/25/17 08:30 Nasal Cannula 2.0 Intake and Output 06/24/17 06/24/17 06/25/17 15:00 23:00 07:00 Intake Total 100 ml 500 ml Output Total 160 ml Balance -60 ml 500 ml Results/Medications Result Diagram: 06/23/17 0718 06/23/17 0636 Results 24 hrs Laboratory Tests Test 06/25/17 06:14 Lab Scanned Report BLOOD TRANSFUSION Medications Current Medications Acetaminophen (Tylenol Tab) 500 mg Q6H PRN PO PAIN AND OR ELEVATED TEMP Last administered on 06/24/17 02:23; Admin Dose 500 MG; Start 06/10/17 at 22:30 Lorazepam (Ativan) 0.5 mg Q6H PRN IV ANXIETY Last administered on 06/13/17 00: 23; Admin Dose 0.5 MG; Start 06/11/17 at 10:30 Bisacodyl (Dulcolax Supp) 10 mg Q12 PRN NC CONSTIPATION; Start 06/13/17 at 09:30 Citalopram Hydrobromide (Celexa) 20 mg DAILY PO Last administered on 06/25/17 09:07; Admin Dose 20 MG; Start 06/14/17 at 09:00 Docusate Sodium (Colace) 100 mg BID PO Last administered on 06/25/17 09:07; Admin Dose 100 MG; Start 06/13/17 at 21:00 Acetaminophen/ Hydrocodone Bitart (Thayer (5/325)) 1 tab Q4 PRN PO MODERATE PAIN LEVEL 4-6 Last administered on 06/23/17 15:31; Admin Dose 1 TAB; Start 06/13/17 at 09:30 Multivitamins Therapeutic (Theragran) 1 tab DAILY PO Last administered on 09:07; Admin Dose 1 TAB; Start 06/14/17 at 09:00 Sodium Biphosphate/ Sodium Phosphate (Fleet Enema) 135 ml DAILY PRN NC CONSTIPATION; Start 06/13/17 at 09:30 Polyethylene Glycol (Miralax) 17 gm DAILY PRN PO CONSTIPATION; Start 06/13/17 at 09:30 Senna (Senokot) 2 tab DAILY PRN PO CONSTIPATION; Start 06/13/17 at 09:30 Enoxaparin Sodium (Lovenox) 40 mg DAILY SC Last administered on 06/25/17 09:09 ; Admin Dose 40 MG; Start 06/16/17 at 09:00 Nystatin (Nystatin Powder) 1 applic BID TOP Last administered on 06/25/17 09: 08; Admin Dose 1 APPLIC; Start 06/16/17 at 15:00 Collagenase (Santyl) 1 applic DAILY TOP Last administered on 06/25/17 09:08; Admin Dose 1 APPLIC; Start 06/21/17 at 12:30 Furosemide (Lasix) 40 mg Q48H PO Last administered on 06/24/17 08:55; Admin Dose 40 MG; Start 06/22/17 at 09:00 Assessment/Plan Chief Complaint/Hosp Course 1. CHF 2. critical 3. HTN 4. ANEMIA: s/p transfusion 5. CKD 6. pleural effusion 7. hx of right groin infection/hematoma after yanci angio done by Dr Menjivar. 8. 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 transfusion prn and ,monitor H/H off of coreg to avoid hypotension. tele monitoring . abx as per ID rec replace lytes prn will cont low dose lasix 40 qod will check labs in AM pt has been evaluated by [facility] for TAVR, BUT is awaiting ID clearance due to infected vascular post cardiac cath. out pt follow up with her extension service supervisor Dr Gonzalo Menjivar. thank you. KRISTINE BORGES MD [facility] Problems: KRISTINE BORGES MD Jun 25, 2017 13:13
--- NOTE | 2017-06-25 14:33 | PN ---
Date/Time of Note Date/Time of Note DATE: 06/25/17 TIME: 14:32 Assessment/Plan Lines/Catheters IV Catheter Type (from [facility]): PICC Line Cabral in Place (from Nrs): No Assessment/Plan Chief Complaint/Hosp Course 1. Right clavicular wound: s/p debridement R clavicle 06/15/17, with wound VAC -continue local care with wound vac -Vitamin C -Nutrition optimization -Debridement prn 2. The right groin wound: s/p debridement 06/16/17; with wound vac -As above 3. Aortic stenosis, CHF, pleural effusion, ascites: runs of svt/a tach -Cardiac optimization -thoracentesis PRN per pulm -Judicious fluid management -fluid management 4. Leukocytosis: UTI, wounds, possible pneumonia: Resolved. -IV antibiotics and antifungals -Local care -Pulmonary toilet 5. BMI 31 -Diet and nutrition optimization -Eventual exercise 6. Anemia without active bleeding: s/p transfusion -Monitor and transfuse prn 7. Renal insufficiency: improved -Judicious fluid management -Avoid nephrotoxic agents as possible 8. Pleural effusion s/p thora; improved; no sob, breathing comfortably on nc -monitor -per pulm -thoracentesis prn 10. Hyponatremia: -judicious fluids 11.Aortic stenosis: pending TAVR at [facility] Thank you, Problems: Subjective 24 Hr Interval Summary WBC normalized. Feels well. Wound vac continues to right clavicle. Arrhythmia on/off. No fevers, chills, sob, congested cough, n/v/d/dysuria, crocker, dizziness , cp, palpitations, overt bleed. s/p pRBCs. Exam/Review of Systems Vital Signs Vitals Vital Signs Date Time Temp Pulse Resp B/P Pulse Ox O2 Delivery O2 Flow Rate FiO2 06/25/17 12:45 79 06/25/17 11:07 98.7 17 106/51 93 06/25/17 08:30 Nasal Cannula 2.0 Intake and Output 06/24/17 06/24/17 06/25/17 15:00 23:00 07:00 Intake Total 100 ml 500 ml Output Total 160 ml Balance -60 ml 500 ml Exam Free Text/Dictation Constitutional: alert (awake), obese Psych: anxious Head: atraumatic, normocephalic Eyes: EOMI, PERRL, nl conjunctiva, No icteric ENMT: mucosa pink and moist, nl external ears & nose Neck: non-tender, other (right neck wound with vac), supple Respiratory: diminished breath sounds, comfortable on ncNo congested cough, No labored breathing, No wheezing Cardiovascular: min edema, regular rate and rhythm: sr currently (runs of tach/ svt) Gastrointestinal: soft, rotund. No distended, No rebound or guarding, No tender Musculoskeletal: muscle weakness, No joint tenderness, No nl gait and stance Extremities: edema, No calf tenderness Neurological: nl speech, No nl strength Skin: rash or lesions, (right groin: with wound vac). No diaphoresis, No nl turgor Lymph: nl lymph nodes Results Result Diagram: 06/23/17 0718 06/23/17 0636 CHARLIE TURNER MD Jun 25, 2017 14:33
[2017-06-26] VITALS (12 sets, daily range): BP systolic 93–124; BP diastolic 61–73; PULSE 90–96; RESP 18–20
[2017-06-26 07:27] LABS: BASOPHIL # 0.1 10^3/ul (0.0-0.1); EOSINOPHILS # 0.3 10^3/ul (0.0-0.5); EOSINOPHILS % 3.4 % (0.0-7.0); HEMATOCRIT 27.3 % (37.0-47.0); HEMOGLOBIN 8.7 g/dl (12.0-16.0); LYMPHOCYTES # 2.4 10^3/ul (0.8-2.9); LYMPHOCYTES % 27.5 % (15.0-51.0); MEAN CORPUSCULAR HEMOGLOBIN 30.7 pg (29.0-33.0); MEAN CORPUSCULAR HGB CONC 31.9 g/dl (32.0-37.0); MEAN CORPUSCULAR VOLUME 96.5 fl (82.0-101.0); MEAN PLATELET VOLUME 12.4 fl (7.4-10.4); MONOCYTE # 1.1 10^3/ul (0.3-0.9); MONOCYTES % 12.5 % (0.0-11.0); NEUTROPHIL # 4.7 10^3/ul (1.6-7.5); RED BLOOD COUNT 2.83 10^6/ul (4.20-5.40); RED CELL DISTRIBUTION WIDTH 15.9 % (11.5-14.5); WHITE BLOOD COUNT 8.6 10^3/ul (4.8-10.8)
[2017-06-26 07:28] LABS: PLATELET COUNT 210 10^3/UL (140-415); POSITIVE DIFF @See below
[2017-06-26 07:54] LABS: ALBUMIN 3.3 g/dl (3.3-4.9); ALBUMIN/GLOBULIN RATIO 0.97; BILIRUBIN,INDIRECT 0.2 mg/dl (0-1.1); BILIRUBIN,TOTAL 0.2 mg/dl (0.2-1.3); MAGNESIUM 1.8 mg/dl (1.7-2.5); POTASSIUM 4.4 mmol/L (3.5-5.1); TOTAL PROTEIN 6.7 g/dl (6.1-8.1)
[2017-06-26] MEDS: LEVOTHYROXINE 88 MCG TAB PO SCH (09:01)
[2017-06-26] MEDS: DOCUSATE SODIUM 100 MG CAP PO SCH ×2 (09:01→20:09)
[2017-06-26] MEDS: CITALOPRAM 20 MG TAB PO SCH (09:01)
[2017-06-26] MEDS: FUROSEMIDE 40 MG TAB PO SCH (09:02)
[2017-06-26] MEDS: ENOXAPARIN 40 MG/0.4 ML SYG SC SCH (09:04)
[2017-06-26] MEDS: MULTIVITAMINS THERAPEUTIC TAB PO SCH (09:08)
[2017-06-26] MEDS: NYSTATIN 30 GM POWDER BTL TOP SCH ×2 (09:27→20:10)
[2017-06-26] MEDS: COLLAGENASE 30 GM TUBE TOP SCH (09:27)
--- NOTE | 2017-06-26 10:07 | PN ---
Date/Time of Note Date/Time of Note DATE: 06/26/17 TIME: 09:58 Assessment/Plan Lines/Catheters IV Catheter Type (from [facility]): PICC Line Cabral in Place (from [facility]): No Assessment/Plan Chief Complaint/Hosp Course 1. Right clavicular wound: s/p debridement R clavicle 06/15/17, with wound VAC -continue local care with wound vac -Vitamin C -Nutrition optimization -Debridement prn 2. The right groin wound: s/p debridement 06/16/17; healing well, -As above 3. Aortic stenosis, CHF, pleural effusion, ascites: -Cardiac optimization -thoracentesis PRN per pulm -Judicious fluid management -fluid management 4. Leukocytosis: UTI, wounds, possible pneumonia: Resolved. -IV antibiotics and antifungals -Local care -Pulmonary toilet 5. BMI 31 -Diet and nutrition optimization -Eventual exercise 6. Anemia without active bleeding: s/p transfusion -Monitor and transfuse prn 7. Renal insufficiency: improved -Judicious fluid management -Avoid nephrotoxic agents as possible 8. Pleural effusion s/p thora; improved; no sob, breathing comfortably on nc -monitor -per pulm -thoracentesis prn 10. Hyponatremia: -judicious fluids 11.Aortic stenosis: pending TAVR at [facility]; asymptomatic Patient seen and examined in collaboration with Dr.Samuel Schaefer. Thank you. Problems: Subjective 24 Hr Interval Summary Feels well. Right groin wound much improved. Continues on wound vac to right clavicle. No fevers, chills, sob, congested cough, n/v/d/dysuria, cp, palpitations, change in tele rhythm, arrhythmias overnight. Exam/Review of Systems Vital Signs Vitals Vital Signs Date Time Temp Pulse Resp B/P Pulse Ox O2 Delivery O2 Flow Rate FiO2 06/26/17 08:17 96 06/26/17 07:31 97.9 19 106/73 99 06/26/17 03:03 2.0 06/25/17 20:00 Nasal Cannula Intake and Output 06/25/17 06/25/17 06/26/17 14:59 22:59 06:59 Intake Total 950 ml Balance 950 ml Exam Free Text/Dictation Constitutional: alert (awake), obese Psych: min anxious Head: atraumatic, normocephalic Eyes: EOMI, PERRL, nl conjunctiva, No icteric ENMT: mucosa pink and moist, nl external ears & nose Neck: non-tender, other (right neck wound with vac), supple Respiratory: diminished breath sounds, comfortable on NC; No congested cough, No labored breathing, No wheezing Cardiovascular: min edema, regular rate and rhythm: sr/st currently, no arrhythmias Gastrointestinal: soft, rotund. No distended, No rebound or guarding, No tender Musculoskeletal: muscle weakness, No joint tenderness, No nl gait and stance Extremities: edema, No calf tenderness Neurological: nl speech, No nl strength Skin: rash or lesions, (right groin wound almost healed, small open areas without drainage; right clavicle with wound vac). No diaphoresis, No nl turgor Lymph: nl lymph nodes Results Result Diagram: 06/26/17 0608 06/26/17 0608 GERA GILL NP Jun 26, 2017 10:07
--- NOTE | 2017-06-26 14:11 | PN ---
DATE: 06/26/2017 SUBJECTIVE DATA: The patient is stable. No events overnight. No fevers, chills, nausea, or vomiting. Patient is lethargic this morning, but arousable. OBJECTIVE DATA: VITAL SIGNS: Blood pressure is 106/73, respirations 19, pulse 97, and temperature 97.9. HEENT: Head is normocephalic. Pupils are reactive to light. NECK: Supple. HEART: Regular rate. LUNGS: Diminished breath sounds at the base. ABDOMEN: Soft, nontender to palpation. No rebound or guarding. EXTREMITIES: Negative for clubbing or cyanosis. No edema. DERMATOLOGIC: Clean. No rashes. MUSCULOSKELETAL: Positive wound noted in the right groin and right neck. Positive wound VAC noted on the right neck. NEUROLOGIC: No change in exam. MUSCULOSKELETAL: No joint effusion. MEDICATIONS: Reviewed. LABORATORY AND DIAGNOSTIC DATA: Shows white count 8.6, hemoglobin 8.7, hematocrit 27.3, and platelet count is 210. Sodium 132, BUN 24, and creatinine 1.0. ASSESSMENT AND PLAN: 1. Acute hypoxemic respiratory failure secondary to congestive heart failure. The patient is currently stable. Continue medical management. Continue intermittent diuretic therapy. 2. Nonoliguric acute kidney injury on top of chronic kidney disease, etiology secondary to hemodynamics. Renal function has improved. 3. Hyperkalemia, resolved. 4. Mild hyponatremia. Continue to monitor. Limit free water intake. 5. Alkalosis, likely compensatory. Continue to monitor. 6. Pleural effusion status post thoracentesis. 7. Anemia. The patient is status post blood transfusion. Continue to monitor hemoglobin and hematocrit levels. No obvious evidence of bleeding. 8. Chronic encephalopathy, improving. 9. Aortic stenosis, severe. Continue medical management. Follow up with Cardiology. The patient is pending transcatheter aortic valve replacement (TVAR) at [facility] once clinically stable. 10. Right neck and right groin wound. The patient is status post debridement, currently with wound VAC. The patient has completed antibiotic course. 11. Gastrointestinal (GI) and deep venous thrombosis (DVT) prophylaxis. 12. Status post fungal urinary tract infection (UTI). 13. Hypothyroidism. Continue Synthroid. DISPOSITION: Indication disposition pending. The patient is pending possible transfer to rehab. clinical nurse manager discussed with the patient's daughter. Dictated By: Jesus Manuel Sheikh DO /[email or web address] /Document#: [id number]
--- NOTE | 2017-06-26 18:52 | CONS ---
Date/Time of Note Date/Time of Note DATE: 06/26/17 TIME: 18:51 Consult Date/Type/Reason Admit Date/Time Jun 10, 2017 at 12:47 Initial Consult Date 06/13/17 Type of Consultation: cardiology Ordering Provider: ALYSSA RESTREPO DO Subjective CARDIOLOGY FOLLOW UP NOTE: Discussed with the staff and rhythm was reviewed. Patient remained sinus rhythm. no afib. She denies any chest pain or pressure to me. She denies any shortness of breath to me now. no PND orthopnea objective: General: thin female. no acute distress HEENT: NC/AT. pupils are equal. round. NECK: NO JVD. no stridor. CV: RRR. systolic ejection murmur IV/. no gallop or rubs. PULM: . no wheezing GI: SOFT, NT, ND, no rebound or guarding Extremity: trace B/L LE edema. no clubbing. neuro: awake and alert, OX3. Psych: calm and pleasant rectal: deferred : normal. echo reviewed: 1. Hyperdynamic left ventricular systolic function. Normal left ventricular cavity size. Moderate concentric left ventricular hypertrophy. Ejection fraction is visually estimated at 70 %. 2. There is mild enlargement of left atrium. 3. Mitral valve leaflets appear mildly thickened. Mild mitral annular calcification. Moderate mitral valve regurgitation. 4. Severe aortic stenosis. Aortic valve Max velocity 4.65 m/sec. Max PG 86.00 mmHg. Mean PG 51.00 mmHg. Aortic valve area 0.26 cm2. No aortic regurgitation. 5. Normal appearance of the tricuspid valve. Estimated peak PA systolic pressure 40 mmHg. There is mild tricuspid regurgitation. 6. Normal size and normal respiratory collapse consistent with normal right atrial pressure. Objective Vital Signs Date Time Temp Pulse Resp B/P Pulse Ox O2 Delivery O2 Flow Rate FiO2 06/26/17 17:56 2.0 06/26/17 16:28 94 06/26/17 15:28 97.6 20 93/68 99 06/26/17 13:45 Nasal Cannula Intake and Output 06/25/17 06/25/17 06/26/17 15:00 23:00 07:00 Intake Total 950 ml Balance 950 ml Results/Medications Result Diagram: 06/26/17 0608 06/26/17 0608 Results 24 hrs Laboratory Tests Test 06/26/17 06:08 White Blood Count 8.6 Red Blood Count 2.83 L Hemoglobin 8.7 L Hematocrit 27.3 L Mean Corpuscular Volume 96.5 Mean Corpuscular Hemoglobin 30.7 Mean Corpuscular Hemoglobin Concent 31.9 L Red Cell Distribution Width 15.9 H Platelet Count 210 # Mean Platelet Volume 12.4 H Neutrophils % 55.0 Lymphocytes % 27.5 Monocytes % 12.5 H Eosinophils % 3.4 Basophils % 1.0 Nucleated Red Blood Cells % 0.0 Neutrophils # 4.7 Lymphocytes # 2.4 Monocytes # 1.1 H Eosinophils # 0.3 Basophils # 0.1 Nucleated Red Blood Cells # 0.0 Sodium Level 132 L Potassium Level 4.4 Chloride Level 92 L Carbon Dioxide Level 33 H Anion Gap 11 Blood Urea Nitrogen 24 H Creatinine 1.00 Glucose Level 103 Calcium Level 9.0 Magnesium Level 1.8 Total Bilirubin 0.2 Direct Bilirubin 0.00 Indirect Bilirubin 0.2 Aspartate Amino Transf (AST/SGOT) 26 Alanine Aminotransferase (ALT/SGPT) 31 Alkaline Phosphatase 72 B-Type Natriuretic Peptide 2400 H Total Protein 6.7 Albumin 3.3 Globulin 3.40 H Albumin/Globulin Ratio 0.97 Medications Current Medications Acetaminophen (Tylenol Tab) 500 mg Q6H PRN PO PAIN AND OR ELEVATED TEMP Last administered on 06/24/17 02:23; Admin Dose 500 MG; Start 06/10/17 at 22:30 Lorazepam (Ativan) 0.5 mg Q6H PRN IV ANXIETY Last administered on 06/13/17 00: 23; Admin Dose 0.5 MG; Start 06/11/17 at 10:30 Bisacodyl (Dulcolax Supp) 10 mg Q12 PRN [place] CONSTIPATION; Start 06/13/17 at 09:30 Citalopram Hydrobromide (Celexa) 20 mg DAILY PO Last administered on 06/26/17 09:01; Admin Dose 20 MG; Start 06/14/17 at 09:00 Docusate Sodium (Colace) 100 mg BID PO Last administered on 06/26/17 09:01; Admin Dose 100 MG; Start 06/13/17 at 21:00 Acetaminophen/ Hydrocodone Bitart (Egan (5/325)) 1 tab Q4 PRN PO MODERATE PAIN LEVEL 4-6 Last administered on 06/23/17 15:31; Admin Dose 1 TAB; Start 06/13/17 at 09:30 Multivitamins Therapeutic (Theragran) 1 tab DAILY PO Last administered on 09:08; Admin Dose 1 TAB; Start 06/14/17 at 09:00 Sodium Biphosphate/ Sodium Phosphate (Fleet Enema) 135 ml DAILY PRN [place] CONSTIPATION; Start 06/13/17 at 09:30 Polyethylene Glycol (Miralax) 17 gm DAILY PRN PO CONSTIPATION; Start 06/13/17 at 09:30 Senna (Senokot) 2 tab DAILY PRN PO CONSTIPATION; Start 06/13/17 at 09:30 Enoxaparin Sodium (Lovenox) 40 mg DAILY SC Last administered on 06/26/17 09:04 ; Admin Dose 40 MG; Start 06/16/17 at 09:00 Nystatin (Nystatin Powder) 1 applic BID TOP Last administered on 06/26/17 09: 27; Admin Dose 1 APPLIC; Start 06/16/17 at 15:00 Collagenase (Santyl) 1 applic DAILY TOP Last administered on 06/26/17 09:27; Admin Dose 1 APPLIC; Start 06/21/17 at 12:30 Furosemide (Lasix) 40 mg Q48H PO Last administered on 06/26/17 09:02; Admin Dose 40 MG; Start 06/22/17 at 09:00 Assessment/Plan Chief Complaint/Hosp Course 1. CHF 2. critical 3. HTN 4. ANEMIA: s/p transfusion 5. CKD 6. pleural effusion 7. hx of right groin infection/hematoma after yanci angio done by Dr Menjivar. 8. hyperK: corrected now off of ASA since pt has no hx of CAD per her garment cutter report. transfusion prn and ,monitor H/H off of coreg to avoid hypotension. tele monitoring . abx as per ID rec replace lytes prn will cont low dose lasix 40 qod pt has been evaluated by [facility] for TAVR, BUT is awaiting ID clearance due to infected vascular post cardiac cath. out pt follow up with her garment cutter Dr Gonzalo Menjivar. thank you. KRISTINE BORGES MD [facility] Problems: KRISTINE BORGES MD Jun 26, 2017 18:52
== END 2017-06-26 22:45 | DRG 853 ==
LOC: E/R 04:58 → ICU 12:47 → TEL 06-13 21:32
PROVIDERS: ADMIT Internal Medicine Nephrology; ATTEND Internal Medicine Nephrology
PROC: 5A09357 Assistance with Respiratory Ventilation, Less than 24 Consecutive Hours, Continuous Positive Airway Pressure (ICD-10-PCS; principal; 2017-06-10)
PROC: 0W9B3ZX Drainage of Left Pleural Cavity, Percutaneous Approach, Diagnostic (ICD-10-PCS; 2017-06-13)
PROC: 0KBH0ZZ Excision of Right Thorax Muscle, Open Approach (ICD-10-PCS; 2017-06-15)
PROC: 0KBQ0ZZ Excision of Right Upper Leg Muscle, Open Approach (ICD-10-PCS; 2017-06-16)
PROC: 30233N1 Transfusion of Nonautologous Red Blood Cells into Peripheral Vein, Percutaneous Approach (ICD-10-PCS; 2017-06-22)
DX: A41.9 Sepsis, unspecified organism (principal); J18.9 Pneumonia, unspecified organism; J96.01 Acute respiratory failure with hypoxia; I50.33 Acute on chronic diastolic (congestive) heart failure; J90 Pleural effusion, not elsewhere classified; N17.9 Acute kidney failure, unspecified; G92 Toxic encephalopathy; I11.0 Hypertensive heart disease with heart failure; I13.0 Hypertensive heart and chronic kidney disease with heart failure and stage 1 through stage 4 chronic kidney disease, or unspecified chronic kidney disease; E87.5 Hyperkalemia; E87.1 Hypo-osmolality and hyponatremia; I97.630 Postprocedural hematoma of a circulatory system organ or structure following a cardiac catheterization; B37.49 Other urogenital candidiasis; I35.0 Nonrheumatic aortic (valve) stenosis; D64.9 Anemia, unspecified; Y95 Nosocomial condition; S41.001A Unspecified open wound of right shoulder, initial encounter; L08.9 Local infection of the skin and subcutaneous tissue, unspecified; X58.XXXA Exposure to other specified factors, initial encounter; Y93.89 Activity, other specified; E03.9 Hypothyroidism, unspecified; E83.42 Hypomagnesemia; N18.9 Chronic kidney disease, unspecified; E87.6 Hypokalemia; Y83.8 Other surgical procedures as the cause of abnormal reaction of the patient, or of later complication, without mention of misadventure at the time of the procedure; Y92.019 Unspecified place in single-family (private) house as the place of occurrence of the external cause; D47.3 Essential (hemorrhagic) thrombocythemia
CPT/HCPCS: 32555; 36415; 36430; 36600; 71010; 71275; 76604; 80048; 80053; 80202; 81001; 82270; 82550; 82553; 82728; 82803; 82945; 83540; 83605; 83615; 83735; 83880; 84100; 84157; 84484; 85014; 85018; 85025; 85610; 85730; 86850; 86900; 86901; 86920; 87040; 87070; 87081; 87086; 87102; 87116; 88104; 88305; 89051; 93005; 93306; 94660; 96374; 96375; 97110; 97162; 97530; J1120; J0692; J1650; J1940; J1956; J2060; J2916; J2997; J3370; J3475; J7030; J7040; J7042; P9016; Q9967